=== PATIENT | male | born 1955 | race Caucasian/White ===

== ENCOUNTER → 2020-03-24 09:19 | Outpatient (BNVA) | payer MEDICARE, MEDICAID, SELFPAY | PROVIDERS: PCP Internal Medicine; Visit Provider Internal Medicine Gastroenterology | DX: Z13.89 Encounter for screening for other disorder (principal) | CPT/HCPCS: Q3014 ==

== ENCOUNTER → 2020-06-23 08:17 | Outpatient (BNVA) | payer MEDICARE, MEDICAID, SELFPAY | PROVIDERS: PCP Internal Medicine; Visit Provider Internal Medicine Gastroenterology | DX: E11.9 Type 2 diabetes mellitus without complications (principal); K74.60 Unspecified cirrhosis of liver; K21.9 Gastro-esophageal reflux disease without esophagitis; B19.20 Unspecified viral hepatitis C without hepatic coma; Z79.01 Long term (current) use of anticoagulants | CPT/HCPCS: Q3014 ==

== ENCOUNTER 2020-07-05 08:29 | Outpatient (REF) | payer MEDICARE, MEDICAID, SELFPAY ==
--- NOTE | ~2020-07-05 | US_ITS ---
EXAMINATION: US ABDOMEN COMPLETE CLINICAL INFORMATION: Cirrhosis. Screening for hepatocellular carcinoma. COMPARISON: Multiple priors, most recent abdominal ultrasound dated 09/29/2019 TECHNIQUE: Real-time imaging of the abdominal viscera. FINDINGS: PANCREAS: The visualized pancreatic head and body are unremarkable. The tail is obscured by overlying bowel gas. ABDOMINAL AORTA: The proximal, mid, and distal segments are normal in caliber. INFERIOR VENA CAVA: Visualized portions are normal. LIVER: Nodular hepatic contour with coarse echogenicity, consistent with cirrhosis. The liver is normal in size. Hepatopedal flow within the main portal vein. No focal hepatic lesion. There is no intrahepatic biliary duct dilatation seen. GALLBLADDER: Partially contracted with mild wall prominence, likely due to underdistention. Nonmobile gallbladder wall polyp versus stone measuring up to 0.2 cm, not seen on the prior examination. No pericholecystic free fluid to suggest acute cholecystitis. COMMON BILE DUCT: Normal in caliber measuring 0.5 cm in diameter. RIGHT KIDNEY: Lower pole simple cyst measuring up to 1.2 cm, unchanged. No hydronephrosis. No renal calculi or focal parenchymal lesions. The kidney measures 10.3 cm in maximum dimension. LEFT KIDNEY: Mild lobular contour at the midpole. No hydronephrosis. No renal calculi or focal parenchymal lesions. The kidney measures 10.3 cm in maximum dimension. SPLEEN: Normal. The spleen measures 12.4 cm in maximum dimension. FREE FLUID: None. US/US abdomen complete IMPRESSION: 1. Nodular hepatic contour with coarsened echogenicity, consistent with cirrhosis. No new hepatic parenchymal lesion or biliary ductal dilatation. 2. Nonmobile gallbladder stone versus polyp measuring 0.2 cm, not seen on the prior examination. No pericholecystic free fluid to suggest acute cholecystitis. 3. Additional chronic findings are unchanged.
== END 2020-07-05 08:30 | disposition home or self-care (01) ==
LOC: HO.US 08:29
PROVIDERS: PCP Nurse Practitioner Primary Care; Visit Provider Internal Medicine Gastroenterology
DX: K74.60 Unspecified cirrhosis of liver (principal)
CPT/HCPCS: 76700

== ENCOUNTER → 2020-07-14 12:44 | Outpatient (BNVA) | payer MEDICARE, MEDICAID, SELFPAY | PROVIDERS: PCP Nurse Practitioner Primary Care; Visit Provider Internal Medicine Gastroenterology | DX: Z13.89 Encounter for screening for other disorder (principal) | CPT/HCPCS: Q3014 ==

== ENCOUNTER → 2020-11-17 11:33 | Outpatient (BNVA) | payer MEDICARE, MEDICAID, SELFPAY | PROVIDERS: PCP Nurse Practitioner Primary Care; Visit Provider Internal Medicine Gastroenterology | CPT/HCPCS: Q3014 ==

== ENCOUNTER 2020-12-27 08:25 | Outpatient (REF) | payer MEDICARE, MEDICAID, SELFPAY ==
--- NOTE | ~2020-12-27 | US_ITS ---
EXAMINATION: US ABDOMEN LIMITED CLINICAL INFORMATION: Cirrhosis. Screen for HCC. Followup gallbladder polyp. COMPARISON: Ultrasound abdomen complete 07/05/2020 and 01/01/2019. CT abdomen and pelvis 07/24/2018. TECHNIQUE: Real-time imaging of the right upper quadrant abdominal viscera. FINDINGS: PANCREAS: The liver is homogeneous in echotexture and normal size. Pancreatic duct in the body of the pancreas is 0.2 cm within normal limits. LIVER: There is a lobulated echogenic liver. There are 2 masses seen. A left hepatic lobe lesion measures 2.4 x 2.2 x 2.2 cm. It is solid peripherally and cystic centrally, heterogenous with internal vascularity. A second lesion in the right hepatic lobe measures 5.2 x 3.2 x 5.5 cm. It is solid heterogeneous with internal vascularity. There is no intrahepatic ductal dilatation. GALLBLADDER: There are nonmobile echogenic gallbladder wall polyps. The gallbladder wall is thickened measuring 0.8 cm with echogenic fluid in the wall. No echogenic stones or pericholecystic fluid collection seen. COMMON BILE DUCT: Normal in caliber measuring 0.4 cm in diameter. RIGHT KIDNEY: There is anechoic lesion lower pole with septation measuring 0.2 x 0.8 x 0.7 cm consistent with complex cyst/Bosniak type II. No hydronephrosis or renal calculi. The kidney measures 10.8 cm in maximum dimension. FREE FLUID: None. US/US abdomen limited IMPRESSION: Two hepatic lobe lesions. The right hepatic lobe lesion appears solid. The left hepatic lobe lesion has central cystic changes. Both lesions are heterogeneous and have internal vascularity. They are suspicious for primary or metastatic disease. Correlation with CT liver with and without contrast and delayed images are recommended. Gallbladder wall polyps and mild fluid visualized in the gallbladder wall. Complex cyst lower pole right kidney.
== END 2020-12-27 08:26 | disposition home or self-care (01) ==
LOC: HO.US 08:25
PROVIDERS: Visit Provider Internal Medicine Gastroenterology
DX: K74.60 Unspecified cirrhosis of liver (principal)
CPT/HCPCS: 76705

== ENCOUNTER 2021-01-06 08:28 | Outpatient (REF) | payer MEDICARE, MEDICAID, SELFPAY ==
--- NOTE | ~2021-01-06 | CT_ITS ---
EXAMINATION: CT LIVER THREE-PHASE CLINICAL INFORMATION: Cirrhosis of liver. COMPARISON: CT abdomen and pelvis 07/24/2018 and ultrasound abdomen 12/27/2020. TECHNIQUE: 5 mm thin axial images without contrast of abdomen and pelvis were obtained. Subsequently 85 mL Omnipaque 350 was injected and images through the abdomen through the arterial and venous phase. DLP: 722 mGy-cm FINDINGS: The lung bases are clear. The heart size is normal. There are pacer electrodes visualized. On non-enhanced exam, there is significant lobulated liver contour and diffuse heterogeneity but no focal lesion seen. Postcontrast, there is a partially enhancing round lesion right hepatic lobe measuring 2.6 x 2.6 cm on axial image 59/9. There is a very faintly enhancing lesion seen in the left hepatic lobe measuring 2.3 x 1.9 cm on axial image 29/9. Also visualized are heterogeneous areas of enhancement in the left hepatic lobe, axial image 28/9 and a small 7 mm nodular enhancement, left hepatic lobe adjacent to the diaphragm, axial image 19/9. None of these lesions are appreciated on the venous phase or delayed images. The liver is normal size. The portal vein is widely patent. The hepatic artery and hepatic veins are barely visible and likely small. There is mild ascites with fluid surrounding contracted gallbladder. No radiopaque gallstones visualized. Visualized bilateral adrenal glands and the kidneys are unremarkable. There are small prominent varicose veins at the celiac axis and along the left hepatic lobe. Scattered stool and gas is seen in the colon without any distention. The small bowel loops are normal caliber. Appendix not seen. The abdominal aorta is normal caliber. The IVC is patent. The abdominal wall appears unremarkable. CT/CT liver 3 phase IMPRESSION: 1. Cirrhosis with mild ascites. 2. Enhancing right hepatic lobe measuring 2.6 cm along the free margin. There is a second 2.3 cm lesion along the left hepatic lobe adjacent to the diaphragm. There are several areas of vascular enhancement or stasis visualized on the arterial phase but no focal or discrete mass visualized. These may represent regenerating nodules. They likely represent hepatic adenoma or carcinoma. Correlation with serum alpha fetoprotein is recommended. 3. Contracted gallbladder with fluid surrounding the gallbladder and the right hepatic lobe. 4. The portal vein and the hepatic veins appear patent.
[2021-01-06 08:50] LABS: MANUAL DIFF FLAG NO
[2021-01-06 08:52] LABS: Basophils Percent Auto 0.5 % (0-2); Eosinophils Absolute Auto 0.3 X10*3/uL (0.0-0.4); Eosinophils Percent Auto 4.7 % (0-4); Hematocrit 30.8 % (42-52); Hemoglobin 9.8 g/dl (14.0-18.0); Imm Gran Abs Auto 0.01 X10*3/uL (0.00-0.03); Imm Gran Pct Auto 0.2 % (0.0-0.4); Lymphocytes Absolute Auto 1.4 X10*3/uL (1.2-4.9); Lymphocytes Percent Auto 26.2 % (20-40); Mean Corpuscular HGB Conc 31.8 g/dl (31.0-36.0); Mean Corpuscular Hemoglobin 26.3 pg (27.0-33.0); Mean Corpuscular Volume 82.8 fL (80-98); Mean Platelet Volume 9.9 fL (9.4-12.4); Monocytes Absolute Auto 0.6 X10*3/uL (0.1-1.2); Monocytes Percent Auto 11.1 % (2-11); Neutrophils Absolute Auto 3.1 X10*3/uL (2.0-8.3); Neutrophils Percent Auto 57.3 % (45-73); Platelet Count 141 X10*3/uL (160-400); Red Blood Count 3.72 X10*6/uL (4.60-5.80); Red Cell Distribution Width 17.5 % (11.0-16.0); White Blood Count 5.5 X10*3/uL (4.8-10.8)
[2021-01-06 08:58] LABS: INTERNATIONAL NORM RATIO 1.6 (0.9-1.1); Prothrombin Time 18.9 SEC (9.9-13.0)
[2021-01-06 09:08] LABS: Blood Urea Nitrogen 11 mg/dL (9-16); Estimated Glomerular Filt Rate > 60
[2021-01-06 09:30] LABS: Vitamin D 25-OH Total 27.1 ng/mL (>30)
[2021-01-06 09:41] LABS: Vitamin B12 > 2000 pg/mL (200-900)
[2021-01-06] MEDS: iohexoL 350 MG/ML 100 ML INFUS..BTL IV (11:48)
== END 2021-01-06 08:29 | disposition home or self-care (01) ==
LOC: HO.CT 08:28
PROVIDERS: Visit Provider Internal Medicine Gastroenterology
DX: K74.60 Unspecified cirrhosis of liver (principal); K21.9 Gastro-esophageal reflux disease without esophagitis; R93.5 Abnormal findings on diagnostic imaging of other abdominal regions, including retroperitoneum
CPT/HCPCS: 36415; 74170; 82105; 82306; 82565; 82607; 84520; 85025; 85610; Q9967

== ENCOUNTER 2021-01-09 11:25 | Outpatient (REF) | payer MEDICARE, MEDICAID, SELFPAY ==
[2021-01-09 11:46] LABS: MANUAL DIFF FLAG NO
[2021-01-09 12:56] LABS: Basophils Percent Auto 0.5 % (0-2); Eosinophils Absolute Auto 0.3 X10*3/uL (0.0-0.4); Eosinophils Percent Auto 4.7 % (0-4); Hematocrit 30.2 % (42-52); Hemoglobin 9.6 g/dl (14.0-18.0); Imm Gran Abs Auto 0.02 X10*3/uL (0.00-0.03); Imm Gran Pct Auto 0.3 % (0.0-0.4); Lymphocytes Absolute Auto 1.6 X10*3/uL (1.2-4.9); Lymphocytes Percent Auto 25.4 % (20-40); Mean Corpuscular HGB Conc 31.8 g/dl (31.0-36.0); Mean Corpuscular Hemoglobin 26.2 pg (27.0-33.0); Mean Corpuscular Volume 82.5 fL (80-98); Mean Platelet Volume 11.2 fL (9.4-12.4); Monocytes Absolute Auto 0.7 X10*3/uL (0.1-1.2); Monocytes Percent Auto 11.5 % (2-11); Neutrophils Absolute Auto 3.5 X10*3/uL (2.0-8.3); Neutrophils Percent Auto 57.6 % (45-73); Platelet Count 155 X10*3/uL (160-400); Red Blood Count 3.66 X10*6/uL (4.60-5.80); Red Cell Distribution Width 17.2 % (11.0-16.0); White Blood Count 6.2 X10*3/uL (4.8-10.8)
[2021-01-09 13:27] LABS: Alanine Aminotransferase 36 U/L (0-40); Albumin Level 3.4 g/dL (3.5-5.0); Alkaline Phosphatase 311 U/L (39-117); Anion Gap 11 (12-20); Aspartate Amino Transferase 44 U/L (5-37); Blood Urea Nitrogen 12 mg/dL (9-16); Calcium 8.9 mg/dL (8.4-10.2); Carbon Dioxide 24 mmol/L (22-29); Chloride 109 mmol/L (96-108); Estimated Glomerular Filt Rate > 60; Glucose Random 79 mg/dL (60-115); Iron 32 mcg/dL (45-160); Percent Iron Saturation 8 % (15-50); Potassium 3.7 mmol/L (3.3-5.1); Sodium 140 mmol/L (135-145); Total Iron Binding Capacity 380 mcg/dL (228-428); Total Protein 7.7 g/dL (6.5-8.0); Unsaturated Iron Binding 348 ug/dL
[2021-01-09 13:36] LABS: Ferritin 17 ng/mL (20-250)
== END 2021-01-09 11:26 | disposition home or self-care (01) ==
LOC: HO.LAB 11:25
PROVIDERS: Visit Provider Internal Medicine Gastroenterology
DX: K74.60 Unspecified cirrhosis of liver (principal); D64.9 Anemia, unspecified
CPT/HCPCS: 36415; 80053; 82728; 83540; 85025

== ENCOUNTER → 2021-02-16 10:22 | Outpatient (BNVA) | payer MEDICARE, MEDICAID, SELFPAY | PROVIDERS: Referring Provider Nurse Practitioner Primary Care; Visit Provider Internal Medicine Gastroenterology | DX: K21.9 Gastro-esophageal reflux disease without esophagitis (principal); K74.60 Unspecified cirrhosis of liver; R93.2 Abnormal findings on diagnostic imaging of liver and biliary tract; B19.20 Unspecified viral hepatitis C without hepatic coma; Z79.01 Long term (current) use of anticoagulants | CPT/HCPCS: 99212 ==

== ENCOUNTER 2021-02-20 11:37 | Outpatient (REF) | payer MEDICARE, MEDICAID, SELFPAY ==
[2021-02-20 12:03] LABS: MANUAL DIFF FLAG NO
[2021-02-20 12:50] LABS: Basophils Percent Auto 0.5 % (0-2); Eosinophils Absolute Auto 0.1 X10*3/uL (0.0-0.4); Eosinophils Percent Auto 1.6 % (0-4); Hematocrit 30.5 % (42.0-52.0); Hemoglobin 9.5 g/dl (14.0-18.0); Imm Gran Abs Auto 0.03 X10*3/uL (0.00-0.03); Imm Gran Pct Auto 0.5 % (0.0-0.4); Lymphocytes Absolute Auto 1.3 X10*3/uL (1.2-4.9); Lymphocytes Percent Auto 19.9 % (20-40); Mean Corpuscular HGB Conc 31.1 g/dl (31.0-36.0); Mean Corpuscular Hemoglobin 25.3 pg (27.0-33.0); Mean Corpuscular Volume 81.1 fL (80.0-98.0); Mean Platelet Volume 10.5 fL (9.4-12.4); Monocytes Absolute Auto 0.6 X10*3/uL (0.1-1.2); Monocytes Percent Auto 9.1 % (2-11); Neutrophils Absolute Auto 4.3 x10*3/uL (2.0-8.3); Neutrophils Percent Auto 68.4 % (45-73); Platelet Count 152 X10*3/uL (160-400); Red Blood Count 3.76 X10*6/uL (4.60-5.80); Red Cell Distribution Width 19.4 % (11.0-16.0); White Blood Count 6.3 X10*3/uL (4.8-10.8)
[2021-02-20 13:15] LABS: Anion Gap 13 (12-20); Blood Urea Nitrogen 11 mg/dL (9-16); Calcium 8.8 mg/dL (8.4-10.2); Carbon Dioxide 23 mmol/L (22-29); Chloride 107 mmol/L (96-108); Estimated Glomerular Filt Rate > 60; Glucose Random 107 mg/dL (60-115); Potassium 3.7 mmol/L (3.3-5.1); Sodium 139 mmol/L (135-145)
[2021-02-23 11:51] LABS: Alpha Fetoprotein 40.7 ng/mL (<6.1)
== END 2021-02-20 11:38 | disposition home or self-care (01) ==
LOC: HO.LAB 11:37
PROVIDERS: Visit Provider Internal Medicine Gastroenterology
DX: K74.60 Unspecified cirrhosis of liver (principal)
CPT/HCPCS: 36415; 80048; 82105; 85025

== ENCOUNTER 2021-03-07 09:47 | Outpatient (RCR) | payer MEDICARE, MEDICAID, SELFPAY ==
[2021-03-07 09:54] VITALS: BP 140/63; PULSE 94; RESP 16; TEMP 36.7; O2SAT 98; BMI 26.9
--- NOTE | 2021-03-07 10:19 | P.CNHO_ITS ---
Subjective - Subjective Chief complaint: Consult for: Liver mass. Patient: new to practice Consult date: 03/07/21 Requesting Physician: Armen. Medical Summary: DIAGNOSIS: LIVER MASS. HPI - Consult Narrative Reason for consult: consult for: Liver mass. Narrative: Ashok Motta is a pleasant 65 year old gentleman, HERE FOR CONSULTATION REGARDING QUESTION OF HCC. 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 Meld score is 8. Hepatitis serologies revealed immunity to hepatitis B and negative hepatitis A antibody (Ig G) Patient was treated for hepatitis C in 2017 with Epclusa and follow-up viral load was negative. No ascites noted on past abdominal ultrasound. Mildly prominent splenic and gastric veins seen on CT scan in July 2018. EGD in 2018 did not reveal any esophageal varices. 12/[address] SCAN showed two lesions in the liver suspicious for HCC. MRI cannot be done since pt has a pacemaker. Pt will be scheduled for an abdominal ultrasound for HCC surveillance and scheduled for follow-up appointment 1-2 weeks after abdominal ultrasound. PAST MEDICAL HISTORY: 1. Essential hypertension, 2. Type 2 diabetes mellitus without complication, without long-term current use of insulin, 3. Chronic hepatitis, 4. Asthma, 5. Hypercholesteremia, 6. Paroxysmal atrial fibrillation, 7. Pacemaker. HCC SURVEILLANCE: the patient is at risk of developing hepatocellular carcinoma given the presence of cirrhosis. Pt was referred to [facility] for a 2nd opinion and appointment was scheduled on 01/25/21. Pt was unable to go since his ride was cancelled at the last minute. Pt prefers to be treated locally and is willing to go to [facility] for a one or two appointments and would like to avoid regular FUs there. He is inclined to take a conservative approach if presence of HCC is confirmed I will check repeat AFP and refer to [facility] Oncology clinic for a 2nd opinion. SURVEILLANCE FOR GASTROESOPHAGEAL VARICES: EGD in 11/2017 did not reveal any varices. QUESTION OF LIVER TRANSPLANTATION: Pt has good hepatic synthetic function with meld score of 13, option for liver transplantation was discussed with the patie nt (Given suspected HCC) and patient is not interested in pursuing a liver transplant. ROS: He does feel rather fatigued. No fever nor chills. Appetite is low. Weight is stable. Denies headache no dizziness. Denies chest pain. He has history of asthma and so gets short of breath. He is unable to walk more than 5 minutes. He complains of epigastric pain and dyspepsia. The pain radiates into the left flank. In addition he has right groin pain. He feels the swelling there. Likely to be a hernia. He has a paraumbilical hernia as well. Denies diarrhea no gross blood in the stools. Denies dysuria or hematuria. He has joint pains involving his elbows and knees. Denies any focal weakness. He does have depression. Denies skin rashes or pruritus. FAMILY HISTORY: He has heart problems in the family. No known malignancy. 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 He is . He has 1 child. He is now smoking 4-6 cigarettes a day. Denies alcohol. He used to use IV drugs. He now smokes marijuana. Review of Systems - Constitutional Reports no additional constitutional complaints, Reports fatigue, Reports lack of energy, Reports poor appetite, Reports weight loss - Eyes Reports no additional eye complaints - ENT Reports no additional ear, nose, mouth, and throat complaints - Cardiovascular Reports no additional cardiovascular complaints - Respiratory Reports no additional respiratory complaints - Gastrointestinal Reports no additional gastrointestinal complaints, Reports abdominal pain, Reports bloating, Reports change in bowel habits, Reports feeling full early, Reports dyspepsia, Reports heartburn - Genitourinary Genitourinary: Reports no additional male genitourinary complaints - Musculoskeletal Reports no additional musculoskeletal complaints - Integumentary/Breasts Skin/Breast: Reports no additional skin complaints - Neurologic Reports no additional neurologic complaints - Psychiatric Reports no additional psychiatric complaints - Endocrine Reports no additional endocrine complaints - Hematologic/Lymphatic Reports no additional hematologic/lymphatic complaints - Allergic/Immunologic Reports no additional allergic/immunologic complaints Oncology Screenings - ECOG Performance Status ECOG Performance Status: 0 [facility] Medical History: Medical History (Last Reviewed 03/07/21 @ 09:57 by Megan Rodriguez) Hx of cardiac pacemaker Functional capacity: independent ambulation Patient : No Family History: Family History (Last Reviewed 03/07/21 @ 09:58 by Megan Rodriguez) Father No problems noted. Mother No problems noted. Sister Hx of skin cancer, basal cell Surgical History: Surgical History (Last Reviewed 03/07/21 @ 09:58 by Megan Rodriguez) H/O colonoscopy Hx of esophagogastroduodenoscopy Onset Date: 11/29/17 Social History: Social History (Last Updated 03/07/21 @ 09:58 by Megna Rodriguez) Living Situation History: Household Members: Spouse Alcohol History: Alcohol intake: former Alcohol History Details: Alcohol intake frequency: does not drink Tobacco History: Patient Tobacco Use Status: Current everyday Tobacco Tobacco use type: Cigarette Substance Use History: Use of substances other than those prescribed or required for medical reasons : Yes Substance Use Type: Marijuana Nutrition Assessment: Patient : No Occupation Assessmet: service: No Current occupational status: disabled Home Medications and Allergies Home Medications Medication Instructions Recorded Confirmed Type amlodipine 10 mg tablet 10 mg PO DAILY 03/24/20 03/07/21 History apixaban 5 mg tablet 5 mg PO BID 03/24/20 03/07/21 History atorvastatin 10 mg tablet 10 mg PO DAILY 03/24/20 03/07/21 History cholecalciferol (vitamin D3) 25 25 mcg PO DAILY 03/24/20 03/07/21 History mcg (1,000 unit) capsule hydrochlorothiazide 25 mg tablet 25 mg PO DAILY 03/24/20 03/07/21 History lisinopril 40 mg tablet 40 mg PO DAILY 03/24/20 03/07/21 History metoprolol tartrate 25 mg tablet 25 mg PO BID 03/24/20 03/07/21 History albuterol sulfate 90 mcg/actuation 1 - 2 puff INHALATION Q6H PRN 07/14/20 03/07/21 History aerosol inhaler umeclidinium 62.5 mcg/actuation 1 inh INHALATION DAILY 02/16/21 03/07/21 History blister powder for inhalation (Incruse Ellipta) Allergies Allergy/AdvReac Type Severity Reaction Status Date / Time none Allergy Unknown none Uncoded 03/07/21 09:58 Physical Exam Vital signs: Vital Signs Temp 98.0 F 03/07/21 09:54 Pulse 94 03/07/21 09:54 Resp 16 03/07/21 09:54 BP 140/63 H 03/07/21 09:54 Pulse Ox 98 03/07/21 09:54 Intake & Output 03/06/21 03/07/21 03/07/21 18:59 06:59 18:59 Other: Weight 75.6 kg Weight in Grams 35064 Weight 75.6 kg - Constitutional Present: mild distress - Routine HEENT Exam Head: Present: normal inspection ENT: Present: mucous membranes moist - Routine Neck Exam Present: supple - Routine Respiratory Exam Present: CTAB - Routine Cardiovascular Exam Cardiovascular: Present: RRR, S1, S2 - Routine Abdominal Exam Present: distended, hernia, tenderness - Routine Skin Exam Present: intact - Routine Neurological Exam Present: alert, oriented X3 - Detailed Neurological Exam: Coma Scale Eye Opening: Spontaneous (4) Verbal Response: Oriented (5) - Routine Psychiatric Exam Present: depressed Hem/Onc Consult Result - Labs CBC & Chem 7: 03/07/21 10:44 03/07/21 10:44 Assessment and Plan Patient Active problem list reviewed?: Yes (1) Liver mass Status: Acute Assessment and plan: This is a pleasant 65-year-old gentleman with history of hepatitis-C, liver cirrhosis, now presents with a couple of liver masses. Differential diagnosis: 1. Hepatocellular carcinoma. 2. Hepatic adenoma. AFP is elevated at 40. HCC is likely. Patient is unable to have an MRI since he has a pacemaker. PLAN: Will discuss with IR if an FNA is feasible. Talked with Dr. Ascencio, he said we can go ahead and schedule. If he indeed has HCC. Treatment options would include a TKI versus liver directed therapy. He will return in 2 weeks for a follow-up and to review the pathology results. Will then make further plans. All his questions were answered to his satisfaction. Thank you, Cc: Javed Ayers. - Time Spent With Patient Time Spent with Patient (in minutes): 40
[2021-03-07 10:52] LABS: MANUAL DIFF FLAG NO
[2021-03-07 10:58] LABS: Basophils Percent Auto 0.6 % (0-2); Eosinophils Absolute Auto 0.1 X10*3/uL (0.0-0.4); Eosinophils Percent Auto 2.4 % (0-4); Hematocrit 30.1 % (42.0-52.0); Hemoglobin 9.5 g/dl (14.0-18.0); Imm Gran Abs Auto 0.02 X10*3/uL (0.00-0.03); Imm Gran Pct Auto 0.4 % (0.0-0.4); Lymphocytes Absolute Auto 0.9 X10*3/uL (1.2-4.9); Lymphocytes Percent Auto 16.4 % (20-40); Mean Corpuscular HGB Conc 31.6 g/dl (31.0-36.0); Mean Corpuscular Volume 79.2 fL (80.0-98.0); Mean Platelet Volume 10.8 fL (9.4-12.4); Monocytes Absolute Auto 0.5 X10*3/uL (0.1-1.2); Monocytes Percent Auto 9.1 % (2-11); Neutrophils Absolute Auto 3.8 x10*3/uL (2.0-8.3); Neutrophils Percent Auto 71.1 % (45-73); Platelet Count 190 X10*3/uL (160-400); Red Cell Distribution Width 20.2 % (11.0-16.0); White Blood Count 5.4 X10*3/uL (4.8-10.8)
[2021-03-07 11:06] LABS: INTERNATIONAL NORM RATIO 1.7 (0.9-1.1); Prothrombin Time 19.8 SEC (9.9-13.0)
[2021-03-07 11:42] LABS: Alanine Aminotransferase 38 U/L (0-40); Albumin Level 3.1 g/dL (3.5-5.0); Alkaline Phosphatase 404 U/L (39-117); Anion Gap 11 (12-20); Aspartate Amino Transferase 63 U/L (5-37); Bilirubin Total 0.8 mg/dL (0.0-1.0); Blood Urea Nitrogen 11 mg/dL (9-16); Calcium 8.6 mg/dL (8.4-10.2); Carbon Dioxide 24 mmol/L (22-29); Chloride 107 mmol/L (96-108); Creatinine Clr Calc Pharmacy 69.2; Estimated Glomerular Filt Rate > 60; Glucose Random 115 mg/dL (60-115); Potassium 3.5 mmol/L (3.3-5.1); Sodium 138 mmol/L (135-145); Total Protein 7.5 g/dL (6.5-8.0)
--- NOTE | 2021-03-07 16:17 | MHC.HEMONC ---
Received call from [facility] pharmacy stating Vit K injectable not available at pharmacy nor is it covered by pt's insurance. Dr Cabrera notified.
--- NOTE | 2021-03-21 15:44 | MHC.HEMONC ---
Patient did not arrive for scheduled follow up. Several attempts made to contact patient were unsuccessful (busy signal). Unable to reschedule.
== END 2021-03-31 | disposition home or self-care (01) ==
LOC: HO.ONC 09:47
PROVIDERS: Referring Provider Internal Medicine Gastroenterology; Visit Provider Internal Medicine Medical Oncology
DX: R16.0 Hepatomegaly, not elsewhere classified (principal); B19.20 Unspecified viral hepatitis C without hepatic coma; K74.60 Unspecified cirrhosis of liver; Z95.0 Presence of cardiac pacemaker
CPT/HCPCS: 36415; 80053; 82105; 85025; 85610; 99204

== ENCOUNTER 2021-03-16 00:38 | Inpatient (IN) | payer MEDICARE, MEDICAID, SELFPAY ==
[2021-03-16] VITALS (29 sets, daily range): BP systolic 81–144; BP diastolic 37–119; PULSE 43–119; RESP 12–28; TEMP 36.1–38; O2SAT 95–100; BMI 27.5; BMI 27.8
--- NOTE | ~2021-03-16 | US_ITS ---
EXAMINATION: ULTRASOUND-GUIDED PARACENTESIS CLINICAL INFORMATION: Cirrhosis. Tense ascites. Abdominal distention. COMPARISON: December 27, 2020 TECHNIQUE: Ultrasound-guided paracentesis. FINDINGS: Informed consent was obtained from the patient prior to the procedure. During this process, the procedure and potential alternatives were explained, along with the intended outcome and benefits. The risks of the procedure, as well as the risk of not doing the procedure, were discussed. The patient was given the opportunity to ask questions regarding the procedure and appeared competent to make medical decisions. A signed consent form which documents this discussion was placed in the medical record. Using sterile technique and ultrasound guidance left-sided puncture of the peritoneal cavity was performed with a 5 German Yueh needle. A total of 5.5 L of fluid was drained. The fluid was clear and yellow. Procedure was performed portably at bedside. Fluid was sent for laboratory studies. US/US paracentesis abd w/image IMPRESSION: Paracentesis with removal of 5.5 L of fluid.
--- NOTE | ~2021-03-16 | US_ITS ---
EXAMINATION: ULTRASOUND ABDOMEN DUPLEX ARTERIAL AND VENOUS CLINICAL INFORMATION: Cirrhosis, can't ascites, liver masses. Assess vascular structures. COMPARISON: CT scan of the abdomen dated 03/16/2021, abdominal ultrasound dated 12/27/2020. TECHNIQUE: Multiple 2-D grayscale and duplex Doppler ultrasound images of the abdomen were obtained. FINDINGS: Portal veins: No venous flow detected in the main, right and left portal veins. Hepatic arteries: Normal antegrade arterial waveforms in the common, right and left hepatic arteries. Hepatic veins: Normal venous waveforms and direction of flow. Inferior vena cava: Normal venous waveforms and direction of flow. Splenic vein: Patent with normal direction of flow. Liver: Cirrhosis without focal abnormality. Mild perihepatic ascites. Spleen: 14.6 cm without focal abnormality. US/US duplex arterial venous comp IMPRESSION: 1. Portal vein thrombosis with no detectable waveforms. 2. Hepatic cirrhosis without focal abnormality. 3. Borderline splenomegaly. 4. Mild peritoneal ascites.
--- NOTE | ~2021-03-16 | US_ITS ---
EXAMINATION: ULTRASOUND-GUIDED PARACENTESIS CLINICAL INFORMATION: Ascites COMPARISON: Previous CT 03/16/2021 percent guided paracentesis 03/18/2021 TECHNIQUE: Procedure and risks and benefits including bleeding, infection and low blood pressure were discussed with the patient and informed consent was obtained. The left lower quadrant was prepped and draped in the usual sterile fashion. The skin and soft tissues were anesthetized with lidocaine plain. Using ultrasound guidance and a 5 Icelandic rapid catheter, access to the ascitic fluid was obtained. 4.8 L of bloody fluid was removed. No diagnostic specimen was sent. FINDINGS: There is a large amount of ascites. US/US paracentesis abd w/image IMPRESSION: Ultrasound-guided paracentesis.
--- NOTE | ~2021-03-16 | CT_ITS ---
EXAMINATION: CT ABDOMEN AND PELVIS WITHOUT CONTRAST CLINICAL INFORMATION: Potentially, abdominal pain, anemia COMPARISON: 01/06/2021 TECHNIQUE: Multidetector volumetric imaging was performed from the superior aspect of the liver through the pubic symphysis. Sagittal and coronal reformatted images were obtained on the technologist's workstation. This CT examination was performed using dose optimization techniques as appropriate, variously including the following: *Automated exposure control *Adjustment of mA and/or kV according to patient size (this includes techniques or standardized protocols for targeted exams where dose is matched to indication/reason for exam; i.e. extremities or head) *Use of iterative reconstruction technique DLP: 601 mGy-cm FINDINGS: LUNG BASES: Streaky bibasilar opacities favor atelectasis. LIVER, GALLBLADDER, AND BILIARY TREE: The liver demonstrates a nodular contour suspicious for cirrhosis. Focal lesions identified on 01/06/2021 are not adequately delineated on this noncontrast exam. No intrahepatic biliary ductal dilatation. The gallbladder is not well delineated. PANCREAS: Unremarkable. SPLEEN: Unremarkable. ADRENAL GLANDS: Asymmetrically thickened appearance of the left adrenal gland is noted, similar to prior. Right adrenal gland appears unremarkable. KIDNEYS AND URETERS: The kidneys are normal in size, shape, and attenuation. No hydronephrosis, hydroureter, or calculi seen. No perinephric stranding. BLADDER: Unremarkable. GASTROINTESTINAL TRACT: No evidence of bowel obstruction. No significant bowel wall thickening is seen, though assessment of some segments of the colon is limited due to luminal collapse. There is a large volume of ascites. No free air is seen. ABDOMINAL WALL: Small supraumbilical ventral hernia containing fluid. Right inguinal hernia also noted containing fluid. LYMPH NODES: There is an enlarged lymph node measuring 2.1 cm in short axis dimension between the portal vein and inferior vena cava, increased from prior. Additional mildly prominent scattered lymph nodes are seen in the retroperitoneum. VASCULAR: There is atherosclerotic calcification along the aorta and iliac arteries. PELVIC VISCERA: Unremarkable. OSSEOUS STRUCTURES: Unremarkable. CT/CT abdomen pelvis wo con IMPRESSION: 1. Cirrhosis with large volume ascites, significantly increased from 01/06/2021. 2. Focal liver lesions identified on 01/06/2021 are not adequately delineated on this noncontrast exam. 3. Interval increase in size of an enlarged lymph node between the portal vein and inferior vena cava; this is nonspecific and could be benign or malignant in nature. Scattered mild adenopathy noted throughout the retroperitoneum. Fleischner guidelines were followed.
--- NOTE | ~2021-03-16 | CT_ITS ---
EXAMINATION: CT ABDOMEN AND PELVIS WITHOUT CONTRAST CLINICAL INFORMATION: Abdominal pain COMPARISON: CT abdomen pelvis 03/16/2021 TECHNIQUE: Multidetector volumetric imaging was performed from the superior aspect of the liver through the pubic symphysis. Sagittal and coronal reformatted images were obtained on the technologist's workstation. This CT examination was performed using dose optimization techniques as appropriate, variously including the following: *Automated exposure control *Adjustment of mA and/or kV according to patient size (this includes techniques or standardized protocols for targeted exams where dose is matched to indication/reason for exam; i.e. extremities or head) *Use of iterative reconstruction technique DLP: 610 mGy-cm FINDINGS: LUNG BASES: Bibasilar atelectasis is present significantly increased since prior. A bipolar pacemaker is present. LIVER, GALLBLADDER, AND BILIARY TREE: A large amount of ascites is present increased when compared to the prior study. The liver remains small and nodular consistent with cirrhosis. There is a question of a 2.2 cm area of hypoattenuation in the liver which could represent a focal liver mass. Focal masses were better seen on prior film exams ultrasound exams -more than one was identified. Dynamic liver MRI would be the exam of choice for further evaluation. No bile duct dilatation. The gallbladder is difficult to evaluate because of surrounding fluid but is probably unremarkable with no evidence of radiopaque gallstones, gallbladder wall thickening, or obvious pericholecystic inflammatory changes. PANCREAS: Unremarkable. SPLEEN: Spleen mildly enlarged measuring 13 cm in greatest length ADRENAL GLANDS: Unremarkable. KIDNEYS AND URETERS: The kidneys are normal in size, shape, and attenuation. No hydronephrosis, hydroureter, or calculi seen. No perinephric stranding. BLADDER: Unremarkable. GASTROINTESTINAL TRACT: There is gaseous distention of the colon from the splenic flexure backwards. The descending colon and rectosigmoid are nondilated. The small bowel is unremarkable. The appendix is is not seen with certainty but there is no evidence of appendicitis.. ABDOMINAL WALL: Right inguinal hernia containing fluid. LYMPH NODES: The enlarged lymph node previously seen between the portal vein and IVC remains present and unchanged at 2.1 cm. No other retroperitoneal lymphadenopathy. VASCULAR: Calcific plaquing present in the aorta and iliofemoral vessels without aneurysm. PELVIC VISCERA: Prostate and seminal vesicles appear normal. A right indirect inguinal hernias present with ascitic fluid extending down canal. OSSEOUS STRUCTURES: Unremarkable. CT/CT abdomen pelvis wo con IMPRESSION: 1. Cirrhotic liver with masses not well characterized. Further evaluation with dynamic liver MRI would be the exam of choice for further evaluation. 2. A large amount of ascites is present, increased since prior. 3. Increased gaseous distention of colon without definite obstruction. 4. Stable enlarged portacaval lymph node. Fleischner guidelines were followed.
--- NOTE | ~2021-03-16 | XR_ITS ---
EXAMINATION: XR CHEST CLINICAL INFORMATION: Weak COMPARISON: 12/04/2007 TECHNIQUE: Frontal view of the chest was obtained. FINDINGS: Left-sided pacemaker lead tips overlie the right atrium and right ventricle. Lung volumes are symmetric. Mild bibasilar opacities are noted. No evidence of pneumothorax, pleural effusion, or pulmonary edema. The cardiomediastinal contour is unremarkable. No acute osseous findings are seen. XR/XR chest 1V IMPRESSION: Mild bibasilar opacities, more suggestive of atelectasis.
--- NOTE | 2021-03-16 01:11 | ECG_ITS ---
Test Reason : weakness Blood Pressure : / mmHG Vent. Rate : 087 BPM Atrial Rate : 087 BPM P-R Int : 134 ms QRS Dur : 072 ms QT Int : 418 ms P-R-T Axes : 052 035 043 degrees QTc Int : 502 ms Normal sinus rhythm Prolonged QT Abnormal ECG No previous ECGs available Referred By: Generic ED Physician Electronically Signed By:Fran Lopez
[2021-03-16 01:17] LABS: MANUAL DIFF FLAG NO
[2021-03-16 01:18] LABS: Basophils Percent Auto 0.2 % (0-2); Eosinophils Absolute Auto 0.1 X10*3/uL (0.0-0.4); Eosinophils Percent Auto 0.7 % (0-4); Imm Gran Abs Auto 0.13 X10*3/uL (0.00-0.03); Imm Gran Pct Auto 1.1 % (0.0-0.4); Mean Corpuscular HGB Conc 31.9 g/dl (31.0-36.0); Mean Corpuscular Hemoglobin 25.8 pg (27.0-33.0); Mean Corpuscular Volume 80.9 fL (80.0-98.0); Mean Platelet Volume 10.6 fL (9.4-12.4); Monocytes Absolute Auto 1.4 X10*3/uL (0.1-1.2); Monocytes Percent Auto 11.7 % (2-11); Neutrophils Absolute Auto 7.4 x10*3/uL (2.0-8.3); Neutrophils Percent Auto 61.3 % (45-73); Platelet Count 252 X10*3/uL (160-400); Red Blood Count 2.36 X10*6/uL (4.60-5.80); Red Cell Distribution Width 21.4 % (11.0-16.0)
--- NOTE | 2021-03-16 01:19 | PC.NURSE ---
MD Pollock notified of pt vital signs. Pt remains awake and able to follow commands. Attached to all monitoring, basic labs sent, BP set to cycle Q 20 min, EKG at bedside
[2021-03-16 01:25] LABS: Ammonia 32 umol/L (13-55); Hemoglobin 6.1 g/dl (14.0-18.0)
[2021-03-16 01:26] LABS: Hematocrit 19.1 % (42.0-52.0)
[2021-03-16 01:35] LABS: Alanine Aminotransferase 91 U/L (0-40); Albumin Level 2.7 g/dL (3.5-5.0); Alkaline Phosphatase 287 U/L (39-117); Anion Gap 18 (12-20); Aspartate Amino Transferase 167 U/L (5-37); Bilirubin Total 1.4 mg/dL (0.0-1.0); Blood Urea Nitrogen 34 mg/dL (9-16); Calcium 8.2 mg/dL (8.4-10.2); Carbon Dioxide 14 mmol/L (22-29); Chloride 105 mmol/L (96-108); Creatinine Clr Calc Pharmacy 25.1; Estimated Glomerular Filt Rate 22; Glucose Random 96 mg/dL (60-115); Lipase 34 U/L (8-78); Potassium 4.3 mmol/L (3.3-5.1); Sodium 133 mmol/L (135-145); Total Protein 6.3 g/dL (6.5-8.0)
[2021-03-16] MEDS: 0.9 % Sodium Chloride 1,000 ML 999 ML IV (01:35)
[2021-03-16 01:36] LABS: Glucose, Whole Blood 98 mg/dL (60-115)
[2021-03-16 01:56] LABS: Lactic Acid 6.4 mmol/L (0.5-2.0)
--- NOTE | 2021-03-16 01:59 | PC.NURSE ---
MD again aware of vitals, BL large bore PIVs placed, fluids infusing, pt on monitor.
[2021-03-16] MEDS: fentaNYL citrate/PF 100 MCG/2 ML VIAL 50 MCG IVPUSH ×6 (02:00→22:14)
--- NOTE | 2021-03-16 02:05 | ED_ITS ---
HPI - General Adult General Chief complaint: Weakness Stated complaint: GENERAL WEAKNESS Time Seen by Provider: 03/16/21 01:30 Source: patient Limitations: no limitations History of Present Illness HPI narrative: This is a 65-year-old male with a history of cirrhosis of the liver as well as atrial fibrillation, who complains of abdominal pain and weakness. The patient has had abdominal pain for about 3 weeks. He has had diarrhea for about 2 weeks and then today developed vomiting. He notes that he also has chest pain this evening. He denies any black or bloody stool. He denies headache. Denies any fever or cough. He describes the pain as moderately severe, not worse with movement. He did develop dizziness tonight Related Data Home Medications Medication Instructions Recorded Confirmed amlodipine 10 mg tablet 10 mg PO DAILY 03/24/20 03/07/21 apixaban 5 mg tablet 5 mg PO BID 03/24/20 03/07/21 atorvastatin 10 mg tablet 10 mg PO DAILY 03/24/20 03/07/21 cholecalciferol (vitamin D3) 25 25 mcg PO DAILY 03/24/20 03/07/21 mcg (1,000 unit) capsule hydrochlorothiazide 25 mg tablet 25 mg PO DAILY 03/24/20 03/07/21 lisinopril 40 mg tablet 40 mg PO DAILY 03/24/20 03/07/21 metoprolol tartrate 25 mg tablet 25 mg PO BID 03/24/20 03/07/21 albuterol sulfate 90 mcg/actuation 1 - 2 puff INHALATION Q6H PRN 07/14/20 03/07/21 aerosol inhaler umeclidinium 62.5 mcg/actuation 1 inh INHALATION DAILY 02/16/21 03/07/21 blister powder for inhalation (Incruse Ellipta) Previous Rx's Medication Instructions Recorded phytonadione (vitamin K1) 1 mg/0.5 2.268 mcg (0.0012 mL) PO DAILY #5 03/07/21 mL injection solution (vitamin K) ml Allergies Allergy/AdvReac Type Severity Reaction Status Date / Time No Known Allergies Allergy Verified 03/16/21 05:32 Review of Systems Review of Systems: Yes all other systems are reviewed and are negative Constitutional: Constitutional: Reports as per HPI, Denies fever(s) and Reports weakness Cardiovascular: Cardiovascular: Reports chest pain Respiratory: Respiratory: Denies cough Gastrointestinal: Gastrointestinal: Reports abdominal pain, Reports diarrhea, Reports nausea and Reports vomiting Neurologic: Denies Sensory deficit (Neuro) and Reports weakness PMFSH Past Medical History Medical History (Updated 03/16/21 @ 06:23 by Papo Pollock MD) Hx of cardiac pacemaker Surgical History H/O colonoscopy Hx of esophagogastroduodenoscopy (11/29/17) Family History Family History Father No problems noted. Mother No problems noted. Sister Hx of skin cancer, basal cell Social History Social History (Updated 03/07/21 @ 09:58 by Megan Rodriguez) Household Members: Spouse Alcohol intake: former Patient Tobacco Use Status: Current everyday Tobacco user Tobacco use type: Cigarette Substance Use Type: Marijuana Advance Directives: No Advance Directives Information Provided: Yes service: No Current occupational status: disabled Physical Exam Vital Signs: Vital Signs: Last Vital Signs Temp 97 F 03/16/21 05:45 Pulse 95 03/16/21 05:45 Resp 26 H 03/16/21 05:45 BP 112/55 L 03/16/21 05:45 Pulse Ox 98 03/16/21 04:08 BMI result Body Mass Index 27.5 Const: Other: Patient very pale-appearing, pale-appearing lid conjunctivae General: cooperative, no acute distress and alert Orientation/consciousness: patient oriented x3 HENMT: Head: Yes normal to inspection Eyes: General: appearance normal, both eyes and all related structures Eyelids: Yes eyelids normal Conjunctivae: conjunctivae normal Pupils: Equal, round and reactive pupils present Neck: Neck: Yes normal visual inspection and Yes supple Chest: Chest palpation & inspection: normal inspection of the chest Resp: Effort & Inspection: normal respiratory effort Auscultation: clear to auscultation bilaterally Cardio: Rate: regular rate Rhythm: regular rhythm Heart sounds: S1 normal heart sound present, S2 normal heart sound present, no gallops, no murmurs and no rubs GI: Palpation (GI): Soft to palpation, Tenderness to palpation present (GI) (Moderately tender diffusely, increased tympany to percussion) and Other GI palpation findings present (Non-distended) Auscultation: normal bowel sounds Skin: General skin exam: no rashes or lesions noted Neuro: General: patient oriented x3, no focal motor deficits and CN's II-XI intact bilaterally Cranial nerves: Yes Equal, round and reactive pupils present Cognition (Neuro): normal cognition Motor exam (neuro): 5/5 motor strength present throughout Sensory Exam: No Sensory deficit (Neuro) Extrem: General: Yes normal to inspection and Yes no pedal edema Psych: Appearance: grossly normal Affect: normal affect Procedures Procedure Narrative Procedure Narrative: Ultrasound-guided paracentesis to obtain a sample of ascites fluid in the left lower quadrant was done. Skin was prepped with ChloraPrep and then Betadine. Skin was numbed with 2% lidocaine with epinephrine. A single puncture was made with the 20 gauge needle on a 50 mL syringe and approximately 20 mL of fluid were aspirated and the fluid was frankly bloody, maroon-colored. Fluid was sent for cell count and culture Medical Decision Making MDM Narrative Medical decision making narrative: Patient with abdominal pain for few weeks, with recent vomiting. Patient reported diarrhea and some black stool but notes he was on Pepto-Bismol. Stool heme-negative on exam, not melanotic appearing. Patient appeared pale and had hemoglobin of 6. Patient also became hypotensive and was bolused with normal saline x1 L and transfuse with 2 units of packed red blood cells. Patient's blood pressure did improve. The patient has mildly elevated lipid cell count. Creatinine is acutely elevated consistent with acute kidney injury. Patient also had elevated lactate around 4 initially, which may have been due to his extreme anemia and hypotension. The repeat lactate went up to around 6. The patient had no clear source of sepsis. His ascites fluid was sampled and appeared grossly bloody. This was sent for culture and cell count. The patient is to be admitted to the ICU, Dr. Galloway has accepted. This patient does not appear to be septic, however given the unclear picture we are starting broad-spectrum antibiotics. Critical care time for this life-threatening illness exclusive of all other billable procedures was approximately 75 minutes including initial evaluation of the patient, ordering tests, x-ray interpretation, EKG interpretation, medical consultation, documentation, reevaluation. Lab Data Result diagrams: 03/16/21 01:13 03/16/21 01:13 Labs: Lab Results 03/16/21 03/16/21 03/16/21 Range/Units 01:13 01:13 01:13 WBC 12.0 H (4.8-10.8) X10*3/uL RBC 2.36 L D (4.60-5.80) X10*6/uL Hgb 6.1 L* D (14.0-18.0) g/dl Hct 19.1 L* D (42.0-52.0) % MCV 80.9 (80.0-98.0) fL MCH 25.8 L (27.0-33.0) pg MCHC 31.9 (31.0-36.0) g/dl RDW 21.4 H (11.0-16.0) % Plt Count 252 D (160-400) X10*3/uL MPV 10.6 (9.4-12.4) fL Immature Gran % (Auto) 1.1 H (0.0-0.4) % Neut % (Auto) 61.3 (45-73) % Lymph % (Auto) 25.0 (20-40) % [place] % (Auto) 11.7 H (2-11) % Eos % (Auto) 0.7 (0-4) % Baso % (Auto) 0.2 (0-2) % Lymph # (Auto) 3.0 (1.2-4.9) X10*3/uL [place] # (Auto) 1.4 H (0.1-1.2) X10*3/uL Eos # (Auto) 0.1 (0.0-0.4) X10*3/uL Baso # (Auto) 0.0 (0.0-0.2) X10*3/uL Abs Immat Gran (auto) 0.13 H (0.00-0.03) X10*3/uL Absolute Neuts (auto) 7.4 (2.0-8.3) x10*3/uL Absolute Nucleated RBC 0.000 (0.0-0.012) X10*3/uL Nucleated RBC % (auto) 0.0 (0.0-0.2) /100WBC Sodium 133 L (135-145) mmol/L Potassium 4.3 D (3.3-5.1) mmol/L Chloride 105 (96-108) mmol/L Carbon Dioxide 14 L (22-29) mmol/L Anion Gap 18 (12-20) BUN 34 H D (9-16) mg/dL Creatinine 2.87 H (0.5-1.4) mg/dL Estim Creat Clear Calc 25.1 Estimated GFR 22 POC Glucose (60-115) mg/dL Random Glucose 96 (60-115) mg/dL Lactic Acid (0.5-2.0) mmol/L Lactic Acid F/U @ 2Hr (0.5-2.0) mmol/L Calcium 8.2 L (8.4-10.2) mg/dL Total Bilirubin 1.4 H (0.0-1.0) mg/dL AST 167 H (5-37) U/L ALT 91 H (0-40) U/L Alkaline Phosphatase 287 H D (39-117) U/L Ammonia 32 (13-55) umol/L Troponin I High Sens (<3.5-35.0) ng/L Total Protein 6.3 L (6.5-8.0) g/dL Albumin 2.7 L (3.5-5.0) g/dL Lipase 34 (8-78) U/L Peritoneal WBC X10*3/uL Peritoneal RBC X10*6/uL Stool Occult Blood (NEGATIVE) COVID-19 ([facility]IREE) (Negative) COVID-19 Clin Com Blood Type Antibody Screen Crossmatch 03/16/21 03/16/21 03/16/21 Range/Units 01:13 01:32 01:33 WBC (4.8-10.8) X10*3/uL RBC (4.60-5.80) X10*6/uL Hgb (14.0-18.0) g/dl Hct (42.0-52.0) % MCV (80.0-98.0) fL MCH (27.0-33.0) pg MCHC (31.0-36.0) g/dl RDW (11.0-16.0) % Plt Count (160-400) X10*3/uL MPV (9.4-12.4) fL Immature Gran % (Auto) (0.0-0.4) % Neut % (Auto) (45-73) % Lymph % (Auto) (20-40) % [place] % (Auto) (2-11) % Eos % (Auto) (0-4) % Baso % (Auto) (0-2) % Lymph # (Auto) (1.2-4.9) X10*3/uL [place] # (Auto) (0.1-1.2) X10*3/uL Eos # (Auto) (0.0-0.4) X10*3/uL Baso # (Auto) (0.0-0.2) X10*3/uL Abs Immat Gran (auto) (0.00-0.03) X10*3/uL Absolute Neuts (auto) (2.0-8.3) x10*3/uL Absolute Nucleated RBC (0.0-0.012) X10*3/uL Nucleated RBC % (auto) (0.0-0.2) /100WBC Sodium (135-145) mmol/L Potassium (3.3-5.1) mmol/L Chloride (96-108) mmol/L Carbon Dioxide (22-29) mmol/L Anion Gap (12-20) BUN (9-16) mg/dL Creatinine (0.5-1.4) mg/dL Estim Creat Clear Calc Estimated GFR POC Glucose 98 (60-115) mg/dL Random Glucose (60-115) mg/dL Lactic Acid 6.4 H* (0.5-2.0) mmol/L Lactic Acid F/U @ 2Hr (0.5-2.0) mmol/L Calcium (8.4-10.2) mg/dL Total Bilirubin (0.0-1.0) mg/dL AST (5-37) U/L ALT (0-40) U/L Alkaline Phosphatase (39-117) U/L Ammonia (13-55) umol/L Troponin I High Sens 3.5 (<3.5-35.0) ng/L Total Protein (6.5-8.0) g/dL Albumin (3.5-5.0) g/dL Lipase (8-78) U/L Peritoneal WBC X10*3/uL Peritoneal RBC X10*6/uL Stool Occult Blood (NEGATIVE) COVID-19 ([facility]IREE) (Negative) COVID-19 Clin Com Blood Type Antibody Screen Crossmatch 03/16/21 03/16/21 03/16/21 Range/Units 01:46 02:05 02:29 WBC (4.8-10.8) X10*3/uL RBC (4.60-5.80) X10*6/uL Hgb (14.0-18.0) g/dl Hct (42.0-52.0) % MCV (80.0-98.0) fL MCH (27.0-33.0) pg MCHC (31.0-36.0) g/dl RDW (11.0-16.0) % Plt Count (160-400) X10*3/uL MPV (9.4-12.4) fL Immature Gran % (Auto) (0.0-0.4) % Neut % (Auto) (45-73) % Lymph % (Auto) (20-40) % [place] % (Auto) (2-11) % Eos % (Auto) (0-4) % Baso % (Auto) (0-2) % Lymph # (Auto) (1.2-4.9) X10*3/uL [place] # (Auto) (0.1-1.2) X10*3/uL Eos # (Auto) (0.0-0.4) X10*3/uL Baso # (Auto) (0.0-0.2) X10*3/uL Abs Immat Gran (auto) (0.00-0.03) X10*3/uL Absolute Neuts (auto) (2.0-8.3) x10*3/uL Absolute Nucleated RBC (0.0-0.012) X10*3/uL Nucleated RBC % (auto) (0.0-0.2) /100WBC Sodium (135-145) mmol/L Potassium (3.3-5.1) mmol/L Chloride (96-108) mmol/L Carbon Dioxide (22-29) mmol/L Anion Gap (12-20) BUN (9-16) mg/dL Creatinine (0.5-1.4) mg/dL Estim Creat Clear Calc Estimated GFR POC Glucose (60-115) mg/dL Random Glucose (60-115) mg/dL Lactic Acid (0.5-2.0) mmol/L Lactic Acid F/U @ 2Hr (0.5-2.0) mmol/L Calcium (8.4-10.2) mg/dL Total Bilirubin (0.0-1.0) mg/dL AST (5-37) U/L ALT (0-40) U/L Alkaline Phosphatase (39-117) U/L Ammonia (13-55) umol/L Troponin I High Sens (<3.5-35.0) ng/L Total Protein (6.5-8.0) g/dL Albumin (3.5-5.0) g/dL Lipase (8-78) U/L Peritoneal WBC X10*3/uL Peritoneal RBC X10*6/uL Stool Occult Blood NEGATIVE (NEGATIVE) COVID-19 ([facility]IREE) Negative (Negative) COVID-19 Clin Com See Note Blood Type O Positive Antibody Screen NEGATIVE Crossmatch See Detail 03/16/21 03/16/21 Range/Units 04:08 05:36 WBC (4.8-10.8) X10*3/uL RBC (4.60-5.80) X10*6/uL Hgb (14.0-18.0) g/dl Hct (42.0-52.0) % MCV (80.0-98.0) fL MCH (27.0-33.0) pg MCHC (31.0-36.0) g/dl RDW (11.0-16.0) % Plt Count (160-400) X10*3/uL MPV (9.4-12.4) fL Immature Gran % (Auto) (0.0-0.4) % Neut % (Auto) (45-73) % Lymph % (Auto) (20-40) % [place] % (Auto) (2-11) % Eos % (Auto) (0-4) % Baso % (Auto) (0-2) % Lymph # (Auto) (1.2-4.9) X10*3/uL [place] # (Auto) (0.1-1.2) X10*3/uL Eos # (Auto) (0.0-0.4) X10*3/uL Baso # (Auto) (0.0-0.2) X10*3/uL Abs Immat Gran (auto) (0.00-0.03) X10*3/uL Absolute Neuts (auto) (2.0-8.3) x10*3/uL Absolute Nucleated RBC (0.0-0.012) X10*3/uL Nucleated RBC % (auto) (0.0-0.2) /100WBC Sodium (135-145) mmol/L Potassium (3.3-5.1) mmol/L Chloride (96-108) mmol/L Carbon Dioxide (22-29) mmol/L Anion Gap (12-20) BUN (9-16) mg/dL Creatinine (0.5-1.4) mg/dL Estim Creat Clear Calc Estimated GFR POC Glucose (60-115) mg/dL Random Glucose (60-115) mg/dL Lactic Acid (0.5-2.0) mmol/L Lactic Acid F/U @ 2Hr 6.9 H* (0.5-2.0) mmol/L Calcium (8.4-10.2) mg/dL Total Bilirubin (0.0-1.0) mg/dL AST (5-37) U/L ALT (0-40) U/L Alkaline Phosphatase (39-117) U/L Ammonia (13-55) umol/L Troponin I High Sens (<3.5-35.0) ng/L Total Protein (6.5-8.0) g/dL Albumin (3.5-5.0) g/dL Lipase (8-78) U/L Peritoneal WBC 2.421 X10*3/uL Peritoneal RBC 1.014 X10*6/uL Stool Occult Blood (NEGATIVE) COVID-19 ([facility]IREE) (Negative) COVID-19 Clin Com Blood Type Antibody Screen Crossmatch Imaging Data CT abdomen pelvis without IV contrast: Radiologist's impression: 1.? Cirrhosis with large volume ascites, signifi cantly increased from 01/06/2021. 2.? Focal liver lesions identified on 01/06/2021 are not adequately delineated on this noncontrast exam. 3.? Interval increase in size of an enlarged lymph node between the portal vein and inferior vena cava; this is nonspecific and could be benign or malignant in nature. Scattered mild adenopathy noted throughout the retroperitoneum. ? Chest x-ray: Radiologist's impression: IMPRESSION: Mild bibasilar opacities, more suggestive of atelectasis. ECG Data Attestation: I personally reviewed and interpreted this ECG as follows: Interpretation: Sinus rhythm rate of 87. No ST elevation or depression. Normal QRS axis. From a QT interval Discharge Plan Discharge Clinical Impression: Spontaneous intraperitoneal hemorrhage, Anemia, Acute hypotension, Acute kidney injury, Abdominal ascites Patient Disposition: Admitted As Inpatient Prescriptions: No Action vitamin K 1 mg/0.5 mL Solution 2.268 mcg PO DAILY Qty: 5 RF: 0 Eliquis 5 mg tablet 5 mg PO BID RF: 0 cholecalciferol (vitamin D3) 25 mcg (1,000 unit) capsule 25 mcg PO DAILY RF: 0 amlodipine 10 mg tablet 10 mg PO DAILY RF: 0 atorvastatin 10 mg tablet 10 mg PO DAILY RF: 0 metoprolol tartrate 25 mg tablet 25 mg PO BID RF: 0 lisinopril 40 mg tablet 40 mg PO DAILY RF: 0 hydrochlorothiazide 25 mg tablet 25 mg PO DAILY RF: 0 Incruse Ellipta 62.5 mcg/actuation blister with device 1 inh inhalation DAILY RF: 0 albuterol sulfate 90 mcg/actuation HFA aerosol inhaler 1 - 2 puff inhalation Q6H PRN (Reason: Wheezing) RF: 0
[2021-03-16 02:25] LABS: COVID-19 Test Negative (Negative)
[2021-03-16 02:32] LABS: OBS Int Ctl Valid YES; OBS1 NEGATIVE (NEGATIVE)
[2021-03-16 02:36] LABS: Troponin-I High Sensitivity 3.5 ng/L (<3.5-35.0)
[2021-03-16 03:35] LABS: Reflex Lactate? Lactic Acid Added
[2021-03-16 04:28] LABS: ~Lactic Acid-LAB USE ONLY 6.9 mmol/L (0.5-2.0)
[2021-03-16 06:02] LABS: BF Shift QC OK YES; RBC Peritoneal Fluid 1.014 X10*6/uL; WBC Peritoneal Fluid 2.421 X10*3/uL
[2021-03-16 06:03] LABS: Man Diluent Bkgrd OK YES
[2021-03-16 06:11] LABS: Reflex Lactate? 2 Y
[2021-03-16 06:22] LABS: Eosinophils Peritoneal Fl 1 %; Lymphocyte Peritoneal Fl 15 %; Monocytes Peritoneal Fl 12 %; Neutrophils Peritoneal Fluid 65 %; Other Peritioneal Fl 7 %; PMN% 68.9 %
[2021-03-16 06:23] LABS: MN% 31.1 %
[2021-03-16 06:33] LABS: Prothrombin Time 34.6 SEC (9.9-13.0)
[2021-03-16 06:36] LABS: Partial Thromboplastin Time 38.6 SEC (24.1-38.0)
[2021-03-16] MEDS: Piperacillin Sodium/Tazobactam 4.5 GM in 0.9 % Sodium Chloride 100 ML IV (06:43)
[2021-03-16] MEDS: vancomycin HCL 1,000 MG in 0.9 % Sodium Chloride 250 ML 270 MG IV (06:51)
[2021-03-16] MEDS: Phytonadione (Vit K1) 5 MG in 0.9 % Sodium Chloride 50 ML 50.5 MG IV (06:58)
--- NOTE | 2021-03-16 07:11 | PHA.MEDREC ---
Pharmacy Consult ? Medication Reconciliation Pharmacy has completed the medication reconciliation. There are no remarkable issues for provider's attention. Rianna Rodgers, DeeD
--- NOTE | 2021-03-16 07:26 | PC.NURSE ---
Pt is alert and oriented. Skin pwd. abd distended. no complaints at this time. prepared for transfer to ICU. report to Angie HOPSON. denies pain at this time. nsr on monitor. up to change and very SOB with exertion.
[2021-03-16 08:38] LABS: MANUAL DIFF FLAG NO
[2021-03-16 08:44] LABS: Basophils Percent Auto 0.2 % (0-2); Eosinophils Percent Auto 0.2 % (0-4); Hematocrit 26.2 % (42.0-52.0); Hemoglobin 8.6 g/dl (14.0-18.0); Imm Gran Abs Auto 0.09 X10*3/uL (0.00-0.03); Imm Gran Pct Auto 0.7 % (0.0-0.4); Lymphocytes Absolute Auto 1.4 X10*3/uL (1.2-4.9); Lymphocytes Percent Auto 11.4 % (20-40); Mean Corpuscular HGB Conc 32.8 g/dl (31.0-36.0); Mean Corpuscular Hemoglobin 28.3 pg (27.0-33.0); Mean Corpuscular Volume 86.2 fL (80.0-98.0); Mean Platelet Volume 10.8 fL (9.4-12.4); Monocytes Absolute Auto 1.1 X10*3/uL (0.1-1.2); Monocytes Percent Auto 8.3 % (2-11); Neutrophils Percent Auto 79.2 % (45-73); Platelet Count 220 X10*3/uL (160-400); Red Blood Count 3.04 X10*6/uL (4.60-5.80); Red Cell Distribution Width 20.6 % (11.0-16.0); White Blood Count 12.6 X10*3/uL (4.8-10.8)
[2021-03-16] MEDS: Phytonadione (Vit K1) 10 MG in 0.9 % Sodium Chloride 50 ML 51 MG IV (09:02)
[2021-03-16 09:06] LABS: Alanine Aminotransferase 186 U/L (0-40); Albumin Level 2.7 g/dL (3.5-5.0); Alkaline Phosphatase 286 U/L (39-117); Anion Gap 15 (12-20); Aspartate Amino Transferase 384 U/L (5-37); Bilirubin Total 2.1 mg/dL (0.0-1.0); Blood Urea Nitrogen 39 mg/dL (9-16); Calcium 7.7 mg/dL (8.4-10.2); Carbon Dioxide 17 mmol/L (22-29); Chloride 107 mmol/L (96-108); Creatinine Clr Calc Pharmacy 29.5; Estimated Glomerular Filt Rate 27; Glucose Random 132 mg/dL (60-115); Potassium 3.9 mmol/L (3.3-5.1); Sodium 135 mmol/L (135-145); Total Protein 6.3 g/dL (6.5-8.0)
[2021-03-16 09:07] LABS: ~Lactic Acid-LAB USE ONLY 4.1 mmol/L (0.5-2.0)
[2021-03-16] MEDS: Albumin Human 25 % 100 ML IV ×3 (09:16→21:41)
--- NOTE | 2021-03-16 10:37 | P.CONGS_ITS ---
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 He had gone to the emergency room early this morning because of weakness, abdominal pain for more than 3 weeks now. He has significant ascites which she says he has had for a long time. He has hemoglobin was noted to be 6.1 his INR was 3.0. He has ascites was sampled and was noted to be bloody. He had a CAT scan showing large amount of ascites and evidence of cirrhosis and chronic liver disease. He says he has abdominal pain. He answers questions at this time. Review of Systems Constitutional: Constitutional: Denies chills and Denies fever(s) Cardiovascular: Cardiovascular: Denies chest pain, Denies dyspnea and Reports dyspnea on exertion Respiratory: Respiratory: Denies cough, Denies dyspnea and Reports dyspnea on exertion Gastrointestinal: Gastrointestinal: Denies hematochezia, Denies change in bowel habits and Reports diarrhea Genitourinary: Genitourinary: Denies hematuria and Denies difficulty urinating Musculoskeletal: Musculoskeletal: Denies back pain and Denies limited range of motion Neurologic: Denies focal weakness and Denies convulsions Psychiatric: Psychiatric: Denies depression and Denies mood swings PMFSH Past Medical History Medical History (Updated 03/17/21 @ 11:39 by Aniket Lockhart MD) Hx of cardiac pacemaker Family History Family History Father No problems noted. Mother No problems noted. Sister Hx of skin cancer, basal cell Surgical History Surgical History H/O colonoscopy Hx of esophagogastroduodenoscopy (11/29/17) Social History Social History (Updated 03/07/21 @ 09:58 by Megan Rodriguez) Household Members: Significant Other Housing: Apartment Do you presently have visiting nurse or other home services: No Alcohol intake: former Patient Tobacco Use Status: Current everyday Tobacco user Tobacco use type: Cigarette Smoked in Last 30 Days: Yes e-Cigarette/Vaping Use: Never Used Patient Interested in Nicotine Replacement: No Patient Given Instructions on How to Stop Smoking: Yes Date Education Initiated: 03/16/21 Use of substances other than those prescribed or required for medical reasons: Yes Substance Use Type: Marijuana Substance Use Frequency: Daily Last Used Substance: Days (ago) Currently Displaying Signs/Symptoms of Drug Intoxication Withdrawal: No Any prior treatment program specific to substance use: No Have you been hit, kicked, punched, or otherwise hurt by someone within the past year? If so, by whom?: No Do you feel safe in your current relationship?: Yes Is there a partner from a previous relationship who is making you feel unsafe now?: No Are you made to feel afraid or neglected: No Spiritual Healthcare Practices: NONE PER PATIENT Jew Healthcare Practices: NONE PER PATIENT Cultural Healthcare Practices: NONE PER PATIENT Advance Directives: No Advance Directives Information Provided: Yes Do you have thoughts of harming others: None Do you have a plan to hurt others: No Plan Recently lost weight without trying: No Eating poorly because of decreased appetite: Yes Nutrition Risks: Difficulty chewing and Poor intake 0-25% >4 days Poor oral hygiene: Yes service: No Current occupational status: disabled Meds Allergies Allergy/AdvReac Type Severity Reaction Status Date / Time No Known Allergies Allergy Verified 03/16/21 05:32 Active Medications: Current Medications Fentanyl (Fentanyl Citrate/Pf 100 Mcg/2 Ml Vial) 50 mcg IVPUSH Q2H PRN; Protocol PRN Reason: Pain, Moderate (Pain Scale 4-6 Last Admin: 03/16/21 08:15 Dose: 50 mcg Documented by: Albumin Human (Kedbumin 25 %) 100 mls @ 100 mls/hr IV Q6H JENNI Stop: 03/17/21 04:14 Last Admin: 03/16/21 09:16 Dose: 100 mls/hr Documented by: Home Medications Medication Instructions Recorded Confirmed Last Taken Type amlodipine 10 mg tablet 10 mg PO DAILY 03/24/20 03/16/21 03/15/21 History apixaban 5 mg tablet 5 mg PO BID 03/24/20 03/16/21 03/15/21 History atorvastatin 10 mg tablet 10 mg PO DAILY 03/24/20 03/16/21 03/15/21 History cholecalciferol (vitamin D3) 25 25 mcg PO DAILY 03/24/20 03/16/21 03/15/21 History mcg (1,000 unit) capsule hydrochlorothiazide 25 mg tablet 25 mg PO DAILY 03/24/20 03/16/21 03/15/21 History lisinopril 40 mg tablet 40 mg PO DAILY 03/24/20 03/16/21 03/15/21 History metoprolol tartrate 25 mg tablet 25 mg PO BID 03/24/20 03/16/21 03/15/21 History albuterol sulfate 90 mcg/actuation 1 - 2 puff INHALATION Q6H PRN 07/14/20 03/16/21 03/15/21 History aerosol inhaler umeclidinium 62.5 mcg/actuation 1 inh INHALATION DAILY 02/16/21 03/16/21 03/15/21 History blister powder for inhalation (Incruse Ellipta) ibuprofen 200 mg tablet 400 mg PO Q6H PRN 03/16/21 03/16/21 Unknown History Physical Exam Vital Signs: Vital Signs: Last Vital Signs Temp 97.7 F 03/16/21 10:00 Pulse 94 03/16/21 10:00 Resp 19 03/16/21 10:00 BP 97/52 L 03/16/21 10:00 Pulse Ox 97 03/16/21 10:00 BMI result Body Mass Index 27.8 Const: General: comfortable and no acute distress Orientation/consciousness: patient oriented x3 Neck: Neck: Yes no lymphadenopathy Resp: Auscultation: clear to auscultation bilaterally Cardio: Rhythm: regular rhythm GI: Other: Distended, with of his ascites, no peritoneal signs, umbilical hernia reducible, right groin hernia, also reducible Palpation (GI): Soft to palpation, nontender and no guarding Neuro: General: patient oriented x3 Results Labs Result diagrams: 03/21/21 06:55 03/21/21 06:55 Labs: Abnormal lab results 03/16/21 03/16/21 03/16/21 Range/Units 01:13 01:13 01:33 WBC 12.0 H (4.8-10.8) X10*3/uL RBC 2.36 L D (4.60-5.80) X10*6/uL Hgb 6.1 L* D (14.0-18.0) g/dl Hct 19.1 L* D (42.0-52.0) % MCH 25.8 L (27.0-33.0) pg RDW 21.4 H (11.0-16.0) % Immature Gran % (Auto) 1.1 H (0.0-0.4) % Neut % (Auto) (45-73) % Lymph % (Auto) (20-40) % Swain % (Auto) 11.7 H (2-11) % Swain # (Auto) 1.4 H (0.1-1.2) X10*3/uL Abs Immat Gran (auto) 0.13 H (0.00-0.03) X10*3/uL Absolute Neuts (auto) (2.0-8.3) x10*3/uL PT (9.9-13.0) SEC INR (0.9-1.1) APTT (24.1-38.0) SEC Sodium 133 L (135-145) mmol/L Carbon Dioxide 14 L (22-29) mmol/L BUN 34 H D (9-16) mg/dL Creatinine 2.87 H (0.5-1.4) mg/dL Random Glucose (60-115) mg/dL Lactic Acid 6.4 H* (0.5-2.0) mmol/L Lactic Acid F/U @ 2Hr (0.5-2.0) mmol/L Lactic Acid F/U @ 4Hr (0.5-2.0) mmol/L Calcium 8.2 L (8.4-10.2) mg/dL Total Bilirubin 1.4 H (0.0-1.0) mg/dL AST 167 H (5-37) U/L ALT 91 H (0-40) U/L Alkaline Phosphatase 287 H D (39-117) U/L Total Protein 6.3 L (6.5-8.0) g/dL Albumin 2.7 L (3.5-5.0) g/dL Crossmatch 03/16/21 03/16/21 03/16/21 Range/Units 01:46 04:08 06:23 WBC (4.8-10.8) X10*3/uL RBC (4.60-5.80) X10*6/uL Hgb (14.0-18.0) g/dl Hct (42.0-52.0) % MCH (27.0-33.0) pg RDW (11.0-16.0) % Immature Gran % (Auto) (0.0-0.4) % Neut % (Auto) (45-73) % Lymph % (Auto) (20-40) % Swain % (Auto) (2-11) % Swain # (Auto) (0.1-1.2) X10*3/uL Abs Immat Gran (auto) (0.00-0.03) X10*3/uL Absolute Neuts (auto) (2.0-8.3) x10*3/uL PT 34.6 H (9.9-13.0) SEC INR 3.0 H (0.9-1.1) APTT 38.6 H (24.1-38.0) SEC Sodium (135-145) mmol/L Carbon Dioxide (22-29) mmol/L BUN (9-16) mg/dL Creatinine (0.5-1.4) mg/dL Random Glucose (60-115) mg/dL Lactic Acid (0.5-2.0) mmol/L Lactic Acid F/U @ 2Hr 6.9 H* (0.5-2.0) mmol/L Lactic Acid F/U @ 4Hr (0.5-2.0) mmol/L Calcium (8.4-10.2) mg/dL Total Bilirubin (0.0-1.0) mg/dL AST (5-37) U/L ALT (0-40) U/L Alkaline Phosphatase (39-117) U/L Total Protein (6.5-8.0) g/dL Albumin (3.5-5.0) g/dL Crossmatch See Detail 03/16/21 03/16/21 03/16/21 Range/Units 08:25 08:26 08:26 WBC 12.6 H (4.8-10.8) X10*3/uL RBC 3.04 L D (4.60-5.80) X10*6/uL Hgb 8.6 L D (14.0-18.0) g/dl Hct 26.2 L D (42.0-52.0) % MCH (27.0-33.0) pg RDW 20.6 H (11.0-16.0) % Immature Gran % (Auto) 0.7 H (0.0-0.4) % Neut % (Auto) 79.2 H (45-73) % Lymph % (Auto) 11.4 L (20-40) % Swain % (Auto) (2-11) % Swain # (Auto) (0.1-1.2) X10*3/uL Abs Immat Gran (auto) 0.09 H (0.00-0.03) X10*3/uL Absolute Neuts (auto) 10.0 H (2.0-8.3) x10*3/uL PT (9.9-13.0) SEC INR (0.9-1.1) APTT (24.1-38.0) SEC Sodium (135-145) mmol/L Carbon Dioxide 17 L (22-29) mmol/L BUN 39 H (9-16) mg/dL Creatinine 2.45 H (0.5-1.4) mg/dL Random Glucose 132 H D (60-115) mg/dL Lactic Acid (0.5-2.0) mmol/L Lactic Acid F/U @ 2Hr (0.5-2.0) mmol/L Lactic Acid F/U @ 4Hr 4.1 H* (0.5-2.0) mmol/L Calcium 7.7 L D (8.4-10.2) mg/dL Total Bilirubin 2.1 H (0.0-1.0) mg/dL AST 384 H (5-37) U/L ALT 186 H (0-40) U/L Alkaline Phosphatase 286 H (39-117) U/L Total Protein 6.3 L (6.5-8.0) g/dL Albumin 2.7 L (3.5-5.0) g/dL Crossmatch Short CBC 03/16/21 03/16/21 Range/Units 01:13 08:26 WBC 12.0 H 12.6 H (4.8-10.8) X10*3/uL Hgb 6.1 L* D 8.6 L D (14.0-18.0) g/dl Hct 19.1 L* D 26.2 L D (42.0-52.0) % Plt Count 252 D 220 (160-400) X10*3/uL BMP 03/16/21 03/16/21 01:13 08:26 Sodium 133 L 135 Potassium 4.3 D 3.9 Chloride 105 107 Carbon Dioxide 14 L 17 L BUN 34 H D 39 H Creatinine 2.87 H 2.45 H Calcium 8.2 L 7.7 L D Liver Function 03/16/21 03/16/21 Range/Units 01:13 08:26 Total Bilirubin 1.4 H 2.1 H (0.0-1.0) mg/dL AST 167 H 384 H (5-37) U/L ALT 91 H 186 H (0-40) U/L Alkaline Phosphatase 287 H D 286 H (39-117) U/L Albumin 2.7 L 2.7 L (3.5-5.0) g/dL All other labs normal. Imaging Abdomen CT scan report/results: report reviewed and image reviewed CT scan - pelvis: report reviewed and image reviewed Assessment and Plan (1) Anemia: Status: Acute He has known chronic liver disease, with cirrhosis secondary to previous hep C infection. He came in with abdominal pain and anemia. He has significant ascites and was sampled was noted to be bloody. He is actually coagulopathic with INR of 3.0. He has been on Eliquis because of his paroxysmal atrial fibrillation. I am uncertain as to how this sampling of the ascites was done. Review of his CAT scan with the radiologist suggest that the severe status does not appear to have density of blood. I am recommending correcting his coagulopathy at this time. Furthermore, his Eliquis should be kept on hold. His hemoglobin is being followed and he should be transfuse as needed. I am uncertain as to the exact etiology of his hemoperitoneum but he does not have any recent trauma. He also is being worked up for possible hepatocellular carcinoma. He has a recent CT scan showing focal liver lesions as well. We will follow along while he is in the hospital. Procedures Date of Service Date of Service: 03/16/21
--- NOTE | 2021-03-16 12:02 | MHC.CM.PN ---
pt lives c his in their home. he reports that he is independent in his care. his is available to help him should he have any needs. this will include a ride home at al. pt does not use any AD c ambulation and does not have any svcs in the home. pt denies the need for vna at this time. dc plan is home no svcs. cm to cont. to follow.
--- NOTE | 2021-03-16 13:52 | PM.CCHP ---
History of Present Illness Date of Service: 03/16/21 Chief Complaint: Abdominal pain and weakness 65-year-old gentleman with underlying history of treated chronic hepatitis-C with portal hypertension and cirrhosis, undergoing workup for hepatocellular carcinoma, also hypertension, AFib on Eliquis status post ppm placement, thrombocytopenia, asthma, diabetes mellitus admitted on 03/16/2021 with 3 week history of progressively worsening abdominal pain and weakness. On ER evaluation patient was noted to have hemoglobin of 6.1 with hypotension and elevated lactate. Patient received 2 units of packed red blood cells and has had diagnostic paracentesis that demonstrated bloody fluid likely secondary to spontaneous intraperitoneal hemorrhage. Patient also was noted to have mild coagulopathy. He has received vitamin K and was started on empiric antibiotics and admitted to the intensive care unit. Review of Systems Constitutional: Constitutional: Denies daytime sleepiness, Denies excessive sweating, Denies fatigue, Denies fever(s), Denies lethargy, Reports malaise, Denies night sweats, Denies snoring and Denies weight loss Eyes: Eyes: Denies blurry vision and Denies itchy eyes ENT: Denies nasal congestion, Denies post nasal drip, Denies sinus pain, Denies sinus pressure and Denies other ( Thrush) Cardiovascular: Cardiovascular: Denies chest pain, Denies pedal edema, Denies dyspnea, Denies orthopnea and Denies paroxysmal nocturnal dyspnea Respiratory: Respiratory: Denies cough, Denies hemoptysis, Denies excessive phlegm production, Denies dyspnea, Denies snoring and Denies wheezing Gastrointestinal: Gastrointestinal: Reports abdominal pain (Diffuse) and Denies heartburn Musculoskeletal: Musculoskeletal: Denies myalgias, Denies arthralgias and Denies joint swelling Integumentary/Breasts: Skin/Breast: Denies rash Neurologic: Denies memory loss and Denies seizure-like activity Psychiatric: Psychiatric: Denies abnormal sleep pattern, Denies anxiety and Denies memory loss Endocrine: Endocrine: Denies excessive sweating, Denies fatigue and Denies heat intolerance Hematologic/Lymphatic: Hematologic/Lymphatic: Denies easy bruising Allergic/Immunologic: Allergic/Immunologic: Denies itchy eyes, Denies seasonal rhinorrhea and Denies wheezing PMFSH Past Medical History Medical History (Updated 03/16/21 @ 13:57 by Bradley Galloway MD) Hx of cardiac pacemaker Family History Family History Father No problems noted. Mother No problems noted. Sister Hx of skin cancer, basal cell Surgical History Surgical History H/O colonoscopy Hx of esophagogastroduodenoscopy (11/29/17) Social History Social History (Updated 03/07/21 @ 09:58 by Megan Rodriguez) Household Members: Significant Other Housing: Apartment Do you presently have visiting nurse or other home services: No Alcohol intake: former Patient Tobacco Use Status: Current everyday Tobacco user Tobacco use type: Cigarette Cigarettes Per Day: 6 Smoked in Last 30 Days: Yes e-Cigarette/Vaping Use: Never Used Patient Interested in Nicotine Replacement: No Patient Given Instructions on How to Stop Smoking: Yes Date Education Initiated: 03/16/21 Use of substances other than those prescribed or required for medical reasons: Yes Substance Use Type: Marijuana Substance Use Frequency: Daily Last Used Substance: Days (ago) Currently Displaying Signs/Symptoms of Drug Intoxication Withdrawal: No Any prior treatment program specific to substance use: No Have you been hit, kicked, punched, or otherwise hurt by someone within the past year? If so, by whom?: No Do you feel safe in your current relationship?: Yes Is there a partner from a previous relationship who is making you feel unsafe now?: No Are you made to feel afraid or neglected: No Spiritual Healthcare Practices: NONE PER PATIENT Protestant Healthcare Practices: NONE PER PATIENT Cultural Healthcare Practices: NONE PER PATIENT Advance Directives: No Advance Directives Information Provided: Yes Do you have thoughts of harming others: None Do you have a plan to hurt others: No Plan Recently lost weight without trying: No Eating poorly because of decreased appetite: Yes Nutrition Risks: Difficulty chewing and Poor intake 0-25% >4 days Poor oral hygiene: Yes service: No Current occupational status: disabled Meds Allergies Allergy/AdvReac Type Severity Reaction Status Date / Time No Known Allergies Allergy Verified 03/16/21 05:32 Active Medications: Current Medications Fentanyl (Fentanyl Citrate/Pf 100 Mcg/2 Ml Vial) 50 mcg IVPUSH Q2H PRN; Protocol PRN Reason: Pain, Moderate (Pain Scale 4-6 Last Admin: 03/16/21 08:15 Dose: 50 mcg Documented by: Albumin Human (Kedbumin 25 %) 100 mls @ 100 mls/hr IV Q6H JENNI Stop: 03/17/21 04:14 Last Infusion: 03/16/21 10:41 Dose: Infused Documented by: Home Medications Medication Instructions Recorded Confirmed Last Taken Type amlodipine 10 mg tablet 10 mg PO DAILY 03/24/20 03/16/21 03/15/21 History apixaban 5 mg tablet 5 mg PO BID 03/24/20 03/16/21 03/15/21 History atorvastatin 10 mg tablet 10 mg PO DAILY 03/24/20 03/16/21 03/15/21 History cholecalciferol (vitamin D3) 25 25 mcg PO DAILY 03/24/20 03/16/21 03/15/21 History mcg (1,000 unit) capsule hydrochlorothiazide 25 mg tablet 25 mg PO DAILY 03/24/20 03/16/21 03/15/21 History lisinopril 40 mg tablet 40 mg PO DAILY 03/24/20 03/16/21 03/15/21 History metoprolol tartrate 25 mg tablet 25 mg PO BID 03/24/20 03/16/21 03/15/21 History albuterol sulfate 90 mcg/actuation 1 - 2 puff INHALATION Q6H PRN 07/14/20 03/16/21 03/15/21 History aerosol inhaler umeclidinium 62.5 mcg/actuation 1 inh INHALATION DAILY 02/16/21 03/16/21 03/15/21 History blister powder for inhalation (Incruse Ellipta) ibuprofen 200 mg tablet 400 mg PO Q6H PRN 03/16/21 03/16/21 Unknown History Physical Exam Vital Signs: Vital Signs: Last Vital Signs Temp 98.1 F 03/16/21 13:00 Pulse 43 L 03/16/21 13:00 Resp 20 03/16/21 13:00 BP 88/57 L 03/16/21 13:00 Pulse Ox 99 03/16/21 13:00 BMI result Body Mass Index 27.8 Const: General: no acute distress, alert and awake Eyes: Sclerae: sclerae normal EOM: EOMs intact bilaterally Neck: Neck: Yes no lymphadenopathy, Yes trachea midline and Yes supple Resp: Effort & Inspection: normal respiratory effort and no respiratory distress Auscultation: clear to auscultation bilaterally Cardio: Rate: tachycardic Rhythm: regular rhythm Heart sounds: no gallops, no murmurs and no rubs GI: Palpation (GI): Soft to palpation and Other GI palpation findings present (Mild diffuse tenderness with no rebound or guarding) Auscultation: normal bowel sounds Extrem: General: No clubbing, No cyanosis and Yes pedal edema (Trace bilateral) Results Labs CBC and Chem 7: 03/16/21 08:26 03/16/21 08:26 Labs: Laboratory Results - last 24 hr 03/16/21 03/16/21 03/16/21 01:13 01:13 01:13 MCV 80.9 MCH 25.8 L MCHC 31.9 RDW 21.4 H Plt Count 252 D MPV 10.6 Immature Gran % (Auto) 1.1 H Neut % (Auto) 61.3 Lymph % (Auto) 25.0 [place] % (Auto) 11.7 H Eos % (Auto) 0.7 Baso % (Auto) 0.2 Lymph # (Auto) 3.0 [place] # (Auto) 1.4 H Eos # (Auto) 0.1 Baso # (Auto) 0.0 Abs Immat Gran (auto) 0.13 H Absolute Neuts (auto) 7.4 Absolute Nucleated RBC 0.000 Nucleated RBC % (auto) 0.0 Smear Path Review SEE NOTE PT INR APTT Anion Gap 18 Estim Creat Clear Calc 25.1 Estimated GFR 22 POC Glucose Random Glucose 96 Lactic Acid Lactic Acid F/U @ 2Hr Lactic Acid F/U @ 4Hr Calcium 8.2 L Total Bilirubin 1.4 H AST 167 H ALT 91 H Alkaline Phosphatase 287 H D Ammonia 32 Troponin I High Sens Total Protein 6.3 L Albumin 2.7 L Lipase 34 Peritoneal WBC Peritoneal RBC Periton Neutrophils Periton Lymphocytes Peritoneal Monocytes Peritoneal Eosinophils Peritoneal Other Cells Stool Occult Blood COVID-19 ([facility]) COVID-19 Clin Com Blood Type Antibody Screen Crossmatch 03/16/21 03/16/21 03/16/21 01:13 01:32 01:33 MCV MCH MCHC RDW Plt Count MPV Immature Gran % (Auto) Neut % (Auto) Lymph % (Auto) [place] % (Auto) Eos % (Auto) Baso % (Auto) Lymph # (Auto) [place] # (Auto) Eos # (Auto) Baso # (Auto) Abs Immat Gran (auto) Absolute Neuts (auto) Absolute Nucleated RBC Nucleated RBC % (auto) Smear Path Review PT INR APTT Anion Gap Estim Creat Clear Calc Estimated GFR POC Glucose 98 Random Glucose Lactic Acid 6.4 H* Lactic Acid F/U @ 2Hr Lactic Acid F/U @ 4Hr Calcium Total Bilirubin AST ALT Alkaline Phosphatase Ammonia Troponin I High Sens 3.5 Total Protein Albumin Lipase Peritoneal WBC Peritoneal RBC Periton Neutrophils Periton Lymphocytes Peritoneal Monocytes Peritoneal Eosinophils Peritoneal Other Cells Stool Occult Blood COVID-19 ([facility]IREE) COVID-19 [employer] Com Blood Type Antibody Screen Crossmatch 03/16/21 03/16/21 03/16/21 01:46 02:05 02:29 MCV MCH MCHC RDW Plt Count MPV Immature Gran % (Auto) Neut % (Auto) Lymph % (Auto) [place] % (Auto) Eos % (Auto) Baso % (Auto) Lymph # (Auto) [place] # (Auto) Eos # (Auto) Baso # (Auto) Abs Immat Gran (auto) Absolute Neuts (auto) Absolute Nucleated RBC Nucleated RBC % (auto) Smear Path Review PT INR APTT Anion Gap Estim Creat Clear Calc Estimated GFR POC Glucose Random Glucose Lactic Acid Lactic Acid F/U @ 2Hr Lactic Acid F/U @ 4Hr Calcium Total Bilirubin AST ALT Alkaline Phosphatase Ammonia Troponin I High Sens Total Protein Albumin Lipase Peritoneal WBC Peritoneal RBC Periton Neutrophils Periton Lymphocytes Peritoneal Monocytes Peritoneal Eosinophils Peritoneal Other Cells Stool Occult Blood NEGATIVE COVID-19 ([facility]IREE) Negative COVID-[employer] See Note Blood Type O Positive Antibody Screen NEGATIVE Crossmatch See Detail 03/16/21 03/16/21 03/16/21 04:08 05:36 06:23 MCV MCH MCHC RDW Plt Count MPV Immature Gran % (Auto) Neut % (Auto) Lymph % (Auto) [place] % (Auto) Eos % (Auto) Baso % (Auto) Lymph # (Auto) [place] # (Auto) Eos # (Auto) Baso # (Auto) Abs Immat Gran (auto) Absolute Neuts (auto) Absolute Nucleated RBC Nucleated RBC % (auto) Smear Path Review PT 34.6 H INR 3.0 H APTT 38.6 H Anion Gap Estim Creat Clear Calc Estimated GFR POC Glucose Random Glucose Lactic Acid Lactic Acid F/U @ 2Hr 6.9 H* Lactic Acid F/U @ 4Hr Calcium Total Bilirubin AST ALT Alkaline Phosphatase Ammonia Troponin I High Sens Total Protein Albumin Lipase Peritoneal WBC 2.421 Peritoneal RBC 1.014 Periton Neutrophils 65 Periton Lymphocytes 15 Peritoneal Monocytes 12 Peritoneal Eosinophils 1 Peritoneal Other Cells 7 Stool Occult Blood COVID-19 ([facility]) COVID-19 Clin Com Blood Type Antibody Screen Crossmatch 03/16/21 03/16/21 03/16/21 08:25 08:26 08:26 MCV 86.2 D MCH 28.3 MCHC 32.8 RDW 20.6 H Plt Count 220 MPV 10.8 Immature Gran % (Auto) 0.7 H Neut % (Auto) 79.2 H Lymph % (Auto) 11.4 L [place] % (Auto) 8.3 Eos % (Auto) 0.2 Baso % (Auto) 0.2 Lymph # (Auto) 1.4 [place] # (Auto) 1.1 Eos # (Auto) 0.0 Baso # (Auto) 0.0 Abs Immat Gran (auto) 0.09 H Absolute Neuts (auto) 10.0 H Absolute Nucleated RBC 0.000 Nucleated RBC % (auto) 0.0 Smear Path Review PT INR APTT Anion Gap 15 Estim Creat Clear Calc 29.5 Estimated GFR 27 POC Glucose Random Glucose 132 H D Lactic Acid Lactic Acid F/U @ 2Hr Lactic Acid F/U @ 4Hr 4.1 H* Calcium 7.7 L D Total Bilirubin 2.1 H AST 384 H ALT 186 H Alkaline Phosphatase 286 H Ammonia Troponin I High Sens Total Protein 6.3 L Albumin 2.7 L Lipase Peritoneal WBC Peritoneal RBC Periton Neutrophils Periton Lymphocytes Peritoneal Monocytes Peritoneal Eosinophils Peritoneal Other Cells Stool Occult Blood COVID-19 ([facility]) COVID-19 Clin Com Blood Type Antibody Screen Crossmatch Imaging Radiologist's Impressions: Impressions Chest X-Ray 03/16/21 03:55 IMPRESSION: Mild bibasilar opacities, more suggestive of atelectasis. Abdomen/Pelvis CT 03/16/21 04:35 IMPRESSION: 1. Cirrhosis with large volume ascites, significantly increased from 01/06/2021. 2. Focal liver lesions identified on 01/06/2021 are not adequately delineated on this noncontrast exam. 3. Interval increase in size of an enlarged lymph node between the portal vein and inferior vena cava; this is nonspecific and could be benign or malignant in nature. Scattered mild adenopathy noted throughout the retroperitoneum. Fleischner guidelines were followed. Assessment and Plan (1) Spontaneous intraperitoneal hemorrhage: Status: Acute (2) Liver mass: Status: Acute (3) Acute kidney injury: Status: Acute (4) Type 2 diabetes mellitus: Status: Acute (5) Paroxysmal atrial fibrillation: Status: Acute (6) Liver cirrhosis: Status: Acute (7) Hepatitis C infection: Status: Acute (8) Anemia: Status: Acute Assessment: 65-year-old gentleman with underlying chronic treated hepatitis-C cirrhosis with portal hypertension, AFib on anticoagulation, thrombocytopenia admitted with weakness and subacute anemia, likely secondary to spontaneous intraperitoneal hemorrhage Plan: Neuro: No acute issues. Cardiac: No acute issues. Underlying AFib on anticoagulation, Eliquis now held secondary to intraperitoneal hemorrhage. Pulmonary: No acute issues. Renal: Acute kidney injury, likely secondary to hypotension from acute blood loss anemia from intraperitoneal hemorrhage, non oliguric. Continue to monitor renal indices and urine output. Endo: No acute issues. GI: Treated chronic Hep C cirrhosis, hepatic mass, likely hepatocellular carcinoma undergoing outpatient workup. Likely spontaneous intraperitoneal hemorrhage. General surgery service care appreciated. Will continue to monitor at this time. ID: No acute issues. Covered with empiric antibiotics. Heme/Onc: Acute blood loss anemia secondary to intraperitoneal hemorrhage. Hemoglobin is stabilizing. Continue to monitor. Underlying chronic thrombocytopenia secondary to hep C service. Psych: No acute issues. Miscellaneous: No acute issues. Prophylaxis: Intermittent pneumatic compression Diet: Nothing by mouth Critical care time spent: 60 minutes
[2021-03-16 14:15] LABS: MANUAL DIFF FLAG NO
[2021-03-16 14:17] LABS: Basophils Percent Auto 0.3 % (0-2); Eosinophils Percent Auto 0.3 % (0-4); Hematocrit 25.9 % (42.0-52.0); Hemoglobin 8.8 g/dl (14.0-18.0); Imm Gran Abs Auto 0.09 X10*3/uL (0.00-0.03); Imm Gran Pct Auto 0.8 % (0.0-0.4); Lymphocytes Absolute Auto 1.8 X10*3/uL (1.2-4.9); Lymphocytes Percent Auto 14.8 % (20-40); Mean Corpuscular Hemoglobin 28.7 pg (27.0-33.0); Mean Corpuscular Volume 84.4 fL (80.0-98.0); Mean Platelet Volume 10.2 fL (9.4-12.4); Monocytes Absolute Auto 1.3 X10*3/uL (0.1-1.2); Monocytes Percent Auto 10.6 % (2-11); Neutrophils Absolute Auto 8.8 x10*3/uL (2.0-8.3); Neutrophils Percent Auto 73.2 % (45-73); Platelet Count 208 X10*3/uL (160-400); Red Blood Count 3.07 X10*6/uL (4.60-5.80); Red Cell Distribution Width 20.3 % (11.0-16.0)
[2021-03-16] MEDS: Piperacillin Sodium/Tazobactam 2.25 GM in 0.9 % Sodium Chloride 50 ML IV ×2 (14:32→19:38)
--- NOTE | 2021-03-16 15:18 | PM.EVENT ---
Event Note Date of Service: 03/16/21 Event Note: Patient says he has abdominal pain although not worsening Asking for pain meds Abdomen distended with large amounts of ascites but soft Repeat hemoglobin 8.8 Vital signs holding well Continued to correct coagulopathy Transfuse blood products as needed Pain management
[2021-03-16 19:36] LABS: Glucose, Whole Blood 151 mg/dL (60-115)
[2021-03-17] VITALS (16 sets, daily range): BP systolic 104–138; BP diastolic 51–83; PULSE 99–133; RESP 18–26; TEMP 36.6–37.3; O2SAT 93–96; BMI 28.3
[2021-03-17] MEDS: fentaNYL citrate/PF 100 MCG/2 ML VIAL 50 MCG IVPUSH ×4 (00:31→06:30)
[2021-03-17 02:05] LABS: Anion Gap 13 (12-20); Blood Urea Nitrogen 48 mg/dL (9-16); Carbon Dioxide 19 mmol/L (22-29); Chloride 105 mmol/L (96-108); Creatinine Clr Calc Pharmacy 34.8; Estimated Glomerular Filt Rate 32; Glucose Random 142 mg/dL (60-115); Potassium 3.7 mmol/L (3.3-5.1); Sodium 133 mmol/L (135-145)
[2021-03-17] MEDS: Piperacillin Sodium/Tazobactam 2.25 GM in 0.9 % Sodium Chloride 50 ML IV ×2 (03:03→09:11)
[2021-03-17] MEDS: Albumin Human 25 % 100 ML IV (03:39)
--- NOTE | 2021-03-17 06:06 | PM.EVENT ---
Event Note Date of Service: 03/17/21 Event Note: pt complaining of persistent pain despite being on fentanyl 50 mg q2h. given the high dose and high frequency and his clinical location outside ICU , i do not feel comfortoble prescribing any further narcotics due to fear of respiratory depression. will prescribe lidocaine patch
[2021-03-17] MEDS: Lidocaine 4 % Patch ADH..PATCH 1 PATCH TRANSDERMA (06:15)
[2021-03-17 06:56] LABS: MANUAL DIFF FLAG NO
[2021-03-17 06:58] LABS: Basophils Percent Auto 0.2 % (0-2); Eosinophils Percent Auto 0.2 % (0-4); Hematocrit 21.5 % (42.0-52.0); Hemoglobin 7.5 g/dl (14.0-18.0); Imm Gran Abs Auto 0.09 X10*3/uL (0.00-0.03); Imm Gran Pct Auto 0.9 % (0.0-0.4); Lymphocytes Absolute Auto 1.2 X10*3/uL (1.2-4.9); Lymphocytes Percent Auto 11.8 % (20-40); Mean Corpuscular HGB Conc 34.9 g/dl (31.0-36.0); Mean Corpuscular Hemoglobin 29.2 pg (27.0-33.0); Mean Corpuscular Volume 83.7 fL (80.0-98.0); Neutrophils Absolute Auto 7.5 x10*3/uL (2.0-8.3); Neutrophils Percent Auto 76.9 % (45-73); Platelet Count 158 X10*3/uL (160-400); Red Blood Count 2.57 X10*6/uL (4.60-5.80); Red Cell Distribution Width 20.8 % (11.0-16.0); White Blood Count 9.8 X10*3/uL (4.8-10.8)
[2021-03-17 07:00] LABS: VBG Base Excess -6.7 mmol/L; VBG HCO3 17 mmol/L (22-26); VBG pCO2 27 mmHg; VBG pH 7.39 (7.32-7.43); VBG pO2 51 mmHg
[2021-03-17 07:01] LABS: Venous Blood Gas Refer to POC result
[2021-03-17 07:43] LABS: Alanine Aminotransferase 170 U/L (0-40); Albumin Level 3.7 g/dL (3.5-5.0); Alkaline Phosphatase 217 U/L (39-117); Anion Gap 14 (12-20); Aspartate Amino Transferase 258 U/L (5-37); Bilirubin Total 1.9 mg/dL (0.0-1.0); Blood Urea Nitrogen 50 mg/dL (9-16); Calcium 8.2 mg/dL (8.4-10.2); Carbon Dioxide 19 mmol/L (22-29); Chloride 106 mmol/L (96-108); Creatinine Clr Calc Pharmacy 37.4; Estimated Glomerular Filt Rate 35; Glucose Random 155 mg/dL (60-115); Magnesium 2.1 mg/dL (1.6-2.6); Phosphorus 3.3 mg/dL (2.7-4.5); Potassium 3.7 mmol/L (3.3-5.1); Sodium 135 mmol/L (135-145); Total Protein 6.7 g/dL (6.5-8.0)
[2021-03-17] MEDS: Metoprolol Tartrate 25 MG TABLET PO ×2 (09:10→20:19)
[2021-03-17] MEDS: Morphine Sulfate 2 MG/ML CARTRIDGE IVPUSH ×4 (09:32→20:19)
--- NOTE | 2021-03-17 11:18 | HO.PM.IMPN ---
Subjective Subjective Date of Service: 03/17/21 Interval History: the patient was seen and evaluated this morning Laying in bed, Complaining of abdominal distention and pain Hb dropped to 7.5 overnight Denies any fever, chills or shortness of breath No reported other overnight events. Systemic review: No fever, chills but reported feeling generalized weakness No chest pain, palpitation No shortness of breath or coughing having abdominal pain and distension the No urinary symptoms No any rash or wounds Physical Exam Vital Signs: Vital Signs: Last Vital Signs Temp 98.4 F 03/17/21 07:51 Pulse 133 H 03/17/21 09:10 Resp 24 H 03/17/21 07:51 BP 123/83 03/17/21 09:10 Pulse Ox 95 03/17/21 07:51 BMI result Body Mass Index 28.3 Const: Other: Constitutional : Alert, interactive blood looks tired and sick Neck : Normal inspection, Supple Cardiovascular : RRR, S1 S2, no lower extremity edema Respiratory : fair bilateral air entry, no crackles, wheezes or rhonchi Gastrointestinal: abdomen is distended, no tenderness, ascites fluid can be felt Skin : Warm, Dry Neurological : Alert & oriented x3, No focal deficit Objective Data Active Medications Piperacillin Sod/Tazobactam (Sod 2.25 gm/ Sodium Chloride) 50 mls @ 100 mls/hr IV Q6H [facility] Last Infusion: 03/17/21 11:09 Dose: 0 mls/hr Documented by: CJ Lactulose (Lactulose 20 Gm/30 Ml Solution) 20 gm PO DAILY [facility] Lidocaine (Lidocaine 4 % Patch Adh..Patch) 1 patch TRANSDERMA DAILY@0700 [facility]; Protocol Last Admin: 03/17/21 06:15 Dose: 1 patch Documented by: EDWARD Metoprolol Tartrate (Metoprolol Tartrate 25 Mg Tablet) 25 mg PO BID [facility]; Protocol Last Admin: 03/17/21 09:10 Dose: 25 mg Documented by: CJ Morphine Sulfate (Morphine Sulfate 2 Mg/Ml Cartridge) 2 mg IVPUSH Q4H PRN; Protocol PRN Reason: Pain, Severe (Pain Scale 7-10) Last Admin: 03/17/21 09:32 Dose: 2 mg Documented by: CJ Phytonadione (Phytonadione (Vit K1) Oral 10 Mg/Ml Ampul) 5 mg PO ONCE ONE Stop: 03/17/21 11:16 Labs CBC & Chem 7: 03/17/21 06:50 03/17/21 06:49 Labs: Laboratory Results - last 24 hr 03/16/21 03/16/21 03/16/21 01:46 05:36 14:10 MCV 84.4 MCH 28.7 MCHC 34.0 RDW 20.3 H Plt Count 208 MPV 10.2 Immature Gran % (Auto) 0.8 H Neut % (Auto) 73.2 H Lymph % (Auto) 14.8 L [place] % (Auto) 10.6 Eos % (Auto) 0.3 Baso % (Auto) 0.3 Lymph # (Auto) 1.8 [place] # (Auto) 1.3 H Eos # (Auto) 0.0 Baso # (Auto) 0.0 Abs Immat Gran (auto) 0.09 H Absolute Neuts (auto) 8.8 H Absolute Nucleated RBC 0.000 Nucleated RBC % (auto) 0.0 VBG pH VBG pCO2 VBG pO2 VBG HCO3 VBG O2 Saturation VBG Base Excess Anion Gap Estim Creat Clear Calc Estimated GFR POC Glucose Random Glucose Calcium Phosphorus Magnesium Total Bilirubin AST ALT Alkaline Phosphatase Total Protein Albumin Fl Pathologist Review SEE NOTE Blood Type O Positive Antibody Screen NEGATIVE Crossmatch See Detail 03/16/21 03/17/21 03/17/21 19:31 01:42 06:49 MCV MCH MCHC RDW Plt Count MPV Immature Gran % (Auto) Neut % (Auto) Lymph % (Auto) [place] % (Auto) Eos % (Auto) Baso % (Auto) Lymph # (Auto) [place] # (Auto) Eos # (Auto) Baso # (Auto) Abs Immat Gran (auto) Absolute Neuts (auto) Absolute Nucleated RBC Nucleated RBC % (auto) VBG pH VBG pCO2 VBG pO2 VBG HCO3 VBG O2 Saturation VBG Base Excess Anion Gap 13 14 Estim Creat Clear Calc 34.8 37.4 Estimated GFR 32 35 POC Glucose 151 H Random Glucose 142 H 155 H Calcium 8.0 L 8.2 L Phosphorus 3.3 Magnesium 2.0 2.1 Total Bilirubin 1.9 H AST 258 H ALT 170 H Alkaline Phosphatase 217 H D Total Protein 6.7 Albumin 3.7 D Fl Pathologist Review Blood Type Antibody Screen Crossmatch 12/31/21 12/31/21 06:50 06:55 MCV 83.7 MCH 29.2 MCHC 34.9 RDW 20.8 H Plt Count 158 L MPV 10.0 Immature Gran % (Auto) 0.9 H Neut % (Auto) 76.9 H Lymph % (Auto) 11.8 L [place] % (Auto) 10.0 Eos % (Auto) 0.2 Baso % (Auto) 0.2 Lymph # (Auto) 1.2 [place] # (Auto) 1.0 Eos # (Auto) 0.0 Baso # (Auto) 0.0 Abs Immat Gran (auto) 0.09 H Absolute Neuts (auto) 7.5 Absolute Nucleated RBC 0.000 Nucleated RBC % (auto) 0.0 VBG pH 7.39 VBG pCO2 27 VBG pO2 51 VBG HCO3 17 L VBG O2 Saturation 76.0 VBG Base Excess -6.7 Anion Gap Estim Creat Clear Calc Estimated GFR POC Glucose Random Glucose Calcium Phosphorus Magnesium Total Bilirubin AST ALT Alkaline Phosphatase Total Protein Albumin Fl Pathologist Review Blood Type Antibody Screen Crossmatch Microbiology Microbiology Results: Microbiology 03/16/21 05:40 Gram Stain - Final Abdominal Fluid Routine Culture - Preliminary No growth to date. Anaerobic Culture - Preliminary No growth to date. Assessment and Plan (1) Liver cirrhosis: Status: Acute (2) Liver mass: Status: Acute (3) Spontaneous intraperitoneal hemorrhage: Status: Acute (4) Acute on chronic blood loss anemia: Status: Acute (5) Acute kidney injury: Status: Acute Assessment and Plan: 65-year-old gentleman with underlying history of treated chronic hepatitis-C with portal hypertension and cirrhosis, undergoing workup for hepatocellular carcinoma, also hypertension, AFib on Eliquis status post ppm placement, thrombocytopenia, asthma, diabetes mellitus admitted on 03/16/2021 with 3 week history of progressively worsening abdominal pain and weakness. Acute on chronic blood-loss anemia 2/2 Spontaneous intraperitoneal bleed Hemoglobin dropped to 7.5 this morning To give a unit of blood, total of 3 Surgery following, no intervention planned Continue to follow H&H Discontinue antibiotic as no source of infection Elevated INR Secondary to liver cirrhosis to give vitamin K, fresh frozen plasma Monitor liver function INR daily acute kidney injury Creatinine of 1.9 Improving slowly Avoid nephrotoxic medications Get Nephrology evaluation decompensated liver cirrhosis secondary to hepatitis-C Ascites Hepatocellular carcinoma under workup To get GI evaluation Start lactulose Monitor intake and output Plan for paracentesis today after FFP Type 2 diabetes Diabetic diet and SSI Paroxysmal atrial fibrillation To restart metoprolol Hold Eliquis DVT PPX SCDs Quality Stroke Does the patient have a stroke diagnosis?: No VTE Prior VTE?: No VTE Risk Level:: Medical - moderate - high VTE Device Contraindication: N/A - Device Ordered VTE Drug Contraindication: Treatment Not Indicated
[2021-03-17] MEDS: Phytonadione (Vit K1) Oral 10 MG/ML AMPUL 5 MG PO (11:51)
[2021-03-17] MEDS: Furosemide 20 MG/2 ML VIAL IVPUSH (11:51)
[2021-03-17 12:33] LABS: Fibrinogen 460 MG/DL (259-690); INTERNATIONAL NORM RATIO 2.2 (0.9-1.1); Prothrombin Time 25.3 SEC (9.9-13.0)
[2021-03-17 12:35] LABS: D Dimer High Sensitivity 2898 NG/ML
--- NOTE | 2021-03-17 17:21 | P.EN_ITS ---
Event Note Date of Service: 03/17/21 Event Note: GI- Hx via patient and EMR Imp: 65 yo with cirrhosis due to previous EtOH and Hep C, followed by Dr. Ayers and Dr. Cabrera, with recent issues of progressive ascites accumulation and the finding of suspicious liver masses with slightly elevated AFP levels. He had ju st a diagnostic paracentesis yesterday that was bloody. Unfortunately, he continues with tense ascites and discomfort that is causing him difficulties with eating, walking, and breathing. He has been apparently scheduled for a paracentesis for tomorrow. He says that he has not had a large volume paracentesis before. 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 Rec: Agree with plans for a large volume paracentesis JULIANA, for both diagnostic and comfort purposes. He should have Doppler studies to assess for any component of portal vein thrombus contributing to his ascites as well. He should have studies sent for cytology, as well as a repeat cell count, Gram stain, and culture&sensitivity. Check follow up labs in the AM including renal function and PT/INR. I would recommend some Albumin infusion with the paracentesis tomorrow, as well as probably needing some FFP before hand if the PT/INR remains significantly abnormal. If the ascites cytology is negative he would need to be evaluated for possible biopsy of one of the liver lesions. Thanks
--- NOTE | 2021-03-17 19:21 | CONS_ITS ---
DATE OF SERVICE: 03/17/2021 REASON FOR CONSULTATION: Cirrhosis, ascites, and liver mass. HISTORY OF PRESENT ILLNESS: This has been obtained from the patient and the medical record. The patient is a 65-year-old male with underlying cirrhosis in relation to previous alcohol use and previous hepatitis C, status post successful treatment with Epclusa. Over the course of this year, he has been noted to have progressive accumulation of ascites and was found to have 1 or 2 suspicious liver masses on an ultrasound in December. From what I can see in the chart, the plan had been to refer him to [facility] for an opinion and evaluation of the liver lesions. However, he did not get to that appointment. He was seen by Dr. Cabrera earlier this month. He was admitted here with some increasing abdominal distention and ascites and was found to have a bloody diagnostic paracentesis in . He was admitted to the ICU yesterday for evaluation of this where he had a hemoglobin of 6.1 and was somewhat hypotensive. He received 2 units of blood yesterday. He also received some vitamin K. He did receive some antibiotics as well. His CAT scan showed a large volume of ascites. Of note, he is on Eliquis at home. He was transferred to the floor and he presently complains of a very distended abdomen, which is causing difficulty with walking, eating and even some breathing. He reports he has never had a large volume paracentesis. The patient denies any further alcohol use, nor substance abuse. He does smoke. He denies any vomiting, melena, nor hematochezia. CURRENT MEDICATIONS: Include lactulose, transdermal lidocaine patch, metoprolol, morphine p.r.n. His medications at home included amlodipine, Eliquis, atorvastatin, vitamin D, hydrochlorothiazide, lisinopril, metoprolol. PAST MEDICAL HISTORY: Pacemaker. Cirrhosis due to previous alcohol use and previous hepatitis C, status post treatment with Epclusa. He has a history of hypertension, hyperlipidemia. He describes a previous AR. He denies any history of stroke nor diabetes. Suspicious liver mass is consistent with possible hepatoma. He does have a slightly elevated alpha fetoprotein level. SOCIAL HISTORY: He does smoke. He no longer uses any alcohol nor drugs. FAMILY HISTORY: Noncontributory. PHYSICAL EXAMINATION: GENERAL: The patient is a chronically ill-appearing male. He does appear somewhat uncomfortable in relation to his distended abdomen. Nonjaundiced. NECK: Supple. ABDOMEN: Quite distended. There is some mild diffuse tenderness. There is no palpable mass. I can palpate any organomegaly due to the abdominal distention. EXTREMITIES: Without edema. NEUROLOGIC: He appears alert without any obvious asterixis. LABORATORY DATA: White blood cell count 9.8, hemoglobin 7.5, platelets 158,000. Hemoglobin yesterday was 8.8. PT 25.3 with INR 2.2 today, compared to a PT of 34.6 and INR 3.0 yesterday. Normal electrolytes. BUN 50, creatinine 1.95. Total bilirubin is 1.9, AST 258, ALT 170, alkaline phosphatase 217, albumin 3.7. His ascites fluid from yesterday showed 2400 wbc's with 65% neutrophils and 15% lymphocytes. Stool was Hemoccult negative. His COVID test was negative. IMPRESSION: Given the patient's clinical history, this appears to be a probable malignant ascites in relation to the presumed hepatoma described on his imaging studies. Another contributing factor may very well be a portal vein thrombosis in relation to the presumed hepatoma or simply on a spontaneous basis. The bloody ascites would speak for a neoplastic process as well, although he was on Eliquis when the diagnostic tap was performed. At this point, I would certainly agree with a large volume paracentesis both for comfort measures and diagnostic purposes. I have ordered a specimen to be sent for cytology, as well as a repeat cell count, Gram stain, and culture. He will potentially need FFP if the PT/INR remain significantly elevated for the procedure tomorrow. He should receive IV albumin for the procedure as well. I have also ordered Doppler studies to be done right after he has the paracentesis tomorrow to assess for any component of portal vein thrombosis. If the ascites cytology is negative he may then need to be evaluated for a possible biopsy of 1 of the liver lesions, although he would probably need another large volume paracentesis before that could be done. If the ascites still shows an elevated number of PMN's on the WBC count I would recommend antibiotic coverage for possible SBP, although the elevated WBC's in the ascites may just be related to the bloody ascites. I would recommend to continue holding the Eliquis until the workup for the liver lesions has been completed. Thank you for the consultation. MD YUSUF Parmar/MEGHAN / [id number] MTDD
[2021-03-18] VITALS (12 sets, daily range): BP systolic 101–145; BP diastolic 54–72; PULSE 68–112; RESP 18–20; TEMP 36.4–37.4; O2SAT 93–98; BMI 28.1
[2021-03-18] MEDS: Morphine Sulfate 2 MG/ML CARTRIDGE IVPUSH ×3 (00:10→07:42)
--- NOTE | 2021-03-18 01:25 | ECG_ITS ---
Test Reason : cp Blood Pressure : / mmHG Vent. Rate : 108 BPM Atrial Rate : 108 BPM P-R Int : 168 ms QRS Dur : 070 ms QT Int : 342 ms P-R-T Axes : 000 035 042 degrees QTc Int : 458 ms Sinus tachycardia Low voltage QRS Borderline ECG No previous ECGs available Referred By: Aniket Lockhart Electronically Signed By:JOSÉ LUIS LUNA MD
[2021-03-18 01:59] LABS: Anion Gap 13 (12-20); Blood Urea Nitrogen 52 mg/dL (9-16); Calcium 8.2 mg/dL (8.4-10.2); Carbon Dioxide 19 mmol/L (22-29); Chloride 104 mmol/L (96-108); Creatinine Clr Calc Pharmacy 46.8; Estimated Glomerular Filt Rate 45; Glucose Random 139 mg/dL (60-115); Magnesium 2.2 mg/dL (1.6-2.6); Potassium 3.5 mmol/L (3.3-5.1); Sodium 132 mmol/L (135-145)
[2021-03-18 02:05] LABS: Troponin-I High Sensitivity 12.1 ng/L (<3.5-35.0)
--- NOTE | 2021-03-18 04:13 | PC.NURSE ---
pt had 50+ beats of vtach on tele, this Rn to bedside pt c/o chest pain, quickly back to sinus tach, VSS md made aware, EKG obtained, new orders for labs. pt states chest pain resolved, pt retured to sinus tach low 100's which he had been in previously.
[2021-03-18 07:16] LABS: Hematocrit 24.1 % (42.0-52.0); Hemoglobin 8.3 g/dl (14.0-18.0); Mean Corpuscular HGB Conc 34.4 g/dl (31.0-36.0); Mean Corpuscular Hemoglobin 29.4 pg (27.0-33.0); Mean Corpuscular Volume 85.5 fL (80.0-98.0); Mean Platelet Volume 10.4 fL (9.4-12.4); NRBC Pct Auto 0.2 /100WBC (0.0-0.2); Platelet Count 166 X10*3/uL (160-400); Red Blood Count 2.82 X10*6/uL (4.60-5.80); Red Cell Distribution Width 19.7 % (11.0-16.0); White Blood Count 11.7 X10*3/uL (4.8-10.8)
[2021-03-18 07:18] LABS: INTERNATIONAL NORM RATIO 1.6 (0.9-1.1); Prothrombin Time 18.1 SEC (9.9-13.0)
[2021-03-18 07:45] LABS: Anion Gap 13 (12-20); Blood Urea Nitrogen 53 mg/dL (9-16); Calcium 8.3 mg/dL (8.4-10.2); Carbon Dioxide 19 mmol/L (22-29); Chloride 104 mmol/L (96-108); Creatinine Clr Calc Pharmacy 46.7; Estimated Glomerular Filt Rate 45; Glucose Random 150 mg/dL (60-115); Potassium 3.5 mmol/L (3.3-5.1); Sodium 132 mmol/L (135-145)
[2021-03-18] MEDS: ondansetron HCL 4 MG/2 ML VIAL IVPUSH (07:46)
[2021-03-18 07:50] LABS: Alanine Aminotransferase 140 U/L (0-40); Albumin Level 3.5 g/dL (3.5-5.0); Alkaline Phosphatase 208 U/L (39-117); Aspartate Amino Transferase 155 U/L (5-37); Bilirubin Direct 1.2 mg/dL (0.0-0.5); Lactate Dehydrogenase 355 U/L (118-273); Total Protein 6.9 g/dL (6.5-8.0)
[2021-03-18] MEDS: Metoprolol Tartrate 25 MG TABLET PO ×2 (07:50→20:23)
[2021-03-18] MEDS: Lactulose 20 GM/30 ML SOLUTION PO (09:22)
--- NOTE | 2021-03-18 11:01 | P.PNIM_ITS ---
Subjective Subjective Date of Service: 03/18/21 Interval History: the patient was seen and evaluated this morning Laying in bed, Complaining of abdominal distention and pain Hb improved to 8.3 this morning after transfusion INR 1.6 No reported other overnight events. Systemic review: No fever, chills but reported feeling generalized weakness No chest pain, palpitation No shortness of breath or coughing having abdominal pain and distension with reported pain No urinary symptoms No any rash or wounds Physical Exam Vital Signs: Vital Signs: Last Vital Signs Temp 98.7 F 03/18/21 07:43 Pulse 109 H 03/18/21 07:50 Resp 20 03/18/21 07:43 BP 101/59 L 03/18/21 07:50 Pulse Ox 95 03/18/21 07:43 BMI result Body Mass Index 28.1 Const: Other: Constitutional : Alert, interactive blood looks tired and sick Neck : Normal inspection, Supple Cardiovascular : RRR, S1 S2, no lower extremity edema Respiratory : fair bilateral air entry, no crackles, wheezes or rhonchi Gastrointestinal: abdomen is distended, no tenderness, large amount of ascites Skin : Warm, Dry Neurological : Alert & oriented x3, No focal deficit Objective Data Active Medications Albumin Human (Kedbumin 25 %) 100 mls @ 100 mls/hr IV Q6H [facility] Stop: 03/19/21 06:59 Lactulose (Lactulose 20 Gm/30 Ml Solution) 20 gm PO DAILY [facility] Last Admin: 03/18/21 09:22 Dose: 20 gm Documented by: CJ Lidocaine (Lidocaine 4 % Patch Adh..Patch) 1 patch TRANSDERMA DAILY@0700 [facility]; Protocol Last Admin: 03/18/21 07:53 Dose: Not Given Documented by: CJ Non-Admin Reason: Patient Refused Metoprolol Tartrate (Metoprolol Tartrate 25 Mg Tablet) 25 mg PO BID [facility]; Protocol Last Admin: 03/18/21 07:50 Dose: 25 mg Documented by: CJ Morphine Sulfate (Morphine Sulfate 2 Mg/Ml Cartridge) 2 mg IVPUSH Q4H PRN; Protocol PRN Reason: Pain, Severe (Pain Scale 7-10) Last Admin: 03/18/21 07:42 Dose: 2 mg Documented by: CJ Labs CBC & Chem 7: 03/18/21 06:42 03/18/21 06:42 Labs: Laboratory Results - last 24 hr 03/16/21 03/17/21 03/17/21 01:46 12:21 12:21 MCV MCH MCHC RDW Plt Count MPV Absolute Nucleated RBC Nucleated RBC % (auto) PT 25.3 H INR 2.2 H Fibrinogen 460 D-Dimer High Sensitivty 2898 Anion Gap Estim Creat Clear Calc Estimated GFR Random Glucose Calcium Magnesium Total Bilirubin Direct Bilirubin AST ALT Alkaline Phosphatase Lactate Dehydrogenase Troponin I High Sens Total Protein Albumin Blood Type O Positive Antibody Screen NEGATIVE Crossmatch See Detail 03/18/21 03/18/21 03/18/21 01:35 01:35 06:42 MCV 85.5 MCH 29.4 MCHC 34.4 RDW 19.7 H Plt Count 166 MPV 10.4 Absolute Nucleated RBC 0.020 H Nucleated RBC % (auto) 0.2 PT INR Fibrinogen D-Dimer High Sensitivty Anion Gap 13 Estim Creat Clear Calc 46.8 Estimated GFR 45 Random Glucose 139 H Calcium 8.2 L Magnesium 2.2 Total Bilirubin Direct Bilirubin AST ALT Alkaline Phosphatase Lactate Dehydrogenase Troponin I High Sens 12.1 D Total Protein Albumin Blood Type Antibody Screen Crossmatch 03/18/21 03/18/21 03/18/21 06:42 06:42 06:42 MCV MCH MCHC RDW Plt Count MPV Absolute Nucleated RBC Nucleated RBC % (auto) PT 18.1 H INR 1.6 H Fibrinogen D-Dimer High Sensitivty Anion Gap 13 Estim Creat Clear Calc 46.7 Estimated GFR 45 Random Glucose 150 H Calcium 8.3 L Magnesium Total Bilirubin 2.0 H Direct Bilirubin 1.2 H AST 155 H ALT 140 H Alkaline Phosphatase 208 H Lactate Dehydrogenase 355 H Troponin I High Sens Total Protein 6.9 Albumin 3.5 Blood Type Antibody Screen Crossmatch Microbiology Microbiology Results: Microbiology 03/16/21 05:40 Gram Stain - Final Abdominal Fluid Routine Culture - Final No growth after 2 days Anaerobic Culture - Preliminary No growth to date. Assessment and Plan (1) Acute on chronic blood loss anemia: Status: Acute (2) Liver cirrhosis: Status: Acute (3) Spontaneous intraperitoneal hemorrhage: Status: Acute Assessment and Plan: 65-year-old gentleman with underlying history of treated chronic hepatitis-C with portal hypertension and cirrhosis, undergoing workup for hepatocellular carcinoma, also hypertension, AFib on Eliquis status post ppm placement, thro mbocytopenia, asthma, diabetes mellitus admitted on 03/16/2021 with 3 week history of progressively worsening abdominal pain and weakness. Acute on chronic blood-loss anemia 2/2 Spontaneous intraperitoneal bleed Hemoglobin improved to 8.3 after transfusion received total of 3 PRBCs Surgery following, no intervention planned Continue to follow H&H Discontinue antibiotic as no source of infection Elevated INR Secondary to liver cirrhosis to give vitamin K, fresh frozen plasma INR improved to 1.6 to give another FFP with paracentesis acute kidney injury Creatinine improved to 1.5 Avoid nephrotoxic medications decompensated liver cirrhosis secondary to hepatitis-C Ascites Hepatocellular carcinoma under workup GI input appreciated, to for a centesis and if cytology negative to do liver biopsy continue lactulose Monitor intake and output Plan for paracentesis today with FFP Type 2 diabetes Diabetic diet and SSI Paroxysmal atrial fibrillation continue metoprolol Hold Eliquis DVT PPX SCDs Quality Stroke Does the patient have a stroke diagnosis?: No VTE Prior VTE?: No VTE Risk Level:: Medical - moderate - high VTE Device Contraindication: N/A - Device Ordered VTE Drug Contraindication: Treatment Not Indicated
[2021-03-18 12:10] LABS: Glucose, Whole Blood 174 mg/dL (60-115)
[2021-03-18] MEDS: Lidocaine HCl 1 % 20 ML VIAL SUBCUT (12:14)
[2021-03-18 12:16] LABS: MN% 28.8 %; PMN% 71.2 %
[2021-03-18 12:48] LABS: Lymphocyte Peritoneal Fl 3 %
[2021-03-18 12:49] LABS: Basophils Peritoneal Fl 0 %; Eosinophils Peritoneal Fl 2 %; Monocytes Peritoneal Fl 8 %
[2021-03-18 12:53] LABS: Neutrophils Peritoneal Fluid 83 %; Other Peritioneal Fl 4 %
[2021-03-18 12:54] LABS: BF Shift QC OK YES; Man Diluent Bkgrd OK YES
[2021-03-18] MEDS: Albumin Human 25 % 100 ML IV ×3 (14:48→21:34)
[2021-03-18 15:45] LABS: Glucose, Whole Blood 145 mg/dL (60-115)
[2021-03-18] MEDS: cefTRIAXone sodium 1 GM in 0.9 % Sodium Chloride 50 ML IV (17:50)
[2021-03-18 20:16] LABS: Glucose, Whole Blood 152 mg/dL (60-115)
[2021-03-19] VITALS (10 sets, daily range): BP systolic 105–133; BP diastolic 55–66; PULSE 74–115; RESP 18–24; TEMP 36.2–36.8; O2SAT 93–99; BMI 27.9
[2021-03-19] MEDS: Albumin Human 25 % 100 ML IV (05:52)
[2021-03-19 06:46] LABS: Hematocrit 22.3 % (42.0-52.0); Hemoglobin 7.3 g/dl (14.0-18.0); Mean Corpuscular HGB Conc 32.7 g/dl (31.0-36.0); Mean Corpuscular Hemoglobin 28.5 pg (27.0-33.0); Mean Corpuscular Volume 87.1 fL (80.0-98.0); Mean Platelet Volume 10.2 fL (9.4-12.4); NRBC Pct Auto 0.2 /100WBC (0.0-0.2); Platelet Count 116 X10*3/uL (160-400); Red Blood Count 2.56 X10*6/uL (4.60-5.80); Red Cell Distribution Width 20.5 % (11.0-16.0)
[2021-03-19 06:53] LABS: INTERNATIONAL NORM RATIO 1.5 (0.9-1.1); Prothrombin Time 17.4 SEC (9.9-13.0)
[2021-03-19 07:13] LABS: Alanine Aminotransferase 99 U/L (0-40); Albumin Level 3.6 g/dL (3.5-5.0); Alkaline Phosphatase 211 U/L (39-117); Anion Gap 13 (12-20); Aspartate Amino Transferase 109 U/L (5-37); Bilirubin Direct 1.4 mg/dL (0.0-0.5); Bilirubin Total 2.2 mg/dL (0.0-1.0); Blood Urea Nitrogen 45 mg/dL (9-16); Calcium 8.3 mg/dL (8.4-10.2); Carbon Dioxide 20 mmol/L (22-29); Chloride 106 mmol/L (96-108); Creatinine Clr Calc Pharmacy 57.1; Estimated Glomerular Filt Rate 57; Glucose Random 131 mg/dL (60-115); Potassium 3.2 mmol/L (3.3-5.1); Sodium 136 mmol/L (135-145); Total Protein 6.4 g/dL (6.5-8.0)
[2021-03-19 07:44] LABS: Glucose, Whole Blood 127 mg/dL (60-115)
[2021-03-19] MEDS: Metoprolol Tartrate 25 MG TABLET PO ×2 (09:24→19:52)
[2021-03-19] MEDS: Potassium Chloride Packet 20 MEQ PACKET 40 MEQ PO ×2 (09:25→12:16)
--- NOTE | 2021-03-19 11:30 | HO.PM.IMPN ---
Subjective Subjective Date of Service: 03/19/21 Interval History: the patient was seen and evaluated this morning Laying in bed, feels more comfortable after the paracentesis Still have abdominal distension Hb dropped to 7.3 INR 1.5 No reported other overnight events. Systemic review: No fever, chills but reported feeling generalized weakness No chest pain, palpitation No shortness of breath or coughing improved abdominal distension but still there with associated pain. No urinary symptoms No any rash or wounds Physical Exam Vital Signs: Vital Signs: Last Vital Signs Temp 97.7 F 03/19/21 07:37 Pulse 107 H 03/19/21 09:24 Resp 20 03/19/21 07:37 BP 133/55 L 03/19/21 09:24 Pulse Ox 95 03/19/21 07:37 BMI result Body Mass Index 27.9 Const: Other: Constitutional : Alert, interactive , looks chronically sick Neck : Normal inspection, Supple Cardiovascular : RRR, S1 S2, no lower extremity edema Respiratory : fair bilateral air entry, no crackles, wheezes or rhonchi Gastrointestinal: abdomen is moderatelydistended, no tenderness, moderate amount of ascites Skin : Warm, Dry Neurological : Alert & oriented x3, No focal deficit Objective Data Active Medications Ceftriaxone Sodium 1 gm/ (Sodium Chloride) 50 mls @ 100 mls/hr IV Q24H [facility] Stop: 03/22/21 16:29 Last Infusion: 03/18/21 20:04 Dose: 0 mls/hr Documented by: RUSS Insulin Human Lispro (Insulin Lispro 100 Unit/Ml 3 Ml Vial) 0 unit SUBCUT QIDACHS [facility]; Protocol Last Admin: 03/19/21 07:50 Dose: Not Given Documented by: KARL Non-Admin Reason: No Insulin Coverage Lactulose (Lactulose 20 Gm/30 Ml Solution) 20 gm PO DAILY [facility] Last Admin: 03/19/21 09:24 Dose: Not Given Documented by: KARL Non-Admin Reason: Patient Refused Lidocaine (Lidocaine 4 % Patch Adh..Patch) 1 patch TRANSDERMA DAILY@0700 [facility]; Protocol Last Admin: 03/19/21 09:25 Dose: Not Given Documented by: KARL Non-Admin Reason: Patient Refused Metoprolol Tartrate (Metoprolol Tartrate 25 Mg Tablet) 25 mg PO BID [facility]; Protocol Last Admin: 03/19/21 09:24 Dose: 25 mg Documented by: KARL Morphine Sulfate (Morphine Sulfate 2 Mg/Ml Cartridge) 2 mg IVPUSH Q4H PRN; Protocol PRN Reason: Pain, Severe (Pain Scale 7-10) Last Admin: 03/18/21 07:42 Dose: 2 mg Documented by: CJ Potassium Chloride (Potassium Chloride Packet 20 Meq Packet) 40 meq PO Q4H [facility]ENNI Stop: 03/19/21 12:01 Last Admin: 03/19/21 09:25 Dose: 40 meq Documented by: KARL Labs CBC & Chem 7: 03/19/21 06:23 03/19/21 06:23 Labs: Laboratory Results - last 24 hr 03/16/21 03/18/21 03/18/21 01:46 10:30 12:07 MCV MCH MCHC RDW Plt Count MPV Absolute Nucleated RBC Nucleated RBC % (auto) PT INR Anion Gap Estim Creat Clear Calc Estimated GFR POC Glucose 174 H Random Glucose Calcium Total Bilirubin Direct Bilirubin AST ALT Alkaline Phosphatase Total Protein Albumin Peritoneal WBC 2.530 Peritoneal RBC 1.040 Periton Neutrophils 83 Periton Lymphocytes 3 Peritoneal Monocytes 8 Peritoneal Eosinophils 2 Peritoneal Basophils 0 Peritoneal Other Cells 4 Blood Type O Positive Antibody Screen NEGATIVE Crossmatch See Detail 03/18/21 03/18/21 03/19/21 15:41 20:10 06:23 MCV 87.1 MCH 28.5 MCHC 32.7 RDW 20.5 H Plt Count 116 L D MPV 10.2 Absolute Nucleated RBC 0.020 H Nucleated RBC % (auto) 0.2 PT INR Anion Gap Estim Creat Clear Calc Estimated GFR POC Glucose 145 H 152 H Random Glucose Calcium Total Bilirubin Direct Bilirubin AST ALT Alkaline Phosphatase Total Protein Albumin Peritoneal WBC Peritoneal RBC Periton Neutrophils Periton Lymphocytes Peritoneal Monocytes Peritoneal Eosinophils Peritoneal Basophils Peritoneal Other Cells Blood Type Antibody Screen Crossmatch 03/19/21 03/19/21 03/19/21 06:23 06:23 06:23 MCV MCH MCHC RDW Plt Count MPV Absolute Nucleated RBC Nucleated RBC % (auto) PT 17.4 H INR 1.5 H Anion Gap 13 Estim Creat Clear Calc 57.1 Estimated GFR 57 POC Glucose Random Glucose 131 H Calcium 8.3 L Total Bilirubin 2.2 H Cancelled Direct Bilirubin 1.4 H Cancelled AST 109 H Cancelled ALT 99 H Cancelled Alkaline Phosphatase 211 H Cancelled Total Protein 6.4 L Cancelled Albumin 3.6 Cancelled Peritoneal WBC Peritoneal RBC Periton Neutrophils Periton Lymphocytes Peritoneal Monocytes Peritoneal Eosinophils Peritoneal Basophils Peritoneal Other Cells Blood Type Antibody Screen Crossmatch 03/19/21 07:39 MCV MCH MCHC RDW Plt Count MPV Absolute Nucleated RBC Nucleated RBC % (auto) PT INR Anion Gap Estim Creat Clear Calc Estimated GFR POC Glucose 127 H Random Glucose Calcium Total Bilirubin Direct Bilirubin AST ALT Alkaline Phosphatase Total Protein Albumin Peritoneal WBC Peritoneal RBC Periton Neutrophils Periton Lymphocytes Peritoneal Monocytes Peritoneal Eosinophils Peritoneal Basophils Peritoneal Other Cells Blood Type Antibody Screen Crossmatch Microbiology Microbiology Results: Microbiology 03/18/21 10:30 Gram Stain - Final Ascites Fluid Anaerobic Culture - Preliminary No growth to date. Body Fluid Culture - Preliminary No growth after 1 day 03/16/21 05:40 Gram Stain - Final Abdominal Fluid Routine Culture - Final No growth after 2 days Anaerobic Culture - Preliminary No growth to date. Assessment and Plan (1) Acute on chronic blood loss anemia: Status: Acute (2) Liver cirrhosis: Status: Acute (3) Liver mass: Status: Acute (4) Spontaneous intraperitoneal hemorrhage: Status: Acute (5) Acute kidney injury: Status: Acute Assessment and Plan: 65-year-old gentleman with underlying history of treated chronic hepatitis-C with portal hypertension and cirrhosis, undergoing workup for hepatocellular carcinoma, also hypertension, AFib on Eliquis status post ppm placement, thrombocytopenia, asthma, diabetes mellitus admitted on 03/16/2021 with 3 week history of progressively worsening abdominal pain and weakness. Acute on chronic blood-loss anemia 2/2 Spontaneous intraperitoneal bleed Hemoglobin dropped to 7.3 this morning, no clear source of bleeding identified received total of 3 PRBCs Surgery following, no intervention planned Continue to follow H&H Discontinue antibiotic as no source of infection Elevated INR Secondary to liver cirrhosis received vitamin K, 2 fresh frozen plasma INR improved to 1.5 to repeat paracentesis tomorrow acute kidney injury Creatinine improved to 1.27 Avoid nephrotoxic medications decompensated liver cirrhosis secondary to hepatitis-C Ascites Hepatocellular carcinoma under workup GI input appreciated, paracentesis and if cytology negative to do liver biopsy continue lactulose, hold for diarrhea Monitor intake and output Plan for paracentesis today with FFP Type 2 diabetes Diabetic diet and SSI Paroxysmal atrial fibrillation continue metoprolol Hold Eliquis DVT PPX SCDs Quality Stroke Does the patient have a stroke diagnosis?: No VTE Prior VTE?: No VTE Risk Level:: Medical - moderate - high VTE Device Contraindication: N/A - Device Ordered VTE Drug Contraindication: Treatment Not Indicated
[2021-03-19 11:31] LABS: Glucose, Whole Blood 163 mg/dL (60-115)
[2021-03-19] MEDS: Insulin Lispro 100 UNIT/ML 3 ML VIAL SUBCUT (12:16)
[2021-03-19] MEDS: Morphine Sulfate 2 MG/ML CARTRIDGE IVPUSH ×4 (12:59→23:07)
[2021-03-19] MEDS: cefTRIAXone sodium 1 GM in 0.9 % Sodium Chloride 50 ML IV (15:49)
[2021-03-19 16:11] LABS: Glucose, Whole Blood 152 mg/dL (60-115)
[2021-03-19 19:57] LABS: Glucose, Whole Blood 153 mg/dL (60-115)
[2021-03-19] MEDS: ondansetron HCL 4 MG/2 ML VIAL IVPUSH (23:06)
[2021-03-20] VITALS (7 sets, daily range): BP systolic 106–132; BP diastolic 60–73; PULSE 93–106; RESP 18–19; TEMP 35.5–37.1; O2SAT 96–100; BMI 27.2
[2021-03-20] MEDS: Morphine Sulfate 2 MG/ML CARTRIDGE IVPUSH ×7 (03:29→23:14)
[2021-03-20 06:55] LABS: Hemoglobin 8.5 g/dl (14.0-18.0); INTERNATIONAL NORM RATIO 1.4 (0.9-1.1); Mean Corpuscular HGB Conc 32.7 g/dl (31.0-36.0); Mean Corpuscular Hemoglobin 29.1 pg (27.0-33.0); Mean Platelet Volume 10.7 fL (9.4-12.4); Platelet Count 160 X10*3/uL (160-400); Prothrombin Time 15.6 SEC (9.9-13.0); Red Blood Count 2.92 X10*6/uL (4.60-5.80); Red Cell Distribution Width 21.2 % (11.0-16.0); White Blood Count 8.7 X10*3/uL (4.8-10.8)
[2021-03-20 07:07] LABS: Alanine Aminotransferase 93 U/L (0-40); Albumin Level 3.7 g/dL (3.5-5.0); Alkaline Phosphatase 206 U/L (39-117); Aspartate Amino Transferase 87 U/L (5-37); Bilirubin Direct 1.2 mg/dL (0.0-0.5); Total Protein 6.9 g/dL (6.5-8.0)
[2021-03-20 07:08] LABS: Anion Gap 12 (12-20); Blood Urea Nitrogen 36 mg/dL (9-16); Calcium 8.6 mg/dL (8.4-10.2); Carbon Dioxide 21 mmol/L (22-29); Chloride 108 mmol/L (96-108); Creatinine Clr Calc Pharmacy 54.9; Estimated Glomerular Filt Rate > 60; Glucose Random 170 mg/dL (60-115); Potassium 3.4 mmol/L (3.3-5.1); Sodium 138 mmol/L (135-145)
[2021-03-20 07:29] LABS: Glucose, Whole Blood 159 mg/dL (60-115)
[2021-03-20] MEDS: Insulin Lispro 100 UNIT/ML 3 ML VIAL SUBCUT ×2 (08:59→17:02)
[2021-03-20] MEDS: Metoprolol Tartrate 25 MG TABLET PO ×2 (09:00→20:02)
--- NOTE | 2021-03-20 10:06 | HO.RADPN ---
RADIOLOGY Narrative Narrative: Left lower quadrant paracentesis performed using 5 fr catheter. 4.8 L bloody fluid was removed. No specimen sent.
--- NOTE | 2021-03-20 10:38 | HO.PM.IMPN ---
Subjective Subjective Date of Service: 03/20/21 Interval History: the patient was seen and evaluated this morning Laying in bed, feels more pain in the abdomen as distension increasing hemoglobin improved to 8.5 INR 1.4 No reported other overnight events. Systemic review: No fever, chills but reported feeling generalized weakness No chest pain, palpitation No shortness of breath or coughing improved abdominal distension but still there with associated pain. No urinary symptoms No any rash or wounds Physical Exam Vital Signs: Vital Signs: Last Vital Signs Temp 96 F L 03/20/21 07:23 Pulse 105 H 03/20/21 07:23 Resp 18 03/20/21 07:23 BP 106/60 03/20/21 07:23 Pulse Ox 96 03/20/21 07:23 BMI result Body Mass Index 27.2 Const: Other: Constitutional : Alert, interactive , looks chronically sick Neck : Normal inspection, Supple Cardiovascular : RRR, S1 S2, no lower extremity edema Respiratory : fair bilateral air entry, no crackles, wheezes or rhonchi Gastrointestinal: abdomen is moderately distended with mild tenderness, moderate amount of ascites Skin : Warm, Dry Neurological : Alert & oriented x3, No focal deficit Objective Data Active Medications Ceftriaxone Sodium 1 gm/ (Sodium Chloride) 50 mls @ 100 mls/hr IV Q24H [facility] Stop: 03/22/21 16:29 Last Infusion: 03/19/21 16:37 Dose: 0 mls/hr Documented by: KARL Insulin Human Lispro (Insulin Lispro 100 Unit/Ml 3 Ml Vial) 0 unit SUBCUT QIDACHS [facility]; Protocol Last Admin: 03/20/21 08:59 Dose: 2 unit Documented by: NEVAEH Lactulose (Lactulose 20 Gm/30 Ml Solution) 20 gm PO DAILY [facility] Last Admin: 03/20/21 08:57 Dose: Not Given Documented by: NEVAEH Non-Admin Reason: diarrhea Lidocaine (Lidocaine 4 % Patch Adh..Patch) 1 patch TRANSDERMA DAILY@0700 [facility]; Protocol Last Admin: 03/20/21 09:00 Dose: Not Given Documented by: NEVAEH Non-Admin Reason: Patient Refused Metoprolol Tartrate (Metoprolol Tartrate 25 Mg Tablet) 25 mg PO BID [facility]; Protocol Last Admin: 03/20/21 09:00 Dose: 25 mg Documented by: NEVAEH Morphine Sulfate (Morphine Sulfate 2 Mg/Ml Cartridge) 2 mg IVPUSH Q3H PRN; Protocol PRN Reason: Pain, Severe (Pain Scale 7-10) Last Admin: 03/20/21 09:19 Dose: 2 mg Documented by: NEVAEH Ondansetron HCl (Ondansetron Hcl 4 Mg/2 Ml Vial) 4 mg IVPUSH Q8H PRN PRN Reason: Nausea and Vomiting Last Admin: 03/19/21 23:06 Dose: 4 mg Documented by: PINO Labs CBC & Chem 7: 03/20/21 06:11 03/20/21 06:11 Labs: Laboratory Results - last 24 hr 03/19/21 03/19/21 03/19/21 11:17 16:06 19:54 MCV MCH MCHC RDW Plt Count MPV Absolute Nucleated RBC Nucleated RBC % (auto) PT INR Anion Gap Estim Creat Clear Calc Estimated GFR POC Glucose 163 H 152 H 153 H Random Glucose Calcium Total Bilirubin Direct Bilirubin AST ALT Alkaline Phosphatase Total Protein Albumin 03/20/21 03/20/21 03/20/21 06:11 06:11 06:11 MCV 89.0 MCH 29.1 MCHC 32.7 RDW 21.2 H Plt Count 160 D MPV 10.7 Absolute Nucleated RBC 0.000 Nucleated RBC % (auto) 0.0 PT 15.6 H INR 1.4 H Anion Gap 12 Estim Creat Clear Calc 54.9 Estimated GFR > 60 POC Glucose Random Glucose 170 H Calcium 8.6 Total Bilirubin Direct Bilirubin AST ALT Alkaline Phosphatase Total Protein Albumin 03/20/21 03/20/21 06:11 07:22 MCV MCH MCHC RDW Plt Count MPV Absolute Nucleated RBC Nucleated RBC % (auto) PT INR Anion Gap Estim Creat Clear Calc Estimated GFR POC Glucose 159 H Random Glucose Calcium Total Bilirubin 2.0 H Direct Bilirubin 1.2 H AST 87 H ALT 93 H Alkaline Phosphatase 206 H Total Protein 6.9 Albumin 3.7 Microbiology Microbiology Results: Microbiology 03/18/21 10:30 Gram Stain - Final Ascites Fluid Anaerobic Culture - Preliminary No growth to date. Body Fluid Culture - Final No growth after 2 days 03/16/21 05:40 Gram Stain - Final Abdominal Fluid Routine Culture - Final No growth after 2 days Anaerobic Culture - Preliminary No growth to date. Assessment and Plan (1) Acute on chronic blood loss anemia: Status: Acute (2) Liver cirrhosis: Status: Acute (3) Spontaneous intraperitoneal hemorrhage: Status: Acute Assessment and Plan: 65-year-old gentleman with underlying history of treated chronic hepatitis-C with portal hypertension and cirrhosis, undergoing workup for hepatocellular carcinoma, also hypertension, AFib on Eliquis status post ppm placement, thrombocytopenia, asthma, diabetes mellitus admitted on 03/16/2021 with 3 week history of progressively worsening abdominal pain and weakness. Acute on chronic blood-loss anemia 2/2 Spontaneous intraperitoneal bleed Hemoglobin improved to 8.5, no source of bleeding identified received total of 3 PRBCs with 2 FFP Surgery following, no intervention planned Continue to follow H&H Discontinue antibiotic as no source of infection Elevated INR Secondary to liver cirrhosis received vitamin K, 2 fresh frozen plasma INR improved to 1.4 to repeat paracentesis today acute kidney injury Creatinine improved to 1.2 Avoid nephrotoxic medications SBP Concerns after paracentesis GI suggested Ceftriaxone, to continue Day 3/5 decompensated liver cirrhosis secondary to hepatitis-C Ascites Hepatocellular carcinoma under workup transaminitis improving GI input appreciated, paracentesis and if cytology negative to do liver biopsy continue lactulose, hold for diarrhea Monitor intake and output Plan for paracentesis today with FFP Type 2 diabetes Diabetic diet and SSI Paroxysmal atrial fibrillation continue metoprolol Hold Eliquis DVT PPX SCDs Quality Stroke Does the patient have a stroke diagnosis?: No VTE Prior VTE?: No VTE Risk Level:: Medical - moderate - high VTE Device Contraindication: N/A - Device Ordered VTE Drug Contraindication: Treatment Not Indicated
[2021-03-20 12:56] LABS: Glucose, Whole Blood 111 mg/dL (60-115)
[2021-03-20 16:34] LABS: Glucose, Whole Blood 159 mg/dL (60-115)
[2021-03-20] MEDS: cefTRIAXone sodium 1 GM in 0.9 % Sodium Chloride 50 ML IV (16:54)
[2021-03-20 20:25] LABS: Glucose, Whole Blood 112 mg/dL (60-115)
[2021-03-21] VITALS (8 sets, daily range): BP systolic 124–132; BP diastolic 56–75; PULSE 84–108; RESP 16–20; TEMP 36.6–37.3; O2SAT 97–99; BMI 27.5
[2021-03-21] MEDS: Morphine Sulfate 2 MG/ML CARTRIDGE IVPUSH ×4 (03:56→16:44)
[2021-03-21 07:18] LABS: Hematocrit 27.6 % (42.0-52.0); Mean Corpuscular HGB Conc 32.6 g/dl (31.0-36.0); Mean Corpuscular Hemoglobin 28.4 pg (27.0-33.0); Mean Corpuscular Volume 87.1 fL (80.0-98.0); Mean Platelet Volume 10.5 fL (9.4-12.4); NRBC Pct Auto 0.2 /100WBC (0.0-0.2); Platelet Count 175 X10*3/uL (160-400); Red Blood Count 3.17 X10*6/uL (4.60-5.80); White Blood Count 10.7 X10*3/uL (4.8-10.8)
[2021-03-21 07:23] LABS: Glucose, Whole Blood 138 mg/dL (60-115)
[2021-03-21 07:28] LABS: INTERNATIONAL NORM RATIO 1.3 (0.9-1.1)
[2021-03-21 07:29] LABS: Anion Gap 13 (12-20); Blood Urea Nitrogen 29 mg/dL (9-16); Calcium 8.6 mg/dL (8.4-10.2); Carbon Dioxide 23 mmol/L (22-29); Chloride 104 mmol/L (96-108); Creatinine Clr Calc Pharmacy 64.3; Estimated Glomerular Filt Rate > 60; Glucose Random 129 mg/dL (60-115); Potassium 3.7 mmol/L (3.3-5.1); Sodium 136 mmol/L (135-145)
[2021-03-21 07:32] LABS: Alanine Aminotransferase 83 U/L (0-40); Albumin Level 3.6 g/dL (3.5-5.0); Alkaline Phosphatase 224 U/L (39-117); Aspartate Amino Transferase 73 U/L (5-37); Bilirubin Total 1.7 mg/dL (0.0-1.0); Total Protein 7.1 g/dL (6.5-8.0)
[2021-03-21] MEDS: Metoprolol Tartrate 25 MG TABLET PO ×2 (08:59→20:59)
[2021-03-21] MEDS: Lactulose 20 GM/30 ML SOLUTION PO (08:59)
[2021-03-21 11:12] LABS: Glucose, Whole Blood 202 mg/dL (60-115)
--- NOTE | 2021-03-21 12:18 | P.PNIM_ITS ---
Subjective Subjective Date of Service: 03/21/21 Interval History: the patient was seen and evaluated this morning Laying in bed, feels mild improvement as abdominal distension is decreasing hemoglobin improved to 9 in paracentesis of 5 L of bloody fluids INR 1.3 No reported other overnight events. Systemic review: No fever, chills but reported feeling generalized weakness No chest pain, palpitation No shortness of breath or coughing Improved abdominal distension but still there with associated pain. No urinary symptoms No any rash or wounds Physical Exam Vital Signs: Vital Signs: Last Vital Signs Temp 98.6 F 03/21/21 11:03 Pulse 91 03/21/21 11:03 Resp 16 03/21/21 11:03 BP 126/73 03/21/21 11:03 Pulse Ox 99 03/21/21 11:03 BMI result Body Mass Index 27.5 Const: Other: Constitutional : Alert, interactive , looks chronically sick Neck : Normal inspection, Supple Cardiovascular : RRR, S1 S2, no lower extremity edema Respiratory : fair bilateral air entry, no crackles, wheezes or rhonchi Gastrointestinal: abdomen is moderately distended with No tenderness and mild amount of ascites Skin : Warm, Dry Neurological : Alert & oriented x3, No focal deficit Objective Data Active Medications Ceftriaxone Sodium 1 gm/ (Sodium Chloride) 50 mls @ 100 mls/hr IV Q24H [facility] Stop: 03/22/21 16:29 Last Infusion: 03/20/21 17:35 Dose: 0 mls/hr Documented by: NEVAEH Insulin Human Lispro (Insulin Lispro 100 Unit/Ml 3 Ml Vial) 0 unit SUBCUT QIDACHS [facility]; Protocol Last Admin: 03/21/21 07:24 Dose: Not Given Documented by: NEVAEH Non-Admin Reason: No Insulin Coverage Lactulose (Lactulose 20 Gm/30 Ml Solution) 20 gm PO DAILY [facility] Last Admin: 03/21/21 08:59 Dose: 20 gm Documented by: NEVAEH Lidocaine (Lidocaine 4 % Patch Adh..Patch) 1 patch TRANSDERMA DAILY@0700 [facility]; Protocol Last Admin: 03/21/21 08:58 Dose: Not Given Documented by: NEVAEH Non-Admin Reason: Patient Refused Metoprolol Tartrate (Metoprolol Tartrate 25 Mg Tablet) 25 mg PO BID [facility]; Protocol Last Admin: 03/21/21 08:59 Dose: 25 mg Documented by: NEVAEH Morphine Sulfate (Morphine Sulfate 2 Mg/Ml Cartridge) 2 mg IVPUSH Q3H PRN; Protocol PRN Reason: Pain, Severe (Pain Scale 7-10) Last Admin: 03/21/21 08:59 Dose: 2 mg Documented by: NEVAEH Ondansetron HCl (Ondansetron Hcl 4 Mg/2 Ml Vial) 4 mg IVPUSH Q8H PRN PRN Reason: Nausea and Vomiting Last Admin: 03/19/21 23:06 Dose: 4 mg Documented by: PINO Labs CBC & Chem 7: 03/21/21 06:55 03/21/21 06:55 Labs: Laboratory Results - last 24 hr 03/20/21 03/20/21 03/20/21 12:53 16:30 20:22 MCV MCH MCHC RDW Plt Count MPV Absolute Nucleated RBC Nucleated RBC % (auto) PT INR Anion Gap Estim Creat Clear Calc Estimated GFR POC Glucose 111 159 H 112 Random Glucose Calcium Total Bilirubin Direct Bilirubin AST ALT Alkaline Phosphatase Total Protein Albumin 03/21/21 03/21/21 03/21/21 06:55 06:55 06:55 MCV 87.1 MCH 28.4 MCHC 32.6 RDW 21.0 H Plt Count 175 MPV 10.5 Absolute Nucleated RBC 0.020 H Nucleated RBC % (auto) 0.2 PT 15.0 H INR 1.3 H Anion Gap 13 Estim Creat Clear Calc 64.3 Estimated GFR > 60 POC Glucose Random Glucose 129 H Calcium 8.6 Total Bilirubin Direct Bilirubin AST ALT Alkaline Phosphatase Total Protein Albumin 03/21/21 03/21/21 03/21/21 06:55 07:12 11:05 MCV MCH MCHC RDW Plt Count MPV Absolute Nucleated RBC Nucleated RBC % (auto) PT INR Anion Gap Estim Creat Clear Calc Estimated GFR POC Glucose 138 H 202 H Random Glucose Calcium Total Bilirubin 1.7 H Direct Bilirubin 1.0 H AST 73 H ALT 83 H Alkaline Phosphatase 224 H Total Protein 7.1 Albumin 3.6 Microbiology Microbiology Results: Microbiology 03/18/21 10:30 Gram Stain - Final Ascites Fluid Anaerobic Culture - Preliminary No growth to date. Body Fluid Culture - Final No growth after 2 days 03/16/21 05:40 Gram Stain - Final Abdominal Fluid Routine Culture - Final No growth after 2 days Anaerobic Culture - Final NO GROWTH AFTER 5 DAYS Assessment and Plan (1) Acute on chronic blood loss anemia: Status: Acute (2) Liver cirrhosis: Status: Acute (3) Spontaneous intraperitoneal hemorrhage: Status: Acute (4) Liver mass: Status: Acute (5) Acute kidney injury: Status: Acute Assessment and Plan: 65-year-old gentleman with underlying history of treated chronic hepatitis-C with portal hypertension and cirrhosis, undergoing workup for hepatocellular carcinoma, also hypertension, AFib on Eliquis status post ppm placement, thrombocytopenia, asthma, diabetes mellitus admitted on 03/16/2021 with 3 week history of progressively worsening abdominal pain and weakness. Acute on chronic blood-loss anemia 2/2 Spontaneous intraperitoneal bleed Hemoglobin improved to 9 received total of 3 PRBCs with 2 FFP Surgery following, no intervention planned Continue to follow H&H Elevated INR Secondary to liver cirrhosis received vitamin K, 2 fresh frozen plasma INR improved to 1.3 acute kidney injury Creatinine improved to 1.1 Avoid nephrotoxic medications SBP Concerns after paracentesis GI suggested Ceftriaxone, to continue Day 4/ decompensated liver cirrhosis secondary to hepatitis-C Ascites had paracentesis twice with total removal of almost 14 L I assume will need another paracentesis before he leaves the hospital transaminitis improving continue lactulose, hold for diarrhea Monitor intake and output Discontinue Banks catheter today liver lesions Under workup for hepatocellular carcinoma with Dr. Cabrera Negative a sciatic fluid for cancer cells GI input appreciated, if cytology negative to do liver biopsy Order placed for CT-guided liver biopsy Oncology to evaluate portal vein thrombosis ultrasound of abdomen showed evidence of Thrombosis in the vein Patient was on Eliquis for anticoagulation He will need to be restarted on the blood thinner at some point, to discuss with GI and hematology When he is ready to be discharged Type 2 diabetes Diabetic diet and SSI Paroxysmal atrial fibrillation continue metoprolol Hold Eliquis DVT PPX SCDs Quality Stroke Does the patient have a stroke diagnosis?: No VTE Prior VTE?: No VTE Risk Level:: Medical - moderate - high VTE Device Contraindication: N/A - Device Ordered VTE Drug Contraindication: Treatment Not Indicated
[2021-03-21] MEDS: Insulin Lispro 100 UNIT/ML 3 ML VIAL SUBCUT (12:19)
[2021-03-21 12:45] LABS: OBS Int Ctl Valid YES; OBS1 NEGATIVE (NEGATIVE)
--- NOTE | 2021-03-21 15:35 | PM.HEMONCCN ---
Subjective - Subjective Chief complaint: Consult for: Liver lesion. Consult date: 03/21/21 Requesting Physician: Richy. Primary Care Provider: Rhina Carney NP Medical Summary: DIAGNOSIS: Liver lesion. HCC. HPI - Consult Narrative Reason for consult: Consult for: Liver lesion. Narrative: Ashok Birch is a pleasant 65 year old gentleman, CONSULTATION REGARDING QUESTION OF HCC. 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 Meld score is 8. Hepatitis serologies revealed immunity to hepatitis B and negative hepatitis A antibody (Ig G) Patient was treated for hepatitis C in 2018 with Epclusa and follow-up viral load was negative. No ascites noted on past abdominal ultrasound. Mildly prominent splenic and gastric veins seen on CT scan in July 2018. EGD in 2017 did not reveal any esophageal varices. 12/[address] SCAN showed two lesions in the liver suspicious for HCC. MRI cannot be done since pt has a pacemaker. Pt will be scheduled for an abdominal ultrasound for HCC surveillance and scheduled for follow-up appointment 1-2 weeks after abdominal ultrasound. PAST MEDICAL HISTORY: 1. Essential hypertension, 2. Type 2 diabetes mellitus without complication, without long-term current use of insulin, 3. Chronic hepatitis, 4. Asthma, 5. Hypercholesteremia, 6. Paroxysmal atrial fibrillation, 7. Pacemaker. HCC SURVEILLANCE: The patient is at risk of developing hepatocellular carcinoma given the presence of cirrhosis. Pt was referred to [facility] for a 2nd opinion and appointment was scheduled on 01/25/21. Pt was unable to go since his ride was cancelled at the last minute. Pt prefers to be treated locally and is willing to go to [facility] for a one or two appointments and would like to avoid regular FUs there. He is inclined to take a conservative approach if presence of HCC is confirmed SURVEILLANCE FOR GASTROESOPHAGEAL VARICES: EGD in 11/2017 did not reveal any varices. QUESTION OF LIVER TRANSPLANTATION: Pt has good hepatic synthetic function with meld score of 13, option for liver transplantation was discussed with the patient (Given suspected HCC) and patient is not interested in pursuing a liver transplant. ROS: He does feel rather fatigued. No fever nor chills. Appetite is low. Weight is stable. Denies headache no dizziness. Denies chest pain. He has history of asthma and so gets short of breath. He is unable to walk more than 5 minutes. He complains of epigastric pain and dyspepsia. The pain radiates into the left flank. In addition he has right groin pain. He feels the swelling there. Likely to be a hernia. He has a paraumbilical hernia as well. Denies diarrhea no gross blood in the stools. Denies dysuria or hematuria. He has joint pains involving his elbows and knees. Denies any focal weakness. He does have depression. Denies skin rashes or pruritus. FAMILY HISTORY: He has heart problems in the family. No known malignancy. Review of Systems - Constitutional Reports system reviewed and no additional complaints, except as documented - Eyes Reports system reviewed and no additional complaints, except as documented - ENT Reports system reviewed and no additional complaints, except as documented - Cardiovascular Reports system reviewed and no additional complaints, except as documented - Respiratory Reports no additional respiratory complaints - Gastrointestinal Reports system reviewed and no additional complaints, except as documented - Genitourinary Genitourinary: Reports no additional male genitourinary complaints - Musculoskeletal Reports system reviewed and no additional complaints, except as documented - Integumentary/Breasts Skin/Breast: Reports no additional skin complaints - Neurologic Reports weakness, Denies focal weakness, Denies memory loss, Denies convulsions, Denies seizure-like activity, Denies sensory deficit - Psychiatric Reports system reviewed and no additional complaints, except as documented - Endocrine Reports no additional endocrine complaints - Hematologic/Lymphatic Reports system reviewed and no additional complaints, except as documented - Allergic/Immunologic Reports system reviewed and no additional complaints, except as documented Oncology Screenings - ECOG Performance Status ECOG Performance Status: 1 [facility] Medical History: Medical History (Last Reviewed 03/27/21 @ 09:26 by Asia Plaza PT) Hx of cardiac pacemaker Functional capacity: uses cane/walker Patient : No Family History: Family History (Last Reviewed 03/23/21 @ 11:57 by AMBER Arrington) Father No problems noted. Mother No problems noted. Sister Hx of skin cancer, basal cell Surgical History: Surgical History (Last Reviewed 03/27/21 @ 09:26 by Asia Plaza PT) H/O colonoscopy Hx of esophagogastroduodenoscopy Onset Date: 11/29/17 Social History: Social History (Last Reviewed 03/23/21 @ 11:57 by AMBER Arrington) Living Situation History: Household Members: Spouse Housing: Apartment Do you presently have visiting nurse or other home services: No Alcohol History: Unable to assess alcohol history related to: Unknown Alcohol History Details: Last drink: Unknown Currently Displaying Signs/Symptoms of Alcohol Withdrawal: No Tobacco History: Patient Tobacco Use Status: Former Tobacco user Tobacco use type: Cigarette Smoked in Last 30 Days: Yes e-Cigarette/Vaping Use: Never Used Substance Use History: Use of substances other than those prescribed or required for medical reasons: Unknown Substance Use Type: Marijuana Currently Displaying Signs/Symptoms of Drug Intoxication Withdrawal: No Advance Directives: Advance Directives: No Advance Directives Information Provided: No Homicidal Assessment: Do you have thoughts of harming others: None Do you have a plan to hurt others: No Plan Nutrition Assessment: Recently lost weight without trying: Unsure Nutrition Risks: No Nutritional Risk Poor oral hygiene: Yes Occupation Assessmet: service: No Current occupational status: disabled Home Medications and Allergies Current Medications: Current Medications Ceftriaxone Sodium 1 gm/ (Sodium Chloride) 50 mls @ 100 mls/hr IV Q24H [facility] Stop: 03/22/21 16:29 Last Infusion: 03/20/21 17:35 Dose: Infused Documented by: Insulin Human Lispro (Insulin Lispro 100 Unit/Ml 3 Ml Vial) 0 unit SUBCUT QIDACHS [facility]; Protocol Last Admin: 03/21/21 12:19 Dose: 4 unit Documented by: Lactulose (Lactulose 20 Gm/30 Ml Solution) 20 gm PO DAILY [facility] Last Admin: 03/21/21 08:59 Dose: 20 gm Documented by: Lidocaine (Lidocaine 4 % Patch Adh..Patch) 1 patch TRANSDERMA DAILY@0700 [facility]; Protocol Last Admin: 03/21/21 08:58 Dose: Not Given Documented by: Metoprolol Tartrate (Metoprolol Tartrate 25 Mg Tablet) 25 mg PO BID [facility]; Protocol Last Admin: 03/21/21 08:59 Dose: 25 mg Documented by: Morphine Sulfate (Morphine Sulfate 2 Mg/Ml Cartridge) 2 mg IVPUSH Q3H PRN; Protocol PRN Reason: Pain, Severe (Pain Scale 7-10) Last Admin: 03/21/21 13:43 Dose: 2 mg Documented by: Ondansetron HCl (Ondansetron Hcl 4 Mg/2 Ml Vial) 4 mg IVPUSH Q8H PRN PRN Reason: Nausea and Vomiting Last Admin: 03/19/21 23:06 Dose: 4 mg Documented by: Home Medications Medication Instructions Recorded Confirmed Type apixaban 5 mg tablet 5 mg PO BID 03/24/20 03/23/21 History cholecalciferol (vitamin D3) 25 25 mcg PO DAILY 03/24/20 03/23/21 History mcg (1,000 unit) capsule metoprolol tartrate 25 mg tablet 25 mg PO BID 03/24/20 03/23/21 History albuterol sulfate 90 mcg/actuation 1 - 2 puff INHALATION Q6H PRN 07/14/20 03/23/21 History aerosol inhaler umeclidinium 62.5 mcg/actuation 1 inh INHALATION DAILY 02/16/21 03/23/21 History blister powder for inhalation (Incruse Ellipta) amlodipine 10 mg tablet 1 tab PO DAILY 03/23/21 03/23/21 History atorvastatin 10 mg tablet 1 tab PO DAILY 03/23/21 03/23/21 History hydrochlorothiazide 25 mg tablet 1 tab PO DAILY 03/23/21 03/23/21 History lisinopril 40 mg tablet 1 tab PO DAILY 03/23/21 03/23/21 History Allergies Allergy/AdvReac Type Severity Reaction Status Date / Time No Known Allergies Allergy Verified 03/16/21 05:32 Physical Exam Vital signs: Vital Signs Temp 99.2 F 03/21/21 15:02 Pulse 94 03/21/21 15:02 Resp 20 03/21/21 15:02 BP 124/56 L 03/21/21 15:02 Pulse Ox 98 03/21/21 15:02 Intake & Output 03/20/21 03/21/21 03/21/21 18:59 06:59 18:59 Intake Total 290 / 640 350 / 640 592 / 592 Output Total 200 / 200 250 / 250 Balance 290 / 440 150 / 440 342 / 342 Urine Output (Average ml/kg/hr) 0.22 0.27 Intake: Intake, Oral Amount 240 / 590 350 / 590 592 / 592 Intake, IV Amount 50 / 50 cefTRIAXone sodium 1 gm In 0.9 50 / 50 % Sodium Chloride 50 ml @ 100 mls/hr IV Q24H [facility] Rx#: [id number] Output: Output, Urine Amount (Catheter) 200 / 200 250 / 250 Holm 200 / 200 250 / 250 Other: Breakfast % Eaten 100% Lunch % Eaten 15% Dinner % Eaten 50% 100% Urine holm Urine Color Concentrated Concentrated Last Bowel Movement 03/20/21 03/21/21 Stool Bathroom Bathroom Stool Amount Moderate Stool Color Brown Stool Consistency Liquid Weight 77.4 kg [place] Weight in Grams 62143 Weight 77.4 kg - Constitutional Present: mild distress - Routine HEENT Exam Head: Present: normal inspection ENT: Present: mucous membranes moist - Routine Neck Exam Present: supple. Absent: lymphadenopathy - Routine Respiratory Exam Present: CTAB - Routine Cardiovascular Exam Cardiovascular: Present: RRR, S1, S2 - Routine Abdominal Exam Present: distended, tenderness - Routine Extremities Exam Present: nontender - Routine Skin Exam Present: intact, normal turgor. Absent: cyanosis - Routine Neurological Exam Present: alert, oriented X3 Hem/Onc Consult Result - Labs CBC & Chem 7: 03/22/21 06:04 03/22/21 06:04 Labs: Short CBC 03/21/21 Range/Units 06:55 WBC 10.7 (4.8-10.8) X10*3/uL Hgb 9.0 L (14.0-18.0) g/dl Hct 27.6 L (42.0-52.0) % Plt Count 175 (160-400) X10*3/uL BMP 03/21/21 06:55 Sodium 136 Potassium 3.7 Chloride 104 Carbon Dioxide 23 BUN 29 H Creatinine 1.12 Calcium 8.6 Liver Function 03/21/21 Range/Units 06:55 Total Bilirubin 1.7 H (0.0-1.0) mg/dL Direct Bilirubin 1.0 H (0.0-0.5) mg/dL AST 73 H (5-37) U/L ALT 83 H (0-40) U/L Alkaline Phosphatase 224 H (39-117) U/L Albumin 3.6 (3.5-5.0) g/dL Assessment and Plan Patient Active problem list reviewed?: Yes (1) Liver lesion Status: Acute Assessment and plan: This is a pleasant 65-year-old gentleman with history of hepatitis-C, liver cirrhosis, now presents with a couple of liver masses. Differential diagnosis: 1. Hepatocellular carcinoma. 2. Hepatic adenoma. AFP is elevated at 40. HCC is likely. Patient is unable to have an MRI since he has a pacemaker. PLAN: He had a paracentesis done, on March 18. Cytology came back negative for malignant cells. l discussed with IR if an FNA is feasible. Talked with Dr. Ascencio, he said we can go ahead and schedule. If he indeed has HCC. Treatment options would include a TKI versus liver directed therapy. I will review the pathology results. Will then make further plans. All his questions were answered to his satisfaction. Thank you, Cc: Ryan Ware. Javed Ayers. Addendum: Patient signed out AMA. Came in the following day. Was admitted to the ICU. Discharge summary: Patient admitted for acute on chronic blood loss anemia due to spontaneous intraperitoneal bleed. Received 3 units prbc and 2 units FFPs, hgb then remained stable at 9.He had KEVAN which resolved. He was noted to have significant ascites in setting of liver cirrhosis due to HCV.He was drained about 14L, fluid gram stain was negative, but PMn>250, was treated with 5 days of rocephin, cytology negative.He was noted to have liver lesion. Biopsy recommended but patient refused. Also noted to have portal vein thrombosis. He is on eliquis for Afib, but that is being held due to intraperitoneal bleed. Will continue to hold, can determine with hematology and GI when to restart. Work up and optimasation was still ongoing inpatient, however, patient was no longer interested in remaining in hospital. He demonstrated full understanding of his medical condition and the risks of leaving against medical advice, he expressed that he no longer wants treatement or work up, but also was not willing to stay to arrange sufficient set up for end of life care. He decided to leave against medical advice anyway. - Time Spent With Patient Time Spent with Patient (in minutes): 30
[2021-03-21] MEDS: cefTRIAXone sodium 1 GM in 0.9 % Sodium Chloride 50 ML IV (15:41)
[2021-03-21 16:11] LABS: Glucose, Whole Blood 106 mg/dL (60-115)
[2021-03-21 19:47] LABS: Glucose, Whole Blood 140 mg/dL (60-115)
[2021-03-21] MEDS: HYDROmorphone HCl 0.5 MG/0.5 ML SYRINGE IVPUSH (20:59)
[2021-03-21] MEDS: Morphine Sulfate 2 MG/ML CARTRIDGE 1 MG IVPUSH (22:48)
[2021-03-22 02:55] VITALS: RESP 18
[2021-03-22] MEDS: Morphine Sulfate 2 MG/ML CARTRIDGE 1 MG IVPUSH ×3 (02:55→12:15)
[2021-03-22 04:00] VITALS: BP 126/79; PULSE 76; RESP 20; TEMP 37; O2SAT 96
[2021-03-22 06:00] VITALS: BMI 27.6
[2021-03-22 06:36] LABS: INTERNATIONAL NORM RATIO 1.3 (0.9-1.1); Prothrombin Time 15.2 SEC (9.9-13.0)
[2021-03-22 06:45] LABS: Alanine Aminotransferase 72 U/L (0-40); Albumin Level 3.3 g/dL (3.5-5.0); Alkaline Phosphatase 244 U/L (39-117); Anion Gap 13 (12-20); Aspartate Amino Transferase 65 U/L (5-37); Bilirubin Total 1.8 mg/dL (0.0-1.0); Blood Urea Nitrogen 27 mg/dL (9-16); Calcium 8.7 mg/dL (8.4-10.2); Carbon Dioxide 21 mmol/L (22-29); Chloride 105 mmol/L (96-108); Creatinine Clr Calc Pharmacy 70.7; Estimated Glomerular Filt Rate > 60; Glucose Random 120 mg/dL (60-115); Hematocrit 27.6 % (42.0-52.0); Hemoglobin 9.1 g/dl (14.0-18.0); Mean Corpuscular Hemoglobin 28.6 pg (27.0-33.0); Mean Corpuscular Volume 86.8 fL (80.0-98.0); Mean Platelet Volume 10.7 fL (9.4-12.4); Platelet Count 166 X10*3/uL (160-400); Potassium 3.6 mmol/L (3.3-5.1); Red Blood Count 3.18 X10*6/uL (4.60-5.80); Red Cell Distribution Width 20.9 % (11.0-16.0); Sodium 135 mmol/L (135-145); Total Protein 6.9 g/dL (6.5-8.0); White Blood Count 10.5 X10*3/uL (4.8-10.8)
[2021-03-22 07:14] LABS: Glucose, Whole Blood 117 mg/dL (60-115)
[2021-03-22 07:42] VITALS: BP 118/64; PULSE 96; RESP 20; TEMP 36.6; O2SAT 98
[2021-03-22] MEDS: Metoprolol Tartrate 25 MG TABLET PO (08:53)
[2021-03-22 11:16] LABS: Glucose, Whole Blood 127 mg/dL (60-115)
--- NOTE | 2021-03-22 11:20 | MHC.CM.PN ---
Per ROUNDS discussion, Patient may be ready for dc later today ( Pending Biopsy, IV Morphine today, IV Ceftriaxone); Home is the goal for dc and CM will follow for possible need to adjust the dc plan.
[2021-03-22 11:32] VITALS: BP 112/52; PULSE 88; RESP 20; TEMP 36.7; O2SAT 98
--- NOTE | 2021-03-22 13:38 | P.PNIM_ITS ---
Subjective Subjective Date of Service: 03/22/21 Interval History: cc: abdominal pain, distension interval history: still with pain, wants to go home Cardiovascular Cardiovascular: Reports no additional cardiovascular complaints Respiratory Respiratory: Reports no additional respiratory complaints Physical Exam Vital Signs: Vital Signs: Last Vital Signs Temp 98.1 F 03/22/21 11:32 Pulse 88 03/22/21 11:32 Resp 20 03/22/21 11:32 BP 112/52 L 03/22/21 11:32 Pulse Ox 98 03/22/21 11:32 BMI result Body Mass Index 27.6 General: AO X 3, agitated, asking to go home Resp: CTA bilateral, no accessory muscles used CVS: S1,S2,RRR GI: soft, non tender, distended Neuro: motor grossly intact, alert Psych: appropriate affect, appropriate insight Objective Data Active Medications Ceftriaxone Sodium 1 gm/ (Sodium Chloride) 50 mls @ 100 mls/hr IV Q24H [facility] Stop: 03/22/21 16:29 Last Infusion: 03/21/21 17:11 Dose: 0 mls/hr Documented by: NEVAEH Insulin Human Lispro (Insulin Lispro 100 Unit/Ml 3 Ml Vial) 0 unit SUBCUT QIDACHS [facility]; Protocol Last Admin: 03/22/21 12:09 Dose: Not Given Documented by: WALTER Non-Admin Reason: No Insulin Coverage Lactulose (Lactulose 20 Gm/30 Ml Solution) 20 gm PO DAILY [facility] Last Admin: 03/22/21 08:57 Dose: Not Given Documented by: WALTER Non-Admin Reason: Patient Refused Lidocaine (Lidocaine 4 % Patch Adh..Patch) 1 patch TRANSDERMA DAILY@0700 [facility]; Protocol Last Admin: 03/22/21 08:55 Dose: Not Given Documented by: WALTER Non-Admin Reason: Patient Refused Metoprolol Tartrate (Metoprolol Tartrate 25 Mg Tablet) 25 mg PO BID JENNI; Pr otocol Last Admin: 03/22/21 08:53 Dose: 25 mg Documented by: WALTER Morphine Sulfate (Morphine Sulfate 2 Mg/Ml Cartridge) 1 mg IVPUSH Q3H PRN; Protocol PRN Reason: Breakthrough Pain Last Admin: 03/22/21 12:15 Dose: 1 mg Documented by: WALTER Ondansetron HCl (Ondansetron Hcl 4 Mg/2 Ml Vial) 4 mg IVPUSH Q8H PRN PRN Reason: Nausea and Vomiting Last Admin: 03/19/21 23:06 Dose: 4 mg Documented by: PINO Labs CBC & Chem 7: 03/22/21 06:04 03/22/21 06:04 Labs: Laboratory Results - last 24 hr 03/21/21 03/21/21 03/22/21 16:06 19:36 06:04 MCV 86.8 MCH 28.6 MCHC 33.0 RDW 20.9 H Plt Count 166 MPV 10.7 Absolute Nucleated RBC 0.000 Nucleated RBC % (auto) 0.0 PT INR Anion Gap Estim Creat Clear Calc Estimated GFR POC Glucose 106 140 H Random Glucose Calcium Total Bilirubin Direct Bilirubin AST ALT Alkaline Phosphatase Total Protein Albumin 03/22/21 03/22/21 03/22/21 06:04 06:04 07:02 MCV MCH MCHC RDW Plt Count MPV Absolute Nucleated RBC Nucleated RBC % (auto) PT 15.2 H INR 1.3 H Anion Gap 13 Estim Creat Clear Calc 70.7 Estimated GFR > 60 POC Glucose 117 H Random Glucose 120 H Calcium 8.7 Total Bilirubin 1.8 H Direct Bilirubin 1.0 H AST 65 H ALT 72 H Alkaline Phosphatase 244 H Total Protein 6.9 Albumin 3.3 L 03/22/21 11:12 MCV MCH MCHC RDW Plt Count MPV Absolute Nucleated RBC Nucleated RBC % (auto) PT INR Anion Gap Estim Creat Clear Calc Estimated GFR POC Glucose 127 H Random Glucose Calcium Total Bilirubin Direct Bilirubin AST ALT Alkaline Phosphatase Total Protein Albumin Microbiology Microbiology Results: Microbiology 03/18/21 10:30 Gram Stain - Final Ascites Fluid Anaerobic Culture - Preliminary No growth to date. Body Fluid Culture - Final No growth after 2 days 03/16/21 05:40 Gram Stain - Final Abdominal Fluid Routine Culture - Final No growth after 2 days Anaerobic Culture - Final NO GROWTH AFTER 5 DAYS Assessment and Plan (1) Acute on chronic blood loss anemia: Status: Acute (2) Liver cirrhosis: Status: Acute (3) Spontaneous intraperitoneal hemorrhage: Status: Acute (4) Liver mass: Status: Acute (5) Acute kidney injury: Status: Acute Assessment and Plan: 65-year-old gentleman with underlying history of treated chronic hepatitis-C with portal hypertension and cirrhosis, undergoing workup for hepatocellular carcinoma, also hypertension, AFib on Eliquis status post ppm placement, thrombocytopenia, asthma, diabetes mellitus admitted on 03/16/2021 with 3 week history of progressively worsening abdominal pain and weakness. Acute on chronic blood-loss anemia 2/2 Spontaneous intraperitoneal bleed Hemoglobin improved to 9 received total of 3 PRBCs with 2 FFP Surgery following, no intervention planned Continue to follow H&H Elevated INR Secondary to liver cirrhosis received vitamin K, 2 fresh frozen plasma INR improved to 1.3 acute kidney injury Creatinine improved to 1.02 Avoid nephrotoxic medications SBP Concerns after paracentesis GI suggested Ceftriaxone, to continue Day 07/20 decompensated liver cirrhosis secondary to hepatitis-C Ascites had paracentesis twice with total removal of almost 14 L transaminitis improving continue lactulose, hold for diarrhea Monitor intake and output Discontinue Banks catheter today liver lesions Under workup for hepatocellular carcinoma with Dr. Cabrera Negative a sciatic fluid for cancer cells GI input appreciated, ytology negative planned to do liver biopsy, however, patient refused Oncology to evaluate portal vein thrombosis ultrasound of abdomen showed evidence of Thrombosis in the vein Patient was on Eliquis for anticoagulation He will need to be restarted on the blood thinner at some point, to discuss with GI and hematology When he is ready to be discharged Type 2 diabetes Diabetic diet and SSI Paroxysmal atrial fibrillation continue metoprolol Hold Eliquis DVT PPX SCDs Quality Stroke Does the patient have a stroke diagnosis?: No VTE Prior VTE?: No VTE Risk Level:: Medical - moderate - high VTE Device Contraindication: N/A - Device Ordered VTE Drug Contraindication: Treatment Not Indicated
--- NOTE | 2021-03-22 14:48 | PM.DS ---
DS: Providers Provider Date of Service: 03/22/21 Date of admission: 03/16/21 06:22 Primary care physician: Rhina Carney NP Consults: 03/16/21 08:12 Consult to General Surgery Routine Consulting Provider: [facility] [place] General Surgeons Reason for consultation: Hemoperitoneum Has provider been notified: No 03/17/21 11:09 Consult to Gastroenterology Routine Consulting Provider: Armin Kraft Reason for consultation: Decompensated Cirrhosis, Intraperitoneal hemorrhage for your eval 03/21/21 07:59 Consult to Hematology / Oncology Routine Consulting Provider: Roro Murrell Reason for consultation: Bloody ascites, Liver lesions, negative ascitis fluids for cancer, your adv DS: Diagnosis Discharge Diagnosis (1) Acute on chronic blood loss anemia: Status: Acute (2) Liver cirrhosis: Status: Acute (3) Spontaneous intraperitoneal hemorrhage: Status: Acute (4) Liver mass: Status: Acute (5) Acute kidney injury: Status: Acute DS: Summary Hospital Course Hospital Course: patient was admitted for acute on chronic blood loss anemia due to cpontaneous intraperitoneal bleed, received 3 units prbc and 2 units ffps, hgb then remained stable at 9. he had KEVAN which resolved. 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 he was drained about 14L, fluid gram stain was negative, but PMn>250, was treated with 5 days of rocephin, cytology negative. patient was noted to have liver lesion, biopsy recommended which paitent refused. 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 will continue to hold, can determine with hematology and gi when to restart. work up and optimazation was still ongoing inpatient, however, patient was no longer interested in remaining in hospital. he demonstrated full understanding of his medical condition and the risks of leaving against medical advice, he expressed that he no longer wants treatement or work up, but also was not willing to stay to arrange sufficient set up for end of life care. he decided to leave against medical advice anyway. Time Spent with Patient Time attestation: Total time spent providing and/or coordinating discharge services: Discharge coordination time: Greater than 30 minutes Quality: Stroke Does the patient have a stroke diagnosis?: No Physical Exam Vital Signs: Vital Signs: Last Vital Signs Temp 98.1 F 03/22/21 11:32 Pulse 88 03/22/21 11:32 Resp 20 03/22/21 11:32 BP 112/52 L 03/22/21 11:32 Pulse Ox 98 03/22/21 11:32 BMI result Body Mass Index 27.6 General: AO X 3, frail Resp:? CTA bilateral, no accessory muscles used CVS: S1,S2,RRR GI: soft, non tender,? distended Neuro:? motor grossly intact, alert Psych: appropriate affect, appropriate insight? DS: Data Data Completed and Pending Completed studies during hospitalization [Text1]: Pending at discharge 03/18/21 10:30 Cytology [PTH] Routine Labs on day of discharge: Laboratory Results - last 24 hr 03/21/21 03/21/21 03/22/21 16:06 19:36 06:04 WBC 10.5 RBC 3.18 L Hgb 9.1 L Hct 27.6 L MCV 86.8 MCH 28.6 MCHC 33.0 RDW 20.9 H Plt Count 166 MPV 10.7 Absolute Nucleated RBC 0.000 Nucleated RBC % (auto) 0.0 PT INR Sodium Potassium Chloride Carbon Dioxide Anion Gap BUN Creatinine Estim Creat Clear Calc Estimated GFR POC Glucose 106 140 H Random Glucose Calcium Total Bilirubin Direct Bilirubin AST ALT Alkaline Phosphatase Total Protein Albumin 03/22/21 03/22/21 03/22/21 06:04 06:04 07:02 WBC RBC Hgb Hct MCV MCH MCHC RDW Plt Count MPV Absolute Nucleated RBC Nucleated RBC % (auto) PT 15.2 H INR 1.3 H Sodium 135 Potassium 3.6 Chloride 105 Carbon Dioxide 21 L Anion Gap 13 BUN 27 H Creatinine 1.02 Estim Creat Clear Calc 70.7 Estimated GFR > 60 POC Glucose 117 H Random Glucose 120 H Calcium 8.7 Total Bilirubin 1.8 H Direct Bilirubin 1.0 H AST 65 H ALT 72 H Alkaline Phosphatase 244 H Total Protein 6.9 Albumin 3.3 L 03/22/21 11:12 WBC RBC Hgb Hct MCV MCH MCHC RDW Plt Count MPV Absolute Nucleated RBC Nucleated RBC % (auto) PT INR Sodium Potassium Chloride Carbon Dioxide Anion Gap BUN Creatinine Estim Creat Clear Calc Estimated GFR POC Glucose 127 H Random Glucose Calcium Total Bilirubin Direct Bilirubin AST ALT Alkaline Phosphatase Total Protein Albumin Preliminary micro results at discharge 03/18/21 10:30 Anaerobic Culture - Preliminary Ascites Fluid No growth to date. Discharge Plan Discharge Patient Disposition: Left Against Medical Advice Discharge Diagnosis: liver lesion, ascites Referrals: Rhina Carney, DIRECTOR EXTERNAL COMMUNICATIONS [Primary Care Provider] - 1 Week Discharge Medications: No Action ibuprofen 200 mg Tablet 400 mg PO Q6H PRN (Reason: Pain) RF: 0 Eliquis 5 mg tablet 5 mg PO BID RF: 0 cholecalciferol (vitamin D3) 25 mcg (1,000 unit) capsule 25 mcg PO DAILY RF: 0 amlodipine 10 mg tablet 10 mg PO DAILY RF: 0 atorvastatin 10 mg tablet 10 mg PO DAILY RF: 0 metoprolol tartrate 25 mg tablet 25 mg PO BID RF: 0 lisinopril 40 mg tablet 40 mg PO DAILY RF: 0 hydrochlorothiazide 25 mg tablet 25 mg PO DAILY RF: 0 Incruse Ellipta 62.5 mcg/actuation blister with device 1 inh inhalation DAILY RF: 0 albuterol sulfate 90 mcg/actuation HFA aerosol inhaler 1 - 2 puff inhalation Q6H PRN (Reason: Wheezing) RF: 0 Discharge Orders: Discharge Order (Routine); Ordered 03/22/21 Ordered By: Jorge Maya Care Plan Goals: TBD, depending on your goals of care Health Concerns: possible liver cancer, liver cirrhosis Plan of Treatment: if you want treatment or work up, should follow up with dr murrell or dr mckeon to arrange for biopsy and for routine ascites drainage. otherwise consider arranging for hospice evaluation Assessment: see above
--- NOTE | 2021-03-22 14:59 | MHC.CM.PN ---
IMM 03/21/21 Male S/P biopsy today. He is discharged home today. No services have been ordered, or needed. Patient's will transport home.
--- NOTE | 2021-03-22 15:37 | PC.NURSE ---
patient 457 left AMA, patient had been educated on the choice of leaving [facility]. Nurse coordinator and doctor aware.
== END 2021-03-22 15:36 | disposition left against medical advice (07) | DRG 432 ==
LOC: HO.ED 06:23 → HO.EDOVER 06:30 → HO.ICU 07:31 → HO.IMC 18:00
PROVIDERS: Internal Medicine; Internal Medicine Pulmonary Disease; Radiology Diagnostic Radiology; Student in an Organized Health Care Education/Training Program; Admitting Provider Registered Nurse Community Health; Emergency Provider Emergency Medicine; PCP Nurse Practitioner Primary Care; Visit Provider Internal Medicine
PROC: 0W9G3ZZ Drainage of Peritoneal Cavity, Percutaneous Approach (ICD-10-PCS; principal; 2021-03-20 09:30)
DX: K70.31 Alcoholic cirrhosis of liver with ascites (principal); K66.1 Hemoperitoneum; R57.8 Other shock; I81 Portal vein thrombosis; N17.9 Acute kidney failure, unspecified; D68.9 Coagulation defect, unspecified; D62 Acute posthemorrhagic anemia; C22.0 Liver cell carcinoma; E11.9 Type 2 diabetes mellitus without complications; F17.210 Nicotine dependence, cigarettes, uncomplicated; Z71.6 Tobacco abuse counseling; D63.8 Anemia in other chronic diseases classified elsewhere; B19.20 Unspecified viral hepatitis C without hepatic coma; I48.0 Paroxysmal atrial fibrillation; Z20.822 Contact with and (suspected) exposure to COVID-19; Z95.0 Presence of cardiac pacemaker; Z79.01 Long term (current) use of anticoagulants; Z79.899 Other long term (current) drug therapy
CPT/HCPCS: 36415; 36430; 49083; 70450; 71045; 71046; 74176; 78580; 80048; 80053; 80076; 81003; 82077; 82140; 82272; 82803; 82945; 82947; 83036; 83605; 83615; 83690; 83735; 83880; 84100; 84157; 84484; 85014; 85018; 85025; 85027; 85379; 85384; 85610; 85730; 86850; 86900; 86901; 86923; 87040; 87070; 87071; 87073; 87205; 87635; 88112; 89051; 93005; 93975; 96361; 96365; 96367; 96375; 97110; 97116; 97162; 99284; 99285; 99291; A9540; C1758; J0696; J1170; J1940; J2060; J2250; J2270; J2354; J2370; J2405; J2543; J2550; J2765; J3010; J3370; J3430; P9016; P9017; P9047

== ENCOUNTER 2021-03-23 10:01 | Inpatient (IN) | payer MEDICARE, MEDICAID, SELFPAY ==
[2021-03-23] VITALS (29 sets, daily range): BP systolic 86–137; BP diastolic 44–73; PULSE 108–140; RESP 14–115; TEMP 36.3–37.4; O2SAT 86–100; BMI 26.0; BMI 24.9
--- NOTE | ~2021-03-23 | XR_ITS ---
EXAMINATION: XR CHEST CLINICAL INFORMATION: Line placement. COMPARISON: Chest x-ray 03/23/2021 TECHNIQUE: Frontal view of the chest was obtained. 5:25 PM FINDINGS: Tubes and lines: 1. Right subclavian line catheter tip in superior vena cava at the cavoatrial junction. There is no pneumothorax. Pacemaker lead in right atrium and right ventricle unchanged position since prior study. Cardiac and mediastinal contours are normal. Heart size is normal. No focal consolidation. No pleural effusion or pneumothorax. Periarticular calcifications in the soft tissues around the right shoulder redemonstrated. XR/XR chest 1V IMPRESSION: No acute abnormality of chest.
--- NOTE | ~2021-03-23 | US_ITS ---
EXAMINATION: ULTRASOUND-GUIDED PARACENTESIS CLINICAL INFORMATION: Ascites COMPARISON: Previous exams most recent 03/20/[address] of the abdomen and pelvis 03/23/2021 TECHNIQUE: Procedure and risks and benefits including bleeding, infection and low blood pressure were discussed with the patient and informed consent was obtained. The right lower quadrant was prepped and draped in the usual sterile fashion. The skin and soft tissues were anesthetized with 1% lidocaine plain. Using ultrasound guidance and a 5 Kuwaiti rapid centesis catheter, access to the ascitic fluid was obtained. 4.3 liters of dark red bloody fluid was removed. No diagnostic specimen was sent. FINDINGS: There is a large amount of ascites. US/US paracentesis abd w/image IMPRESSION: Ultrasound-guided paracentesis.
--- NOTE | ~2021-03-23 | US_ITS ---
EXAMINATION: US-GUIDED PARACENTESIS CLINICAL INFORMATION: Ascites, therapeutic tap. COMPARISON: None TECHNIQUE: Following explaining ultrasound-guided paracentesis procedure, benefits and risk, a written consent was obtained. Patient was placed supine on ultrasound stretcher and preliminary ultrasound imaging was obtained through the abdomen. An optimal site was selected along the right lower quadrant and marked. The marked site was cleaned and draped in the usual sterile manner. 1% lidocaine was injected at puncture site. Through a small skin incision, a 5-Frisian RealMatch catheter was advanced into the peritoneal space. After obtaining fluid return, the stylet was withdrawn and catheter connected to vacuum bottle via connecting cannula. After obtaining all fluid and observing normal fluid return, the catheter was withdrawn and complete hemostasis achieved at puncture site. Simple Band-Aid applied postprocedure. Patient tolerate procedure extremely well. FINDINGS: On preliminary ultrasound imaging, there is a large amount of free fluid seen. Approximately 5.3 L of clear light yellowish fluid was drained. None of this fluid was sent to the lab. US/US paracentesis abd w/image IMPRESSION: Successful ultrasound-guided therapeutic right lower quadrant paracentesis performed. Previously 4.3 L of fluid was removed.
--- NOTE | ~2021-03-23 | CT_ITS ---
EXAMINATION: CT BRAIN AND CHEST X-RAY CLINICAL INFORMATION: Confusion with vomiting and coughing blood. COMPARISON: None TECHNIQUE: 5 mm thin axial and reformatted 2 mm thin sagittal and coronal images of brain were obtained. DLP [id number]. Chest 2 views. FINDINGS: Brain: There is no acute intra-axial, extra-axial bleed, masses, collection or midline shift. The lateral ventricles are symmetrical in size and configuration without enlargement. The guzman to white matter differentiation is normal. No acute infarction in evolution or edema seen. Bone windows reveal no calvarial abnormality. There is no scalp soft tissue abnormality. Bilateral paranasal sinuses and mastoid air cells are well-aerated. Chest x-ray: The lungs are hypoexpanded but clear of acute pneumonic process. There is platelike atelectasis right lower lobe. The heart size and pulmonary vascularity is normal. There are dual pacer electrodes in right atrium and right ventricle. No gross bony abnormality seen. CT/CT head/brain wo con IMPRESSION: No acute intracranial process seen. Hypoexpanded lungs without acute pneumonic process. There is platelike atelectasis in right lower lobe.
--- NOTE | ~2021-03-23 | NM_ITS ---
EXAMINATION: PULMONARY PERFUSION STUDY CLINICAL INFORMATION: Coughing and vomiting blood. COMPARISON: Chest x-ray earlier 03/23/2021. TECHNIQUE: Following the intravenous administration of 4.0 mCi Tc-99m MAA, an 8 view perfusion study was performed. FINDINGS: No segmental perfusion defects are present. There is homogeneous distribution of activity bilaterally. There are no focal anatomic appearing perfusion defects present. A small area of photopenia at the left upper chest on the THAI view is most consistent with a pacemaker generator. NM/NM pul perfusion IMPRESSION: Lung perfusion scan is essentially normal, without evidence of possible pulmonary embolus.
--- NOTE | ~2021-03-23 | CT_ITS ---
EXAMINATION: CT ABDOMEN AND PELVIS WITHOUT CONTRAST CLINICAL INFORMATION: Coughing and vomiting blood. COMPARISON: March 21, 2021 and March 16, 2021 TECHNIQUE: Multidetector volumetric imaging was performed from the superior aspect of the liver through the pubic symphysis. Sagittal and coronal reformatted images were obtained on the technologist's workstation. This CT examination was performed using dose optimization techniques as appropriate, variously including the following: *Automated exposure control *Adjustment of mA and/or kV according to patient size (this includes techniques or standardized protocols for targeted exams where dose is matched to indication/reason for exam; i.e. extremities or head) *Use of iterative reconstruction technique DLP: 1069 mGy-cm FINDINGS: LUNG BASES: No pleural or pericardial effusion identified. Pacemaker in place. Coronary artery calcifications are seen. LIVER, GALLBLADDER, AND BILIARY TREE: The liver has a nodular border with appearance of cirrhosis. There appear to be 2 low density lesions within the right lobe when is somewhat exophytic posteriorly what appears to be segment 6. This measures approximately 3.8 cm in diameter. A more anterior lesion appears be in segment 5/approximately 3.4 cm. The gallbladder is faintly seen but without definite abnormality appreciated. PANCREAS: Unremarkable. SPLEEN: Unremarkable. ADRENAL GLANDS: Unremarkable. The right adrenal gland appears unremarkable. Left adrenal gland is difficult to tell its margins and is adjacent to the varices. KIDNEYS AND URETERS: The kidneys are normal in size, shape, and attenuation. No hydronephrosis, hydroureter, or calculi seen. No perinephric stranding. BLADDER: Unremarkable. GASTROINTESTINAL TRACT: No dilated loops of large or small bowel are evident. No free air is seen. There is a large amount of ascites present similar to previous study. There is noted to be small region of increased density in the dependent portion of the ascites posterior to the tip right lobe of liver. This may be vascular in nature however this could also represent a small amount of layering blood. This appearance is also present in the cul-de-sac. There appears to be wall thickening of the transverse and ascending colon which may be related to colitis. The appendix is visualized and appears unremarkable. This is a change since previous study of March 21, 2021. ABDOMINAL WALL: No significant hernia is appreciated. Bilateral hydroceles are present. No abdominal wall hematoma is appreciated. LYMPH NODES: There are a few periportal enlarged lymph nodes present the largest being approximately 2.5 x 2.3 cm in size. VASCULAR: There is moderate aortoiliac calcified plaque present. No abdominal aortic aneurysm is seen. No definite evidence of occlusive mesenteric ischemia however nonocclusive ischemia not excluded. There are prominent varices seen throughout the abdomen and retroperitoneum. There appears be a spontaneous splenorenal shunt present. PELVIC VISCERA: No suspicious pelvic mass appreciated. OSSEOUS STRUCTURES: No suspicious destructive bony lesions appreciated. CT/CT abdomen pelvis wo con IMPRESSION: Large volume ascites with some dependent increased density present in the right side just inferior and posterior to a somewhat exophytic liver lesion within segment 6 of the liver. There is also noted to be some increased density dependently in ascites within the cul-de-sac. These findings are suspicious for possible layering of blood products. No abdominal wall hematoma is identified. Liver lesions may be ligament in this patient with hepatic cirrhosis. Numerous varices with what appears to be a spontaneous splenorenal shunt. Portal lymphadenopathy. Thickened sharma involving the ascending and transverse colon which may be related to colitis. No definite evidence of occlusive mesenteric ischemia however nonocclusive ischemia cannot be excluded on this study.
--- NOTE | 2021-03-23 10:18 | ECG_ITS ---
Test Reason : AMS Blood Pressure : / mmHG Vent. Rate : 125 BPM Atrial Rate : 125 BPM P-R Int : 144 ms QRS Dur : 068 ms QT Int : 330 ms P-R-T Axes : 021 030 057 degrees QTc Int : 476 ms Sinus tachycardia Low voltage QRS Borderline ECG When compared with ECG of 18-MAR-2021 01:25, No significant change was found Referred By: Amrita Herrera Electronically Signed By:JOSÉ LUIS LUNA MD
--- NOTE | 2021-03-23 10:33 | ED_ITS ---
HPI - GI Bleed General Chief complaint: GI Bleed <AMBER Arrington Last Filed: 04/04/21 00:20> Stated complaint: CONFUSION,VOMITING BLOOD <AMBER Arrington Last Filed: 04/04/21 00:20> Time Seen by Provider: 03/23/21 10:15 <AMBER Arrington Last Filed: 04/04/21 00:20> Source: patient and EMS <AMBER Arrington Last Filed: 04/04/21 00:20> Mode of arrival: EMS <AMBER Arrington Last Filed: 04/04/21 00:20> Limitations: other (Poor historian) <AMBER Arrington Last Filed: 04/04/21 00:20> History of Present Illness HPI Narrative: 65-year-old male who was recently admitted here and left AMA yesterday on 03/22/2021 presenting to the ED with complaints of generalized weakness, confusion, fatigue, malaise, dizziness, shortness of breath and vomiting and coughing up bright red blood multiple episodes since last night. He reports black and bloody stools. 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 He was noted to have a hemoglobin of 6 with hypotension elevated lactic therefore he received 3 packed red blood cells and 2 units of FFP, and had a diagnostic paracentesis that demonstrated bloody fluid like secondary to spontaneous intraperitoneal hemorrhage. Patient was also noted to have mild coagulopathy. He received vitamin K and was started on Rocephin and was admitted to the intensive care unit then he went to intermediate care and continued receiving IV antibiotics of Rocephin, and IVF due to KEVAN, his H&H was stable at 9 they discontinued the Eliquis due to spontaneous interperitoneal hemorrhage. He denies any fevers, changes in vision, chest pain, back pain, palpitations, paresthesias, lower extremity edema, or any other symptoms complaints or concerns at this time. <AMBER Arrington Last Filed: 04/04/21 00:20> MD complaint: blood streaked emesis, gross hematemesis, melena, blood streaked stool and gross hematochezia <AMBER Arrington Last Filed: 04/04/21 00:20> Onset (ago): day(s) (since last night after he was discharged ) <AMBER Arrington Last Filed: 04/04/21 00:20> Pain Consistency: constant <AMBER Arrington Last Filed: 04/04/21 00:20> Severity: severe <AMBER Arrington Last Filed: 04/04/21 00:20> Relieving factors: none <AMBER Arrington Last Filed: 04/04/21 00:20> Exacerbating factors: none <AMBER Arrington Last Filed: 04/04/21 00:20> Context: liver disease <AMBER Arrington Last Filed: 04/04/21 00:20> Associated symptoms: abdominal pain, nausea, vomiting, loss of appetite, shortness of breath and weakness <AMBER Arrington Last Filed: 04/04/21 00:20> Treatments Prior to Arrival: none <AMBER Arrington Last Filed: 04/04/21 00:20> Related Data Home medications: Home Medications Medication Instructions Recorded Confirmed cholecalciferol (vitamin D3) 25 25 mcg PO DAILY 03/24/20 03/30/21 mcg (1,000 unit) capsule albuterol sulfate 90 mcg/actuation 1 - 2 puff INHALATION Q6H PRN 07/14/20 03/30/21 aerosol inhaler umeclidinium 62.5 mcg/actuation 1 inh INHALATION DAILY 02/16/21 03/30/21 blister powder for inhalation (Incruse Ellipta) atorvastatin 10 mg tablet 1 tab PO DAILY 03/23/21 03/30/21 Previous Rx's Medication Instructions Recorded carvedilol 3.125 mg tablet 3.125 mg PO BID #60 tab 03/28/21 furosemide 20 mg tablet 20 mg PO DAILY #30 tab 03/28/21 lactulose 20 gram/30 mL oral 30 g (45 mL) PO TID #1800 ml 03/28/21 solution omeprazole 40 mg capsule,delayed 40 mg PO BID@0630,1630 #60 cap 03/28/21 release spironolactone 25 mg tablet 50 mg PO DAILY #30 tab 03/28/21 sucralfate 1 gram tablet 1 g PO QIDACHS #56 tab 03/28/21 <AMBER Arrington - Last Filed: 04/04/21 00:20> Allergies/Adverse reactions: Allergies Allergy/AdvReac Type Severity Reaction Status Date / Time No Known Allergies Allergy Verified 03/16/21 05:32 <AMBER Arrington - Last Filed: 04/04/21 00:20> Review of Systems Review of Systems: Constitutional : No Fever, No Chills, No Night Sweats, + Fatigue, + Malaise Cardiovascular : No Chest Pain, + SOB Respiratory : No Cough, No Sputum, No Wheezing, + Dyspnea Gastrointestinal : + Nausea, + Vomiting, + Diarrhea, + abdominal Pain, + Hematochezia, + Melena Genitourinary : No irregular bleeding, No Dysuria, No Urinary Frequency, No Hematuria,No Urinary Incontinence, No Urgency, No Flank Pain Musculoskeletal : No joint pain, No Myalgias, No Joint Swelling Skin : No Skin Lesions, No rash Neuro : + Weakness, + Dizziness, No Numbness, No Paresthesias, No Loss of Consciousness, No Dizziness, No Headache Heme/Lymph: No Lymphadenopathy Endocrine : No Temperature Intolerance <AMBER Arrington Last Filed: 04/04/21 00:20> Yes all other systems are reviewed and are negative <AMBER Arrington - Last Filed: 04/04/21 00:20> PMFSH Past Medical History Attestation statement: The following information was validated with the patient. <AMBER Arrington - Last Filed: 04/04/21 00:20> Medical History: Medical History Hx of cardiac pacemaker <AMBER Arrington Last Filed: 04/04/21 00:20> Surgical History: Surgical History H/O colonoscopy Hx of esophagogastroduodenoscopy (11/29/17) <AMBER Arrington Last Filed: 04/04/21 00:20> Family History Family History: Family History Father No problems noted. Mother No problems noted. Sister Hx of skin cancer, basal cell <AMBER Arrington - Last Filed: 04/04/21 00:20> Social History Social History: Social History Household Members: Spouse Housing: Apartment Do you presently have visiting nurse or other home services: No Unable to assess alcohol history related to: Unknown Alcohol intake: former Patient Tobacco Use Status: Former Tobacco user Tobacco use type: Cigarette e-Cigarette/Vaping Use: Never Used Substance Use Type: Marijuana service: No Current occupational status: disabled <AMBER Arrington - Last Filed: 04/04/21 00:20> Physical Exam Vital Signs: Vital Signs: Last Vital Signs Temp 97.5 F 03/28/21 11:03 Pulse 97 03/28/21 11:03 Resp 17 03/28/21 11:03 BP 108/63 03/28/21 11:03 Pulse Ox 100 03/28/21 11:03 BMI result Body Mass Index 24.9 vital signs have been reviewed as normal and appeared to be correct. Blood pressure 94/53. Heart rate 130. Respiration rate 24. Temperature normal. Oxygen saturation normal. <AMBER Arrington - Last Filed: 04/04/21 00:20> Vital Signs: Last Vital Signs Temp 97.5 F 03/28/21 11:03 Pulse 97 03/28/21 11:03 Resp 17 03/28/21 11:03 BP 108/63 03/28/21 11:03 Pulse Ox 100 03/28/21 11:03 BMI result Body Mass Index 24.9 <Stefan Soto DO - Last Filed: 05/23/21 07:04> Appearance: Alert. Oriented X3 although poor historian No acute distress. Head: Normal external exam. Normocephalic. Atraumatic. Eyes: PERRLA. EOMI. Conjunctiva and sclera normal. Eyelids normal. ENT: EAC normal. TM's Normal. Pharynx normal. Uvula midline. Moist mucous membranes. No trismus noted. No drooling noted. No muffled voice noted. Neck: Normal inspection. Neck supple. FROM. No adenopathy. Thyroid Normal. No meningeal signs. No neck mass noted. CVS: Normal heart rate and rhythm. Heart sound normal. Pulses normal throughout. No murmurs/rales/gallops. Respiratory: No respiratory distress. Painless inspiration. Breath sounds normal. No wheezes/rales/rhonchi noted. Chest nontender. No accessory muscle usage noted or decreased air movement noted. Abdomen: Soft and mild tenderness to palpation diffusely. Distension noted. Not consistent with acute abdomen. No guarding. No rigidity. Bowel sounds n ormal in all 4 quadrants. No distention noted. No visible injury noted. No rebound tenderness. Negative Rovsing sign. Negative obturator's sign. Negative psoas sign. Negative Gallegos sign. Back: No CVA tenderness. Full range of motion noted. No rashes/lesion/induration/fluctuance or signs of infection noted. Skin: Skin warm and dry. Patient appears very pallor. Normal skin turgor. No rashes/lesions/lacerations noted. Extremities: No lower extremity edema. No calf tenderness is noted. Extremities exhibit normal range of motion. Extremities nontender. Neuro: Oriented X 3. No motor deficit. No sensory deficit. Reflexes normal. Normal steady gait. No focal neuro deficits noted. Vascular: + radial pulses/+ 2 distal pedal pulses/+2 dorsalis pedis b/l. Normal cap refill. No cyanosis noted to upper extremity nails and lower extremity toes nails. <AMBER Arrington - Last Filed: 04/04/21 00:20> Course Course Course Narrative: 11am - the lab called and patient's lactic acid is 5.8 therefore he will also receive the 30 mix per kg of IV fluids. He is already receiving 1 g of Rocephin and was already receiving 1 L of IV fluids. - patient also has an elevated white blood cell count at 13,000 which is new when compared to yesterday. His H&H is also 6.1/18.7 which is new when compared from yesterday. PT INR mildly 24.3/2.1. Sodium 133. Carbon dioxide 19. BUN/creatinine 63/1.83 which is worse when compared to yesterday. Random glucose 176. Calcium 8.3. Total albumin 1.6. AST/ALT/alkaline phosphate 93/69/188. Albumin 2.8. Otherwise all other labs are within normal limits. Patient is negative for COVID. - therefore due to patient's elevated BUN and creatinine he can not have IV contrast therefore will obtain a V/Q scan to evaluate for possible PE, CT scan abdomen pelvis without IV contrast, obtain a chest x-ray. I also ordered 2 packs of red blood cells and patients I am blood transfusion consent form. Type and screen was also ordered. <AMBER Arrington - Last Filed: 04/04/21 00:20> Reevaluation(s) Reevaluation #1: - The patient is actively vomiting blood bright red in color therefore Dr. Ambrosio was in the ER consulting on another patient therefore he is going to see the patient while he is in the ER although he instructed me to continue hydrating the patient with IV fluids, he also agreed with my plan of Octreotide and a PPI. Then we consulted with Dr. Traylor the fast food services manager came and evaluated the patient and he will accept the patient although there are no open beds in ICU at this time therefore we will continue to manage the patient until there is an ICU bed available although he recommended 20 mg of IV Vitamin K per 3 units of FFP therefore ordered at this time. Plan is for the patient to be more stabilized and then Dr. Ambrosio/NIKUNJ will do a scope tomorrow morning or overnight. Patient understands agrees with this plan. <AMBER Arrington - Last Filed: 04/04/21 00:20> Time: 13:30 <AMBER Arrington - Last Filed: 04/04/21 00:20> Reevaluation #2: - CT scan of brain without contrast within normal limits no acute processes are noted. Chest x-ray revealed atelectasis otherwise no other acute processes. V/Q scan negative for PE. CT scan of abdomen and pelvis without IV or p.o. contrast was abnormal revealing large amount of ascites and some increased density in the right side revealing a liver lesion and there is also noted to be some increased density dependently and ascites and there are unable to rule out if this is layering of blood products therefore Dr. Bose the gastroenterology recommended a CT scan of abdomen pelvis without IV contrast with slowly p.o. contrast therefore ordered at this time. Although due to patient actively bleeding/vomit will hold off per Dr. Traylor that just called me back <AMBER Arrington - Last Filed: 04/04/21 00:20> Time: 14:50 <AMBER Arrington - Last Filed: 04/04/21 00:20> MDM - GI Bleed MDM Narrative Medical decision making narrative: 11am- - 65-year-old male who was recently admitted here and left AMA yesterday on 03/22/2021 presenting to the ED with complaints of generalized weakness, confusion, fatigue, malaise, dizziness, shortness of breath and vomiting and coughing up bright red blood multiple episodes since last night. He also reports black and bloody stools. Plan: Labs, lactic acid, blood cultures, EKG, CT scan of brain/CTA of chest for PE, CT scan abdomen and pelvis GI bleed protocol with IV contrast only, a L of IV fluids, patient was already receiving Rocephin while he was here in the hospital therefore will restart the patient on 1 g of Rocephin and then re- evaluate. <AMBER Arrington - Last Filed: 04/04/21 00:20> 11am- - 65-year-old male who was recently admitted here and left AMA yesterday on 03/22/2021 presenting to the ED with complaints of generalized weakness, confusion, fatigue, malaise, dizziness, shortness of breath and vomiting and coughing up bright red blood multiple episodes since last night. He also reports black and bloody stools. Plan: Labs, lactic acid, blood cultures, EKG, CT scan of brain/CTA of chest for PE, CT scan abdomen and pelvis GI bleed protocol with IV contrast only, a L of IV fluids, patient was already receiving Rocephin while he was here in the hospital therefore will restart the patient on 1 g of Rocephin and then re- evaluate. I will admit to medicie. <Stefan Soto DO - Last Filed: 05/23/21 07:04> Medical Records Attestation: I reviewed the patient's medical records. <AMBER Arrington Last Filed: 04/04/21 00:20> Lab Data Attestation: I reviewed the patient's lab results. <AMBER Arrington Last Filed: 04/04/21 00:20> Result diagrams: : 03/28/21 06:00 03/28/21 05:59 <AMBER Arrington - Last Filed: 04/04/21 00:20> Labs: Lab Results 03/23/21 03/23/21 03/23/21 Range/Units 10:41 10:41 10:41 WBC 13.0 H (4.8-10.8) X10*3/uL RBC 2.13 L D (4.60-5.80) X10*6/uL Hgb 6.1 L* D (14.0-18.0) g/dl Hct 18.7 L* D (42.0-52.0) % MCV 87.8 (80.0-98.0) fL MCH 28.6 (27.0-33.0) pg MCHC 32.6 (31.0-36.0) g/dl RDW 21.3 H (11.0-16.0) % Plt Count 203 (160-400) X10*3/uL MPV 11.1 (9.4-12.4) fL Immature Gran % (Auto) 1.1 H (0.0-0.4) % Neut % (Auto) 73.0 (45-73) % Lymph % (Auto) 13.6 L (20-40) % Ocean % (Auto) 11.5 H (2-11) % Eos % (Auto) 0.6 (0-4) % Baso % (Auto) 0.2 (0-2) % Lymph # (Auto) 1.8 (1.2-4.9) X10*3/uL Ocean # (Auto) 1.5 H (0.1-1.2) X10*3/uL Eos # (Auto) 0.1 (0.0-0.4) X10*3/uL Baso # (Auto) 0.0 (0.0-0.2) X10*3/uL Abs Immat Gran (auto) 0.14 H (0.00-0.03) X10*3/uL Absolute Neuts (auto) 9.5 H (2.0-8.3) x10*3/uL Absolute Nucleated RBC 0.020 H (0.0-0.012) X10*3/uL Nucleated RBC % (auto) 0.2 (0.0-0.2) /100WBC PT 24.3 H (9.9-13.0) SEC INR 2.1 H (0.9-1.1) APTT 27.7 D (24.1-38.0) SEC Sodium 133 L (135-145) mmol/L Potassium 4.7 D (3.3-5.1) mmol/L Chloride 102 (96-108) mmol/L Carbon Dioxide 19 L (22-29) mmol/L Anion Gap 17 (12-20) BUN 63 H D (9-16) mg/dL Creatinine 1.83 H (0.5-1.4) mg/dL Estim Creat Clear Calc 36.3 Estimated GFR 37 Random Glucose 176 H D (60-115) mg/dL Lactic Acid (0.5-2.0) mmol/L Lactic Acid F/U @ 2Hr (0.5-2.0) mmol/L Calcium 8.3 L (8.4-10.2) mg/dL Phosphorus 3.0 (2.7-4.5) mg/dL Magnesium 2.3 (1.6-2.6) mg/dL Total Bilirubin 1.6 H (0.0-1.0) mg/dL AST 93 H (5-37) U/L ALT 69 H (0-40) U/L Alkaline Phosphatase 188 H D (39-117) U/L Troponin I High Sens (<3.5-35.0) ng/L B-Natriuretic Peptide (<100) pg/mL Total Protein 5.9 L (6.5-8.0) g/dL Albumin 2.8 L (3.5-5.0) g/dL Lipase 30 (8-78) U/L COVID-19 ([facility]IREE) (Negative) COVID-19 Clin Com Blood Type Antibody Screen Crossmatch 03/23/21 03/23/21 03/23/21 Range/Units 10:41 10:41 11:01 WBC (4.8-10.8) X10*3/uL RBC (4.60-5.80) X10*6/uL Hgb (14.0-18.0) g/dl Hct (42.0-52.0) % MCV (80.0-98.0) fL MCH (27.0-33.0) pg MCHC (31.0-36.0) g/dl RDW (11.0-16.0) % Plt Count (160-400) X10*3/uL MPV (9.4-12.4) fL Immature Gran % (Auto) (0.0-0.4) % Neut % (Auto) (45-73) % Lymph % (Auto) (20-40) % Ocean % (Auto) (2-11) % Eos % (Auto) (0-4) % Baso % (Auto) (0-2) % Lymph # (Auto) (1.2-4.9) X10*3/uL Ocean # (Auto) (0.1-1.2) X10*3/uL Eos # (Auto) (0.0-0.4) X10*3/uL Baso # (Auto) (0.0-0.2) X10*3/uL Abs Immat Gran (auto) (0.00-0.03) X10*3/uL Absolute Neuts (auto) (2.0-8.3) x10*3/uL Absolute Nucleated RBC (0.0-0.012) X10*3/uL Nucleated RBC % (auto) (0.0-0.2) /100WBC PT (9.9-13.0) SEC INR (0.9-1.1) APTT (24.1-38.0) SEC Sodium (135-145) mmol/L Potassium (3.3-5.1) mmol/L Chloride (96-108) mmol/L Carbon Dioxide (22-29) mmol/L Anion Gap (12-20) BUN (9-16) mg/dL Creatinine (0.5-1.4) mg/dL Estim Creat Clear Calc Estimated GFR Random Glucose (60-115) mg/dL Lactic Acid 5.8 H* (0.5-2.0) mmol/L Lactic Acid F/U @ 2Hr (0.5-2.0) mmol/L Calcium (8.4-10.2) mg/dL Phosphorus (2.7-4.5) mg/dL Magnesium (1.6-2.6) mg/dL Total Bilirubin (0.0-1.0) mg/dL AST (5-37) U/L ALT (0-40) U/L Alkaline Phosphatase (39-117) U/L Troponin I High Sens 4.3 D (<3.5-35.0) ng/L B-Natriuretic Peptide 18 (<100) pg/mL Total Protein (6.5-8.0) g/dL Albumin (3.5-5.0) g/dL Lipase (8-78) U/L COVID-19 ([facility]IREE) Negative (Negative) COVID-19 Clin Com See Note Blood Type Antibody Screen Crossmatch 03/23/21 03/23/21 Range/Units 11:41 13:15 WBC (4.8-10.8) X10*3/uL RBC (4.60-5.80) X10*6/uL Hgb (14.0-18.0) g/dl Hct (42.0-52.0) % MCV (80.0-98.0) fL MCH (27.0-33.0) pg MCHC (31.0-36.0) g/dl RDW (11.0-16.0) % Plt Count (160-400) X10*3/uL MPV (9.4-12.4) fL Immature Gran % (Auto) (0.0-0.4) % Neut % (Auto) (45-73) % Lymph % (Auto) (20-40) % Ocean % (Auto) (2-11) % Eos % (Auto) (0-4) % Baso % (Auto) (0-2) % Lymph # (Auto) (1.2-4.9) X10*3/uL Ocean # (Auto) (0.1-1.2) X10*3/uL Eos # (Auto) (0.0-0.4) X10*3/uL Baso # (Auto) (0.0-0.2) X10*3/uL Abs Immat Gran (auto) (0.00-0.03) X10*3/uL Absolute Neuts (auto) (2.0-8.3) x10*3/uL Absolute Nucleated RBC (0.0-0.012) X10*3/uL Nucleated RBC % (auto) (0.0-0.2) /100WBC PT (9.9-13.0) SEC INR (0.9-1.1) APTT (24.1-38.0) SEC Sodium (135-145) mmol/L Potassium (3.3-5.1) mmol/L Chloride (96-108) mmol/L Carbon Dioxide (22-29) mmol/L Anion Gap (12-20) BUN (9-16) mg/dL Creatinine (0.5-1.4) mg/dL Estim Creat Clear Calc Estimated GFR Random Glucose (60-115) mg/dL Lactic Acid (0.5-2.0) mmol/L Lactic Acid F/U @ 2Hr 6.2 H* (0.5-2.0) mmol/L Calcium (8.4-10.2) mg/dL Phosphorus (2.7-4.5) mg/dL Magnesium (1.6-2.6) mg/dL Total Bilirubin (0.0-1.0) mg/dL AST (5-37) U/L ALT (0-40) U/L Alkaline Phosphatase (39-117) U/L Troponin I High Sens (<3.5-35.0) ng/L B-Natriuretic Peptide (<100) pg/mL Total Protein (6.5-8.0) g/dL Albumin (3.5-5.0) g/dL Lipase (8-78) U/L COVID-19 ([facility]IREE) (Negative) COVID-19 Clin Com Blood Type O Positive Antibody Screen NEGATIVE Crossmatch See Detail <AMBER Arrington - Last Filed: 04/04/21 00:20> Lab Results 03/23/21 03/23/21 03/23/21 Range/Units 10:41 10:41 10:41 WBC 13.0 H (4.8-10.8) X10*3/uL RBC 2.13 L D (4.60-5.80) X10*6/uL Hgb 6.1 L* D (14.0-18.0) g/dl Hct 18.7 L* D (42.0-52.0) % MCV 87.8 (80.0-98.0) fL MCH 28.6 (27.0-33.0) pg MCHC 32.6 (31.0-36.0) g/dl RDW 21.3 H (11.0-16.0) % Plt Count 203 (160-400) X10*3/uL MPV 11.1 (9.4-12.4) fL Immature Gran % (Auto) 1.1 H (0.0-0.4) % Neut % (Auto) 73.0 (45-73) % Lymph % (Auto) 13.6 L (20-40) % Ocean % (Auto) 11.5 H (2-11) % Eos % (Auto) 0.6 (0-4) % Baso % (Auto) 0.2 (0-2) % Lymph # (Auto) 1.8 (1.2-4.9) X10*3/uL Ocean # (Auto) 1.5 H (0.1-1.2) X10*3/uL Eos # (Auto) 0.1 (0.0-0.4) X10*3/uL Baso # (Auto) 0.0 (0.0-0.2) X10*3/uL Abs Immat Gran (auto) 0.14 H (0.00-0.03) X10*3/uL Absolute Neuts (auto) 9.5 H (2.0-8.3) x10*3/uL Absolute Nucleated RBC 0.020 H (0.0-0.012) X10*3/uL Nucleated RBC % (auto) 0.2 (0.0-0.2) /100WBC PT 24.3 H (9.9-13.0) SEC INR 2.1 H (0.9-1.1) APTT 27.7 D (24.1-38.0) SEC Sodium 133 L (135-145) mmol/L Potassium 4.7 D (3.3-5.1) mmol/L Chloride 102 (96-108) mmol/L Carbon Dioxide 19 L (22-29) mmol/L Anion Gap 17 (12-20) BUN 63 H D (9-16) mg/dL Creatinine 1.83 H (0.5-1.4) mg/dL Estim Creat Clear Calc 36.3 Estimated GFR 37 Random Glucose 176 H D (60-115) mg/dL Lactic Acid (0.5-2.0) mmol/L Lactic Acid F/U @ 2Hr (0.5-2.0) mmol/L Calcium 8.3 L (8.4-10.2) mg/dL Phosphorus 3.0 (2.7-4.5) mg/dL Magnesium 2.3 (1.6-2.6) mg/dL Total Bilirubin 1.6 H (0.0-1.0) mg/dL AST 93 H (5-37) U/L ALT 69 H (0-40) U/L Alkaline Phosphatase 188 H D (39-117) U/L Troponin I High Sens (<3.5-35.0) ng/L B-Natriuretic Peptide (<100) pg/mL Total Protein 5.9 L (6.5-8.0) g/dL Albumin 2.8 L (3.5-5.0) g/dL Lipase 30 (8-78) U/L COVID-19 ([facility]IREE) (Negative) COVID-19 Clin Com Blood Type Antibody Screen Crossmatch 03/23/21 03/23/21 03/23/21 Range/Units 10:41 10:41 11:01 WBC (4.8-10.8) X10*3/uL RBC (4.60-5.80) X10*6/uL Hgb (14.0-18.0) g/dl Hct (42.0-52.0) % MCV (80.0-98.0) fL MCH (27.0-33.0) pg MCHC (31.0-36.0) g/dl RDW (11.0-16.0) % Plt Count (160-400) X10*3/uL MPV (9.4-12.4) fL Immature Gran % (Auto) (0.0-0.4) % Neut % (Auto) (45-73) % Lymph % (Auto) (20-40) % Ocean % (Auto) (2-11) % Eos % (Auto) (0-4) % Baso % (Auto) (0-2) % Lymph # (Auto) (1.2-4.9) X10*3/uL Ocean # (Auto) (0.1-1.2) X10*3/uL Eos # (Auto) (0.0-0.4) X10*3/uL Baso # (Auto) (0.0-0.2) X10*3/uL Abs Immat Gran (auto) (0.00-0.03) X10*3/uL Absolute Neuts (auto) (2.0-8.3) x10*3/uL Absolute Nucleated RBC (0.0-0.012) X10*3/uL Nucleated RBC % (auto) (0.0-0.2) /100WBC PT (9.9-13.0) SEC INR (0.9-1.1) APTT (24.1-38.0) SEC Sodium (135-145) mmol/L Potassium (3.3-5.1) mmol/L Chloride (96-108) mmol/L Carbon Dioxide (22-29) mmol/L Anion Gap (12-20) BUN (9-16) mg/dL Creatinine (0.5-1.4) mg/dL Estim Creat Clear Calc Estimated GFR Random Glucose (60-115) mg/dL Lactic Acid 5.8 H* (0.5-2.0) mmol/L Lactic Acid F/U @ 2Hr (0.5-2.0) mmol/L Calcium (8.4-10.2) mg/dL Phosphorus (2.7-4.5) mg/dL Magnesium (1.6-2.6) mg/dL Total Bilirubin (0.0-1.0) mg/dL AST (5-37) U/L ALT (0-40) U/L Alkaline Phosphatase (39-117) U/L Troponin I High Sens 4.3 D (<3.5-35.0) ng/L B-Natriuretic Peptide 18 (<100) pg/mL Total Protein (6.5-8.0) g/dL Albumin (3.5-5.0) g/dL Lipase (8-78) U/L COVID-19 ([facility]IREE) Negative (Negative) COVID-19 Clin Com See Note Blood Type Antibody Screen Crossmatch 03/23/21 03/23/21 Range/Units 11:41 13:15 WBC (4.8-10.8) X10*3/uL RBC (4.60-5.80) X10*6/uL Hgb (14.0-18.0) g/dl Hct (42.0-52.0) % MCV (80.0-98.0) fL MCH (27.0-33.0) pg MCHC (31.0-36.0) g/dl RDW (11.0-16.0) % Plt Count (160-400) X10*3/uL MPV (9.4-12.4) fL Immature Gran % (Auto) (0.0-0.4) % Neut % (Auto) (45-73) % Lymph % (Auto) (20-40) % Ocean % (Auto) (2-11) % Eos % (Auto) (0-4) % Baso % (Auto) (0-2) % Lymph # (Auto) (1.2-4.9) X10*3/uL Ocean # (Auto) (0.1-1.2) X10*3/uL Eos # (Auto) (0.0-0.4) X10*3/uL Baso # (Auto) (0.0-0.2) X10*3/uL Abs Immat Gran (auto) (0.00-0.03) X10*3/uL Absolute Neuts (auto) (2.0-8.3) x10*3/uL Absolute Nucleated RBC (0.0-0.012) X10*3/uL Nucleated RBC % (auto) (0.0-0.2) /100WBC PT (9.9-13.0) SEC INR (0.9-1.1) APTT (24.1-38.0) SEC Sodium (135-145) mmol/L Potassium (3.3-5.1) mmol/L Chloride (96-108) mmol/L Carbon Dioxide (22-29) mmol/L Anion Gap (12-20) BUN (9-16) mg/dL Creatinine (0.5-1.4) mg/dL Estim Creat Clear Calc Estimated GFR Random Glucose (60-115) mg/dL Lactic Acid (0.5-2.0) mmol/L Lactic Acid F/U @ 2Hr 6.2 H* (0.5-2.0) mmol/L Calcium (8.4-10.2) mg/dL Phosphorus (2.7-4.5) mg/dL Magnesium (1.6-2.6) mg/dL Total Bilirubin (0.0-1.0) mg/dL AST (5-37) U/L ALT (0-40) U/L Alkaline Phosphatase (39-117) U/L Troponin I High Sens (<3.5-35.0) ng/L B-Natriuretic Peptide (<100) pg/mL Total Protein (6.5-8.0) g/dL Albumin (3.5-5.0) g/dL Lipase (8-78) U/L COVID-19 (DESIREE) (Negative) COVID-19 Clin Com Blood Type O Positive Antibody Screen NEGATIVE Crossmatch See Detail <Stefan Soto DO - Last Filed: 05/23/21 07:04> Imaging Data CT scan of brain without contrast: Attestation: I personally reviewed and interpreted this imaging study as follows: <AMBER Arrington - Last Filed: 04/04/21 00:20> Radiologist's impression: FINDINGS: Brain: There is no acute intra-axial, extra-axial bleed, masses, collection or midline shift. The lateral ventricles are symmetrical in size and configuration without enlargement. The guzman to white matter differentiation is normal. No acute infarction in evolution or edema seen. Bone windows reveal no calvarial abnormality. There is no scalp soft tissue abnormality. Bilateral paranasal sinuses and mastoid air cells are well-aerated CT/CT head/brain wo con IMPRESSION: No acute intracranial process seen. <AMBER Arrington - Last Filed: 04/04/21 00:20> Chest x-ray: Attestation: I personally reviewed and interpreted this imaging study as follows: <AMBER Arrington - Last Filed: 04/04/21 00:20> Radiologist's impression: Chest x-ray: The lungs are hypoexpanded but clear of acute pneumonic process. There is platelike atelectasis right lower lobe. The heart size and pulmonary vascularity is normal. There are dual pacer electrodes in right atrium and right ventricle. No gross bony abnormality seen. Hypoexpanded lungs without acute pneumonic process. There is platelike atelectasis in right lower lobe. <AMBER Arrington - Last Filed: 04/04/21 00:20> V/Q scan: Attestation: I personally reviewed and interpreted this imaging study as follows: <AMBER Arrington - Last Filed: 04/04/21 00:20> Radiologist's impression: FINDINGS: No segmental perfusion defects are present. There is homogeneous distribution of activity bilaterally. There are no focal anatomic appearing perfusion defects present. A small area of photopenia at the left upper chest on the AMHARIC view is most consistent with a pacemaker generator. NM/NM pul perfusion IMPRESSION: Lung perfusion scan is essentially normal, without evidence of possible pulmonary embolus. <AMBER Arrington - Last Filed: 04/04/21 00:20> Abdomen and pelvis without IV contrast: Attestation: I personally reviewed and interpreted this imaging study as follows: <AMBER Arrington - Last Filed: 04/04/21 00:20> Radiologist's impression: FINDINGS: LUNG BASES: No pleural or pericardial effusion identified. Pacemaker in place. Coronary artery calcifications are seen.? LIVER, GALLBLADDER, AND BILIARY TREE: The liver has a nodular border with appearance of cirrhosis. There appear to be 2 low density lesions within the right lobe when is somewhat exophytic posteriorly what appears to be segment 6. This measures approximately 3.8 cm in diameter. A more anterior lesion appears be in segment 5/approximately 3.4 cm. The gallbladder is faintly seen but without definite abnormality appreciated.? PANCREAS: Unremarkable.? SPLEEN: Unremarkable.? ADRENAL GLANDS: Unremarkable. The right adrenal gland appears unremarkable. Left adrenal gland is difficult to tell its margins and is adjacent to the varices. KIDNEYS AND URETERS: The kidneys are normal in size, shape, and attenuation. No hydronephrosis, hydroureter, or calculi seen. No perinephric stranding. ? BLADDER: Unremarkable.? GASTROINTESTINAL TRACT: No dilated loops of large or small bowel are evident. No free air is seen. There is a large amount of ascites present similar to previous study. There is noted to be small region of increased density in the dependent portion of the ascites posterior to the tip right lobe of liver. This may be vascular in nature however this could also represent a small amount of layering blood. This appearance is also present in the cul-de-sac. There appears to be wall thickening of the transverse and ascending colon which may be related to colitis. The appendix is visualized and appears unremarkable. This is a change since previous study of March 21, 2021. ABDOMINAL WALL: No significant hernia is appreciated. Bilateral hydroceles are present. No abdominal wall hematoma is appreciated. LYMPH NODES: There are a few periportal enlarged lymph nodes present the largest being approximately 2.5 x 2.3 cm in size. VASCULAR: There is moderate aortoiliac calcified plaque present. No abdominal aortic aneurysm is seen. No definite evidence of occlusive mesenteric ischemia however nonocclusive ischemia not excluded. There are prominent varices seen throughout the abdomen and retroperitoneum. There appears be a spontaneous splenorenal shunt present. PELVIC VISCERA: No suspicious pelvic mass appreciated.? OSSEOUS STRUCTURES: No suspicious destructive bony lesions appreciated. ? CT/CT abdomen pelvis wo con IMPRESSION: Large volume ascites with some dependent increased density present in the right side just inferior and posterior to a somewhat exophytic liver lesion within segment 6 of the liver. There is also noted to be some increased density dependently in ascites within the cul-de-sac. These findings are suspicious for possible layering of blood products. No abdominal wall hematoma is identified. ? Liver lesions may be ligament in this patient with hepatic cirrhosis. ? Numerous varices with what appears to be a spontaneous splenorenal shunt. ? Portal lymphadenopathy. ? Thickened sharma involving the ascending and transverse colon which may be related to colitis. No definite evidence of occlusive mesenteric ischemia however nonocclusive ischemia cannot be excluded on this study. ? ? <AMBER Arrington - Last Filed: 04/04/21 00:20> ECG Data Attestation: I personally reviewed and interpreted this ECG as follows: <AMBER Arrington - Last Filed: 04/04/21 00:20> ECG interpretation date: 03/23/21 <AMBER Arrington - Last Filed: 04/04/21 00:20> ECG interpretation time: 10:27 <AMBER Arrington - Last Filed: 04/04/21 00:20> Prior ECG tracings: available for review <AMBER Arrington - Last Filed: 04/04/21 00:20> Interpretation: Sinus tachycardia with ventricular rate of 125 with a normal IN interval normal QRS duration normal QT/QTC interval. No acute ischemic changes are noted. Similar when compared to prior EKG 03/18/2021 <AMBER Arrington - Last Filed: 04/04/21 00:20> Critical Care Time Critical Care Time Critical Care Time: Yes <AMBER Arrington Last Filed: 04/04/21 00:20> Total Critical Care Time: 60 <AMBER Arrington Last Filed: 04/04/21 00:20> Attestation: I personally attest to this time spent taking care of the patient <AMBER Arrington Last Filed: 04/04/21 00:20> Discharge Plan Discharge Clinical Impression: Acute kidney injury, Acute hypotension, Anemia, Cirrhosis of liver, Elevated LFTs, Acute hyponatremia, Sepsis, Spontaneous intraperitoneal hemorrhage <AMBER Arrington Last Filed: 04/04/21 00:20> Patient Disposition: Admitted As Inpatient <AMBER Arrington Last Filed: 04/04/21 00:20> Interventions: Admission Worksheet (ED) Last Done: 03/23/21 16:05 <AMBER Arrington Last Filed: 04/04/21 00:20> Discharge Date/Time: 03/23/21 16:00 <AMBER Arrington Last Filed: 04/04/21 00:20>
[2021-03-23] MEDS: 0.9 % Sodium Chloride 1,000 ML 999 ML IVCONT ×2 (10:47→14:44)
[2021-03-23 10:48] LABS: MANUAL DIFF FLAG NO
[2021-03-23 10:49] LABS: Basophils Percent Auto 0.2 % (0-2); Eosinophils Absolute Auto 0.1 X10*3/uL (0.0-0.4); Eosinophils Percent Auto 0.6 % (0-4); Imm Gran Abs Auto 0.14 X10*3/uL (0.00-0.03); Imm Gran Pct Auto 1.1 % (0.0-0.4); Lymphocytes Absolute Auto 1.8 X10*3/uL (1.2-4.9); Lymphocytes Percent Auto 13.6 % (20-40); Mean Corpuscular HGB Conc 32.6 g/dl (31.0-36.0); Mean Corpuscular Hemoglobin 28.6 pg (27.0-33.0); Mean Corpuscular Volume 87.8 fL (80.0-98.0); Mean Platelet Volume 11.1 fL (9.4-12.4); Monocytes Absolute Auto 1.5 X10*3/uL (0.1-1.2); Monocytes Percent Auto 11.5 % (2-11); NRBC Pct Auto 0.2 /100WBC (0.0-0.2); Neutrophils Absolute Auto 9.5 x10*3/uL (2.0-8.3); Platelet Count 203 X10*3/uL (160-400); Red Blood Count 2.13 X10*6/uL (4.60-5.80); Red Cell Distribution Width 21.3 % (11.0-16.0)
[2021-03-23 10:57] LABS: INTERNATIONAL NORM RATIO 2.1 (0.9-1.1); Prothrombin Time 24.3 SEC (9.9-13.0)
[2021-03-23 11:00] LABS: Partial Thromboplastin Time 27.7 SEC (24.1-38.0)
[2021-03-23 11:07] LABS: Lactic Acid 5.8 mmol/L (0.5-2.0)
[2021-03-23] MEDS: 0.9 % Sodium Chloride 2,100 ML 2100 ML IVCONT (11:11)
[2021-03-23] MEDS: cefTRIAXone sodium 1 GM in 0.9 % Sodium Chloride 50 ML IV (11:11)
[2021-03-23 11:12] LABS: B Type Natriuretic Peptide 18 pg/mL (<100); Troponin-I High Sensitivity 4.3 ng/L (<3.5-35.0)
[2021-03-23 11:13] LABS: Hematocrit 18.7 % (42.0-52.0)
[2021-03-23 11:17] LABS: Alanine Aminotransferase 69 U/L (0-40); Albumin Level 2.8 g/dL (3.5-5.0); Alkaline Phosphatase 188 U/L (39-117); Anion Gap 17 (12-20); Aspartate Amino Transferase 93 U/L (5-37); Bilirubin Total 1.6 mg/dL (0.0-1.0); Blood Urea Nitrogen 63 mg/dL (9-16); Calcium 8.3 mg/dL (8.4-10.2); Carbon Dioxide 19 mmol/L (22-29); Chloride 102 mmol/L (96-108); Creatinine Clr Calc Pharmacy 36.3; Estimated Glomerular Filt Rate 37; Glucose Random 176 mg/dL (60-115); Hemoglobin 6.1 g/dl (14.0-18.0); Lipase 30 U/L (8-78); Magnesium 2.3 mg/dL (1.6-2.6); Potassium 4.7 mmol/L (3.3-5.1); Sodium 133 mmol/L (135-145); Total Protein 5.9 g/dL (6.5-8.0)
[2021-03-23 11:22] LABS: COVID-19 Test Negative (Negative)
--- NOTE | 2021-03-23 12:10 | PC.NURSE ---
patient off to nuc med at this time.
[2021-03-23 12:46] LABS: Reflex Lactate? Lactic Acid Added
[2021-03-23] MEDS: ondansetron HCL 4 MG/2 ML VIAL IVPUSH (13:33)
[2021-03-23 13:39] LABS: ~Lactic Acid-LAB USE ONLY 6.2 mmol/L (0.5-2.0)
[2021-03-23] MEDS: Octreotide Acetate 100 MCG/ML AMPUL 25 MCG IVPUSH (14:40)
[2021-03-23] MEDS: Pantoprazole Sodium 40 MG/10 ML VIAL 80 MG IVPUSH (14:43)
[2021-03-23 15:18] LABS: Reflex Lactate? 2 Y
[2021-03-23] MEDS: Octreotide Acetate 500 MCG in 0.9 % Sodium Chloride 500 ML 25.05 MCG IVCONT (15:31)
--- NOTE | 2021-03-23 16:04 | P.CNGI_ITS ---
History of Present Illness Data of Consult Service Date: 03/23/21 Requesting physician: Skyler Traylor Primary Care Provider: Rhina Carney NP HPI Reason for consult: hematemesis, acute GI blood loss 65 YM with hypertension, Type 2 diabetes mellitus, Asthma, Hypercholesteremia, Paroxysmal atrial fibrillation, Pacemaker, treated hep c and cirrhosis complicated by HCC and alcohol use who I am seeing for assessment for hematemesis. Patient had recent admission with anemia and concern for intraperitoneal hemorrhage which was conservatively managed. Lv was d/c'ed. Imaging had also recently shown a PVT. This time patient presents with hematemesis, melena and hematochezia with hypotension and weakness. Patient denies abdominal pain. No fever or chest pain. His INR was 2.1 and HGB was 6 having been recently 9 g/dl. Patient was commenced on octreotide, vit k, PRBC, rocephin, and given FFP and fluid Imaging for PTE was negative, CT with varices and splenorenal shunt, hyperdense material on right colon ?layering of blood products, liver masses and ascites. Of note patient had been referred to [facility] for liver transplant but had refused work up. LAst EGD 2018: esophagitis, with ulcers at GEJ. No varices were seen. portal hypertensive gastropathy noted. Review of Systems Review of Systems: Constitutional : No Fever, No Chills, No Night Sweats, + Fatigue, + Malaise Cardiovascular : No Chest Pain, + SOB Respiratory : No Cough, No Sputum, No Wheezing, + Dyspnea Gastrointestinal : + Nausea, + Vomiting, + Diarrhea, + abdominal Pain, + Hematochezia, + Melena Genitourinary : No irregular bleeding, No Dysuria, No Urinary Frequency, No Hematuria,No Urinary Incontinence, No Urgency, No Flank Pain Musculoskeletal : No joint pain, No Myalgias, No Joint Swelling Skin : No Skin Lesions, No rash Neuro : + Weakness, + Dizziness, No Numbness, No Paresthesias, No Loss of Con sciousness, No Dizziness, No Headache Heme/Lymph: No Lymphadenopathy Endocrine : No Temperature Intolerance [facility] Past Medical History Medical History Hx of cardiac pacemaker Family History Family History Father No problems noted. Mother No problems noted. Sister Hx of skin cancer, basal cell Surgical History Surgical History H/O colonoscopy Hx of esophagogastroduodenoscopy (11/29/17) Social History Social History Household Members: Spouse Housing: Apartment Do you presently have visiting nurse or other home services: No Unable to assess alcohol history related to: Unknown Alcohol intake: former Patient Tobacco Use Status: Former Tobacco user Tobacco use type: Cigarette Smoked in Last 30 Days: Yes e-Cigarette/Vaping Use: Never Used Use of substances other than those prescribed or required for medical reasons: Unknown Substance Use Type: Marijuana Currently Displaying Signs/Symptoms of Drug Intoxication Withdrawal: No Advance Directives: No Advance Directives Information Provided: No Do you have thoughts of harming others: None Do you have a plan to hurt others: No Plan Recently lost weight without trying: Unsure Nutrition Risks: No Nutritional Risk Poor oral hygiene: Yes service: No Current occupational status: disabled Meds Allergies Allergy/AdvReac Type Severity Reaction Status Date / Time No Known Allergies Allergy Verified 03/16/21 05:32 Active Medications: Current Medications Octreotide Acetate 500 mcg/ (Sodium Chloride) 501 mls @ 25.05 mls/hr IVCONT .Q20H [facility] Last Admin: 03/23/21 15:31 Dose: 25 mcg/hr, 25.05 mls/hr Documented by: Vasopressin 20 unit/ Sodium (Chloride) 101 mls @ 30.3 mls/hr IVCONT .Q3H20M [facility] Pharmacy Consult (Consult Rx Perform Med Rec) 1 each MISCELLANE ONCE PRN PRN Reason: Consult order Home Medications Medication Instructions Recorded Confirmed Last Taken Type apixaban 5 mg tablet 5 mg PO BID 03/24/20 03/23/21 03/15/21 History cholecalciferol (vitamin D3) 25 25 mcg PO DAILY 03/24/20 03/23/21 03/15/21 Histo ry mcg (1,000 unit) capsule metoprolol tartrate 25 mg tablet 25 mg PO BID 03/24/20 03/23/21 03/15/21 History albuterol sulfate 90 mcg/actuation 1 - 2 puff INHALATION Q6H PRN 07/14/20 03/23/21 03/15/21 History aerosol inhaler umeclidinium 62.5 mcg/actuation 1 inh INHALATION DAILY 02/16/21 03/23/21 03/15/21 History blister powder for inhalation (Incruse Ellipta) amlodipine 10 mg tablet 1 tab PO DAILY 03/23/21 03/23/21 Unknown History atorvastatin 10 mg tablet 1 tab PO DAILY 03/23/21 03/23/21 Unknown History hydrochlorothiazide 25 mg tablet 1 tab PO DAILY 03/23/21 03/23/21 Unknown History lisinopril 40 mg tablet 1 tab PO DAILY 03/23/21 03/23/21 Unknown History Physical Exam Vital Signs: Vital Signs: Last Vital Signs Temp 97.8 F 03/23/21 15:59 Pulse 122 H 03/23/21 15:59 Resp 14 03/23/21 15:59 BP 107/53 L 03/23/21 15:59 Pulse Ox 99 03/23/21 15:59 BMI result Body Mass Index 24.9 Appearance: Alert. Oriented X3, dishevelled Head: Normal external exam. Normocephalic. Atraumatic.? Eyes: PERRLA. EOMI. Conjunctiva and sclera normal. Eyelids normal.? ENT: EAC normal. TM's Normal. Pharynx normal. Uvula midline. Moist mucous membranes. ? No trismus noted.? No drooling noted.? muffled voice noted. Neck: Normal inspection. Neck supple. FROM. No adenopathy. Thyroid Normal. No meningeal signs. No neck mass noted. CVS: increased heart rate, normal rhythm. Heart sound normal. Pulses normal throughout.? No murmurs/rales/gallops. Respiratory: No respiratory distress. Painless inspiration. Breath sounds normal. No wheezes/rales/rhonchi noted. Chest nontender. ? No accessory muscle usage noted or decreased air movement noted. Abdomen: Soft and mild tenderness to palpation diffusely.? Distension noted.?? No guarding. No rigidity. Bowel sounds normal in all 4 quadrants.? No visible injury noted.? No rebound tenderness.? Back:? No CVA tenderness. Skin: Skin warm and dry.? + pallor.? \ Extremities: No lower extremity edema.? No calf tenderness is noted. Extremities exhibit normal range of motion.? Extremities nontender. Neuro: Oriented X 3.? No motor deficit.? No sensory deficit.? Reflexes normal.? No focal neuro deficits noted. Vascular: + radial pulses/+ 2 distal pedal? Results Labs CBC & Chem 7: 03/24/21 05:30 03/24/21 05:30 Labs: Short CBC 03/23/21 Range/Units 10:41 WBC 13.0 H (4.8-10.8) X10*3/uL Hgb 6.1 L* D (14.0-18.0) g/dl Hct 18.7 L* D (42.0-52.0) % Plt Count 203 (160-400) X10*3/uL BMP 03/23/21 10:41 Sodium 133 L Potassium 4.7 D Chloride 102 Carbon Dioxide 19 L BUN 63 H D Creatinine 1.83 H Calcium 8.3 L Liver Function 03/23/21 Range/Units 10:41 Total Bilirubin 1.6 H (0.0-1.0) mg/dL AST 93 H (5-37) U/L ALT 69 H (0-40) U/L Alkaline Phosphatase 188 H D (39-117) U/L Albumin 2.8 L (3.5-5.0) g/dL Assessment and Plan (1) Anemia: Status: Acute (2) Elevated LFTs: Status: Acute (3) Cirrhosis of liver: Status: Acute (4) Acute on chronic blood loss anemia: Status: Acute 1/ Acute blood loss anemia, with hemorrhagic shock, being actively resusc itated with fluids and blood products. 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 DDX: gastric varices, PUD, esophgeal ulceration, dieulafoy, AVM. PLAN: 1/ EGD for further assessment once stabilized and resuscitated. 2/ prognosis is poor, consider discussion with family about goals of care. 3/ cont with PPI and octreotide meantime Procedures Date of Service Date of Service: 03/23/21
--- NOTE | 2021-03-23 16:18 | PHA.MEDREC ---
Pharmacy Consult ? Medication Reconciliation Pharmacy has completed the medication reconciliation.
[2021-03-23] MEDS: Metoclopramide HCl 10 MG/2 ML VIAL IVPUSH (16:22)
--- NOTE | 2021-03-23 17:45 | ECG_ITS ---
Test Reason : arrhythmias Blood Pressure : / mmHG Vent. Rate : 115 BPM Atrial Rate : 115 BPM P-R Int : 176 ms QRS Dur : 072 ms QT Int : 352 ms P-R-T Axes : 060 025 048 degrees QTc Int : 486 ms Sinus tachycardia Low voltage QRS Nonspecific ST and T wave abnormality Abnormal ECG When compared with ECG of 23-MAR-2021 10:27, Nonspecific T wave abnormality, worse in Inferior leads Nonspecific T wave abnormality now evident in Anterior leads Referred By: Skyler Traylor Electronically Signed By:JOSÉ LUIS LUNA MD
[2021-03-23 18:07] LABS: VBG Base Excess -4.9 mmol/L; VBG HCO3 18 mmol/L (22-26); VBG pCO2 25 mmHg; VBG pH 7.45 (7.32-7.43); VBG pO2 56 mmHg
--- NOTE | 2021-03-23 18:13 | PM.CCHP ---
History of Present Illness Date of Service: 03/23/21 Attending physician on admission: Skyler Traylor Chief Complaint: UGI bleed Mr. Kalia Birch was admitted to ICU from the ED bec of UGI bleeding w hemorrhagic shock. The patient is a 65-year-old male with past medical history of chronic hepatitis-C with portal hypertension and cirrhosis, undergoing workup for hepatocellular carcinoma; he was tx for hepatitis C with Epclusa in 2018.? hypertension; atrial fibrillation on Eliquis, status post PPM; asthma; and diabetes mellitus. The patient has no prior h/o GI bleeding.? On 12/09/2017, Dr. Ayers did an EGD Screen for varices.? Findings:? Esophagus:? Focal esophagitis with ulcers at GE junction.? No esophageal varices.? Stomach:? Moderate portal gastropathy.? Diffuse gastric erythema - biopsies were obtained.? No gastric varices.? Duodenum:? Mild duodenitis in bulb.? Normal descending duodenum. The patient was recently admitted here on 03/16/21 with a 3 week history of progressive worsening abdominal pain and weakness.? He was noted to have a hemoglobin of 6 (baseline 9.5) with hypotension, elevated lactate.? Baseline plat count in normal, baseline PT is about 19/1.7.? Was given 3 PRBCs and 2 units of FFP, Vit K, and ceftriaxone.? Had a diagnostic paracentesis that demonstrated bloody fluid, thought 2? to spontaneous intraperitoneal hemorrhage.? Was admitted to ICU for a day, then the medical floor.? Eliquis was discontinued.? INR improved to 1.3 with above tx. On Mar 18, he had a dx and therapeutic paracentesis w removal of almost 5L.? Abdom US also showed evidence of portal vein thrombosis. ?Pathology showed no malignant cells. ?On Mar 20 he had repeat paracentesis w removal of 4.8L fluid. According to Dr. Cabrera?s recent note, the pt was referred to [facility].? QUESTION OF LIVER TRANSPLANTATION: Pt has good hepatic synthetic function with meld score of 13, option for liver transplantation was discussed with the patient (given suspected HCC) and patient was not interested in pursuing a liver transplant.? A liver bx was under discussion when the patient left the hospital AMA yesterday on 03/22/2021.? According to Dr. Heredia status charge note, ?he expressed that he no longer wants treatment or work up, but also was not willing to stay to arrange sufficient set up for end of life care.? HISTORY OF PRESENT ILLNESS: ?He was BIBA to the ED this morning with complaints of generalized weakness, confusion, fatigue, malaise, dizziness, shortness of breath and vomiting up bright red blood multiple episodes since last night.? He reported black and bloody stools. In the ED, he had gross hematemesis, melena, blood streaked stool and gross hematochezia.? Vital signs on presentation included heart rate of 130, blood pressure 94/53, respiratory rate 24, sat of 100% on room air.? The temperature was 98.2 degrees.? He was alert and oriented, although poor historian.? The no respiratory distress.? The abdomen was markedly distended, but soft with mild tenderness.? No guarding or rebound. Labs in the ED were notable for hemoglobin 6.1 (was 9.1 the previous day), white count 13, platelet count [id number], PTT 24/2.1 (was 15/1.3), BUN/creatinine 63/1.8 (was 27/1.0), T bili 1.6, AST/ALT 93/69, albumin 2.8 (was 3.3). Patient was given 2 L of crystalloid.? He underwent a V/Q scan to rule out PE.? He vomited BRB, and was seen by Dr. Ambrosio.? He was started on octreotide and PPI, and given Vit K, 1 unit RBC, and 3 units FFP.? CT abdomen showed large volume ascites with some dependent increased density present in the right side and dependently in ascites within the cul-de-sac, suspicious for possible layering of blood products.? There were numerous varices with what appears to be a spontaneous splenorenal shunt.? The liver was cirrhotic with two low-density lesions within the right lobe of the liver measuring about 3.5 cm each. Patient was admitted to the ICU or I saw him on arrival.? He was talking softly on the phone.? Seemed to be more LS oriented, although hard to say.? He is very pale, with no scleral jaundice.? No jugular venous distention with the head of the bed at 10-20 degrees.? Chest is clear to auscultation heart rate and rhythm are regular and tachy with normal-sounding S1 and S2, with no murmur or gallops.? The abdomen is hugely distended, greater than the size of a basketball.? Very soft, but not tympanitic.? Undoubtedly ascites.? No extremity edema.? He?s had mult black stools in the ICU already. FOLLOW-UP LABORATORY DATA:? White count 10.7, hemoglobin 4.9, platelet count [id number].? INR 1.8, BUN/creatinine down to 61/1.45, lactic acid down to 3.9, ammonia level 86.? Venous blood gas showed 7.45/25/5. My bedside ECHOCARDIOGRAM for hemodynamic monitoring:? Image quality:? Fair:? Findings: 1. LV wall thickness probably normal. 2. LV function is hyperdynamic, EF probably least 70%.? No RWMA noted. 3. RV size looked top-normal, hyperdynamic function. 4. Aortic valve looked unexpectedly large. ?Trileaflet.? No ; trace AI by color-flow. 5. Mitral valve normal morphology.? No MR. 6. Tricuspid valve normal morphology, no TR noted.? No significant CW envelope. 7. Very difficult to image the IVC.? But if what I saw was the IVC, it was small with signif inspiratory collapse. CVL placed (separate procedure):? CVP was low. IMPRESSION:? 65-year-old male with cirrhosis and possible hepatocellular carcinoma.? Labs indicate that patient still has decent synthetic function. ?Unclear to me whether the ?intraperitoneal? bleed last week was a spontaneous bleed, or complication of the paracentesis. The patient comes in today with an obvious upper GI bleed and worse coagulopathy.? Three years ago he had no varices, but his current status is unknown.? The current GI bleed could have any of a number of etiologies.? Treating with octreotide and PPI.? We also started him on high-dose vasopressin.? No further episodes of hematemesis.? And he is not having any problem protecting his airway. Plan EGD tomorrow, assuming he does not have a major rebleed tonight.? Hopefully the coag products and pharmacologic interventions will forestall that. We?ll transfuse him to a Hb > 8.? Give a fourth unit of FFP, and a total of 50 mg of vit K.? Seems to have plenty of room for the volume. Follow Hb, PT, and lactates.? Hoping that he won?t progress to gross hepatic failure. Also needs another paracentesis.? But prognosis is very poor, we need to have a conversation with him and his /signif other about end of life. Critical care time (including multiple discussions with ED staff, multiple discussions with Dr. Ambrosio, multiple visits to the bedside, full chart review; not including procedures):? 2.5 hrs. PMFSH Past Medical History Medical History Hx of cardiac pacemaker Family History Family History Father No problems noted. Mother No problems noted. Sister Hx of skin cancer, basal cell Surgical History Surgical History H/O colonoscopy Hx of esophagogastroduodenoscopy (11/29/17) Social History Social History Household Members: Spouse Housing: Apartment Do you presently have visiting nurse or other home services: No Unable to assess alcohol history related to: Unknown Alcohol intake: former Patient Tobacco Use Status: Former Tobacco user Tobacco use type: Cigarette Smoked in Last 30 Days: Yes e-Cigarette/Vaping Use: Never Used Use of substances other than those prescribed or required for medical reasons: Unknown Substance Use Type: Marijuana Advance Directives: No Advance Directives Information Provided: No Do you have thoughts of harming others: None Do you have a plan to hurt others: No Plan Recently lost weight without trying: Unsure Nutrition Risks: No Nutritional Risk Poor oral hygiene: Yes service: No Current occupational status: disabled Meds Allergies Allergy/AdvReac Type Severity Reaction Status Date / Time No Known Allergies Allergy Verified 03/16/21 05:32 Active Medications: Current Medications Octreotide Acetate 500 mcg/ (Sodium Chloride) 501 mls @ 25.05 mls/hr IVCONT .Q20H JENNI Last Admin: 03/23/21 15:31 Dose: 25 mcg/hr, 25.05 mls/hr Documented by: Vasopressin 20 unit/ Sodium (Chloride) 101 mls @ 30.3 mls/hr IVCONT .Q3H20M JENNI Last Admin: 03/23/21 16:25 Dose: 0.1 unit/min, 30.3 mls/hr Documented by: Pharmacy Consult (Consult Rx Perform Med Rec) 1 each MISCELLANE ONCE PRN PRN Reason: Consult order Home Medications Medication Instructions Recorded Confirmed Last Taken Type apixaban 5 mg tablet 5 mg PO BID 03/24/20 03/23/21 03/15/21 History cholecalciferol (vitamin D3) 25 25 mcg PO DAILY 03/24/20 03/23/21 03/15/21 History mcg (1,000 unit) capsule metoprolol tartrate 25 mg tablet 25 mg PO BID 03/24/20 03/23/21 03/15/21 History albuterol sulfate 90 mcg/actuation 1 - 2 puff INHALATION Q6H PRN 07/14/20 03/23/21 03/15/21 History aerosol inhaler umeclidinium 62.5 mcg/actuation 1 inh INHALATION DAILY 02/16/21 03/23/21 03/15/21 History blister powder for inhalation (Incruse Ellipta) amlodipine 10 mg tablet 1 tab PO DAILY 03/23/21 03/23/21 Unknown History atorvastatin 10 mg tablet 1 tab PO DAILY 03/23/21 03/23/21 Unknown History hydrochlorothiazide 25 mg tablet 1 tab PO DAILY 03/23/21 03/23/21 Unknown History lisinopril 40 mg tablet 1 tab PO DAILY 03/23/21 03/23/21 Unknown History Physical Exam Vital Signs: Vital Signs: Last Vital Signs Temp 97.8 F 03/23/21 17:42 Pulse 120 H 03/23/21 17:42 Resp 19 03/23/21 17:42 BP 110/66 03/23/21 17:42 Pulse Ox 96 03/23/21 17:00 BMI result Body Mass Index 24.9 Results Labs CBC and Chem 7: 03/23/21 19:19 03/23/21 17:59 Labs: Laboratory Results - last 24 hr 03/23/21 03/23/21 03/23/21 10:41 10:41 10:41 MCV 87.8 MCH 28.6 MCHC 32.6 RDW 21.3 H Plt Count 203 MPV 11.1 Immature Gran % (Auto) 1.1 H Neut % (Auto) 73.0 Lymph % (Auto) 13.6 L Montgomery % (Auto) 11.5 H Eos % (Auto) 0.6 Baso % (Auto) 0.2 Lymph # (Auto) 1.8 Montgomery # (Auto) 1.5 H Eos # (Auto) 0.1 Baso # (Auto) 0.0 Abs Immat Gran (auto) 0.14 H Absolute Neuts (auto) 9.5 H Absolute Nucleated RBC 0.020 H Nucleated RBC % (auto) 0.2 PT 24.3 H INR 2.1 H APTT 27.7 D VBG pH VBG pCO2 VBG pO2 VBG HCO3 VBG O2 Saturation VBG Base Excess Anion Gap 17 Estim Creat Clear Calc 36.3 Estimated GFR 37 Random Glucose 176 H D Lactic Acid Lactic Acid F/U @ 2Hr Calcium 8.3 L Phosphorus 3.0 Magnesium 2.3 Total Bilirubin 1.6 H AST 93 H ALT 69 H Alkaline Phosphatase 188 H D Troponin I High Sens B-Natriuretic Peptide Total Protein 5.9 L Albumin 2.8 L Lipase 30 COVID-19 (DESIREE) COVID-[employer] Blood Type Antibody Screen Crossmatch 03/23/21 03/23/21 03/23/21 10:41 10:41 11:01 MCV MCH MCHC RDW Plt Count MPV Immature Gran % (Auto) Neut % (Auto) Lymph % (Auto) Montgomery % (Auto) Eos % (Auto) Baso % (Auto) Lymph # (Auto) Montgomery # (Auto) Eos # (Auto) Baso # (Auto) Abs Immat Gran (auto) Absolute Neuts (auto) Absolute Nucleated RBC Nucleated RBC % (auto) PT INR APTT VBG pH VBG pCO2 VBG pO2 VBG HCO3 VBG O2 Saturation VBG Base Excess Anion Gap Estim Creat Clear Calc Estimated GFR Random Glucose Lactic Acid 5.8 H* Lactic Acid F/U @ 2Hr Calcium Phosphorus Magnesium Total Bilirubin AST ALT Alkaline Phosphatase Troponin I High Sens 4.3 D B-Natriuretic Peptide 18 Total Protein Albumin Lipase COVID-19 (DESIREE) Negative COVID-[employer] See Note Blood Type Antibody Screen Crossmatch 03/23/21 03/23/21 03/23/21 11:41 13:15 18:00 MCV MCH MCHC RDW Plt Count MPV Immature Gran % (Auto) Neut % (Auto) Lymph % (Auto) Montgomery % (Auto) Eos % (Auto) Baso % (Auto) Lymph # (Auto) Montgomery # (Auto) Eos # (Auto) Baso # (Auto) Abs Immat Gran (auto) Absolute Neuts (auto) Absolute Nucleated RBC Nucleated RBC % (auto) PT INR APTT VBG pH 7.45 H VBG pCO2 25 VBG pO2 56 VBG HCO3 18 L VBG O2 Saturation 84.0 VBG Base Excess -4.9 Anion Gap Estim Creat Clear Calc Estimated GFR Random Glucose Lactic Acid Lactic Acid F/U @ 2Hr 6.2 H* Calcium Phosphorus Magnesium Total Bilirubin AST ALT Alkaline Phosphatase Troponin I High Sens B-Natriuretic Peptide Total Protein Albumin Lipase COVID-19 (DESIREE) COVID-19 Clin Com Blood Type O Positive Antibody Screen NEGATIVE Crossmatch See Detail Imaging Radiologist's Impressions: Impressions Head CT 03/23/21 12:01 IMPRESSION: No acute intracranial process seen. Hypoexpanded lungs without acute pneumonic process. There is platelike atelectasis in right lower lobe. Abdomen/Pelvis CT 03/23/21 12:02 IMPRESSION: Large volume ascites with some dependent increased density present in the right side just inferior and posterior to a somewhat exophytic liver lesion within segment 6 of the liver. There is also noted to be some increased density dependently in ascites within the cul-de-sac. These findings are suspicious for possible layering of blood products. No abdominal wall hematoma is identified. Liver lesions may be ligament in this patient with hepatic cirrhosis. Numerous varices with what appears to be a spontaneous splenorenal shunt. Portal lymphadenopathy. Thickened sharma involving the ascending and transverse colon which may be related to colitis. No definite evidence of occlusive mesenteric ischemia however nonocclusive ischemia cannot be excluded on this study. Chest X-Ray 03/23/21 12:04 IMPRESSION: No acute intracranial process seen. Hypoexpanded lungs without acute pneumonic process. There is platelike atelectasis in right lower lobe. Pulmonary Perfusion Imaging 03/23/21 12:48 IMPRESSION: Lung perfusion scan is essentially normal, without evidence of possible pulmonary embolus. Chest X-Ray 03/23/21 17:35 IMPRESSION: No acute abnormality of chest. Critical Care Time Critical Care Time (minutes): 150
[2021-03-23 18:24] LABS: INTERNATIONAL NORM RATIO 1.8 (0.9-1.1); Prothrombin Time 20.7 SEC (9.9-13.0)
[2021-03-23 18:33] LABS: Mean Corpuscular HGB Conc 33.1 g/dl (31.0-36.0); Mean Corpuscular Volume 87.6 fL (80.0-98.0); Mean Platelet Volume 11.5 fL (9.4-12.4); Platelet Count 126 X10*3/uL (160-400); Red Blood Count 1.69 X10*6/uL (4.60-5.80); Red Cell Distribution Width 18.7 % (11.0-16.0); White Blood Count 10.7 X10*3/uL (4.8-10.8)
[2021-03-23 18:35] LABS: Ammonia 86 umol/L (13-55)
[2021-03-23 18:36] LABS: Anion Gap 16 (12-20); Blood Urea Nitrogen 61 mg/dL (9-16); Calcium 7.6 mg/dL (8.4-10.2); Carbon Dioxide 19 mmol/L (22-29); Chloride 109 mmol/L (96-108); Creatinine Clr Calc Pharmacy 45.8; Estimated Glomerular Filt Rate 49; Glucose Random 185 mg/dL (60-115); Potassium 4.5 mmol/L (3.3-5.1); Sodium 139 mmol/L (135-145)
[2021-03-23 18:38] LABS: Hematocrit 14.8 % (42.0-52.0)
[2021-03-23 18:41] LABS: Lactic Acid 3.9 mmol/L (0.5-2.0)
[2021-03-23 18:42] LABS: Hemoglobin 4.9 g/dl (14.0-18.0)
[2021-03-23 19:00] LABS: OBS1 POSITIVE (NEGATIVE)
[2021-03-23 19:01] LABS: OBS Int Ctl Valid YES
[2021-03-23 19:09] LABS: Appearance Urine CLEAR; Color Urine YELLOW; Glucose Urine UA NEG (NEG); Leukocyte Esterase Urine NEG (NEG); Nitrite Urine NEG (NEG); Specific Gravity - Urine 1.015 (1.005-1.025); Urine Blood NEG (NEG); Urine Ketones NEG (NEG); Urine Protein NEG (NEG-TRACE)
[2021-03-23 19:27] LABS: Mean Corpuscular Hemoglobin 29.1 pg (27.0-33.0); Mean Corpuscular Volume 88.4 fL (80.0-98.0); Mean Platelet Volume 10.4 fL (9.4-12.4); Platelet Count 103 X10*3/uL (160-400); Red Blood Count 1.99 X10*6/uL (4.60-5.80); Red Cell Distribution Width 17.6 % (11.0-16.0); White Blood Count 8.8 X10*3/uL (4.8-10.8)
[2021-03-23 19:30] LABS: Hematocrit 17.6 % (42.0-52.0)
[2021-03-23 19:31] LABS: Hemoglobin 5.8 g/dl (14.0-18.0)
[2021-03-23 20:24] LABS: Reflex Lactate? Lactic Acid Added
--- NOTE | 2021-03-23 20:38 | P.PCNCC_ITS ---
Procedures Date of Service Date of Service: 03/23/21 Central Line Placement Right SC: Central Line Comments: PROCEDURE:? Insertion right subclavian central venous line. INDICATION:? Upper GI bleed with hemorrhagic shock; poor IV access.? ANESTHESIA:? Local 1% lidocaine.. PROCEDURE:? Vascular ultrasound was used to examine the rightside.? A large compressible infraclavicular right subclavian vein was noted.? The right subclavian area wsd widely prepped and draped in full sterile fashion.?? The infraclavic subclavian vein was located by US.? Local anesthesia was applied to the entrance site with the US probe oriented longitudinally.? The infraclavic left subclavian vein was cannulated on the 1st pass of the 18 gauge thin wall under direct US guidance.? The wire was threaded without incident.? A 7 Vietnamese by 16 cm triple-lumen catheter was advanced into the vein up to the hub via the Seldinger technique without incident.? There was good blood return x3.? The catheter was sutured x3 and a Biopatch and dry sterile dressing were applied. Postop chest x-ray showed the line in perfect position with no pneumothorax.? The patient tolerated the procedure well w no complications. Consent for Procedure: Emergent-no informed consent obtained
[2021-03-23] MEDS: Phytonadione (Vit K1) 10 MG in 0.9 % Sodium Chloride 50 ML 51 MG IV (21:00)
[2021-03-23 21:18] LABS: Cancel Lactic Acid Canceled
--- NOTE | 2021-03-23 22:20 | PC.NURSE ---
Admitted to ICU on previous shift. Pt A&Ox3- vague about situation, educated/re-oriented, appropriate. Low-grade temp. ST on tele, HR 100-120s. SBP 100-130s. Vasopressin and octreotide gtt running per order. Pt continues to have moderate amounts of melena- PA/MD aware. Given multiple blood products this shift- 4 units PRBC, 4 units FFP total at this time. Abd semi-firm/distended. UOP approx 50-100 ml/hr. Tolerating small amounts of PO intake. Skin intact- redness to buttocks. Medicated per emar. Call smith in reach, resting comfortably at this time.
[2021-03-24] VITALS (25 sets, daily range): BP systolic 112–172; BP diastolic 57–84; PULSE 96–120; RESP 13–25; TEMP 36.6–37.5; O2SAT 94–100; BMI 27.1
[2021-03-24 00:29] LABS: Hematocrit 25.1 % (42.0-52.0); Hemoglobin 8.4 g/dl (14.0-18.0); Mean Corpuscular HGB Conc 33.5 g/dl (31.0-36.0); Mean Corpuscular Hemoglobin 28.6 pg (27.0-33.0); Mean Corpuscular Volume 85.4 fL (80.0-98.0); Mean Platelet Volume 10.9 fL (9.4-12.4); Red Blood Count 2.94 X10*6/uL (4.60-5.80); Red Cell Distribution Width 16.1 % (11.0-16.0); White Blood Count 7.1 X10*3/uL (4.8-10.8)
[2021-03-24 00:31] LABS: Platelet Count 86 X10*3/uL (160-400)
[2021-03-24 00:43] LABS: Lactic Acid 1.9 mmol/L (0.5-2.0)
[2021-03-24 00:44] LABS: INTERNATIONAL NORM RATIO 1.7 (0.9-1.1); Prothrombin Time 19.8 SEC (9.9-13.0)
[2021-03-24] MEDS: Phytonadione (Vit K1) 10 MG in 0.9 % Sodium Chloride 50 ML 51 MG IV ×2 (03:28→08:50)
[2021-03-24 03:57] LABS: Venous Blood Gas Refer to POC result
[2021-03-24 06:00] LABS: MANUAL DIFF FLAG NO
[2021-03-24 06:05] LABS: Basophils Percent Auto 0.1 % (0-2); Eosinophils Percent Auto 0.5 % (0-4); Hemoglobin 9.7 g/dl (14.0-18.0); Imm Gran Abs Auto 0.07 X10*3/uL (0.00-0.03); Imm Gran Pct Auto 0.9 % (0.0-0.4); Lymphocytes Absolute Auto 0.7 X10*3/uL (1.2-4.9); Lymphocytes Percent Auto 9.5 % (20-40); Mean Corpuscular HGB Conc 33.4 g/dl (31.0-36.0); Mean Corpuscular Hemoglobin 28.8 pg (27.0-33.0); Mean Corpuscular Volume 86.1 fL (80.0-98.0); Mean Platelet Volume 11.3 fL (9.4-12.4); Monocytes Absolute Auto 0.9 X10*3/uL (0.1-1.2); Monocytes Percent Auto 11.6 % (2-11); Neutrophils Absolute Auto 5.9 x10*3/uL (2.0-8.3); Neutrophils Percent Auto 77.4 % (45-73); Red Blood Count 3.37 X10*6/uL (4.60-5.80); White Blood Count 7.6 X10*3/uL (4.8-10.8)
[2021-03-24 06:15] LABS: Platelet Count 87 X10*3/uL (160-400)
[2021-03-24 06:23] LABS: INTERNATIONAL NORM RATIO 1.6 (0.9-1.1); Prothrombin Time 18.6 SEC (9.9-13.0)
[2021-03-24 06:25] LABS: Partial Thromboplastin Time 30.6 SEC (24.1-38.0)
[2021-03-24 06:31] LABS: Ammonia 60 umol/L (13-55)
[2021-03-24 06:34] LABS: Alanine Aminotransferase 118 U/L (0-40); Alkaline Phosphatase 151 U/L (39-117); Anion Gap 12 (12-20); Aspartate Amino Transferase 147 U/L (5-37); Bilirubin Direct 1.4 mg/dL (0.0-0.5); Bilirubin Total 2.4 mg/dL (0.0-1.0); Blood Urea Nitrogen 44 mg/dL (9-16); Calcium 7.7 mg/dL (8.4-10.2); Carbon Dioxide 20 mmol/L (22-29); Chloride 111 mmol/L (96-108); Creatinine Clr Calc Pharmacy 62.6; Estimated Glomerular Filt Rate > 60; Glucose Random 311 mg/dL (60-115); Phosphorus 2.4 mg/dL (2.7-4.5); Potassium 3.6 mmol/L (3.3-5.1); Sodium 139 mmol/L (135-145); Total Protein 5.8 g/dL (6.5-8.0)
--- NOTE | 2021-03-24 09:17 | MHC.SHP ---
Pre-Procedural Eval Section A Date of Service: 03/24/21 The patient is an INPATIENT: Yes The History & Physical has been completed within 30 days and I have reviewed it.: Yes Section B Chief Complaint: UGI bleed, hemorrhagic shock Allergies: Allergies Allergy/AdvReac Type Severity Reaction Status Date / Time No Known Allergies Allergy Verified 03/16/21 05:32 Plan Diagnosis/Plan: Unchanged I have reviewed the history and physical and performed a pertinent physical examination on my patient. No changes have occurred unless specified.
[2021-03-24] MEDS: Octreotide Acetate 500 MCG in 0.9 % Sodium Chloride 500 ML 25.05 MCG IVCONT (10:00)
--- NOTE | 2021-03-24 10:04 | HO.ANESPROP2 ---
HPI - Anesthesia Eval Consult details Narrative: Upper GI bleed PMFSH Active Problems Active Problems: All Active Problems (Updated 03/23/21 @ 15:13 by AMBER Arrington) Liver lesion (Acute) Anemia (Acute) Cirrhosis of liver (Acute) Elevated LFTs (Acute) Acute hyponatremia (Acute) Sepsis (Acute) Spontaneous intraperitoneal hemorrhage (Acute) Acute on chronic blood loss anemia (Acute) Liver cirrhosis (Acute) Liver mass (Acute) Spontaneous intraperitoneal hemorrhage (Acute) Anemia (Acute) Acute hypotension (Acute) Acute kidney injury (Acute) Abdominal ascites (Acute) Abnormal CT scan, liver (Acute) Abnormal US (ultrasound) of abdomen (Acute) Hypercholesterolemia (Acute) Asthma (Acute) Type 2 diabetes mellitus (Acute) Hypertension (Acute) Chronic anticoagulation (Acute) Pacemaker (Acute) Paroxysmal atrial fibrillation (Acute) Vitamin D deficiency (Acute) GERD (gastroesophageal reflux disease) (Acute) Hepatitis C infection (Acute) Cirrhosis of liver without ascites (Acute) Past Medical History Medical History Hx of cardiac pacemaker Family History Family History Father No problems noted. Mother No problems noted. Sister Hx of skin cancer, basal cell Family history of problems with anesthesia: No Surgical History Surgical History H/O colonoscopy Hx of esophagogastroduodenoscopy (11/29/17) History of Problems with Anesthesia: No Social History Social History Household Members: Spouse Housing: Apartment Do you presently have visiting nurse or other home services: No Unable to assess alcohol history related to: Unknown Alcohol intake: former Patient Tobacco Use Status: Former Tobacco user Tobacco use type: Cigarette Smoked in Last 30 Days: Yes e-Cigarette/Vaping Use: Never Used Use of substances other than those prescribed or required for medical reasons: Unknown Substance Use Type: Marijuana Currently Displaying Signs/Symptoms of Drug Intoxication Withdrawal: No Advance Directives: No Advance Directives Information Provided: No Do you have thoughts of harming others: None Do you have a plan to hurt others: No Plan Recently lost weight without trying: Unsure Nutrition Risks: No Nutritional Risk Poor oral hygiene: Yes service: No Current occupational status: disabled Meds Allergies Allergy/AdvReac Type Severity Reaction Status Date / Time No Known Allergies Allergy Verified 03/16/21 05:32 Active Medications: Current Medications Octreotide Acetate 500 mcg/ (Sodium Chloride) 501 mls @ 25.05 mls/hr IVCONT .Q20H [facility] [place] Last Admin: 03/24/21 10:00 Dose: 25 mcg/hr, 25.05 mls/hr Documented by: Vasopressin 20 unit/ Sodium (Chloride) 101 mls @ 30.3 mls/hr IVCONT .Q3H20M [facility] [place] Last Admin: 03/24/21 10:00 Dose: 0.1 unit/min, 30.3 mls/hr Documented by: Pharmacy Consult (Consult Rx Perform Med Rec) 1 each MISCELLANE ONCE PRN PRN Reason: Consult order Home Medications Medication Instructions Recorded Confirmed Last Taken Type apixaban 5 mg tablet 5 mg PO BID 03/24/20 03/23/21 03/15/21 History cholecalciferol (vitamin D3) 25 25 mcg PO DAILY 03/24/20 03/23/21 03/15/21 History mcg (1,000 unit) capsule metoprolol tartrate 25 mg tablet 25 mg PO BID 03/24/20 03/23/21 03/15/21 History albuterol sulfate 90 mcg/actuation 1 - 2 puff INHALATION Q6H PRN 07/14/20 03/23/21 03/15/21 History aerosol inhaler umeclidinium 62.5 mcg/actuation 1 inh INHALATION DAILY 02/16/21 03/23/21 03/15/21 History blister powder for inhalation (Incruse Ellipta) amlodipine 10 mg tablet 1 tab PO DAILY 03/23/21 03/23/21 Unknown History atorvastatin 10 mg tablet 1 tab PO DAILY 03/23/21 03/23/21 Unknown History hydrochlorothiazide 25 mg tablet 1 tab PO DAILY 03/23/21 03/23/21 Unknown History lisinopril 40 mg tablet 1 tab PO DAILY 03/23/21 03/23/21 Unknown History Exam Exam Date and Time: March 24, 2021 1004 Height,Weight and Vital Signs: Height 5 ft 6 in Weight 76.2 kg Last Vital Signs Temp 98.6 F 03/24/21 09:00 Pulse 102 H 03/24/21 09:00 Resp 18 03/24/21 09:00 BP 127/65 03/24/21 09:00 Pulse Ox 96 03/24/21 09:00 Pertinent Lab Results Pertinent Lab Results: Laboratory Tests 03/23/21 03/23/21 03/23/21 10:41 10:41 10:41 WBC 13.0 H RBC 2.13 L D Hgb 6.1 L* D Hct 18.7 L* D MCV 87.8 MCH 28.6 MCHC 32.6 RDW 21.3 H Plt Count 203 MPV 11.1 Immature Gran % (Auto) 1.1 H Neut % (Auto) 73.0 Lymph % (Auto) 13.6 L [place] % (Auto) 11.5 H Eos % (Auto) 0.6 Baso % (Auto) 0.2 Lymph # (Auto) 1.8 [place] # (Auto) 1.5 H Eos # (Auto) 0.1 Baso # (Auto) 0.0 Abs Immat Gran (auto) 0.14 H Absolute Neuts (auto) 9.5 H Absolute Nucleated RBC 0.020 H Nucleated RBC % (auto) 0.2 PT 24.3 H INR 2.1 H APTT 27.7 D VBG pH VBG pCO2 VBG pO2 VBG HCO3 VBG O2 Saturation VBG Base Excess Sodium 133 L Potassium 4.7 D Chloride 102 Carbon Dioxide 19 L Anion Gap 17 BUN 63 H D Creatinine 1.83 H Estim Creat Clear Calc 36.3 Estimated GFR 37 Random Glucose 176 H D Lactic Acid Lactic Acid F/U @ 2Hr Calcium 8.3 L Phosphorus 3.0 Magnesium 2.3 Total Bilirubin 1.6 H Direct Bilirubin AST 93 H ALT 69 H Alkaline Phosphatase 188 H D Ammonia Troponin I High Sens B-Natriuretic Peptide Total Protein 5.9 L Albumin 2.8 L Lipase 30 Urine Color Urine Appearance Urine pH Ur Specific [place] Urine Protein Urine Glucose (UA) Urine Ketones Urine Blood Urine Nitrite Ur Leukocyte Esterase Stool Occult Blood COVID-19 ([facility]) COVID-19 Clin Com Blood Type Antibody Screen Crossmatch 03/23/21 03/23/21 03/23/21 10:41 10:41 11:01 WBC RBC Hgb Hct MCV MCH MCHC RDW Plt Count MPV Immature Gran % (Auto) Neut % (Auto) Lymph % (Auto) [place] % (Auto) Eos % (Auto) Baso % (Auto) Lymph # (Auto) [place] # (Auto) Eos # (Auto) Baso # (Auto) Abs Immat Gran (auto) Absolute Neuts (auto) Absolute Nucleated RBC Nucleated RBC % (auto) PT INR APTT VBG pH VBG pCO2 VBG pO2 VBG HCO3 VBG O2 Saturation VBG Base Excess Sodium Potassium Chloride Carbon Dioxide Anion Gap BUN Creatinine Estim Creat Clear Calc Estimated GFR Random Glucose Lactic Acid 5.8 H* Lactic Acid F/U @ 2Hr Calcium Phosphorus Magnesium Total Bilirubin Direct Bilirubin AST ALT Alkaline Phosphatase Ammonia Troponin I High Sens 4.3 D B-Natriuretic Peptide 18 Total Protein Albumin Lipase Urine Color Urine Appearance Urine pH Ur Specific [place] Urine Protein Urine Glucose (UA) Urine Ketones Urine Blood Urine Nitrite Ur Leukocyte Esterase Stool Occult Blood COVID-19 ([facility]IREE) Negative [employer] See Note Blood Type Antibody Screen Crossmatch 03/23/21 03/23/21 03/23/21 11:41 13:15 17:59 WBC 10.7 RBC 1.69 L D Hgb 4.9 L* Hct 14.8 L* D MCV 87.6 MCH 29.0 MCHC 33.1 RDW 18.7 H Plt Count 126 L D MPV 11.5 Immature Gran % (Auto) Neut % (Auto) Lymph % (Auto) [place] % (Auto) Eos % (Auto) Baso % (Auto) Lymph # (Auto) [place] # (Auto) Eos # (Auto) Baso # (Auto) Abs Immat Gran (auto) Absolute Neuts (auto) Absolute Nucleated RBC 0.000 Nucleated RBC % (auto) 0.0 PT INR APTT VBG pH VBG pCO2 VBG pO2 VBG HCO3 VBG O2 Saturation VBG Base Excess Sodium Potassium Chloride Carbon Dioxide Anion Gap BUN Creatinine Estim Creat Clear Calc Estimated GFR Random Glucose Lactic Acid Lactic Acid F/U @ 2Hr 6.2 H* Calcium Phosphorus Magnesium Total Bilirubin Direct Bilirubin AST ALT Alkaline Phosphatase Ammonia Troponin I High Sens B-Natriuretic Peptide Total Protein Albumin Lipase Urine Color Urine Appearance Urine pH Ur Specific [place] Urine Protein Urine Glucose (UA) Urine Ketones Urine Blood Urine Nitrite Ur Leukocyte Esterase Stool Occult Blood COVID-19 ([facility]IREE) COVID-[employer] Blood Type O Positive Antibody Screen NEGATIVE Crossmatch See Detail 03/23/21 03/23/21 03/23/21 17:59 17:59 17:59 WBC RBC Hgb Hct MCV MCH MCHC RDW Plt Count MPV Immature Gran % (Auto) Neut % (Auto) Lymph % (Auto) [place] % (Auto) Eos % (Auto) Baso % (Auto) Lymph # (Auto) [place] # (Auto) Eos # (Auto) Baso # (Auto) Abs Immat Gran (auto) Absolute Neuts (auto) Absolute Nucleated RBC Nucleated RBC % (auto) PT 20.7 H INR 1.8 H APTT VBG pH VBG pCO2 VBG pO2 VBG HCO3 VBG O2 Saturation VBG Base Excess Sodium 139 Potassium 4.5 Chloride 109 H Carbon Dioxide 19 L Anion Gap 16 BUN 61 H Creatinine 1.45 H Estim Creat Clear Calc 45.8 Estimated GFR 49 Random Glucose 185 H Lactic Acid 3.9 H* Lactic Acid F/U @ 2Hr Calcium 7.6 L D Phosphorus Magnesium 2.0 Total Bilirubin Direct Bilirubin AST ALT Alkaline Phosphatase Ammonia Troponin I High Sens B-Natriuretic Peptide Total Protein Albumin Lipase Urine Color Urine Appearance Urine pH Ur Specific [place] Urine Protein Urine Glucose (UA) Urine Ketones Urine Blood Urine Nitrite Ur Leukocyte Esterase Stool Occult Blood COVID-19 ([facility]) COVID-19 Clin [facility] Blood Type Antibody Screen Crossmatch 03/23/21 03/23/21 03/23/21 18:00 18:00 18:03 WBC RBC Hgb Hct MCV MCH MCHC RDW Plt Count MPV Immature Gran % (Auto) Neut % (Auto) Lymph % (Auto) [place] % (Auto) Eos % (Auto) Baso % (Auto) Lymph # (Auto) [place] # (Auto) Eos # (Auto) Baso # (Auto) Abs Immat Gran (auto) Absolute Neuts (auto) Absolute Nucleated RBC Nucleated RBC % (auto) PT INR APTT VBG pH 7.45 H VBG pCO2 25 VBG pO2 56 VBG HCO3 18 L VBG O2 Saturation 84.0 VBG Base Excess -4.9 Sodium Potassium Chloride Carbon Dioxide Anion Gap BUN Creatinine Estim Creat Clear Calc Estimated GFR Random Glucose Lactic Acid Lactic Acid F/U @ 2Hr Calcium Phosphorus Magnesium Total Bilirubin Direct Bilirubin AST ALT Alkaline Phosphatase Ammonia 86 H Troponin I High Sens B-Natriuretic Peptide Total Protein Albumin Lipase Urine Color Urine Appearance Urine pH Ur Specific [place] Urine Protein Urine Glucose (UA) Urine Ketones Urine Blood Urine Nitrite Ur Leukocyte Esterase Stool Occult Blood POSITIVE COVID-19 ([facility]) COVID-19 Clin Com Blood Type Antibody Screen Crossmatch 03/23/21 03/23/21 03/24/21 18:06 19:19 00:14 WBC 8.8 7.1 RBC 1.99 L 2.94 L D Hgb 5.8 L* 8.4 L D Hct 17.6 L* 25.1 L D MCV 88.4 85.4 MCH 29.1 28.6 MCHC 33.0 33.5 RDW 17.6 H 16.1 H Plt Count 103 L 86 L MPV 10.4 10.9 Immature Gran % (Auto) Neut % (Auto) Lymph % (Auto) [place] % (Auto) Eos % (Auto) Baso % (Auto) Lymph # (Auto) [place] # (Auto) Eos # (Auto) Baso # (Auto) Abs Immat Gran (auto) Absolute Neuts (auto) Absolute Nucleated RBC 0.000 0.000 Nucleated RBC % (auto) 0.0 0.0 PT INR APTT VBG pH VBG pCO2 VBG pO2 VBG HCO3 VBG O2 Saturation VBG Base Excess Sodium Potassium Chloride Carbon Dioxide Anion Gap BUN Creatinine Estim Creat Clear Calc Estimated GFR Random Glucose Lactic Acid Lactic Acid F/U @ 2Hr Calcium Phosphorus Magnesium Total Bilirubin Direct Bilirubin AST ALT Alkaline Phosphatase Ammonia Troponin I High Sens B-Natriuretic Peptide Total Protein Albumin Lipase Urine Color YELLOW Urine Appearance CLEAR Urine pH 6.0 Ur Specific [place] 1.015 Urine Protein NEG Urine Glucose (UA) NEG Urine Ketones NEG Urine Blood NEG Urine Nitrite NEG Ur Leukocyte Esterase NEG Stool Occult Blood COVID-19 ([facility]) COVID-19 Clin Com Blood Type Antibody Screen Crossmatch 03/24/21 03/24/21 03/24/21 00:14 00:14 05:30 WBC 7.6 RBC 3.37 L Hgb 9.7 L Hct 29.0 L MCV 86.1 MCH 28.8 MCHC 33.4 RDW 17.0 H Plt Count 87 L MPV 11.3 Immature Gran % (Auto) 0.9 H Neut % (Auto) 77.4 H Lymph % (Auto) 9.5 L [place] % (Auto) 11.6 H Eos % (Auto) 0.5 Baso % (Auto) 0.1 Lymph # (Auto) 0.7 L [place] # (Auto) 0.9 Eos # (Auto) 0.0 Baso # (Auto) 0.0 Abs Immat Gran (auto) 0.07 H Absolute Neuts (auto) 5.9 Absolute Nucleated RBC 0.000 Nucleated RBC % (auto) 0.0 PT 19.8 H INR 1.7 H APTT VBG pH VBG pCO2 VBG pO2 VBG HCO3 VBG O2 Saturation VBG Base Excess Sodium Potassium Chloride Carbon Dioxide Anion Gap BUN Creatinine Estim Creat Clear Calc Estimated GFR Random Glucose Lactic Acid 1.9 Lactic Acid F/U @ 2Hr Calcium Phosphorus Magnesium Total Bilirubin Direct Bilirubin AST ALT Alkaline Phosphatase Ammonia Troponin I High Sens B-Natriuretic Peptide Total Protein Albumin Lipase Urine Color Urine Appearance Urine pH Ur Specific [place] Urine Protein Urine Glucose (UA) Urine Ketones Urine Blood Urine Nitrite Ur Leukocyte Esterase Stool Occult Blood COVID-19 ([facility]IREE) COVID-[place] Com Blood Type Antibody Screen Crossmatch 03/24/21 03/24/21 03/24/21 05:30 05:30 05:30 WBC RBC Hgb Hct MCV MCH MCHC RDW Plt Count MPV Immature Gran % (Auto) Neut % (Auto) Lymph % (Auto) [place] % (Auto) Eos % (Auto) Baso % (Auto) Lymph # (Auto) [place] # (Auto) Eos # (Auto) Baso # (Auto) Abs Immat Gran (auto) Absolute Neuts (auto) Absolute Nucleated RBC Nucleated RBC % (auto) PT 18.6 H INR 1.6 H APTT 30.6 VBG pH VBG pCO2 VBG pO2 VBG HCO3 VBG O2 Saturation VBG Base Excess Sodium 139 Potassium 3.6 Chloride 111 H Carbon Dioxide 20 L Anion Gap 12 BUN 44 H Creatinine 1.06 Estim Creat Clear Calc 62.6 Estimated GFR > 60 Random Glucose 311 H D Lactic Acid Lactic Acid F/U @ 2Hr Calcium 7.7 L Phosphorus 2.4 L Magnesium 2.0 Total Bilirubin 2.4 H Direct Bilirubin 1.4 H AST 147 H ALT 118 H Alkaline Phosphatase 151 H Ammonia 60 H Troponin I High Sens B-Natriuretic Peptide Total Protein 5.8 L Albumin 3.0 L Lipase Urine Color Urine Appearance Urine pH Ur Specific [place] Urine Protein Urine Glucose (UA) Urine Ketones Urine Blood Urine Nitrite Ur Leukocyte Esterase Stool Occult Blood COVID-19 ([facility]IREE) COVID-19 [place] Com Blood Type Antibody Screen Crossmatch Airway Mallampati Class: III TM Dist: >3cm Neck ROM: Full Loose/Missing/Broken Teeth: Yes Heart: [id number] Lungs: decrease breath sounds bilaterally Assessment and Plan Assessment Anesthesia Assessment: Anesthesia Plan Discussed Final Anesthetic Review Family History of Problems with Anesthesia: No History of Problems with Anesthesia: No NPO: Yes ASA Class: IV Final Preanesthetic Review: No Changes in Pt Med Stat, Meds/Allgs Chart Reviewed, Consent Obtained/Reviewed and Anes Risks/Benef Reviewed Patient Risk: High Procedure Risk: Intermediate Assessment/Block/Sedation in SS: Assess/Block/Sedation-SS Anesthetic Plan Anesthetic Plan: GA, MAC: and Agree w/ Assess. and Plan Disposition: Standard PACU
--- NOTE | 2021-03-24 11:18 | P.OP_ITS ---
Operative Note Operative Note Date of Service: 03/24/21 Narrative: Procedure Description: EGD FLEXIBLE TRANSORAL UPPER GASTROINTESTINAL ENDOSCOPY UPPER ENDOSCOPY Consent: Indications for the procedure and potential complications of bleeding, perforation, reaction to medications and missed diagnosis were discussed with the patient and informed consent was obtained. Instrument: Olympus GIF H 190 J mid size upper endoscope Monitoring: Vital signs and clinical assessment, continuous EKG monitoring, Pulse oximetry, Carbon Dioxide monitoring and blood pressure monitoring were done throughout the procedure. Procedure: The patient was placed in the left lateral decubitis position and pre-procedure medications were administered and a bite block was placed. The endoscope was inserted into the mouth and advanced under direct vision to the third part of duodenum. A careful inspection was made as the upper endoscope was withdrawn including a retroflexed examination of the proximal stomach; Findings and interventions are described below. Findings: Larynx:normal Esophagus: GE junction at 40 cm, diaphragm hiatus at 40 cm, large grade III esophageal varices with red markings and one area with white nipple sign at about 30 cm. These were ligated with 4 bands with good collapse of the varices, a band also applied right over the nipple area. Some minor oozing so hemospray was deployed with good results. Stomach: Patchy gastric erythema and mosaic pattern consistent with severe portal hypertensive gastropathy. Grade 2 flap valve on retroflexed examination of the cardia. no gastric varices seen. Duodenum: shallow khushboo grade III ulcer in distal duodenal bulb measuring about 12 mm, not bleeding and another erosion seen, congestion of duodenal mucosa also noted Intervention: variceal banding and hemospray Impression/Findings: portal hypertensive gastropathy esophageal varices with nipple sign duodenal ulceration and erosion PLAN: Keep NPO for 24 hrs, can have ice chips, clears tomorrow and advance as tolerat ed cont IV PPI BID for another 48 hrs then can transition to PO. cont octretoide for total of 72 hours then can d/c Would add carafate 1 gram QID to prevent post banding ucleration--only needs it for 2 weeks avoid anti coagulation v high risk patient check h pylori in stool if pos then treat repeat EGD in 2-4 weeks
--- NOTE | 2021-03-24 11:18 | PM.OP ---
Brief Operative Note Date of Service: 03/24/21 Pre-op diagnosis: hemorrhagic shock, GI bleeding Post-op diagnosis: same Surgeon: Bety Ambrosio MD Anesthesia: GETA Was an Director Of Retail Merchandising used for this Procedure?: No Estimated blood loss (mL): 5
--- NOTE | 2021-03-24 18:05 | P.PNCC_ITS ---
Subjective Subjective Date of Service: 03/24/21 Interval History: Mr. Kalia Birch was admitted to ICU from the ED yesterday bec of UGI bleeding w hemorrhagic shock. The patient is a 65-year-old male with past medical history of chronic hepatitis-C with portal hypertension and cirrhosis, undergoing workup for hepatocellular carcinoma; he was tx for hepatitis C with Epclusa in 2018.? hypertension; atrial fibrillation on Eliquis, status post PPM; asthma; and diabetes mellitus. The patient has no prior h/o GI bleeding.? On 12/09/2017, Dr. Ayers did an EGD Screen for varices.? Findings:? Esophagus:? Focal esophagitis with ulcers at GE junction.? No esophageal varices.? Stomach:? Moderate portal gastropathy.? Diffuse gastric erythema - biopsies were obtained.? No gastric varices.? Duodenum:? Mild duodenitis in bulb.? Normal descending duodenum. The patient was recently admitted here on 03/16/21 with a 3 week history of progressive worsening abdominal pain and weakness. ?He was noted to have a hem oglobin of 6 (baseline 9.5) with hypotension, elevated lactate.? Baseline plat count in normal, baseline PT is about 19/1.7.? Was given 3 PRBCs and 2 units of FFP, Vit K, and ceftriaxone.? Had a diagnostic paracentesis that demonstrated bloody fluid, thought 2? to spontaneous intraperitoneal hemorrhage.? Was admitted to ICU for a day, then the medical floor.? Eliquis was discontinued.? INR improved to 1.3 with above tx. On Mar 18, he had a dx and therapeutic paracentesis w removal of almost 5L.? Abdom US also showed evidence of portal vein thrombosis. ?Pathology showed no malignant cells. ?On Mar 20 he had repeat paracentesis w removal of 4.8L fluid. According to Dr. Cabrera?s recent note, the pt was referred to [facility].? ?QUESTION OF LIVER TRANSPLANTATION:? Pt has good hepatic synthetic function with meld score of 13, option for liver transplantation was discussed with the patient (given suspected HCC) and patient was not interested in pursuing a liver transplant.?? A liver bx was under discussion when the patient left the hospital AMA yesterday on 03/22/2021.? According to Dr. Maya?s discharge note, ?he expressed that he no longer wants treatment or work up, but also was not willing to stay to arrange sufficient set up for end of life care.? HISTORY OF PRESENT ILLNESS: ?The patient was BIBA to the ED yesterday with complaints of generalized weakness, confusion, fatigue, malaise, dizziness, s hortness of breath and vomiting up bright red blood multiple episodes since last night.? He reported black and bloody stools. In the ED, he had gross hematemesis, melena, blood streaked stool and gross hematochezia.? Vital signs on presentation included heart rate of 130, blood pressure 94/53, respiratory rate 24, sat of 100% on room air.? The temperature was 98.2 degrees.? He was alert and oriented.? No respiratory distress.? The abdomen was markedly distended, but soft with mild tenderness.? No guarding or rebound. Labs in the ED were notable for hemoglobin 6.1 (was 9.1 the previous day), white count 13, platelet count [id number], PT 24/2.1 (was 15/1.3), BUN/creatinine 63/1.8 (was 27/1.0), T bili 1.6, AST/ALT 93/69, albumin 2.8 (was 3.3). The patient was vol resuscitated.? He vomited BRB, and was seen by Dr. Ambrosio.? He was started on octreotide and PPI, and given Vit K, RBCs, and FFP.? CT abdomen showed large volume ascites with some dependent increased density present in the right side and dependently in ascites within the cul-de-sac, suspicious for possible layering of blood products.? There were numerous varices with what appears to be a spontaneous splenorenal shunt.? The liver was cirrhotic with two low-density lesions within the right lobe of the liver measuring about 3.5 cm each. The patient was admitted to the ICU.? He seemed to be oriented.? Was very pale, with no scleral jaundice.? No JVD.? Chest clear.? Abdomen hugely distended w ascites, greater than the size of a basketball.? No edema.? He had mult black stools in the ICU. Labs on arrival to the ICU notable for hemoglobin 4.9, INR 1.8 to 3 units of FFP, BUN/creatinine down to 61/1.45, lactic acid down to 3.9, ammonia level 86. Bedside ECHOCARDIOGRAM notable for: 1. LV function hyperdynamic, EF at least 70%. 2. RV size top-normal, hyperdynamic function. 3. Aortic valve unexpectedly large.? Trileaflet.? No ; trace AI by color- flow. 4. Tricuspid valve normal morphology, no TR noted.? No significant CWD envelope. 7. Very difficult to image the IVC.? But if what I saw was the IVC, it was small with signif inspiratory collapse. CVL placed (separate procedure):? CVP was low.? The patient was started on vasopressin 0.1 units.? Over the day yest and overnight, in toto, the patient was given 5 units RBCs and 4 units FFP, plus full replacement dose Vit K (50 mg). This morning, awake and alert, mental status much clearer, saying he?s thirsty.? Dr. Ambrosio took him to the OR for EGD.? No intraop problems.? No active bleeding noted. ?Findings:? large grade III esoph varices w white nipple sign, suggesting the bleeding source,? there was also patchy gastric erythema and mosaic pattern consistent with severe portal hypertensive gastropathy.? There was also a grade 3 ulcer in the distal duodenal bulb, not thought to be the origin of his bleeding.? Returned to the ICU in stable condition and looking much better. This afternoon he underwent therapeutic paracentesis.? 4.6 L taken off. ?He is very happy about that. ?(The sample was not sent for laboratory analysis.) ?I gave him 100cc 25% albumin replacement.? Postprocedure, heart rate is 95.? Blood pressure is 158/79 on vasopressin 0.1u.? Breathing easy, with sat 96% on room air.? The patient has been afebrile.? No JVD at 20?.? Abdomen is benign.? No edema. LABORATORY DATA this morning:? As below. IMPRESSION:? 65-year-old male with cirrhosis and possible hepatocellular carcinoma.? Labs indicate that patient still has decent synthetic function.? Unclear to me whether the ?intraperitoneal? bleed last week was a spontaneous bleed, or complication of the paracentesis. The patient was admitted yesterday with a massive UGI bleed that today?s endoscopy showed was variceal in origin.? Probably stopped bleeding by the time he arrived to the ICU yesterday.? Still has residual coagulopathy which will hopefully improve as the Vit K fully kicks in. Rechecking his Hb and his POC glucose now.? Continue octreotide infusion for 72 hours from admission. Stable for tx to [facility]. Prognosis is very poor, need to have a conversation with him and his /signif other about end of life. Time: [id number] Critical Care Time (minutes): 0 Physical Exam Vital Signs: Vital Signs: Last Vital Signs Temp 98.4 F 03/24/21 17:00 Pulse 100 03/24/21 17:00 Resp 17 03/24/21 17:00 BP 137/75 03/24/21 17:00 Pulse Ox 96 03/24/21 14:00 BMI result Body Mass Index 27.1 Objective Data Labs CBC & Chem 7: 03/24/21 19:04 03/24/21 05:30 Labs: Laboratory Results - last 24 hr 03/23/21 03/23/21 03/23/21 11:41 17:59 17:59 WBC 10.7 RBC 1.69 L D Hgb 4.9 L* Hct 14.8 L* D MCV 87.6 MCH 29.0 MCHC 33.1 RDW 18.7 H Plt Count 126 L D MPV 11.5 Immature Gran % (Auto) Neut % (Auto) Lymph % (Auto) [place] % (Auto) Eos % (Auto) Baso % (Auto) Lymph # (Auto) [place] # (Auto) Eos # (Auto) Baso # (Auto) Abs Immat Gran (auto) Absolute Neuts (auto) Absolute Nucleated RBC 0.000 Nucleated RBC % (auto) 0.0 PT 20.7 H INR 1.8 H APTT VBG pH VBG pCO2 VBG pO2 VBG HCO3 VBG O2 Saturation VBG Base Excess Sodium Potassium Chloride Carbon Dioxide Anion Gap BUN Creatinine Estim Creat Clear Calc Estimated GFR Random Glucose Lactic Acid Calcium Phosphorus Magnesium Total Bilirubin Direct Bilirubin AST ALT Alkaline Phosphatase Ammonia Total Protein Albumin Urine Color Urine Appearance Urine pH Ur Specific [place] Urine Protein Urine Glucose (UA) Urine Ketones Urine Blood Urine Nitrite Ur Leukocyte Esterase Stool Occult Blood Blood Type O Positive Antibody Screen NEGATIVE Crossmatch See Detail 03/23/21 03/23/21 03/23/21 17:59 17:59 18:00 WBC RBC Hgb Hct MCV MCH MCHC RDW Plt Count MPV Immature Gran % (Auto) Neut % (Auto) Lymph % (Auto) [place] % (Auto) Eos % (Auto) Baso % (Auto) Lymph # (Auto) [place] # (Auto) Eos # (Auto) Baso # (Auto) Abs Immat Gran (auto) Absolute Neuts (auto) Absolute Nucleated RBC Nucleated RBC % (auto) PT INR APTT VBG pH VBG pCO2 VBG pO2 VBG HCO3 VBG O2 Saturation VBG Base Excess Sodium 139 Potassium 4.5 Chloride 109 H Carbon Dioxide 19 L Anion Gap 16 BUN 61 H Creatinine 1.45 H Estim Creat Clear Calc 45.8 Estimated GFR 49 Random Glucose 185 H Lactic Acid 3.9 H* Calcium 7.6 L D Phosphorus Magnesium 2.0 Total Bilirubin Direct Bilirubin AST ALT Alkaline Phosphatase Ammonia Total Protein Albumin Urine Color Urine Appearance Urine pH Ur Specific [place] Urine Protein Urine Glucose (UA) Urine Ketones Urine Blood Urine Nitrite Ur Leukocyte Esterase Stool Occult Blood POSITIVE Blood Type Antibody Screen Crossmatch 03/23/21 03/23/21 03/23/21 18:00 18:03 18:06 WBC RBC Hgb Hct MCV MCH MCHC RDW Plt Count MPV Immature Gran % (Auto) Neut % (Auto) Lymph % (Auto) [place] % (Auto) Eos % (Auto) Baso % (Auto) Lymph # (Auto) [place] # (Auto) Eos # (Auto) Baso # (Auto) Abs Immat Gran (auto) Absolute Neuts (auto) Absolute Nucleated RBC Nucleated RBC % (auto) PT INR APTT VBG pH 7.45 H VBG pCO2 25 VBG pO2 56 VBG HCO3 18 L VBG O2 Saturation 84.0 VBG Base Excess -4.9 Sodium Potassium Chloride Carbon Dioxide Anion Gap BUN Creatinine Estim Creat Clear Calc Estimated GFR Random Glucose Lactic Acid Calcium Phosphorus Magnesium Total Bilirubin Direct Bilirubin AST ALT Alkaline Phosphatase Ammonia 86 H Total Protein Albumin Urine Color YELLOW Urine Appearance CLEAR Urine pH 6.0 Ur Specific [place] 1.015 Urine Protein NEG Urine Glucose (UA) NEG Urine Ketones NEG Urine Blood NEG Urine Nitrite NEG Ur Leukocyte Esterase NEG Stool Occult Blood Blood Type Antibody Screen Crossmatch 03/23/21 03/24/21 03/24/21 19:19 00:14 00:14 WBC 8.8 7.1 RBC 1.99 L 2.94 L D Hgb 5.8 L* 8.4 L D Hct 17.6 L* 25.1 L D MCV 88.4 85.4 MCH 29.1 28.6 MCHC 33.0 33.5 RDW 17.6 H 16.1 H Plt Count 103 L 86 L MPV 10.4 10.9 Immature Gran % (Auto) Neut % (Auto) Lymph % (Auto) [place] % (Auto) Eos % (Auto) Baso % (Auto) Lymph # (Auto) [place] # (Auto) Eos # (Auto) Baso # (Auto) Abs Immat Gran (auto) Absolute Neuts (auto) Absolute Nucleated RBC 0.000 0.000 Nucleated RBC % (auto) 0.0 0.0 PT 19.8 H INR 1.7 H APTT VBG pH VBG pCO2 VBG pO2 VBG HCO3 VBG O2 Saturation VBG Base Excess Sodium Potassium Chloride Carbon Dioxide Anion Gap BUN Creatinine Estim Creat Clear Calc Estimated GFR Random Glucose Lactic Acid Calcium Phosphorus Magnesium Total Bilirubin Direct Bilirubin AST ALT Alkaline Phosphatase Ammonia Total Protein Albumin Urine Color Urine Appearance Urine pH Ur Specific [place] Urine Protein Urine Glucose (UA) Urine Ketones Urine Blood Urine Nitrite Ur Leukocyte Esterase Stool Occult Blood Blood Type Antibody Screen Crossmatch 03/24/21 03/24/21 03/24/21 00:14 05:30 05:30 WBC 7.6 RBC 3.37 L Hgb 9.7 L Hct 29.0 L MCV 86.1 MCH 28.8 MCHC 33.4 RDW 17.0 H Plt Count 87 L MPV 11.3 Immature Gran % (Auto) 0.9 H Neut % (Auto) 77.4 H Lymph % (Auto) 9.5 L [place] % (Auto) 11.6 H Eos % (Auto) 0.5 Baso % (Auto) 0.1 Lymph # (Auto) 0.7 L [place] # (Auto) 0.9 Eos # (Auto) 0.0 Baso # (Auto) 0.0 Abs Immat Gran (auto) 0.07 H Absolute Neuts (auto) 5.9 Absolute Nucleated RBC 0.000 Nucleated RBC % (auto) 0.0 PT 18.6 H INR 1.6 H APTT 30.6 VBG pH VBG pCO2 VBG pO2 VBG HCO3 VBG O2 Saturation VBG Base Excess Sodium Potassium Chloride Carbon Dioxide Anion Gap BUN Creatinine Estim Creat Clear Calc Estimated GFR Random Glucose Lactic Acid 1.9 Calcium Phosphorus Magnesium Total Bilirubin Direct Bilirubin AST ALT Alkaline Phosphatase Ammonia Total Protein Albumin Urine Color Urine Appearance Urine pH Ur Specific [place] Urine Protein Urine Glucose (UA) Urine Ketones Urine Blood Urine Nitrite Ur Leukocyte Esterase Stool Occult Blood Blood Type Antibody Screen Crossmatch 03/24/21 03/24/21 05:30 05:30 WBC RBC Hgb Hct MCV MCH MCHC RDW Plt Count MPV Immature Gran % (Auto) Neut % (Auto) Lymph % (Auto) [place] % (Auto) Eos % (Auto) Baso % (Auto) Lymph # (Auto) [place] # (Auto) Eos # (Auto) Baso # (Auto) Abs Immat Gran (auto) Absolute Neuts (auto) Absolute Nucleated RBC Nucleated RBC % (auto) PT INR APTT VBG pH VBG pCO2 VBG pO2 VBG HCO3 VBG O2 Saturation VBG Base Excess Sodium 139 Potassium 3.6 Chloride 111 H Carbon Dioxide 20 L Anion Gap 12 BUN 44 H Creatinine 1.06 Estim Creat Clear Calc 62.6 Estimated GFR > 60 Random Glucose 311 H D Lactic Acid Calcium 7.7 L Phosphorus 2.4 L Magnesium 2.0 Total Bilirubin 2.4 H Direct Bilirubin 1.4 H AST 147 H ALT 118 H Alkaline Phosphatase 151 H Ammonia 60 H Total Protein 5.8 L Albumin 3.0 L Urine Color Urine Appearance Urine pH Ur Specific [place] Urine Protein Urine Glucose (UA) Urine Ketones Urine Blood Urine Nitrite Ur Leukocyte Esterase Stool Occult Blood Blood Type Antibody Screen Crossmatch Microbiology Microbiology Results: Microbiology 03/23/21 11:09 Blood - Venous Blood Culture - Preliminary No growth after 24 hours. 03/23/21 10:41 Blood - Venous Blood Culture - Preliminary No growth after 24 hours. Quality Stroke Does the patient have a stroke diagnosis?: No VTE Prior VTE?: No VTE Risk Level:: Medical - moderate - high VTE Device Contraindication: N/A - Device Ordered VTE Drug Contraindication: Treatment Not Indicated
[2021-03-24] MEDS: Lidocaine HCl 1 % 20 ML VIAL 4 ML SUBCUT (18:07)
[2021-03-24] MEDS: Albumin Human 25 % 100 ML IV ×2 (18:20→19:30)
[2021-03-24 19:24] LABS: Hematocrit 29.6 % (42.0-52.0); Hemoglobin 9.9 g/dl (14.0-18.0)
[2021-03-24] MEDS: Pantoprazole Sodium 40 MG/10 ML VIAL IVPUSH (19:30)
[2021-03-24 19:52] LABS: Glucose, Whole Blood 231 mg/dL (60-115)
--- NOTE | 2021-03-24 20:19 | PC.NURSE ---
EGD AND PARACENTESIS DONE TODAY. TOLERATING CLEAR LIQUIDS WELL. VASOPRESSIN GTT OFF. PTS UPDATED THROUGHOUT THE DAY AND OF TRANSFER TO [facility].
[2021-03-25 03:02] VITALS: BP 131/71; RESP 20; TEMP 36.6; O2SAT 99
[2021-03-25 05:09] LABS: Hematocrit 29.5 % (42.0-52.0); Hemoglobin 9.9 g/dl (14.0-18.0); Mean Corpuscular HGB Conc 33.6 g/dl (31.0-36.0); Mean Corpuscular Hemoglobin 29.1 pg (27.0-33.0); Mean Corpuscular Volume 86.8 fL (80.0-98.0); Mean Platelet Volume 10.1 fL (9.4-12.4); NRBC Pct Auto 0.4 /100WBC (0.0-0.2); Platelet Count 80 X10*3/uL (160-400); Red Cell Distribution Width 17.7 % (11.0-16.0); White Blood Count 10.6 X10*3/uL (4.8-10.8)
[2021-03-25 05:17] LABS: Lactic Acid 1.1 mmol/L (0.5-2.0)
[2021-03-25 05:24] LABS: Alanine Aminotransferase 104 U/L (0-40); Albumin Level 3.3 g/dL (3.5-5.0); Alkaline Phosphatase 131 U/L (39-117); Anion Gap 11 (12-20); Aspartate Amino Transferase 109 U/L (5-37); Blood Urea Nitrogen 19 mg/dL (9-16); Calcium 7.7 mg/dL (8.4-10.2); Carbon Dioxide 21 mmol/L (22-29); Chloride 110 mmol/L (96-108); Estimated Glomerular Filt Rate > 60; Glucose Random 91 mg/dL (60-115); Magnesium 1.7 mg/dL (1.6-2.6); Phosphorus 1.8 mg/dL (2.7-4.5); Potassium 2.9 mmol/L (3.3-5.1); Sodium 139 mmol/L (135-145); Total Protein 5.9 g/dL (6.5-8.0)
[2021-03-25 06:00] VITALS: BMI 28.2
[2021-03-25] MEDS: Pantoprazole Sodium 40 MG/10 ML VIAL IVPUSH ×2 (06:12→17:41)
[2021-03-25 07:28] VITALS: BP 132/67; PULSE 108; RESP 17; TEMP 36.6; O2SAT 99
--- NOTE | 2021-03-25 11:43 | P.PNIM_ITS ---
Subjective Subjective Date of Service: 03/25/21 Interval History: still with significant abdominal pain and ascites. No active bleeding observed Review of Systems denies chest pain Denies shortness of breath excellent admits to abdominal pain and distension Physical Exam Vital Signs: Vital Signs: Last Vital Signs Temp 97.8 F 03/25/21 07:28 Pulse 108 H 03/25/21 07:28 Resp 17 03/25/21 07:28 BP 132/67 03/25/21 07:28 Pulse Ox 99 03/25/21 07:28 BMI result Body Mass Index 28.2 Const: Other: ill-appearing male; uncomfortable Resp: Other: clear to auscultation bilaterally no rales rhonchi wheezes Cardio: Other: no was for; positive S1-S2: No S3 murmurs rubs or gallops GI: Other: distended / firm. Quiet bowel sounds. Notable fluid Extrem: Other: no edema Objective Data Active Medications Octreotide Acetate 500 mcg/ (Sodium Chloride) 501 mls @ 25.05 mls/hr IVCONT .Q20H [facility] Last Admin: 03/24/21 10:00 Dose: 25 mcg/hr, 25.05 mls/hr Documented by: FIDE Ondansetron HCl (Ondansetron Hcl 4 Mg/2 Ml Vial) 4 mg IVPUSH ONCE PRN PRN Reason: Nausea and Vomiting Pantoprazole Sodium (Pantoprazole Sodium 40 Mg/10 Ml Vial) 40 mg IVPUSH BID@0630,1630 [facility] Last Admin: 03/25/21 06:12 Dose: 40 mg Documented by: RONA Pharmacy Consult (Consult Rx Perform Med Rec) 1 each MISCELLANE ONCE PRN PRN Reason: Consult order Labs CBC & Chem 7: 03/25/21 04:55 03/25/21 04:55 Labs: Laboratory Results - last 24 hr 03/23/21 03/24/21 03/25/21 11:41 19:48 04:55 MCV 86.8 MCH 29.1 MCHC 33.6 RDW 17.7 H Plt Count 80 L MPV 10.1 Absolute Nucleated RBC 0.040 H Nucleated RBC % (auto) 0.4 H Anion Gap Estim Creat Clear Calc Estimated GFR POC Glucose 231 H Random Glucose Lactic Acid Calcium Phosphorus Magnesium Total Bilirubin AST ALT Alkaline Phosphatase Total Protein Albumin Crossmatch See Detail 03/25/21 03/25/21 04:55 04:55 MCV MCH MCHC RDW Plt Count MPV Absolute Nucleated RBC Nucleated RBC % (auto) Anion Gap 11 L Estim Creat Clear Calc 82.0 Estimated GFR > 60 POC Glucose Random Glucose 91 D Lactic Acid 1.1 Calcium 7.7 L Phosphorus 1.8 L Magnesium 1.7 Total Bilirubin 4.0 H AST 109 H ALT 104 H Alkaline Phosphatase 131 H Total Protein 5.9 L Albumin 3.3 L Crossmatch Microbiology Microbiology Results: Microbiology 03/23/21 11:09 Blood Culture - Preliminary Blood - Venous No growth after 24 hours. 03/23/21 10:41 Blood Culture - Preliminary Blood - Venous No growth after 24 hours. Assessment and Plan (1) Cirrhosis of liver: Status: Acute (2) Acute hyponatremia: Status: Acute (3) Acute on chronic blood loss anemia: Status: Acute Assessment and Plan: 65-year-old male who was recently admitted here and left AMA yesterday on 03/22/2021 presenting to the ED with complaints of generalized weakness, confusion, fatigue, malaise, dizziness, shortness of breath and vomiting and coughing up bright red blood multiple episodes since last night.? He reports black and bloody stools.? He currently has a past medical history of chronic hepatitis-C with portal hypertension and cirrhosis, undergoing workup for hepatic cellular carcinoma, also has a history of hypertension, atrial fibrillation on Eliquis status post ppm placement, thrombocytopenia, asthma, diabetes mellitus admitted on 03/16/2021 with 3 week history of progressive worsening abdominal pain and weakness.? He was noted to have a hemoglobin of 6 with hypotension elevated lactic therefore he received 3 packed red blood cells and 2 units of FFP, and had a diagnostic paracentesis that demonstrated bloody fluid like secondary to spontaneous intraperitoneal hemorrhage.? Patient was also noted to have mild coagulopathy. He received vitamin K and was started on Rocephin and was admitted to the intensive care unit then he went to intermediate care and continued receiving IV antibiotics of Rocephin, and IVF due to KEVAN, his H&H was stable at 9 they discontinued the Eliquis due to spontan eous interperitoneal hemorrhage.? Seen by GI and underwent Variceal banding with good reults. Followed in ICU...stable. Transfer to [facility] 1. Variceal bleed Continue octreotide for 24 more hours;IV PPI x 24 hrs as well. Follow serial CBC's. Start clear liquids in am. Carafate 1 gm QID 2. Cirhossis with ascities Tapped in ICU... reoccurred and is painful Query therapeutic paracentesis in a.m. with supplemental albumin Discuss with GI further diuresis long-term. . . Replete potassium and follow up in a.m. 3.HTN acceptable control off meds. adjust as indicated full code [facility] Quality Stroke Does the patient have a stroke diagnosis?: No VTE Prior VTE?: No VTE Risk Level:: Medical - moderate - high VTE Device Contraindication: N/A - Device Ordered VTE Drug Contraindication: Treatment Not Indicated
[2021-03-25 11:59] VITALS: BP 139/68; PULSE 102; RESP 18; TEMP 36.9; O2SAT 100
--- NOTE | 2021-03-25 12:13 | MHC.CM.PN ---
PT REPORTS HE LIVES WITH HIS AND IS INDEPENDENT AT BASELINE PT REPORTS HE HAS A CANE AT HOME PT DENIES HAVING IN HOME SERVICES PT CONFIRMS HIS PCP IS SAMIR WOOD PT DECLINES TO COMPLETE A HCP BUT WILL TAKE INFO AND DOCUMENT AT DC (GIVEN) IMM DELIVERED CURRENT DC PLAN IS HOME WITH NO SERVICES FAMILY TO TRANSPORT
[2021-03-25] MEDS: Potassium Chloride Packet 20 MEQ PACKET 40 MEQ PO (15:31)
[2021-03-25] MEDS: Octreotide Acetate 500 MCG in 0.9 % Sodium Chloride 500 ML 25.05 MCG IVCONT (15:37)
[2021-03-25 16:00] VITALS: BP 129/63; PULSE 115; RESP 18; TEMP 37.2; O2SAT 98
--- NOTE | 2021-03-25 16:47 | HO.POSTANES ---
Post Anesthesia Evaluation Post Anesthesia Evaluation Vital Signs: Vital Signs Temp Pulse Resp BP Pulse Ox 03/25/21 11:59 98.4 F 102 H 18 139/68 100 03/25/21 07:28 97.8 F 108 H 17 132/67 99 Anesthesia: Monitored Mental Status: Awake Pain Control: Satisfactory Nausea/Vomiting: None Hydration: Adequate Anesthesia-Related Issues: No Anes. Related Issues
[2021-03-25 19:12] VITALS: BP 132/72; PULSE 120; RESP 19; TEMP 37.3; O2SAT 98
[2021-03-25] MEDS: Melatonin 3 MG TABLET 6 MG PO (21:39)
[2021-03-26] VITALS: BP 114/77; PULSE 109; RESP 18; TEMP 36.9; O2SAT 97
[2021-03-26] MEDS: HYDROmorphone HCl 0.5 MG/0.5 ML SYRINGE IVPUSH (02:41)
[2021-03-26 04:00] VITALS: BP 136/94; PULSE 110; RESP 18; TEMP 36.9; O2SAT 95
[2021-03-26] MEDS: Pantoprazole Sodium 40 MG/10 ML VIAL IVPUSH ×2 (05:30→17:56)
[2021-03-26 06:00] VITALS: BMI 28.4
[2021-03-26 08:00] VITALS: BP 133/72; PULSE 113; RESP 16; TEMP 37.1; O2SAT 96
[2021-03-26 08:13] LABS: Hematocrit 34.5 % (42.0-52.0); Hemoglobin 11.5 g/dl (14.0-18.0); Mean Corpuscular HGB Conc 33.3 g/dl (31.0-36.0); Mean Corpuscular Hemoglobin 29.3 pg (27.0-33.0); Mean Corpuscular Volume 87.8 fL (80.0-98.0); Mean Platelet Volume 10.4 fL (9.4-12.4); Red Blood Count 3.93 X10*6/uL (4.60-5.80); Red Cell Distribution Width 18.6 % (11.0-16.0); White Blood Count 10.6 X10*3/uL (4.8-10.8)
[2021-03-26 08:16] LABS: INTERNATIONAL NORM RATIO 1.4 (0.9-1.1); Platelet Count 87 X10*3/uL (160-400); Prothrombin Time 16.4 SEC (9.9-13.0)
[2021-03-26] MEDS: Potassium Chloride Packet 20 MEQ PACKET 40 MEQ PO ×2 (08:19→13:20)
[2021-03-26 08:31] LABS: Alanine Aminotransferase 88 U/L (0-40); Alkaline Phosphatase 140 U/L (39-117); Anion Gap 12 (12-20); Aspartate Amino Transferase 80 U/L (5-37); Bilirubin Total 5.4 mg/dL (0.0-1.0); Blood Urea Nitrogen 16 mg/dL (9-16); Calcium 7.8 mg/dL (8.4-10.2); Carbon Dioxide 19 mmol/L (22-29); Chloride 108 mmol/L (96-108); Creatinine Clr Calc Pharmacy 76.2; Estimated Glomerular Filt Rate > 60; Glucose Random 117 mg/dL (60-115); Magnesium 1.7 mg/dL (1.6-2.6); Potassium 3.2 mmol/L (3.3-5.1); Sodium 136 mmol/L (135-145); Total Protein 5.9 g/dL (6.5-8.0)
[2021-03-26] MEDS: Morphine Sulfate 2 MG/ML CARTRIDGE IVPUSH ×3 (10:14→21:58)
--- NOTE | 2021-03-26 10:29 | P.PNIM_ITS ---
Subjective Subjective Date of Service: 03/26/21 Interval History: C/o abd discomfort from tense ascites No hematochezia Review of Systems Review of Systems: Yes all other systems are reviewed and are negative Physical Exam Vital Signs: Vital Signs: Last Vital Signs Temp 98.8 F 03/26/21 08:00 Pulse 113 H 03/26/21 08:00 Resp 16 03/26/21 08:00 BP 133/72 03/26/21 08:00 Pulse Ox 96 03/26/21 08:00 BMI result Body Mass Index 28.4 Gen: chronically ill-appearing HEENT: sclera icteric, moist mucus membranes Neck: supple Lungs: clear to auscultation bilaterally Heart: regular rate and rhythm, no murmurs Abd: tense ascites with fluid wave Ext: no edema Skin: warm/well-perfused Neuro: alert and oriented x3, no focal findings, no asterixis Psych: appropriate affect Objective Data Active Medications Octreotide Acetate 500 mcg/ (Sodium Chloride) 501 mls @ 25.05 mls/hr IVCONT .Q20H [facility] Last Admin: 03/25/21 15:37 Dose: 25 mcg/hr, 25.05 mls/hr Documented by: CJ Melatonin (Melatonin 3 Mg Tablet) 6 mg PO BEDTIME PRN PRN Reason: Insomnia Last Admin: 03/25/21 21:39 Dose: 6 mg Documented by: CONNIE Morphine Sulfate (Morphine Sulfate 2 Mg/Ml Cartridge) 2 mg IVPUSH Q3H PRN; Protocol PRN Reason: severe pain Last Admin: 03/26/21 10:14 Dose: 2 mg Documented by: CONNIE Ondansetron HCl (Ondansetron Hcl 4 Mg/2 Ml Vial) 4 mg IVPUSH ONCE PRN PRN Reason: Nausea and Vomiting Pantoprazole Sodium (Pantoprazole Sodium 40 Mg/10 Ml Vial) 40 mg IVPUSH BID@0630,1630 [facility] Last Admin: 03/26/21 05:30 Dose: 40 mg Documented by: CONNIE Pharmacy Consult (Consult Rx Perform Med Rec) 1 each MISCELLANE ONCE PRN PRN Reason: Consult order Potassium Chloride (Potassium Chloride Packet 20 Meq Packet) 40 meq PO DAILY [facility] Last Admin: 03/26/21 08:19 Dose: 40 meq Documented by: CONNIE Labs CBC & Chem 7: 03/26/21 07:59 03/26/21 07:59 Labs: Laboratory Results - last 24 hr 03/26/21 03/26/21 03/26/21 07:59 07:59 07:59 MCV 87.8 MCH 29.3 MCHC 33.3 RDW 18.6 H Plt Count 87 L MPV 10.4 Absolute Nucleated RBC 0.000 Nucleated RBC % (auto) 0.0 PT 16.4 H INR 1.4 H Anion Gap 12 Estim Creat Clear Calc 76.2 Estimated GFR > 60 Random Glucose 117 H Calcium 7.8 L Magnesium 1.7 Total Bilirubin 5.4 H AST 80 H ALT 88 H Alkaline Phosphatase 140 H Total Protein 5.9 L Albumin 3.0 L Microbiology Microbiology Results: Microbiology 03/23/21 11:09 Blood Culture - Preliminary Blood - Venous No growth after 48 hours. 03/23/21 10:41 Blood Culture - Preliminary Blood - Venous No growth after 48 hours. Assessment and Plan (1) Cirrhosis of liver: Status: Acute (2) Acute hyponatremia: Status: Acute (3) Acute on chronic blood loss anemia: Status: Acute Assessment and Plan: hospital d#4 65yo M with decompensated HCV cirrhosis, AF on apixaban [discontinued] s/p PPM placement, DM2, asthma, admitted here 03/16/21 with anemia and abdominal distension. Required 3u pRBCs + 2u FFP. Diagnostic paracentesis 03/16/21 showed bloody fluid due to spontaneous intraperitoneal hemorrhage. Admitted to ICU and stepped down to IMC 03/17/21 but left AMA 03/22/21. Had therapeutic paracentesis on 03/18 and again 03/20. Re-admitted 03/23/20 with hematemesis/melena, to ICU for hemorrhagic shock. EGD showed large grade 3 esophageal varices and severe portal hypertensive gastropathy, also non-bleeding grade 3 duodenal ulcer. Paracentesis done 03/24/21. Stepped down to IMC 03/24/21. # acute variceal hemorrhage - continue octreotide gtt + IV PPI, change to PO PPI in am - serial H+H - if continues to tolerate clear liquids, tral solids tomrrow # decompensated HCV cirrhosis with ascites - s/p treatment/cure of HCV - undergoing workup for HCC as outpt - therapeutic paracentesis done 03/24/20; order another one for tomorrow - start diuretics - pt uninterested in transplant as per Dr Ayers's outpt GI note. I asked him again today and he declines referral for transplant. # hypoK - replete PO, recheck BMP in am # coagulopathy - due to cirrhosis, improving with vitamin K # thrombocytopenia - mild, due to cirrhosis # AF - off anticoagulation due to bleeding. currently in sinus rhythm. # HTN - all antihypertensives stopped due to hemorrhagic shock- was on HCTZ, lisinopril, metoprolol, and amlodipine # DM2 - check A1c, start correction-dose lispro # VTE ppx - SCDs # dispo - PT evaluation Quality Stroke Does the patient have a stroke diagnosis?: No VTE Prior VTE?: No VTE Risk Level:: Medical - moderate - high VTE Device Contraindication: N/A - Device Ordered VTE Drug Contraindication: Treatment Not Indicated
[2021-03-26 11:17] LABS: Glucose, Whole Blood 211 mg/dL (60-115)
[2021-03-26 12:00] VITALS: BP 126/78; PULSE 107; RESP 16; TEMP 37.2; O2SAT 97
[2021-03-26] MEDS: Spironolactone 25 MG TABLET 50 MG PO (13:18)
[2021-03-26] MEDS: Furosemide 20 MG TABLET PO (13:19)
[2021-03-26] MEDS: Albumin Human 25 % 100 ML IV ×3 (13:24→21:56)
[2021-03-26 15:34] VITALS: BP 134/72; PULSE 104; RESP 18; TEMP 36.8; O2SAT 97
[2021-03-26 19:30] VITALS: BP 114/69; PULSE 101; RESP 18; TEMP 37.2; O2SAT 97
[2021-03-26 21:18] LABS: Glucose, Whole Blood 156 mg/dL (60-115)
[2021-03-26] MEDS: Octreotide Acetate 500 MCG in 0.9 % Sodium Chloride 500 ML 25.05 MCG IVCONT (21:53)
[2021-03-27] VITALS (7 sets, daily range): BP systolic 121–155; BP diastolic 61–71; PULSE 97–110; RESP 18–20; TEMP 36.3–36.9; O2SAT 94–99; BMI 29.5
[2021-03-27] MEDS: Albumin Human 25 % 100 ML IV (03:07)
[2021-03-27] MEDS: Morphine Sulfate 2 MG/ML CARTRIDGE IVPUSH ×2 (03:07→10:55)
[2021-03-27] MEDS: Pantoprazole Sodium 40 MG/10 ML VIAL IVPUSH (06:28)
[2021-03-27 07:40] LABS: PLT CLUMP 1; Red Cell Distribution Width 18.9 % (11.0-16.0)
[2021-03-27 07:42] LABS: Hemoglobin 10.3 g/dl (14.0-18.0); Mean Corpuscular HGB Conc 33.2 g/dl (31.0-36.0); Mean Corpuscular Hemoglobin 29.4 pg (27.0-33.0); Mean Corpuscular Volume 88.6 fL (80.0-98.0); Mean Platelet Volume 10.8 fL (9.4-12.4)
[2021-03-27 07:43] LABS: INTERNATIONAL NORM RATIO 1.6 (0.9-1.1); Prothrombin Time 18.4 SEC (9.9-13.0)
[2021-03-27 07:47] LABS: Ammonia 69 umol/L (13-55)
[2021-03-27 07:49] LABS: Estimated Average Glucose 103 mg/dL; Hemoglobin A1c % 5.2 %
[2021-03-27 07:51] LABS: Glucose, Whole Blood 92 mg/dL (60-115)
[2021-03-27 07:57] LABS: PLT ABN DIST 1; Platelet Count 71 X10*3/uL (160-400); White Blood Count 7.3 X10*3/uL (4.8-10.8)
[2021-03-27 08:02] LABS: Alanine Aminotransferase 60 U/L (0-40); Albumin Level 3.5 g/dL (3.5-5.0); Alkaline Phosphatase 112 U/L (39-117); Anion Gap 13 (12-20); Aspartate Amino Transferase 58 U/L (5-37); Bilirubin Total 6.8 mg/dL (0.0-1.0); Blood Urea Nitrogen 13 mg/dL (9-16); Calcium 8.2 mg/dL (8.4-10.2); Carbon Dioxide 19 mmol/L (22-29); Chloride 106 mmol/L (96-108); Creatinine Clr Calc Pharmacy 90.7; Estimated Glomerular Filt Rate > 60; Glucose Random 99 mg/dL (60-115); Magnesium 1.7 mg/dL (1.6-2.6); Potassium 3.6 mmol/L (3.3-5.1); Sodium 134 mmol/L (135-145); Total Protein 5.9 g/dL (6.5-8.0)
[2021-03-27] MEDS: Spironolactone 25 MG TABLET 50 MG PO (10:21)
[2021-03-27] MEDS: Furosemide 20 MG TABLET PO (10:21)
[2021-03-27] MEDS: Potassium Chloride Packet 20 MEQ PACKET 40 MEQ PO (10:21)
--- NOTE | 2021-03-27 11:48 | PC.NURSE ---
report called to Jocelyne on s3. patient sent to paracentesis at this time and will return to room 377 after procedure. Jocelyne to assume care of patient at this time .
[2021-03-27] MEDS: Lidocaine HCl 1 % MPF 5 ML VIAL 4 ML SUBCUT (12:18)
[2021-03-27] MEDS: Lactulose 20 GM/30 ML SOLUTION 30 GM PO ×2 (14:20→22:01)
--- NOTE | 2021-03-27 14:43 | P.PNIM_ITS ---
Subjective Subjective Date of Service: 03/27/21 Interval History: Very uncomfortable from tense ascites. No hematemesis or melena. Review of Systems Review of Systems: Yes all other systems are reviewed and are negative Physical Exam Vital Signs: Vital Signs: Last Vital Signs Temp 98.2 F 03/27/21 13:16 Pulse 99 03/27/21 13:16 Resp 19 03/27/21 13:16 BP 131/61 03/27/21 13:16 Pulse Ox 98 03/27/21 13:16 BMI result Body Mass Index 29.5 Gen: chronically ill-appearing HEENT: sclera icteric, moist mucus membranes Neck: supple Lungs: clear to auscultation bilaterally Heart: regular rate and rhythm, no murmurs Abd: tense ascites with fluid wave Ext: no edema Skin: warm/well-perfused Neuro: alert and oriented x3, no focal findings, no asterixis Psych: appropriate affect Objective Data Active Medications Dextrose (Dextrose 50 % 25 Gm/50 Ml Vial) 25 gm IVPUSH Q15M PRN; Protocol PRN Reason: per Hypoglycemia Standing Ord. Furosemide (Furosemide 20 Mg Tablet) 20 mg PO DAILY [facility]; Protocol Last Admin: 03/27/21 10:21 Dose: 20 mg Documented by: ROSETTE Glucose (Glucose Gel 15 Gm Gel..Gram.) 15 gm PO Q15M PRN; Protocol PRN Reason: per Hypoglycemia Standing Ord. Octreotide Acetate 500 mcg/ (Sodium Chloride) 501 mls @ 25.05 mls/hr IVCONT .Q20H [facility] Last Admin: 03/26/21 23:03 Dose: Not Given Documented by: ANTOIC Non-Admin Reason: IV Running Lactulose (Lactulose 20 Gm/30 Ml Solution) 30 gm PO TID [facility] Last Admin: 03/27/21 14:20 Dose: 30 gm Documented by: SHREYA Melatonin (Melatonin 3 Mg Tablet) 6 mg PO BEDTIME PRN PRN Reason: Insomnia Last Admin: 03/25/21 21:39 Dose: 6 mg Documented by: CONNIE Morphine Sulfate (Morphine Sulfate 2 Mg/Ml Cartridge) 2 mg IVPUSH Q3H PRN; Protocol PRN Reason: severe pain Last Admin: 03/27/21 10:55 Dose: 2 mg Documented by: ROSETTE Ondansetron HCl (Ondansetron Hcl 4 Mg/2 Ml Vial) 4 mg IVPUSH ONCE PRN PRN Reason: Nausea and Vomiting Pantoprazole Sodium (Pantoprazole Sodium 40 Mg/10 Ml Vial) 40 mg IVPUSH BID@0630,1630 [facility] Last Admin: 03/27/21 06:28 Dose: 40 mg Documented by: ANTOIC Pharmacy Consult (Consult Rx Perform Med Rec) 1 each MISCELLANE ONCE PRN PRN Reason: Consult order Potassium Chloride (Potassium Chloride Packet 20 Meq Packet) 40 meq PO DAILY [facility] Last Admin: 03/27/21 10:21 Dose: 40 meq Documented by: ROSETTE Spironolactone (Spironolactone 25 Mg Tablet) 50 mg PO DAILY [facility]; Protocol Last Admin: 03/27/21 10:21 Dose: 50 mg Documented by: ROSETTE Sucralfate (Sucralfate 1 Gm Tablet) 1 gm PO QIDACHS [facility] Labs CBC & Chem 7: 03/27/21 07:21 03/27/21 07:21 Labs: Laboratory Results - last 24 hr 03/26/21 03/27/21 03/27/21 21:14 07:07 07:21 MCV MCH MCHC RDW Plt Count MPV Absolute Nucleated RBC Nucleated RBC % (auto) PT INR Anion Gap Estim Creat Clear Calc Estimated GFR POC Glucose 156 H 92 Random Glucose Estimat Average Glucose Hemoglobin A1c % Calcium Magnesium Total Bilirubin AST ALT Alkaline Phosphatase Ammonia 69 H Total Protein Albumin 03/27/21 03/27/21 03/27/21 07:21 07:21 07:21 MCV 88.6 MCH 29.4 MCHC 33.2 RDW 18.9 H Plt Count 71 L MPV 10.8 Absolute Nucleated RBC 0.000 Nucleated RBC % (auto) 0.0 PT 18.4 H INR 1.6 H Anion Gap Estim Creat Clear Calc Estimated GFR POC Glucose Random Glucose Estimat Average Glucose 103 Hemoglobin A1c % 5.2 Calcium Magnesium Total Bilirubin AST ALT Alkaline Phosphatase Ammonia Total Protein Albumin 03/27/21 07:21 MCV MCH MCHC RDW Plt Count MPV Absolute Nucleated RBC Nucleated RBC % (auto) PT INR Anion Gap 13 Estim Creat Clear Calc 90.7 Estimated GFR > 60 POC Glucose Random Glucose 99 Estimat Average Glucose Hemoglobin A1c % Calcium 8.2 L Magnesium 1.7 Total Bilirubin 6.8 H AST 58 H ALT 60 H Alkaline Phosphatase 112 Ammonia Total Protein 5.9 L Albumin 3.5 Impressions Paracentesis Ultrasound 03/24/21 18:00 IMPRESSION: Ultrasound-guided paracentesis. Assessment and Plan (1) Cirrhosis of liver: Status: Acute (2) Acute hyponatremia: Status: Acute (3) Acute on chronic blood loss anemia: Status: Acute Assessment and Plan: hospital d#5 65yo M with decompensated HCV cirrhosis, AF on apixaban [discontinued] s/p PPM placement, DM2, asthma, admitted here 03/16/21 with anemia and abdominal distension. Required 3u pRBCs + 2u FFP. Diagnostic paracentesis 03/16/21 showed bloody fluid due to spontaneous intraperitoneal hemorrhage. Admitted to ICU and stepped down to IMC 03/17/21 but left AMA 03/22/21. Had therapeutic paracentesis on 03/18 and again 03/20. Re-admitted 03/23/20 with hematemesis/melena, to ICU for hemorrhagic shock. EGD showed large grade 3 esophageal varices and severe portal hypertensive gastropathy, also non-bleeding grade 3 duodenal ulcer. Paracentesis done 03/24/21. Stepped down to IMC 03/24/21. # acute variceal hemorrhage - d/c octreotide gtt, change PPI from IV to PO - sucralfate x 2 wk per GI - will start low-dose carvedilol for bleeding prevention per GI - Hb stable - advance to solid diet # decompensated HCV cirrhosis with ascites - s/p treatment/cure of HCV - undergoing workup for HCC as outpt - therapeutic paracentesis done 03/24/20 and again today. will need weekly paracentesis as outpt with replacement of albumin 8 g per L removed above 5L - started diuretics - pt uninterested in transplant as per Dr Ayers's outpt GI note and per my discussion with him yesterday # hypoK - repleted # coagulopathy - due to cirrhosis; given vitamin K # thrombocytopenia - mild, due to cirrhosis; monitor # AF - off anticoagulation due to bleeding. currently in sinus rhythm. carvedilol as above. # HTN - all antihypertensives stopped due to hemorrhagic shock- was on HCTZ, lisinopril, metoprolol, and amlodipine. start carvedilol today. # DM2, A1c 5.2 - diet-controlled # VTE ppx - SCDs # dispo - STR Quality Stroke Does the patient have a stroke diagnosis?: No VTE Prior VTE?: No VTE Risk Level:: Medical - moderate - high VTE Device Contraindication: N/A - Device Ordered VTE Drug Contraindication: Treatment Not Indicated
--- NOTE | 2021-03-27 15:07 | MHC.CM.PN ---
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 record reviewed per documentation (s/p paracentesis 03/27/21, tense ascites ( hcv,cirrhosis of liver, s/p ppm placement paracentesis 03/16 left ama 03/22/21, readmitted [facility] on 03/23/21 for hematemesis/melena to icu for hmeorragic shock egd lg grade 3 esophageal varicies severe portal hypertensive gastrography non bleeding grade 3 duodenal ulcer s/p para centesis 03/24/21 and again 03/27/21 plan d/c ocereotide gtt,change to ppi from ic to po sifate z2, startd on low dose carveditol , monitoring h.h advane diet d/c plan weekly paracentesis as outpatient with replacement of albumin 8gms per liter of fluid removed above 5 liters pt is not interested in transplant at this time,slowly discharge plan home with family , no services pcp dr aaron thurman - transportation- patient to call for post hospitla follow up transportation famil;y gi dr thomas gi
[2021-03-27 16:03] LABS: Glucose, Whole Blood 114 mg/dL (60-115)
--- NOTE | 2021-03-27 16:10 | PC.NURSE ---
Patient returned from paracentesis @ 1300. VSS. Denies pain. Dressing to right side of abdomen d/i. Abdomen distended, semifirm. Patient encouraged to use call smith and not get oob on own. Bed alarm on.
[2021-03-27] MEDS: Omeprazole 40 MG CAPSULE.DR PO (17:57)
[2021-03-27] MEDS: Sucralfate 1 GM TABLET PO ×2 (17:58→22:01)
[2021-03-27 20:22] LABS: Glucose, Whole Blood 124 mg/dL (60-115)
[2021-03-27] MEDS: carvediloL 3.125 MG TABLET PO (22:01)
[2021-03-28 00:25] VITALS: BP 125/70; PULSE 114; RESP 25; TEMP 37.3; O2SAT 97
[2021-03-28] MEDS: Morphine Sulfate 2 MG/ML CARTRIDGE IVPUSH ×2 (00:30→05:43)
[2021-03-28 05:41] VITALS: BP 129/62; PULSE 100; RESP 19; TEMP 36.6; O2SAT 96
[2021-03-28] MEDS: Omeprazole 40 MG CAPSULE.DR PO (05:42)
[2021-03-28 05:43] VITALS: RESP 19
[2021-03-28 06:00] VITALS: BMI 27.6
[2021-03-28 07:01] LABS: Hematocrit 33.2 % (42.0-52.0); Hemoglobin 10.8 g/dl (14.0-18.0); Mean Corpuscular HGB Conc 32.5 g/dl (31.0-36.0); Mean Corpuscular Hemoglobin 28.8 pg (27.0-33.0); Mean Corpuscular Volume 88.5 fL (80.0-98.0); Mean Platelet Volume 11.3 fL (9.4-12.4); Red Blood Count 3.75 X10*6/uL (4.60-5.80); Red Cell Distribution Width 19.3 % (11.0-16.0); White Blood Count 9.7 X10*3/uL (4.8-10.8)
[2021-03-28 07:02] LABS: Platelet Count 74 X10*3/uL (160-400)
[2021-03-28 07:03] LABS: INTERNATIONAL NORM RATIO 1.5 (0.9-1.1); Prothrombin Time 17.7 SEC (9.9-13.0)
[2021-03-28 07:10] VITALS: BP 132/70; PULSE 93; RESP 19; TEMP 36.8; O2SAT 97
[2021-03-28 07:25] LABS: Anion Gap 11 (12-20); Blood Urea Nitrogen 13 mg/dL (9-16); Calcium 8.2 mg/dL (8.4-10.2); Carbon Dioxide 20 mmol/L (22-29); Chloride 107 mmol/L (96-108); Creatinine Clr Calc Pharmacy 78.5; Estimated Glomerular Filt Rate > 60; Glucose Random 111 mg/dL (60-115); Magnesium 1.8 mg/dL (1.6-2.6); Sodium 134 mmol/L (135-145)
[2021-03-28 07:31] LABS: Glucose, Whole Blood 97 mg/dL (60-115)
[2021-03-28] MEDS: Potassium Chloride Packet 20 MEQ PACKET 40 MEQ PO (08:00)
[2021-03-28] MEDS: Furosemide 20 MG TABLET PO (08:00)
[2021-03-28] MEDS: Spironolactone 25 MG TABLET 50 MG PO (08:00)
[2021-03-28] MEDS: Lactulose 20 GM/30 ML SOLUTION 30 GM PO (08:00)
[2021-03-28] MEDS: Sucralfate 1 GM TABLET PO ×2 (08:01→11:54)
[2021-03-28] MEDS: carvediloL 3.125 MG TABLET PO (08:01)
[2021-03-28 10:15] VITALS: BP 132/70; PULSE 93; O2SAT 97
[2021-03-28 11:03] VITALS: BP 108/63; PULSE 97; RESP 17; TEMP 36.4; O2SAT 100
[2021-03-28 11:17] LABS: Glucose, Whole Blood 165 mg/dL (60-115)
--- NOTE | 2021-03-28 13:56 | P.F2F_ITS ---
Service Date Service Date: 03/28/21 Encounter Date of encounter: 03/28/21 Reasons for Services Signs and symptoms assessed: balance breathing abd distension Reason for senior living: neurological assessment, medication management, medication treatment and teach disease management Reason for physical therapy: home safety and mobility, therapeutic exercises, gait/transfer training, assess need for DME, ADL training and energy conservation MD Overseeing Care: Rhina Carney Homebound: Leaving the home is medically contraindicated at this time without the asist of a device and/or another person due th the listed conditions above and below. Reason homebound: unsteady gait / fall risk, shortness of breath with minimal effort, poor balance / fall risk, immunosuppression / infection risk and weakness related to hospital stay Certification: Based on the above findings, I certify that this patient is confined to the home and needs intermittent senior living care, physical therapy and/or speech therapy, or continues to need occupational therapy. The patient is under my care, and I have initiated the establishment of the plan of care. The patient will be followed by a physician who will periodically review the plan of care.
--- NOTE | 2021-03-28 14:13 | P.DS_ITS ---
DS: Providers Provider Date of Service: 03/28/21 Date of admission: 03/23/21 15:50 Date of discharge: 03/28/21 Primary care physician: Rhina Carney NP Admitting clinician: Skyler Traylor Attending physician on discharge: Joanne Kennedy DS: Diagnosis Discharge Diagnosis (1) Cirrhosis of liver: Status: Acute (2) Acute hyponatremia: Status: Acute (3) Acute on chronic blood loss anemia: Status: Acute (4) Hemorrhagic shock: Status: Acute (5) Cirrhosis of liver with ascites: Status: Acute (6) Acute blood loss anemia: Status: Acute (7) Esophageal varices with hemorrhage: Status: Acute (8) Portal hypertension: Status: Acute (9) Duodenal ulcer: Status: Acute DS: Summary Hospital Course Hospital Course: From admission H+P by vessel ordinary seaman Skyler Traylor, 03/23/21: Mr. Kalia Birch was admitted to ICU from the ED bec of UGI bleeding w hemorrhagic shock. The patient is a 65-year-old male with past medical history of chronic hepatitis-C with portal hypertension and cirrhosis, undergoing workup for hepatocellular carcinoma; he was tx for hepatitis C with Epclusa in 2018.? hypertension; atrial fibrillation on Eliquis, status post PPM; asthma; and diabetes mellitus. The patient has no prior h/o GI bleeding.? On 12/09/2017, Dr. Ayers did an EGD Screen for varices.? Findings:? Esophagus:? Focal esophagitis with ulcers at GE junction.? No esophageal varices.? Stomach:? Moderate portal gastropathy.? Diffuse gastric erythema - biopsies were obtained.? No gastric varices.? Duodenum:? Mild duodenitis in bulb.? Normal descending duodenum. The patient was recently admitted here on 03/16/21 with a 3 week history of progressive worsening abdominal pain and weakness.? He was noted to have a hemoglobin of 6 (baseline 9.5) with hypotension, elevated lactate.? Baseline plat count in normal, baseline PT is about 19/1.7.? Was given 3 PRBCs and 2 units of FFP, Vit K, and ceftriaxone.? Had a diagnostic paracentesis that demonstrated bloody fluid, thought 2? to spontaneous intraperitoneal hemorrhage.? Was admitted to ICU for a day, then the medical floor.? Eliquis was discontinued.? INR improved to 1.3 with above tx. On Finn 1, he had a dx and therapeutic paracentesis w removal of almost 5L.? Abdom US also showed evidence of portal vein thrombosis. ?Pathology showed no malignant cells. ?On Mar 20 he had repeat paracentesis w removal of 4.8L fluid. According to Dr. Cabrera?s recent note, the pt was referred to [facility].? QUESTION OF LIVER TRANSPLANTATION: Pt has good hepatic synthetic function with meld score of 13, option for liver transplantation was discussed with the patient (given suspected HCC) and patient was not interested in purs uing a liver transplant.? A liver bx was under discussion when the patient left the hospital AMA yesterday on 03/22/2021.? According to Dr. Heredia status charge note, ?he expressed that he no longer wants treatment or work up, but also was not willing to stay to arrange sufficient set up for end of life care.? HISTORY OF PRESENT ILLNESS: ?He was BIBA to the ED this morning with complaints of generalized weakness, confusion, fatigue, malaise, dizziness, shortness of breath and vomiting up bright red blood multiple episodes since last night.? He reported black and bloody stools. In the ED, he had gross hematemesis, melena, blood streaked stool and gross hematochezia.? Vital signs on presentation included heart rate of 130, blood pressure 94/53, respiratory rate 24, sat of 100% on room air.? The temperature was 98.2 degrees.? He was alert and oriented, although poor historian.? The no respiratory distress.? The abdomen was markedly distended, but soft with mild tenderness.? No guarding or rebound. Labs in the ED were notable for hemoglobin 6.1 (was 9.1 the previous day), white count 13, platelet count [id number], PTT 24/2.1 (was 15/1.3), BUN/creatinine 63/1.8 (was 27/1.0), T bili 1.6, AST/ALT 93/69, albumin 2.8 (was 3.3). Patient was given 2 L of crystalloid.? He underwent a V/Q scan to rule out PE.? He vomited BRB, and was seen by Dr. Ambrosio.? He was started on octreotide and PPI, and given Vit K, 1 unit RBC, and 3 units FFP.? CT abdomen showed large volume ascites with some dependent increased density present in the right side and dependently in ascites within the cul-de-sac, suspicious for possible layering of blood products.? There were numerous varices with what appears to be a spontaneous splenorenal shunt.? The liver was cirrhotic with two low-density lesions within the right lobe of the liver measuring about 3.5 cm each. Patient was admitted to the ICU or I saw him on arrival.? He was talking softly on the phone.? Seemed to be more LS oriented, although hard to say.? He is very pale, with no scleral jaundice.? No jugular venous distention with the head of the bed at 10-20 degrees.? Chest is clear to auscultation heart rate and rhythm are regular and tachy with normal-sounding S1 and S2, with no murmur or gallops.? The abdomen is hugely distended, greater than the size of a basketball.? Very soft, but not tympanitic.? Undoubtedly ascites.? No extremity edema.? He?s had mult black stools in the ICU already. This 65yo M with decompensated HCV cirrhosis, AF on apixaban and s/p PPM placement, DM2, and asthma was initially admitted here 03/16/21 with anemia and abdominal distension.? He was transfused 3u pRBCs + 2u FFP.? Diagnostic paracentesis 03/16/21 showed bloody fluid due to spontaneous intraperitoneal hemorrhage.? He was admitted to ICU and stepped down to IMC 03/17/21 but left AMA 03/22/21; reference is made to the discharge summary by Dr Jorge Maya from 03/22/21. He had undergone therapeutic paracenteses on 03/18 and again on 03/20. He was re-admitted 03/23/21 to the ICU with hemorrhagic shock. EGD done by Dr Bety Ambrosio on 03/24/20 showed large grade 3 esophageal varices and severe portal hypertensive gastropathy, and also a non-bleeding grade 3 duodenal ulcer.? The varices were banded.? He was given octreotide drip and IV PPI. Sucralfate was started for prevention of post-banding ulceration. Apixaban for prevention of AF-related CVA will be permanently discontinued given the severe bleeding risk. Once he was hemodyanmically stable and bleeding was controlled, he was [place] [facility] [place]. His diet was gradually advanced. He underwent therapeutic paracenteses on 03/24 and again on 03/27. He was instructed to restrict sodium and fluid intake, and started on diuretics. All antihypertensives had been held on admission to the ICU; he was started on low-dose carvedilol for prevention of variceal hemorrhage. He will need close follow-up with [facility] [place] [facility]. He again declined referral for liver transplant in my conversation with him. He will need weekly paracenteses [place] [facility] [place] and periodic lab monitoring [beginning in 1 week with CBCd, CMP, magnesium, and PT/INR]. He was discharged home with VNA services. Time Spent with Patient Time attestation: Total time spent providing and/or coordinating discharge services: Discharge coordination time: Greater than 30 minutes Quality: Stroke Does the patient have a stroke diagnosis?: No Physical Exam Vital Signs: Vital Signs: Last Vital Signs Temp 97.5 F 03/28/21 11:03 Pulse 97 03/28/21 11:03 Resp 17 03/28/21 11:03 BP 108/63 03/28/21 11:03 Pulse Ox 100 03/28/21 11:03 BMI result Body Mass Index 27.6 Gen: chronically ill-appearing HEENT: sclera icteric, moist mucus membranes Neck: supple Lungs: clear to auscultation bilaterally Heart: regular rate and rhythm, no murmurs Abd: non-tense ascites with fluid wave Ext: no edema Skin: warm/well-perfused Neuro: alert and oriented x3, no focal findings, no asterixis Psych: appropriate affect DS: Data Data Completed and Pending Completed studies during hospitalization [Text1]: Laboratory Results WBC 9.7 X10*3/uL (4.8-10.8) 03/28/21 06:00 RBC 3.75 X10*6/uL (4.60-5.80) L 03/28/21 06:00 Hgb 10.8 g/dl (14.0-18.0) L 03/28/21 06:00 Hct 33.2 % (42.0-52.0) L 03/28/21 06:00 MCV 88.5 fL (80.0-98.0) 03/28/21 06:00 MCH 28.8 pg (27.0-33.0) 03/28/21 06:00 MCHC 32.5 g/dl (31.0-36.0) 03/28/21 06:00 RDW 19.3 % (11.0-16.0) H 03/28/21 06:00 Plt Count 74 X10*3/uL (160-400) L 03/28/21 06:00 MPV 11.3 fL (9.4-12.4) 03/28/21 06:00 Immature Gran % (Auto) 0.9 % (0.0-0.4) H 03/24/21 05:30 Neut % (Auto) 77.4 % (45-73) H 03/24/21 05:30 Lymph % (Auto) 9.5 % (20-40) L 03/24/21 05:30 [place] % (Auto) 11.6 % (2-11) H 03/24/21 05:30 Eos % (Auto) 0.5 % (0-4) 03/24/21 05:30 Baso % (Auto) 0.1 % (0-2) 03/24/21 05:30 Lymph # (Auto) 0.7 X10*3/uL (1.2-4.9) L 03/24/21 05:30 [place] # (Auto) 0.9 X10*3/uL (0.1-1.2) 03/24/21 05:30 Eos # (Auto) 0.0 X10*3/uL (0.0-0.4) 03/24/21 05:30 Baso # (Auto) 0.0 X10*3/uL (0.0-0.2) 03/24/21 05:30 Abs Immat Gran (auto) 0.07 X10*3/uL (0.00-0.03) H 03/24/21 05:30 Absolute Neuts (auto) 5.9 x10*3/uL (2.0-8.3) 03/24/21 05:30 Absolute Nucleated RBC 0.000 X10*3/uL (0.0-0.012) 03/28/21 06:00 Nucleated RBC % (auto) 0.0 /100WBC (0.0-0.2) 03/28/21 06:00 PT 17.7 SEC (9.9-13.0) H 03/28/21 05:59 INR 1.5 (0.9-1.1) H 03/28/21 05:59 APTT 30.6 SEC (24.1-38.0) 03/24/21 05:30 VBG pH 7.45 (7.32-7.43) H 03/23/21 18:00 VBG pCO2 25 mmHg 03/23/21 18:00 VBG pO2 56 mmHg 03/23/21 18:00 VBG HCO3 18 mmol/L (22-26) L 03/23/21 18:00 VBG O2 Saturation 84.0 % 03/23/21 18:00 VBG Base Excess -4.9 mmol/L 03/23/21 18:00 Sodium 134 mmol/L (135-145) L 03/28/21 05:59 Potassium 4.0 mmol/L (3.3-5.1) 03/28/21 05:59 Chloride 107 mmol/L (96-108) 03/28/21 05:59 Carbon Dioxide 20 mmol/L (22-29) L 03/28/21 05:59 Anion Gap 11 (12-20) L 03/28/21 05:59 BUN 13 mg/dL (9-16) 03/28/21 05:59 Creatinine 0.92 mg/dL (0.5-1.4) 03/28/21 05:59 Estim Creat Clear Calc 78.5 03/28/21 05:59 Estimated GFR > 60 03/28/21 05:59 POC Glucose 165 mg/dL (60-115) H 03/28/21 11:02 Random Glucose 111 mg/dL (60-115) 03/28/21 05:59 Estimat Average Glucose 103 mg/dL 03/27/21 07:21 Hemoglobin A1c % 5.2 % 03/27/21 07:21 Lactic Acid 1.1 mmol/L (0.5-2.0) 03/25/21 04:55 Lactic Acid F/U @ 2Hr 6.2 mmol/L (0.5-2.0) H* 03/23/21 13:15 Calcium 8.2 mg/dL (8.4-10.2) L 03/28/21 05:59 Phosphorus 1.8 mg/dL (2.7-4.5) L 03/25/21 04:55 Magnesium 1.8 mg/dL (1.6-2.6) 03/28/21 05:59 Total Bilirubin 6.8 mg/dL (0.0-1.0) H 03/27/21 07:21 Direct Bilirubin 1.4 mg/dL (0.0-0.5) H 03/24/21 05:30 AST 58 U/L (5-37) H 03/27/21 07:21 ALT 60 U/L (0-40) H 03/27/21 07:21 Alkaline Phosphatase 112 U/L (39-117) 03/27/21 07:21 Ammonia 69 umol/L (13-55) H 03/27/21 07:21 Troponin I High Sens 4.3 ng/L (<3.5-35.0) D 03/23/21 10:41 B-Natriuretic Peptide 18 pg/mL (<100) 03/23/21 10:41 Total Protein 5.9 g/dL (6.5-8.0) L 03/27/21 07:21 Albumin 3.5 g/dL (3.5-5.0) 03/27/21 07:21 Lipase 30 U/L (8-78) 03/23/21 10:41 Urine Color YELLOW 03/23/21 18:06 Urine Appearance CLEAR 03/23/21 18:06 Urine pH 6.0 (5.0-8.0) 03/23/21 18:06 Ur Specific [place] 1.015 (1.005-1.025) 03/23/21 18:06 Urine Protein NEG MG/DL (NEG-TRACE) 03/23/21 18:06 Urine Glucose (UA) NEG MG/DL (NEG) 03/23/21 18:06 Urine Ketones NEG MG/DL (NEG) 03/23/21 18:06 Urine Blood NEG (NEG) 03/23/21 18:06 Urine Nitrite NEG (NEG) 03/23/21 18:06 Ur Leukocyte Esterase NEG (NEG) 03/23/21 18:06 Stool Occult Blood POSITIVE (NEGATIVE) 03/23/21 18:00 COVID-19 (DESIREE) Negative (Negative) 03/23/21 11:01 COVID-19 Clin Com See Note 03/23/21 11:01 Blood Type O Positive 03/23/21 11:41 Antibody Screen NEGATIVE 03/23/21 11:41 Crossmatch See Detail 03/23/21 11:[address] 03/23/21 12:01 IMPRESSION: No acute intracranial process seen. Hypoexpanded lungs without acute pneumonic process. There is platelike atelectasis in right lower lobe. Abdomen/Pelvis CT 03/23/21 12:02 IMPRESSION: Large volume ascites with some dependent increased density present in the right side just inferior and posterior to a somewhat exophytic liver lesion within segment 6 of the liver. There is also noted to be some increased density dependently in ascites within the cul-de-sac. These findings are suspicious for possible layering of blood products. No abdominal wall hematoma is identified. Liver lesions may be ligament in this patient with hepatic cirrhosis. Numerous varices with what appears to be a spontaneous splenorenal shunt. Portal lymphadenopathy. Thickened sharma involving the ascending and transverse colon which may be related to colitis. No definite evidence of occlusive mesenteric ischemia however nonocclusive ischemia cannot be excluded on this study. Pulmonary Perfusion Imaging 03/23/21 12:48 IMPRESSION: Lung perfusion scan is essentially normal, without evidence of possible pulmonary embolus. Chest X-Ray 03/23/21 17:35 IMPRESSION: No acute abnormality of chest. Paracentesis Ultrasound 03/27/21 12:45 IMPRESSION: Successful ultrasound-guided therapeutic right lower quadrant paracentesis performed. Previously 4.3 L of fluid was removed. Discharge Plan Discharge Patient Disposition: Home Health Service Discharge Diagnosis: hemorrhagic shock due to acute variceal hemorrhage, decompensated cirrhosis with ascites, portal hypertension, duodenal ulcer Referrals: Bety Ambrosio MD [Physician] - 1 Week Rhina Carney NP [Primary Care Provider] - 1 Week Discharge Medications: New sucralfate 1 gram Tablet 1 g PO QIDACHS Qty: 56 RF: 0 omeprazole 40 mg Capsule,Delayed Release(Dr/Ec) 40 mg PO BID@0630,1630 Qty: 60 RF: 0 spironolactone 25 mg Tablet 50 mg PO DAILY Qty: 30 RF: 0 carvedilol 3.125 mg Tablet 3.125 mg PO BID Qty: 60 RF: 0 furosemide 20 mg Tablet 20 mg PO DAILY Qty: 30 RF: 0 lactulose 20 gram/30 mL Solution 30 g PO TID Qty: 1800 RF: 0 Continued atorvastatin 10 mg tablet 1 tab PO DAILY RF: 0 cholecalciferol (vitamin D3) 25 mcg (1,000 unit) capsule 25 mcg PO DAILY RF: 0 Incruse Ellipta 62.5 mcg/actuation blister with device 1 inh inhalation DAILY RF: 0 albuterol sulfate 90 mcg/actuation HFA aerosol inhaler 1 - 2 puff inhalation Q6H PRN (Reason: Wheezing) RF: 0 Discontinued amlodipine 10 mg tablet 1 tab PO DAILY RF: 0 hydrochlorothiazide 25 mg tablet 1 tab PO DAILY RF: 0 lisinopril 40 mg tablet 1 tab PO DAILY RF: 0 apixaban 5 mg tablet 5 mg PO BID RF: 0 Hold Instructions: Resume on 03/28/21. clear with gi and hematology metoprolol tartrate 25 mg tablet 25 mg PO BID RF: 0 Discharge Orders: Discharge Order (Routine); Ordered 03/28/21 Ordered By: Joanne Kennedy Diet: diabetic diet, low salt diet and other Activity on Discharge: As tolerated Stand Alone Forms: Patient Portal Discharge page Other Ambulatory Orders: Complete Blood Count Auto Diff (Routine) Timeframe: 1 Week Facility: [facility] - Location: Laboratory Ordered By: Joanne Kennedy Comprehensive Met. Panel (Routine) Timeframe: 1 Week Facility: [facility] - Location: Laboratory Ordered By: Joanne Kennedy Magnesium (Routine) Timeframe: 1 Week Facility: [facility] - Location: Laboratory Ordered By: Joanne Kennedy US paracentesis abd w/image (QWEEK) Timeframe: [id number] Facility: [facility] - Location: Ultrasound Ordered By: Joanne Kennedy US paracentesis abd w/image (QWEEK) Timeframe: [id number] Facility: [facility] - Location: Ultrasound Ordered By: Joanne Kennedy US paracentesis abd w/image (QWEEK) Timeframe: [id number] Facility: [facility] - Location: Ultrasound Ordered By: Joanne Kennedy US paracentesis abd w/image (QWEEK) Timeframe: [id number] Facility: [facility] - Location: Ultrasound Ordered By: Joanne Kennedy US paracentesis abd w/image (QWEEK) Timeframe: [id number] Facility: [facility] - Location: Ultrasound Ordered By: Joanne Kennedy US paracentesis abd w/image (QWEEK) Timeframe: [id number] Facility: [facility] - Location: Ultrasound Ordered By: Joanne Kennedy US paracentesis abd w/image (QWEEK) Timeframe: [id number] Facility: [facility] - Location: Ultrasound Ordered By: Joanne Kennedy US paracentesis abd w/image (QWEEK) Timeframe: [id number] Facility: [facility] - Location: Ultrasound Ordered By: Joanne Kennedy US paracentesis abd w/image (QWEEK) Timeframe: [id number] Facility: [facility] - Location: Ultrasound Ordered By: Joanne Kennedy US paracentesis abd w/image (QWEEK) Timeframe: [id number] Facility: [facility] - Location: Ultrasound Ordered By: Joanne Kennedy US paracentesis abd w/image (QWEEK) Timeframe: [id number] Facility: [facility] - Location: Ultrasound Ordered By: Joanne Kennedy US paracentesis abd w/image (QWEEK) Timeframe: [id number] Facility: [facility] - Location: Ultrasound Ordered By: Joanne Kennedy Prothrombin Time INR (Routine) Timeframe: 1 Week Facility: [facility] - Location: Laboratory Ordered By: Joanne Kennedy Activity Restrictions/Additional Instructions: low-sodium, high-protein diet restrict fluid to 1500 mL per day Care Plan Goals: prevention of complications of cirrhosis Health Concerns: hemorrhagic shock due to acute variceal hemorrhage, decompensated cirrhosis with ascites, portal hypertension, duodenal ulcer Plan of Treatment: home with visiting nurse services for medication/weight monitoring, disease management, physical therapy labs in 1 week: CBCd, CMP, PT/INR, magnesium for variceal hemorrhage: - STOP APIXABAN [ELIQUIS] - STOP ALL ANTIHYPERTENSIVES. Start carvedilol [Coreg] 3.125 mg twice daily - take sucralfate 1g 4x a day for 2 weeks for prevention of post-banding ulceration for portal hypertension and duodenal ulcer - take omeprazole 40 mg 2x a day for management of ascites: - restrict sodium to 2000 mg/d - restrict fluid to 1500 mL/d - take furosemide 20 mg daily plus spironolactone 50 mg daily - [place] [facility] [place] [call [phone] for appointments] for cirrhosis: - avoid alcohol and acetaminophen - take lactulose 30 gm 3x day; titrate to achieve 3 soft BM daily - follow up in 1-2 weeks with Jamie Ambrosio or Armen [place] [facility] [place] [place] [call [phone] for appointment] see your primary care doctor in 1 week Assessment: see Discharge Summary Patient Instructions: Cirrhosis (DC), Ascites (DC), Esophageal Varices (DC), Paracentesis (DC), Esophageal Banding (DC)
--- NOTE | 2021-03-28 14:52 | MHC.CM.PN ---
[employer] MAGISTRATE JUDGE NTOE ELECTRONIC MEDICAL RECORD REFIEWED ALONG WITH CASE DOSCUSSED WITH PATIENT AND STAFF NURSE AND HOSPITLAIST , SPOKE WITH PHYSICAL THERAPIST PATIENT DOES NOT NEED TO GO TO REHAB , HE CAN GO HOME WITH VNA AND HOME PHYSICAL THERAPY , THIS WAS INFORMED TO PATIENT , THE [place] [facility] COULD NOT ACCEPT HIM NO AVAILABILITY AND COMFORT [facility] CAREGIVER WERE ABLE TO ACCEPT HIM AND HAS AVAILABILITY ALL DISCHARGE PAPER WORK WAS SENT DISCHARGE PLAN HOME WITH COMFORT PLUS CAREGIVERS FOR NRURSING AND HOME PHYSICAL THERAPY TRANSPORTATION APTIETN TO ARRANGE WITH FAMILY/FRIENDS PCP DR SAMIR JAMES
--- NOTE | 2021-04-06 14:02 | P.CDIR_ITS ---
Documented by User: Belem Skinner RN 04/06/21 14:13 Retrospective Query PHYSICIAN'S DOCUMENTATION REQUEST Date of Query: 04/06/21 [id number] Patient Name: Ashok Birch Admit Date: 03/23/21 Dear Doctor, A review of the medical record indicates additional documentation may be needed. Please review below and update the documentation accordingly. Clinical Indicators: The diagnosis of Sepsis was documented on 03/23/21 but is not consistently noted in subsequent documentation. Risk Factors/Clinical Indicators/Treatments WBC 13 HR 126 RR 23 ED note of 03/23/21 states Sepsis Please clarify the following: * Sepsis was present on admission and is now resolved * Sepsis was present on admission and is still being monitored, evaluated, or treated * Sepsis was ruled out * Sepsis is still a likely, suspected, probable diagnosis * Other (please specify) * Unable to determine Use of terms such as suspected, likely, concern for, or probable (associated with a specific diagnosis that is being evaluated, monitored, or treated as if it exists) are acceptable and can be coded in the inpatient setting, when documented at the time of discharge. Thank you, Belem Skinner RN Extension: [phone] Please use your independent medical judgment in providing your response. THIS QUERY IS PART OF THE PERMANENT MEDICAL RECORD Documented by User: Joanne Kennedy MD 04/09/21 13:42 Retrospective Query Provider Response: Other (Patient was not septic. He had hemorrhagic shock.)
== END 2021-03-28 15:59 | disposition home health service (06) | DRG 393 ==
LOC: HO.ED 12:05 → HO.ICU 15:53 → HO.IMC 03-24 20:13 → HO.S3 03-27 11:14
PROVIDERS: Internal Medicine Gastroenterology; Physician Assistant; Physician Assistant Medical; Radiology Diagnostic Radiology; Admitting Provider Anesthesiology; Emergency Provider Student in an Organized Health Care Education/Training Program; PCP Nurse Practitioner Primary Care; Visit Provider Family Medicine
PROC: 0DJ08ZZ Inspection of Upper Intestinal Tract, Via Natural or Artificial Opening Endoscopic (ICD-10-PCS; CPT 43235; principal; 2021-03-24 10:10)
PROC: 0W9G3ZZ Drainage of Peritoneal Cavity, Percutaneous Approach (ICD-10-PCS; principal; 2021-03-27 10:00)
DX: K66.1 Hemoperitoneum (principal); K26.4 Chronic or unspecified duodenal ulcer with hemorrhage; I85.11 Secondary esophageal varices with bleeding; R57.8 Other shock; N17.9 Acute kidney failure, unspecified; D62 Acute posthemorrhagic anemia; C22.0 Liver cell carcinoma; D68.9 Coagulation defect, unspecified; K76.6 Portal hypertension; R18.8 Other ascites; E87.1 Hypo-osmolality and hyponatremia; I10 Essential (primary) hypertension; D69.6 Thrombocytopenia, unspecified; E11.9 Type 2 diabetes mellitus without complications; I48.91 Unspecified atrial fibrillation; K74.60 Unspecified cirrhosis of liver; Z95.0 Presence of cardiac pacemaker; Z20.822 Contact with and (suspected) exposure to COVID-19; K31.89 Other diseases of stomach and duodenum; Z86.19 Personal history of other infectious and parasitic diseases; Z87.891 Personal history of nicotine dependence; Z79.899 Other long term (current) drug therapy
CPT/HCPCS: 36415; 36430; 49083; 70450; 71045; 71046; 74176; 78580; 80048; 80053; 80076; 81003; 82140; 82272; 82803; 82947; 83036; 83605; 83690; 83735; 83880; 84100; 84484; 85014; 85018; 85025; 85027; 85610; 85730; 86850; 86900; 86901; 86923; 87040; 87635; 93005; 96361; 96365; 96367; 96375; 97110; 97116; 97162; 99285; 99291; A9540; J0696; J1170; J2250; J2270; J2354; J2370; J2405; J2765; J3010; J3430; P9016; P9017; P9047

== ENCOUNTER 2021-03-30 07:40 | Inpatient (IN) | payer MEDICARE, MEDICAID, SELFPAY ==
--- NOTE | ~2021-03-30 | CT_ITS ---
EXAMINATION: CT ABDOMEN AND PELVIS WITHOUT CONTRAST CLINICAL INFORMATION: Bilateral lower abdominal pain. History of cirrhosis and intraperitoneal bleed COMPARISON: None TECHNIQUE: Multidetector volumetric imaging was performed from the superior aspect of the liver through the pubic symphysis. Sagittal and coronal reformatted images were obtained on the technologist's workstation. This CT examination was performed using dose optimization techniques as appropriate, variously including the following: *Automated exposure control *Adjustment of mA and/or kV according to patient size (this includes techniques or standardized protocols for targeted exams where dose is matched to indication/reason for exam; i.e. extremities or head) *Use of iterative reconstruction technique DLP: 858 mGy-cm FINDINGS: LUNG BASES: There is bibasilar atelectasis and/or scarring. The heart size is normal. There are pacer electrodes in right atrium and right ventricle. LIVER, GALLBLADDER, AND BILIARY TREE: The liver is small size, lobulated surface and heterogenous. There is 3 cm slightly exophytic mass in right hepatic lobe segment 6. Previously it measured same size. There is a slightly larger lesion in the segment 6 measuring 7.5 x 4.1 cm on axial image 31/3. It is same size. There is no intrahepatic ductal dilatation. There is a moderate free fluid surrounding the liver and the spleen. The gallbladder is not seen with certainty at this time. PANCREAS: Unremarkable. SPLEEN: Unremarkable. ADRENAL GLANDS: There is left adrenal enlargement with a solitary nodule measuring 2.1 cm. The right adrenal gland appears unremarkable. There are adjacent numerous varices surrounding the left adrenal gland.. KIDNEYS AND URETERS: The kidneys are normal in size, shape, and attenuation. No hydronephrosis, hydroureter, or calculi seen. No perinephric stranding. BLADDER: Unremarkable. GASTROINTESTINAL TRACT: There is a nondistended colon with gas. There is mild mural thickening of ascending, descending and sigmoid colon. The small bowel loops are normal caliber. Appendix is not seen. There is a large amount of ascites. ABDOMINAL WALL: No significant hernia is appreciated. LYMPH NODES: Normal. VASCULAR: There is atherosclerotic calcification of abdominal aorta and common iliac arteries. There are numerous varices seen in the upper abdomen and para-aortic region in the upper mid abdomen from a portal hypertension. The portal vein is not well opacified. PELVIC VISCERA: There is moderate free fluid. The prostate gland is mildly enlarged. There is fluid extending into the inguinal canal and the scrotum. OSSEOUS STRUCTURES: No lytic or sclerotic process. CT/CT abdomen pelvis wo con IMPRESSION: Large volume ascites. Liver cirrhosis with 2 hepatic lesions which are stable compared to previous CT abdomen exam 03/23/2021. Left adrenal lesion is stable. Nonspecific mild mural thickening distal descending colon which could be secondary to ascites or colitis. Fleischner guidelines were followed.
[2021-03-30 07:53] VITALS: BP 108/60; PULSE 120; RESP 20; TEMP 36.8; O2SAT 99; BMI 25.9
--- NOTE | 2021-03-30 07:53 | ECG_ITS ---
Test Reason : tachy Blood Pressure : / mmHG Vent. Rate : 120 BPM Atrial Rate : 120 BPM P-R Int : 118 ms QRS Dur : 064 ms QT Int : 320 ms P-R-T Axes : 000 149 111 degrees QTc Int : 452 ms Suspect limb lead reversal, interpretation assumes no reversal Sinus tachycardia Low voltage QRS Lateral infarct , age undetermined Abnormal ECG When compared with ECG of 23-MAR-2021 17:46, changes noted. Referred By: Iris Jimenez Electronically Signed By:JUN SPENCE
--- NOTE | 2021-03-30 07:55 | ED_ITS ---
HPI - General Adult General Chief complaint: Abdominal Pain Stated complaint: RIGID ABD,VOMITING BLOOD PER EMS Time Seen by Provider: 03/30/21 07:44 Source: EMS Mode of arrival: EMS Limitations: other History of Present Illness HPI narrative: Patient comes to the emergency room via EMS, patient states that he has been vomiting blood, states that he does not know for how long. Patient also complaining of bilateral lower abdominal pain. Of note, patient was discharged from the hospital on March 24 2021. Patient had an EGD done, which showed esophageal viruses grade 3, they were ligated. Patient also had a paracentesis done which reveals but taken is intraperitoneal hemorrhage. At that time, patient was on Eliquis for atrial fibrillation. Since patient was discharged from the hospital, patient has not been on any blood thinners. Related Data Home Medications Medication Instructions Recorded Confirmed cholecalciferol (vitamin D3) 25 25 mcg PO DAILY 03/24/20 03/23/21 mcg (1,000 unit) capsule albuterol sulfate 90 mcg/actuation 1 - 2 puff INHALATION Q6H PRN 07/14/20 03/23/21 aerosol inhaler umeclidinium 62.5 mcg/actuation 1 inh INHALATION DAILY 02/16/21 03/23/21 blister powder for inhalation (Incruse Ellipta) atorvastatin 10 mg tablet 1 tab PO DAILY 03/23/21 03/23/21 Previous Rx's Medication Instructions Recorded carvedilol 3.125 mg tablet 3.125 mg PO BID #60 tab 03/28/21 furosemide 20 mg tablet 20 mg PO DAILY #30 tab 03/28/21 lactulose 20 gram/30 mL oral 30 g (45 mL) PO TID #1800 ml 03/28/21 solution omeprazole 40 mg capsule,delayed 40 mg PO BID@0630,4520 #60 cap 03/28/21 release spironolactone 25 mg tablet 50 mg PO DAILY #30 tab 03/28/21 sucralfate 1 gram tablet 1 g PO QIDACHS #56 tab 03/28/21 Allergies Allergy/AdvReac Type Severity Reaction Status Date / Time No Known Allergies Allergy Verified 03/16/21 05:32 Review of Systems Review of Systems: Constitutional : No Weight loss, No Fever, No Chills, No Night Sweats, complaining fatigue, generalized malaise ENT/Mouth : No Hearing loss, No Ear Pain, No Nasal Congestion, No Sinus Pain, complaining of Hoarseness, No sore throat, No Rhinorrhea, No Swallowing Difficulty Eyes: No Eye Pain, No Swelling, No Redness, No Foreign Body, No Discharge, No Vision Changes Cardiovascular : No Chest Pain, No SOB, No Dyspnea on Exertion, No Orthopnea, No Edema, No Palpitations Respiratory : No Cough, No Sputum, No Wheezing, No Smoke Exposure, No Dyspnea Gastrointestinal : Complaining of nausea and vomiting blood, No Diarrhea, No Constipation, complaining of severe bilateral lower quadrant pain, No Hematochezia, No Melena Genitourinary : no irregular bleeding, No Dysuria, No Urinary Frequency, No Hematuria, No Urinary Incontinence, No Urgency, No Flank Pain, No Urinary Flow Changes, No Hesitancy Musculoskeletal : No joint pain, No Myalgias, No Joint Swelling Skin : No Skin Lesions, No rash Neuro : No Weakness, No Numbness, No Paresthesias, No Loss of Consciousness, No Dizziness, No Headache Psych : No Anxiety/Panic, No Depression, No SI/HI/AH/VH, No Social Issues, Heme/Lymph: No Bruising, No Bleeding,No Lymphadenopathy Endocrine : No Polyuria, No Polydipsia, No Temperature Intolerance PMFSH Past Medical History Medical History Hx of cardiac pacemaker Surgical History H/O colonoscopy Hx of esophagogastroduodenoscopy (11/29/17) Family History Family History Father No problems noted. Mother No problems noted. Sister Hx of skin cancer, basal cell Social History Social History Household Members: Spouse Housing: Apartment Do you presently have visiting nurse or other home services: No Unable to assess alcohol history related to: Unknown Alcohol intake: former Patient Tobacco Use Status: Former Tobacco user Tobacco use type: Cigarette e-Cigarette/Vaping Use: Never Used Substance Use Type: Marijuana Advance Directives: No Advance Directives Information Provided: No service: No Current occupational status: disabled Physical Exam Vital Signs: Vital Signs: Last Vital Signs Temp 98.3 F 03/30/21 07:53 Pulse 103 H 03/30/21 11:12 Resp 20 03/30/21 07:53 BP 103/51 L 03/30/21 11:12 Pulse Ox 99 03/30/21 07:53 BMI result Body Mass Index 25.9 Const: Other: Appearance: Alert. Oriented X3. Ill-appearing, weak Eyes: Pupils equal, round and reactive to light. ENT: Pharynx normal. voice is barely audible Neck: Normal inspection. Neck supple. No lymph nodes noted. No crepitus CVS: Normal heart rate and rhythm. Pulses normal. Normal S1 and S2 Respiratory: No respiratory distress. Breath sounds normal. No Wheezing. No r ales Abdomen: Distended, tender to palpation in bilateral lower quadrants Skin: Skin warm and dry. Diffusely icteric Extremities: No lower extremity edema Neuro: Oriented X 3. No motor deficit. No sensory deficit. Moving all extermities. No slurred speech. Course Course Course Narrative: Patient's lactic acid is 2.5. At this time, sepsis is not suspected. Patient has had previously increased lactic acid likely secondary to hepatic failure. Patient has large volume ascites, no fever. Patient does have bilateral lower quadrant abdominal pain, we are getting things ready to do a paracentesis, patient will be empirically treated with ceftriaxone. Patient had a paracentesis, 5300 mL were obtained. Patient was given 1 dose of albumin. For hyperglycemia, patient was given 2 doses of D50 and 10 units of insulin. EKG do not show any acute findings/peaked T-waves In the emergency room, patient has not had any episodes of hematemesis Patient's blood pressure remained stable. Patient states that his abdominal pain improved after the paracentesis. All of his labs for peritoneal fluid are pending. As mentioned above, patient was treated empirically for possible SBP with ceftriaxone. I discussed the patient with Dr. Lockhart, patient is being admitted. At this time, sepsis is not suspected Procedures Paracentesis Time Out Performed: Yes Indication: Ascites Procedure: therapeutic paracentesis Location: LLQ Local Anesthetic: lidocaine 1% Amount of anesthesia used (mL): 10 Bedside Ultrasound Used: yes, Ascites confirmed and location marked Preparation: sterile prep and drape Amount of fluid obtained (mL): 5,300 Fluid: cloudy and sent to lab for analysis Post Procedure Exam: awake, alert and normal BP Patient Tolerated Procedure: well Complications: none Medical Decision Making Lab Data Result diagrams: 03/30/21 08:16 03/30/21 08:16 Labs: Lab Results 03/30/21 03/30/21 03/30/21 Range/Units 08:16 08:16 08:16 WBC 14.2 H (4.8-10.8) X10*3/uL RBC 3.09 L (4.60-5.80) X10*6/uL Hgb 9.2 L (14.0-18.0) g/dl Hct 27.4 L (42.0-52.0) % MCV 88.7 (80.0-98.0) fL MCH 29.8 (27.0-33.0) pg MCHC 33.6 (31.0-36.0) g/dl RDW 20.2 H (11.0-16.0) % Plt Count 149 L D (160-400) X10*3/uL MPV 11.2 (9.4-12.4) fL Immature Gran % (Auto) 2.0 H (0.0-0.4) % Neut % (Auto) 75.8 H (45-73) % Lymph % (Auto) 10.3 L (20-40) % Charlton % (Auto) 9.5 (2-11) % Eos % (Auto) 2.0 (0-4) % Baso % (Auto) 0.4 (0-2) % Lymph # (Auto) 1.5 (1.2-4.9) X10*3/uL Charlton # (Auto) 1.3 H (0.1-1.2) X10*3/uL Eos # (Auto) 0.3 (0.0-0.4) X10*3/uL Baso # (Auto) 0.1 (0.0-0.2) X10*3/uL Abs Immat Gran (auto) 0.29 H (0.00-0.03) X10*3/uL Absolute Neuts (auto) 10.7 H (2.0-8.3) x10*3/uL Absolute Nucleated RBC 0.000 (0.0-0.012) X10*3/uL Nucleated RBC % (auto) 0.0 (0.0-0.2) /100WBC PT (9.9-13.0) SEC INR (0.9-1.1) Sodium 132 L (135-145) mmol/L Potassium 5.7 H D (3.3-5.1) mmol/L Chloride 106 (96-108) mmol/L Carbon Dioxide 18 L (22-29) mmol/L Anion Gap 14 (12-20) BUN 25 H D (9-16) mg/dL Creatinine 1.02 (0.5-1.4) mg/dL Estim Creat Clear Calc 65.1 Estimated GFR > 60 POC Glucose (60-115) mg/dL Random Glucose 159 H D (60-115) mg/dL Lactic Acid 2.5 H* (0.5-2.0) mmol/L Lactic Acid F/U @ 2Hr (0.5-2.0) mmol/L Calcium 8.2 L (8.4-10.2) mg/dL Magnesium 1.8 (1.6-2.6) mg/dL Total Bilirubin 8.5 H (0.0-1.0) mg/dL Direct Bilirubin 5.3 H (0.0-0.5) mg/dL AST 214 H (5-37) U/L ALT 121 H (0-40) U/L Alkaline Phosphatase 239 H D (39-117) U/L Ammonia (13-55) umol/L Troponin I High Sens (<3.5-35.0) ng/L Total Protein 5.8 L (6.5-8.0) g/dL Albumin 2.7 L D (3.5-5.0) g/dL Lipase 35 (8-78) U/L Stool Occult Blood (NEGATIVE) Ethyl Alcohol mg/dL COVID-19 ([facility]IREE) (Negative) COVID-19 Clin Com Blood Type Antibody Screen 03/30/21 03/30/21 03/30/21 Range/Units 08:16 08:16 08:16 WBC (4.8-10.8) X10*3/uL RBC (4.60-5.80) X10*6/uL Hgb (14.0-18.0) g/dl Hct (42.0-52.0) % MCV (80.0-98.0) fL MCH (27.0-33.0) pg MCHC (31.0-36.0) g/dl RDW (11.0-16.0) % Plt Count (160-400) X10*3/uL MPV (9.4-12.4) fL Immature Gran % (Auto) (0.0-0.4) % Neut % (Auto) (45-73) % Lymph % (Auto) (20-40) % Charlton % (Auto) (2-11) % Eos % (Auto) (0-4) % Baso % (Auto) (0-2) % Lymph # (Auto) (1.2-4.9) X10*3/uL Charlton # (Auto) (0.1-1.2) X10*3/uL Eos # (Auto) (0.0-0.4) X10*3/uL Baso # (Auto) (0.0-0.2) X10*3/uL Abs Immat Gran (auto) (0.00-0.03) X10*3/uL Absolute Neuts (auto) (2.0-8.3) x10*3/uL Absolute Nucleated RBC (0.0-0.012) X10*3/uL Nucleated RBC % (auto) (0.0-0.2) /100WBC PT (9.9-13.0) SEC INR (0.9-1.1) Sodium (135-145) mmol/L Potassium (3.3-5.1) mmol/L Chloride (96-108) mmol/L Carbon Dioxide (22-29) mmol/L Anion Gap (12-20) BUN (9-16) mg/dL Creatinine (0.5-1.4) mg/dL Estim Creat Clear Calc Estimated GFR POC Glucose (60-115) mg/dL Random Glucose (60-115) mg/dL Lactic Acid (0.5-2.0) mmol/L Lactic Acid F/U @ 2Hr (0.5-2.0) mmol/L Calcium (8.4-10.2) mg/dL Magnesium (1.6-2.6) mg/dL Total Bilirubin (0.0-1.0) mg/dL Direct Bilirubin (0.0-0.5) mg/dL AST (5-37) U/L ALT (0-40) U/L Alkaline Phosphatase (39-117) U/L Ammonia (13-55) umol/L Troponin I High Sens 3.5 (<3.5-35.0) ng/L Total Protein (6.5-8.0) g/dL Albumin (3.5-5.0) g/dL Lipase (8-78) U/L Stool Occult Blood (NEGATIVE) Ethyl Alcohol < 10 mg/dL COVID-19 ([facility]IREE) Negative (Negative) COVID-19 Clin Com See Note Blood Type Antibody Screen 03/30/21 03/30/21 03/30/21 Range/Units 08:16 08:59 08:59 WBC (4.8-10.8) X10*3/uL RBC (4.60-5.80) X10*6/uL Hgb (14.0-18.0) g/dl Hct (42.0-52.0) % MCV (80.0-98.0) fL MCH (27.0-33.0) pg MCHC (31.0-36.0) g/dl RDW (11.0-16.0) % Plt Count (160-400) X10*3/uL MPV (9.4-12.4) fL Immature Gran % (Auto) (0.0-0.4) % Neut % (Auto) (45-73) % Lymph % (Auto) (20-40) % Charlton % (Auto) (2-11) % Eos % (Auto) (0-4) % Baso % (Auto) (0-2) % Lymph # (Auto) (1.2-4.9) X10*3/uL Charlton # (Auto) (0.1-1.2) X10*3/uL Eos # (Auto) (0.0-0.4) X10*3/uL Baso # (Auto) (0.0-0.2) X10*3/uL Abs Immat Gran (auto) (0.00-0.03) X10*3/uL Absolute Neuts (auto) (2.0-8.3) x10*3/uL Absolute Nucleated RBC (0.0-0.012) X10*3/uL Nucleated RBC % (auto) (0.0-0.2) /100WBC PT 17.5 H (9.9-13.0) SEC INR 1.5 H (0.9-1.1) Sodium (135-145) mmol/L Potassium (3.3-5.1) mmol/L Chloride (96-108) mmol/L Carbon Dioxide (22-29) mmol/L Anion Gap (12-20) BUN (9-16) mg/dL Creatinine (0.5-1.4) mg/dL Estim Creat Clear Calc Estimated GFR POC Glucose (60-115) mg/dL Random Glucose (60-115) mg/dL Lactic Acid (0.5-2.0) mmol/L Lactic Acid F/U @ 2Hr (0.5-2.0) mmol/L Calcium (8.4-10.2) mg/dL Magnesium (1.6-2.6) mg/dL Total Bilirubin (0.0-1.0) mg/dL Direct Bilirubin (0.0-0.5) mg/dL AST (5-37) U/L ALT (0-40) U/L Alkaline Phosphatase (39-117) U/L Ammonia 64 H (13-55) umol/L Troponin I High Sens (<3.5-35.0) ng/L Total Protein (6.5-8.0) g/dL Albumin (3.5-5.0) g/dL Lipase (8-78) U/L Stool Occult Blood (NEGATIVE) Ethyl Alcohol mg/dL COVID-19 ([facility]IREE) (Negative) COVID-19 Clin Com Blood Type O Positive Antibody Screen NEGATIVE 03/30/21 03/30/21 03/30/21 Range/Units 09:42 11:04 11:48 WBC (4.8-10.8) X10*3/uL RBC (4.60-5.80) X10*6/uL Hgb (14.0-18.0) g/dl Hct (42.0-52.0) % MCV (80.0-98.0) fL MCH (27.0-33.0) pg MCHC (31.0-36.0) g/dl RDW (11.0-16.0) % Plt Count (160-400) X10*3/uL MPV (9.4-12.4) fL Immature Gran % (Auto) (0.0-0.4) % Neut % (Auto) (45-73) % Lymph % (Auto) (20-40) % Charlton % (Auto) (2-11) % Eos % (Auto) (0-4) % Baso % (Auto) (0-2) % Lymph # (Auto) (1.2-4.9) X10*3/uL Charlton # (Auto) (0.1-1.2) X10*3/uL Eos # (Auto) (0.0-0.4) X10*3/uL Baso # (Auto) (0.0-0.2) X10*3/uL Abs Immat Gran (auto) (0.00-0.03) X10*3/uL Absolute Neuts (auto) (2.0-8.3) x10*3/uL Absolute Nucleated RBC (0.0-0.012) X10*3/uL Nucleated RBC % (auto) (0.0-0.2) /100WBC PT (9.9-13.0) SEC INR (0.9-1.1) Sodium (135-145) mmol/L Potassium (3.3-5.1) mmol/L Chloride (96-108) mmol/L Carbon Dioxide (22-29) mmol/L Anion Gap (12-20) BUN (9-16) mg/dL Creatinine (0.5-1.4) mg/dL Estim Creat Clear Calc Estimated GFR POC Glucose 116 H (60-115) mg/dL Random Glucose (60-115) mg/dL Lactic Acid (0.5-2.0) mmol/L Lactic Acid F/U @ 2Hr 2.6 H* (0.5-2.0) mmol/L Calcium (8.4-10.2) mg/dL Magnesium (1.6-2.6) mg/dL Total Bilirubin (0.0-1.0) mg/dL Direct Bilirubin (0.0-0.5) mg/dL AST (5-37) U/L ALT (0-40) U/L Alkaline Phosphatase (39-117) U/L Ammonia (13-55) umol/L Troponin I High Sens (<3.5-35.0) ng/L Total Protein (6.5-8.0) g/dL Albumin (3.5-5.0) g/dL Lipase (8-78) U/L Stool Occult Blood NEGATIVE (NEGATIVE) Ethyl Alcohol mg/dL COVID-19 ([facility]IREE) (Negative) COVID-19 Clin Com Blood Type Antibody Screen Imaging Data CT scan - abdomen: Radiologist's impression: FINDINGS: LUNG BASES: There is bibasilar atelectasis and/or scarring. The heart size is normal. There are pacer electrodes in right atrium and right ventricle.? LIVER, GALLBLADDER, AND BILIARY TREE: The liver is small size, lobulated surface and heterogenous. There is 3 cm slightly exophytic mass in right hepatic lobe segment 6. Previously it measured same size. There is a slightly larger lesion in the segment 6 measuring 7.5 x 4.1 cm on axial image 31/3. It is same size. There is no intrahepatic ductal dilatation. There is a moderate free fluid surrounding the liver and the spleen. The gallbladder is not seen with certainty at this time. PANCREAS: Unremarkable.? SPLEEN: Unremarkable.? ADRENAL GLANDS: There is left adrenal enlargement with a solitary nodule measuring 2.1 cm. The right adrenal gland appears unremarkable. There are adjacent numerous varices surrounding the left adrenal gland..? KIDNEYS AND URETERS: The kidneys are normal in size, shape, and attenuation. No hydronephrosis, hydroureter, or calculi seen. No perinephric stranding. ? BLADDER: Unremarkable.? GASTROINTESTINAL TRACT: There is a nondistended colon with gas. There is mild mural thickening of ascending, descending and sigmoid colon. The small bowel loops are normal caliber. Appendix is not seen. There is a large amount of ascites.? ABDOMINAL WALL: No significant hernia is appreciated.? LYMPH NODES: Normal. VASCULAR: There is atherosclerotic calcification of abdominal aorta and common iliac arteries. There are numerous varices seen in the upper abdomen and para-aortic region in the upper mid abdomen from a portal hypertension. The portal vein is not well opacified. PELVIC VISCERA: There is moderate free fluid. The prostate gland is mildly enlarged. There is fluid extending into the inguinal canal and the scrotum.? OSSEOUS STRUCTURES: No lytic or sclerotic process.? CT/CT abdomen pelvis wo con IMPRESSION: Large volume ascites. ? Liver cirrhosis with 2 hepatic lesions which are stable compared to previous CT abdomen exam 03/23/2021. ? Left adrenal lesion is stable. ? Nonspecific mild mural thickening distal descending colon which could be secondary to ascites or colitis. ? ? Fleischner guidelines were followed. Critical Care Time Critical Care Time Critical Care Time: Yes Total Critical Care Time: 90 Attestation: 90 minutes were spent in direct patient care, stabilization, procedures. Discharge Plan Discharge Clinical Impression: Abdominal pain, Ascites, Abnormal liver function Patient Disposition: Admitted As Inpatient
[2021-03-30 08:20] LABS: MANUAL DIFF FLAG NO
[2021-03-30 08:22] LABS: Basophils Absolute Auto 0.1 X10*3/uL (0.0-0.2); Basophils Percent Auto 0.4 % (0-2); Eosinophils Absolute Auto 0.3 X10*3/uL (0.0-0.4); Hematocrit 27.4 % (42.0-52.0); Hemoglobin 9.2 g/dl (14.0-18.0); Imm Gran Abs Auto 0.29 X10*3/uL (0.00-0.03); Lymphocytes Absolute Auto 1.5 X10*3/uL (1.2-4.9); Lymphocytes Percent Auto 10.3 % (20-40); Mean Corpuscular HGB Conc 33.6 g/dl (31.0-36.0); Mean Corpuscular Hemoglobin 29.8 pg (27.0-33.0); Mean Corpuscular Volume 88.7 fL (80.0-98.0); Mean Platelet Volume 11.2 fL (9.4-12.4); Monocytes Absolute Auto 1.3 X10*3/uL (0.1-1.2); Monocytes Percent Auto 9.5 % (2-11); Neutrophils Absolute Auto 10.7 x10*3/uL (2.0-8.3); Neutrophils Percent Auto 75.8 % (45-73); Platelet Count 149 X10*3/uL (160-400); Red Blood Count 3.09 X10*6/uL (4.60-5.80); Red Cell Distribution Width 20.2 % (11.0-16.0); White Blood Count 14.2 X10*3/uL (4.8-10.8)
[2021-03-30 08:28] LABS: Ammonia 64 umol/L (13-55)
[2021-03-30] MEDS: 0.9 % Sodium Chloride 1,000 ML 999 ML IVCONT (08:32)
[2021-03-30 08:34] LABS: Ethanol < 10 mg/dL
[2021-03-30 08:35] LABS: Lactic Acid 2.5 mmol/L (0.5-2.0)
--- NOTE | 2021-03-30 08:36 | PC.NURSE ---
IV access obtained to right lower forearm, bloods drawn and sent to lab, results pending. Pt with distended abd, jaundiced, c/o low abd pain, tender to palp. Bruising noted to BUE. Pt back from CT, iv fluids hung and running wo.
[2021-03-30 08:39] LABS: COVID-19 Test Negative (Negative)
[2021-03-30 08:41] LABS: Troponin-I High Sensitivity 3.5 ng/L (<3.5-35.0)
[2021-03-30 08:42] LABS: Alanine Aminotransferase 121 U/L (0-40); Albumin Level 2.7 g/dL (3.5-5.0); Alkaline Phosphatase 239 U/L (39-117); Anion Gap 14 (12-20); Aspartate Amino Transferase 214 U/L (5-37); Bilirubin Direct 5.3 mg/dL (0.0-0.5); Bilirubin Total 8.5 mg/dL (0.0-1.0); Blood Urea Nitrogen 25 mg/dL (9-16); Calcium 8.2 mg/dL (8.4-10.2); Carbon Dioxide 18 mmol/L (22-29); Chloride 106 mmol/L (96-108); Creatinine Clr Calc Pharmacy 65.1; Estimated Glomerular Filt Rate > 60; Glucose Random 159 mg/dL (60-115); Lipase 35 U/L (8-78); Magnesium 1.8 mg/dL (1.6-2.6); Potassium 5.7 mmol/L (3.3-5.1); Sodium 132 mmol/L (135-145); Total Protein 5.8 g/dL (6.5-8.0)
[2021-03-30 09:02] VITALS: BP 122/68; PULSE 108
[2021-03-30 09:15] LABS: INTERNATIONAL NORM RATIO 1.5 (0.9-1.1); Prothrombin Time 17.5 SEC (9.9-13.0)
[2021-03-30] MEDS: Morphine Sulfate 2 MG/ML CARTRIDGE IVPUSH (09:31)
[2021-03-30] MEDS: ondansetron HCL 4 MG/2 ML VIAL IVPUSH (10:01)
[2021-03-30 10:02] LABS: OBS Int Ctl Valid YES; OBS1 NEGATIVE (NEGATIVE)
[2021-03-30 10:19] LABS: Reflex Lactate? Lactic Acid Added
--- NOTE | 2021-03-30 10:33 | PC.NURSE ---
Dr. Jimenez at bedside performing paracentesis. Pt evan well.
[2021-03-30 11:12] VITALS: BP 103/51; PULSE 103
[2021-03-30 11:32] LABS: ~Lactic Acid-LAB USE ONLY 2.6 mmol/L (0.5-2.0)
[2021-03-30 11:52] LABS: Glucose, Whole Blood 116 mg/dL (60-115)
[2021-03-30] MEDS: Insulin Regular, Human 100 UNIT/ML 3 ML VIAL 10 UNIT IVPUSH (11:53)
[2021-03-30 12:51] LABS: Glucose, Whole Blood 305 mg/dL (60-115)
--- NOTE | 2021-03-30 13:07 | PHA.MEDREC ---
Pharmacy Consult ? Medication Reconciliation Pharmacy has completed the medication reconciliation. Pt had difficulty having a conversation. Patient was dc'd on 03/28/2021. Contact [facility] to confirm new medication were picked up. Rianna Rodgers, DeeD
[2021-03-30 13:14] LABS: Reflex Lactate? 2 Y
[2021-03-30] MEDS: Albumin Human 25 % 100 ML IV (13:55)
[2021-03-30 14:00] LABS: ~Lactic Acid-LAB USE ONLY 2.8 mmol/L (0.5-2.0)
--- NOTE | 2021-03-30 14:07 | PC.NURSE ---
5000 mls of fluid pulled of patient during paracentesis. Pt evan well. Resting quietly at this time, albumin hung and running on pump according to MAY.
[2021-03-30 14:09] LABS: Glucose, Whole Blood 160 mg/dL (60-115)
--- NOTE | 2021-03-30 15:57 | PM.IMHP ---
History of Present Illness Date of Service: 03/30/21 Chief Complaint: GI Bleed This 65yo M with decompensated HCV cirrhosis, AF on apixaban and s/p PPM placement, DM2, and asthma was initially admitted here 03/16/21 with anemia and abdominal distension.? He was transfused 3u pRBCs + 2u FFP.? Diagnostic paracentesis 03/16/21 showed bloody fluid due to spontaneous intraperitoneal hemorrhage.? He was admitted to ICU and [place] [facility] but left AMA 03/22/21; reference is made to the discharge summary by Dr Jorge Maya from 03/22/21.? He had undergone therapeutic paracenteses on 03/18 and again on 03/20.? He was re-admitted 03/23/21 to the ICU with hemorrhagic shock.? EGD done by Dr Bety Ambrosio on 03/24/20 showed large grade 3 esophageal varices and severe portal hypertensive gastropathy, and also a non-bleeding grade 3 duodenal ulcer.? The varices were banded.? He was given octreotide drip and IV PPI.? Sucralfate was started for prevention of post-banding ulceration.? Apixaban for prevention of AF-related CVA will be permanently discontinued given the severe bleeding risk.? Once he was hemodyanmically stable and bleeding was controlled, he was stepped down [place] [facility] [place].? His diet was gradually advanced.? He underwent therapeutic paracenteses on 03/24 and again on 03/27.? He was instructed to restrict sodium and fluid intake, and started on diuretics.? All antihypertensives had been held on admission to the ICU; he was started on low-dose carvedilol for prevention of variceal hemorrhage.? He will need close follow-up with [facility].? He again declined referral for liver transplant in my conversation with him.? He will need weekly paracenteses through [facility] Radiology and periodic lab monitoring [beginning in 1 week with CBCd, CMP, magnesium, and PT/INR].? He was discharged home with VNA services. 03/28/21. presented to the hospital today with increasing abdominal pain and abdominal girth. CT scan the abdomen failed to show any distinct changes and he was tapped 4 5 L with improvement in his pain. Shortly thereafter the tap patient had a large bloody bowel movement. When questioned about code status, he stated that he is done with this and wants to be comfortable. Call placed to [place] ( [phone].) Who states patient had multiple episodes of vomiting juana red blood overnight. She is in agreement with his decision and he will be made cm a Review of Systems Review of Systems: unable to obtain [facility] Medical History Hx of cardiac pacemaker Family History Father No problems noted. Mother No problems noted. Sister Hx of skin cancer, basal cell Surgical History H/O colonoscopy Hx of esophagogastroduodenoscopy (11/29/17) Social History Household Members: Spouse Housing: Apartment Do you presently have visiting nurse or other home services: No Unable to assess alcohol history related to: Unknown Alcohol intake: former Patient Tobacco Use Status: Former Tobacco user Tobacco use type: Cigarette e-Cigarette/Vaping Use: Never Used Substance Use Type: Marijuana Advance Directives: No Advance Directives Information Provided: No service: No Current occupational status: disabled Meds Allergies Allergy/AdvReac Type Severity Reaction Status Date / Time No Known Allergies Allergy Verified 03/16/21 05:32 Active Medications: Current Medications Lorazepam (Lorazepam 2 Mg/Ml Vial) 1 mg IVPUSH Q2H PRN PRN Reason: anxiety/restlessness Morphine Sulfate (Morphine Sulfate 4 Mg/Ml Cartridge) 4 mg IVPUSH Q2H PRN; Protocol PRN Reason: RESPIRATORY DISTRESS Pharmacy Consult (Consult Rx Perform Med Rec) 1 each MISCELLANE ONCE PRN PRN Reason: Consult order Sodium Chloride (0.9 % Sodium Chloride Flush 3 Ml Syringe) 3 ml IVFLUSH [facility] Medications Medication Instructions Recorded Confirmed Last Taken Type cholecalciferol (vitamin D3) 25 25 mcg PO DAILY 03/24/20 03/30/21 03/15/21 History mcg (1,000 unit) capsule albuterol sulfate 90 mcg/actuation 1 - 2 puff INHALATION Q6H PRN 04/03/30/21 03/15/21 History aerosol inhaler umeclidinium 62.5 mcg/actuation 1 inh INHALATION DAILY 02/16/21 03/30/21 03/15/21 History blister powder for inhalation (Incruse Ellipta) atorvastatin 10 mg tablet 1 tab PO DAILY 03/23/21 03/30/21 Unknown History Physical Exam Vital Signs and Narrative: Vital Signs: Last Vital Signs Temp 98.3 F 03/30/21 07:53 Pulse 103 H 03/30/21 11:12 Resp 20 03/30/21 07:53 BP 103/51 L 03/30/21 11:12 Pulse Ox 99 03/30/21 07:53 BMI result Body Mass Index 25.9 Const: Other: ill-appearing male no acute distress at this time Resp: Other: clear to auscultation bilaterally no rales rhonchi wheezes Cardio: Other: no S4; positive S1-S2; no S3 murmurs rubs or gallops GI: Other: distended slightly firm despite recent tap bowel sounds quiet Skin: Other: icteric Extrem: Other: no edema bilaterally Results Labs CBC and Chem 7: 03/30/21 08:16 03/30/21 08:16 Labs: Laboratory Results - last 24 hr 03/30/21 03/30/21 03/30/21 08:16 08:16 08:16 MCV 88.7 MCH 29.8 MCHC 33.6 RDW 20.2 H Plt Count 149 L D MPV 11.2 Immature Gran % (Auto) 2.0 H Neut % (Auto) 75.8 H Lymph % (Auto) 10.3 L [place] % (Auto) 9.5 Eos % (Auto) 2.0 Baso % (Auto) 0.4 Lymph # (Auto) 1.5 [place] # (Auto) 1.3 H Eos # (Auto) 0.3 Baso # (Auto) 0.1 Abs Immat Gran (auto) 0.29 H Absolute Neuts (auto) 10.7 H Absolute Nucleated RBC 0.000 Nucleated RBC % (auto) 0.0 PT INR Anion Gap 14 Estim Creat Clear Calc 65.1 Estimated GFR > 60 POC Glucose Random Glucose 159 H D Lactic Acid 2.5 H* Lactic Acid F/U @ 2Hr Lactic Acid F/U @ 4Hr Calcium 8.2 L Magnesium 1.8 Total Bilirubin 8.5 H Direct Bilirubin 5.3 H AST 214 H ALT 121 H Alkaline Phosphatase 239 H D Ammonia Troponin I High Sens Total Protein 5.8 L Albumin 2.7 L D Lipase 35 Stool Occult Blood Ethyl Alcohol COVID-19 (DESIREE) COVID-19 [employer] Blood Type Antibody Screen 03/30/21 03/30/21 03/30/21 08:16 08:16 08:16 MCV MCH MCHC RDW Plt Count MPV Immature Gran % (Auto) Neut % (Auto) Lymph % (Auto) [place] % (Auto) Eos % (Auto) Baso % (Auto) Lymph # (Auto) [place] # (Auto) Eos # (Auto) Baso # (Auto) Abs Immat Gran (auto) Absolute Neuts (auto) Absolute Nucleated RBC Nucleated RBC % (auto) PT INR Anion Gap Estim Creat Clear Calc Estimated GFR POC Glucose Random Glucose Lactic Acid Lactic Acid F/U @ 2Hr Lactic Acid F/U @ 4Hr Calcium Magnesium Total Bilirubin Direct Bilirubin AST ALT Alkaline Phosphatase Ammonia Troponin I High Sens 3.5 Total Protein Albumin Lipase Stool Occult Blood Ethyl Alcohol < 10 COVID-19 (DESIREE) Negative COVID-19 [employer] See Note Blood Type Antibody Screen 03/30/21 03/30/21 03/30/21 08:16 08:59 08:59 MCV MCH MCHC RDW Plt Count MPV Immature Gran % (Auto) Neut % (Auto) Lymph % (Auto) [place] % (Auto) Eos % (Auto) Baso % (Auto) Lymph # (Auto) [place] # (Auto) Eos # (Auto) Baso # (Auto) Abs Immat Gran (auto) Absolute Neuts (auto) Absolute Nucleated RBC Nucleated RBC % (auto) PT 17.5 H INR 1.5 H Anion Gap Estim Creat Clear Calc Estimated GFR POC Glucose Random Glucose Lactic Acid Lactic Acid F/U @ 2Hr Lactic Acid F/U @ 4Hr Calcium Magnesium Total Bilirubin Direct Bilirubin AST ALT Alkaline Phosphatase Ammonia 64 H Troponin I High Sens Total Protein Albumin Lipase Stool Occult Blood Ethyl Alcohol COVID-19 (DESIREE) COVID-[employer] Com Blood Type O Positive Antibody Screen NEGATIVE 03/30/21 03/30/21 03/30/21 09:42 11:04 11:48 MCV MCH MCHC RDW Plt Count MPV Immature Gran % (Auto) Neut % (Auto) Lymph % (Auto) [place] % (Auto) Eos % (Auto) Baso % (Auto) Lymph # (Auto) [place] # (Auto) Eos # (Auto) Baso # (Auto) Abs Immat Gran (auto) Absolute Neuts (auto) Absolute Nucleated RBC Nucleated RBC % (auto) PT INR Anion Gap Estim Creat Clear Calc Estimated GFR POC Glucose 116 H Random Glucose Lactic Acid Lactic Acid F/U @ 2Hr 2.6 H* Lactic Acid F/U @ 4Hr Calcium Magnesium Total Bilirubin Direct Bilirubin AST ALT Alkaline Phosphatase Ammonia Troponin I High Sens Total Protein Albumin Lipase Stool Occult Blood NEGATIVE Ethyl Alcohol COVID-19 (DESIREE) COVID-19 [employer] Blood Type Antibody Screen 03/30/21 03/30/21 03/30/21 12:35 13:41 14:06 MCV MCH MCHC RDW Plt Count MPV Immature Gran % (Auto) Neut % (Auto) Lymph % (Auto) [place] % (Auto) Eos % (Auto) Baso % (Auto) Lymph # (Auto) [place] # (Auto) Eos # (Auto) Baso # (Auto) Abs Immat Gran (auto) Absolute Neuts (auto) Absolute Nucleated RBC Nucleated RBC % (auto) PT INR Anion Gap Estim Creat Clear Calc Estimated GFR POC Glucose 305 H 160 H Random Glucose Lactic Acid Lactic Acid F/U @ 2Hr Lactic Acid F/U @ 4Hr 2.8 H* Calcium Magnesium Total Bilirubin Direct Bilirubin AST ALT Alkaline Phosphatase Ammonia Troponin I High Sens Total Protein Albumin Lipase Stool Occult Blood Ethyl Alcohol COVID-19 (DESIREE) COVID-19 [employer] Blood Type Antibody Screen Imaging Radiologist's Impressions: Impressions Abdomen/Pelvis CT 03/30/21 08:34 IMPRESSION: Large volume ascites. Liver cirrhosis with 2 hepatic lesions which are stable compared to previous CT abdomen exam 03/23/2021. Left adrenal lesion is stable. Nonspecific mild mural thickening distal descending colon which could be secondary to ascites or colitis. Fleischner guidelines were followed. Assessment and Plan (1) Ascites: Status: Acute (2) Esophageal varices with hemorrhage: Status: Acute (3) Acute blood loss anemia: Status: Acute (4) Cirrhosis of liver with ascites: Status: Acute 65-year-old male with known history of end-stage cirrhosis and known esophageal varices presents with tense ascites that was relieved with a 5 L tap. During ER stay, he had a large bloody bowel movement. When discussed about code status he states he just wants to be comfortable. call placed , who was in agreement with this decision. He will be made comfort measures, and clergy will be called Quality Stroke Does the patient have a stroke diagnosis?: No VTE Prior VTE?: No VTE Risk Level:: Medical - moderate - high VTE Device Contraindication: Treatment Not Indicated VTE Drug Contraindication: Treatment Not Indicated
[2021-03-30] MEDS: Morphine Sulfate 4 MG/ML CARTRIDGE IVPUSH ×3 (19:24→23:18)
[2021-03-30] MEDS: 0.9 % Sodium Chloride Flush 3 ML SYRINGE IVFLUSH ×2 (19:25→23:21)
[2021-03-30] MEDS: LORazepam 2 MG/ML VIAL 1 MG IVPUSH (23:18)
[2021-03-31] VITALS: RESP 16
[2021-03-31] MEDS: Morphine Sulfate 4 MG/ML CARTRIDGE IVPUSH ×5 (03:14→15:42)
[2021-03-31] MEDS: LORazepam 2 MG/ML VIAL 1 MG IVPUSH ×3 (03:51→13:21)
[2021-03-31 05:48] VITALS: BP 86/49; PULSE 97; RESP 16
[2021-03-31 07:16] LABS: Glucose Peritoneal Fluid 154; LDH Peritoneal Fluid 87; Total Protein Peritoneal Fluid 1.5
[2021-03-31] MEDS: 0.9 % Sodium Chloride Flush 3 ML SYRINGE IVFLUSH ×2 (07:38→15:34)
[2021-03-31 08:00] VITALS: RESP 18
--- NOTE | 2021-03-31 09:48 | MHC.CM.PN ---
PATIENT IS ACTIVE WITH [facility] S[facility] AND ARE IN ROOM. (MIREYA) STATES THAT SHE IS THE HCP AND THE FORM WAS COMPLETED WITH [facility] YESTERDAY. COPY REQUESTED. CASE MANAGEMENT FOLLOWING. IMM 03/31 IN CHART
--- NOTE | 2021-03-31 11:47 | P.PNIM_ITS ---
Subjective Subjective Date of Service: 03/31/21 Interval History: minimally responsive; opens eyes to verbal stimulation. has deteriorated since admission Review of Systems unable to obtain secondary to nonverbal status Physical Exam Vital Signs: Vital Signs: Last Vital Signs Temp 98.3 F 03/30/21 07:53 Pulse 97 03/31/21 05:48 Resp 18 03/31/21 08:00 BP 86/49 L 03/31/21 05:48 Pulse Ox 99 03/30/21 07:53 BMI result Body Mass Index 25.9 Const: Other: ill-appearing male no acute distress at this time Resp: Other: clear to auscultation bilaterally no rales rhonchi wheezes Cardio: Other: no S4; positive S1-S2; no S3 murmurs rubs or gallops GI: Other: distended slightly but soft. Quiet bowel sounds Skin: Other: icteric Extrem: Other: no edema bilaterally Objective Data Active Medications Lorazepam (Lorazepam 2 Mg/Ml Vial) 1 mg IVPUSH Q2H PRN PRN Reason: anxiety/restlessness Last Admin: 03/31/21 09:41 Dose: 1 mg Documented by: HELLEN Morphine Sulfate (Morphine Sulfate 4 Mg/Ml Cartridge) 4 mg IVPUSH Q2H PRN; Protocol PRN Reason: RESPIRATORY DISTRESS Last Admin: 03/31/21 09:45 Dose: 4 mg Documented by: HELLEN Pharmacy Consult (Consult Rx Perform Med Rec) 1 each MISCELLANE ONCE PRN PRN Reason: Consult order Sodium Chloride (0.9 % Sodium Chloride Flush 3 Ml Syringe) 3 ml IVFLUSH [facility] Last Admin: 03/31/21 07:38 Dose: 3 ml Documented by: HELLEN Labs CBC & Chem 7: 03/30/21 08:16 03/30/21 08:16 Labs: Laboratory Results - last 24 hr 03/30/21 03/30/21 03/30/21 10:44 11:48 12:35 POC Glucose 116 H 305 H Lactic Acid F/U @ 4Hr Peritoneal Tot Protein 1.5 Peritoneal LDH 87 Peritoneal Glucose 154 03/30/21 03/30/21 13:41 14:06 POC Glucose 160 H Lactic Acid F/U @ 4Hr 2.8 H* Peritoneal Tot Protein Peritoneal LDH Peritoneal Glucose Microbiology Microbiology Results: Microbiology 03/30/21 08:58 Blood Culture - Preliminary Blood - Venous No growth after 24 hours. 03/30/21 09:00 Blood Culture - Preliminary Blood - Venous No growth after 24 hours. 03/30/21 10:44 Gram Stain - Final Abdominal Fluid Assessment and Plan (1) Ascites: Status: Acute (2) Esophageal varices with hemorrhage: Status: Acute (3) Acute blood loss anemia: Status: Acute Assessment and Plan: 65-year-old male with known history of end-stage cirrhosis and known esophageal varices presents with tense ascites that was relieved with a 5 L tap. 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 Continue current measures Quality Stroke Does the patient have a stroke diagnosis?: No VTE Prior VTE?: No VTE Risk Level:: Medical - moderate - high VTE Device Contraindication: Treatment Not Indicated VTE Drug Contraindication: Treatment Not Indicated
--- NOTE | 2021-03-31 13:49 | MHC.CLN ---
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 DIET=FULL LIQUID. PER MD, MINIMALLY RESPONSIVE.
[2021-03-31 16:00] VITALS: RESP 16
--- NOTE | 2021-03-31 17:38 | PM.EVENT ---
Event Note Date of Service: 03/31/21 Event Note: called to see patient; no respirations, no audible heart beat, no response to painful stimuli. Pronounced at 17:30. [place] notified
--- NOTE | 2021-03-31 18:37 | PC.NURSE ---
Patient was [facility] PATHOLOG[facility], at 17:30,MD and nursing engraving supervisor aware. [place] notified by , at bedside,took personal belongings.
--- NOTE | 2021-06-27 16:43 | PM.DDS ---
Discharge Sum: Prov Provider Primary care physician: Rhina Carney NP Discharge Sum: Diag Contributing Factors (1) Ascites: (2) Esophageal varices with hemorrhage: (3) Acute blood loss anemia: Discharge Sum: Summary Date and Time Date of admission: 03/30/21 15:39 Summary Details: This 65yo M with decompensated HCV cirrhosis, AF on apixaban and s/p PPM placement, DM2, and asthma was initially admitted here 03/16/21 with anemia and abdominal distension.? He was transfused 3u pRBCs + 2u FFP.? Diagnostic paracentesis 03/16/21 showed bloody fluid due to spontaneous intraperitoneal hemorrhage.? He was admitted to ICU and stepped down to [facility] 03/17/21 but left AMA 03/22/21; reference is made to the discharge summary by Dr Jorge Maya from 03/22/21.? He had undergone therapeutic paracenteses on 03/18 and again on 03/20.? He was re-admitted 03/23/21 to the ICU with hemorrhagic shock.? EGD done by Dr Bety Ambrosio on 03/24/20 showed large grade 3 esophageal varices and severe portal hypertensive gastropathy, and also a non-bleeding grade 3 duodenal ulcer.? The varices were banded.? He was given octreotide drip and IV PPI.? Sucralfate was started for prevention of post-banding ulceration.? Apixaban for prevention of AF-related CVA will be permanently discontinued given the severe bleeding risk.? Once he was hemodyanmically stable and bleeding was controlled, he was stepped down to [facility] 03/24/21.? His diet was gradually advanced.? He underwent therapeutic paracenteses on 03/24 and again on 03/27.? He was instructed to restrict sodium and fluid intake, and started on diuretics.? All antihypertensives had been held on admission to the ICU; he was started on low-dose carvedilol for prevention of variceal hemorrhage.? He will need close follow-up with [facility].? He again declined referral for liver transplant in my conversation with him.? He will need weekly paracenteses through [facility] and periodic lab monitoring [beginning in 1 week with CBCd, CMP, magnesium, and PT/INR].? He was discharged home with [facility] services. 03/28/21. ?presented to the hospital today with increasing abdominal pain and abdominal girth.? CT scan the abdomen failed to show any distinct changes and he was tapped 4 5 L with improvement in his pain.? Shortly thereafter the tap patient had a large? bloody bowel movement.? When questioned about code status, he stated that he is done with this and wants to be comfortable.? Call placed to [place] ( [phone].)? Who states patient had multiple episodes of vomiting juana red blood overnight.? 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 Hospital Course called to see patient; no respirations, no audible heart beat, no response to painful stimuli.? Pronounced at 17:30.? [place] notified Additional Data Confirmation of as documented by pronouncing clinician: no pulse, no respirations, no heart sounds and pupils fixed and dilated Family: contacted Attending physician: Cedric Mg, DO Autopsy requested?: No chief bank examiner notified?: No Hospice patient?: No
== END 2021-03-31 18:37 | disposition expired | DRG 951 ==
LOC: HO.ED 11:53 → HO.EDOVER 15:44 → HO.S3 20:36
PROVIDERS: Admitting Provider Hospitalist; Emergency Provider Emergency Medicine; PCP Nurse Practitioner Primary Care; Visit Provider Hospitalist
DX: Z51.5 Encounter for palliative care (principal); I85.11 Secondary esophageal varices with bleeding; R18.8 Other ascites; D62 Acute posthemorrhagic anemia; K74.69 Other cirrhosis of liver; I48.91 Unspecified atrial fibrillation; Z20.822 Contact with and (suspected) exposure to COVID-19; Z95.0 Presence of cardiac pacemaker; Z87.891 Personal history of nicotine dependence; Z79.899 Other long term (current) drug therapy
CPT/HCPCS: 36415; 74176; 80048; 80076; 82077; 82140; 82272; 82945; 82947; 83605; 83615; 83690; 83735; 84157; 84484; 85025; 85610; 86850; 86900; 86901; 87040; 87071; 87073; 87205; 87635; 93005; 99284; J0696; J2060; J2270; J2405; P9047